=== PATIENT | male | born 1955 | race Caucasian/White ===

== ENCOUNTER 2016-10-12 20:03 | Emergency (ER) | payer MEDICARE ==
[2016-10-12] MEDS ORDERED: Sodium Chloride 0.9% 1000 ML 1,000 ML ONE ×2 (20:18→21:02)
[2016-10-12] MEDS: Sodium Chloride 0.9% 1000 ML 1,000 ML IV SCH ×2 (20:32→21:03)
[2016-10-12 20:33] LABS: Mean Cell Volume 97.5 fl (78-100); Mean Corpuscular Hemoglobin 31.8 pg (26-32); Mean Platelet Volume 10.9 fl (6-9.5); Platelet Count 252 K/mm3 (150-450); Red Blood Count 3.55 M/mm3 (4.1-5.6); Red Cell Distribution Width 15.2 % (11.5-14.0); White Blood Count 9.3 K/mm3 (4.0-10.5)
[2016-10-12 20:37] LABS: VBG BASE EXCESS -0.6 (-2.0-2.0); VBG HCO3- 25.8 meq/L (22-28); VBG HEMOGLOBIN 11.4; VBG O2 SATURATION 35.5 (95-100); VBG POTASSIUM 4.5 (3.5-5.1); VBG pH 7.33 (7.32-7.42)
--- NOTE | 2016-10-12 20:39 | ERPHSYRPT ---
- History of Present Illness Time Seen by Provider: 10/12/16 20:09 Source: patient, family (daughter) Patient Subjective Stated Complaint: Family sts vomiting last week, sts pt has been weak since. Not wanting to eat, drink. Notified family yesterday that he was having weakness and trouble ambulating. Today is worse. Family sts pt has baseline confusion due to brain aneurysm. Also sts several strokes in the past. Family sts increasing confusion today. Triage Nursing Assessment: Pt alert, answers questions appropriately. Oral mucosa dry. Pt able to stand and transfer self from wheelchair to bed. Gait slow, steady. Lung sound dimished all cobb with expriatory wheezes left upper and lower. Cough noted - non-productive. Physician History: CC: weakness hx: 61 y/o patient of Dr Clark. He has hx of COPD. He has some dementia and memory loss since cerebral aneurysm 2 years ago. He has no hx of heart disease. Family dispenses his medications at home but unsure of names. He feels generally weak. No focal weakness. Not sure when it started. No fever or chills. Some diarrhea last week. No V/D currently. States has not urinated since yesterday. No chest pain. Some chronic cough. Most hx from daughter. Pt is poor historian. Severity: severe Allergies/Adverse Reactions: No Known Drug Allergies Allergy (Verified 09/12/15 19:13) Home Medications: Alprazolam [Xanax 0.5 mg] 0.5 mg PO QID 08/02/14 [History] Folic Acid 1 mg PO DAILY 08/02/14 [History] Lisinopril 40 mg PO DAILY 04/15/15 [History] Atorvastatin Calcium [Lipitor] 80 mg PO HS 06/20/15 [History] Carvedilol 3.125 mg [Coreg 3.125 MG] 6.25 mg PO BID 06/20/15 [History] Omeprazole 20 MG [Prilosec 20 mg] 20 mg PO BID 06/20/15 [History] Albuterol 2.5 mg/3 ml Neb [Proventil 2.5 mg/3 ml Neb] 2.5 mg IH Q4HPRN PRN 09/10/15 [History] Hx Tetanus, Diphtheria Vaccination/Date Given: Yes Hx Influenza Vaccination/Date Given: Yes Hx Pneumococcal Vaccination/Date Given: Yes - Review of Systems Constitutional: Fatigue, Malaise, Weakness, No Fever, No Chills Eyes: No Symptoms Ears, Nose, & Throat: No Symptoms Respiratory: Cough, No Dyspnea Cardiac: No Chest Pain, No Syncope Abdominal/Gastrointestinal: No Abdominal Pain, No Nausea, No Vomiting Genitourinary Symptoms: Other (decreased urination), No Dysuria Musculoskeletal: No Back Pain Skin: No Rash Neurological: No Headache All Other Systems: Reviewed and Negative - Past Medical History Pertinent Past Medical History: Yes Neurological History: Stroke, TIA, Other ENT History: Cataracts Cardiac History: High Cholesterol, Hypertension Respiratory History: COPD, Emphysema Endocrine Medical History: No Pertinent History Musculoskeletal History: No Pertinent History GI Medical History: No Pertinent History History: Renal Disease Psycho-Social History: Anxiety, Depression Male Reproductive Disorders: No Pertinent History Other Medical History: BRAIN ANEURYSM. Renal insufficiency - Past Surgical History Past Surgical History: Yes Neuro Surgical History: Neurological Surgery, Other Cardiac: No Pertinent History Respiratory: No Pertinent History Gastrointestinal: No Pertinent History Genitourinary: No Pertinent History Musculoskeletal: No Pertinent History Male Surgical History: No Pertinent History Other Surgical History: Brain aneurism, 2 clips in brain 2006 or 2007, CATARACT SURGERY X 3 - Social History Smoking Status: Current every day smoker How long have you smoked: 30 Exposure to second hand smoke: No Drug Use: none Patient Lives Alone: No (family stays with him at home.) - Nursing Vital Signs Nursing Vital Signs: Initial Vital Signs Temperature 98.6 F Temperature Source Rectal Pulse Rate 72 Respiratory Rate 16 Blood Pressure [Right Arm] 83/52 Pain Intensity 0 - Physical Exam General Appearance: alert Eye Exam: PERRL/EOMI, pale conjunctivae, No scleral icterus Ears, Nose, Throat Exam: normal ENT inspection, moist mucous membranes Neck Exam: normal inspection, non-tender, supple Respiratory Exam: diminished breath sounds Cardiovascular Exam: regular rate/rhythm Gastrointestinal/Abdomen Exam: soft, No tenderness, No distention, No mass, No guarding Male Genitalia Exam: normal genitalia Extremity Exam: normal inspection, normal range of motion Neurologic Exam: alert, cooperative, No motor deficits Skin Exam: warm, dry, No rash SpO2 Interpretation: normal SpO2: 98 Oxygen Delivery: Room Air Comments: 10/12/16 20:37 hypotensive - Course Nursing assessment & vital signs reviewed: Yes EKG Interpreted by Me: RATE (86), Sinus Rhythm, NORMAL AXIS, NORMAL INTERVALS ( QTc 421), Non-specific ST Changes, Other (Poor R wave progression) - Radiology Exams cxr X-ray Interpretation: Reviewed by me (COPD, can not rule out LLL infiltrate) Ordered Tests: Active Orders 24 hr Category Date Time Status Shed Workers Supervisor STAT Care 10/12/16 20:20 Active Clean Catch Urine Specimen STAT Care 10/12/16 20:20 Inactive EKG-ER Only STAT Care 10/12/16 20:23 Active Casper [Catheter-[place] Casper] STAT Care 10/12/16 20:50 Active IV Insertion STAT Care 10/12/16 20:30 Active IV Insertion-2nd Peripheral STAT Care 10/12/16 20:55 Active Pulse Oximetry (ED) STAT Care 10/12/16 20:20 Active Rectal Temperature STAT Care 10/12/16 20:20 Active Saline Lock STAT Care 10/12/16 20:20 Active CHEST 1 VIEW (PORTABLE) Stat Exams 10/12/16 20:21 Taken BLOOD CULTURE Stat Lab 10/12/16 20:47 Received CBC W DIFF Stat Lab 10/12/16 20:27 Completed CMP Stat Lab 10/12/16 20:27 Completed CULTURE,URINE Stat Lab 10/12/16 20:49 Received Glucose,Critical Care Stat Lab 10/12/16 20:20 Completed Lactic Acid Stat Lab 10/12/16 20:28 Results Manual Differential NC Stat Lab 10/12/16 20:27 Completed PROTIME WITH INR Stat Lab 10/12/16 20:27 Completed PTT Stat Lab 10/12/16 20:27 Completed TROPONIN Stat Lab 10/12/16 20:27 Completed UA W/ MICROSCOPIC Stat Lab 10/12/16 20:52 Completed VENOUS BLOOD GAS Stat Lab 10/12/16 20:20 Completed Medication Summary Generic Name Dose Route Start Last Admin Trade Name Freq PRN Reason Stop Dose Admin Sodium Chloride 1,000 mls @ 999 mls/hr 10/12/16 20:30 10/12/16 21:03 Sodium Chloride 0.9% 1000 Ml IV 10/12/16 22:30 999 mls/hr .Q1H1M DONALDO Administration Ceftriaxone Sodium/Dextrose 1 g in 50 mls @ 100 mls/hr 10/12/16 21:09 21:12 Rocephin 1 Gm-D5w 50 Ml Bag IV 10/12/16 21:38 100 mls/hr STAT STA Administration Azithromycin 500 mg in 250 mls @ 250 mls/hr 10/12/16 21:16 10/12/16 21:21 Zithromax 500 Mg/ 250 Ml Nacl Premix IV 10/12/16 22:15 250 mls/hr STAT STA Administration Discontinued Medications Generic Name Dose Route Start Last Admin Trade Name Emanuel PRN Reason Stop Dose Admin Sodium Chloride Confirm 10/12/16 20:18 Sodium Chloride 0.9% 1000 Ml Administered 10/12/16 20:19 Dose 1,000 mls @ ud .ROUTE .STK-MED ONE Ceftriaxone Sodium/Dextrose Confirm 10/12/16 21:11 Rocephin 1 Gm-D5w 50 Ml Bag Administered 10/12/16 21:12 Dose 1 g in 50 mls @ ud IV .STK-MED ONE Azithromycin Confirm 10/12/16 21:19 Zithromax 500 Mg/ 250 Ml Nacl Premix Administered 10/12/16 21:20 Dose 500 mg in 250 mls @ ud IV .STK-MED ONE Lab/Rad Data: Laboratory Result Diagrams 10/12/16 20:27 10/12/16 20:27 Laboratory Results 10/12/16 10/12/16 10/12/16 Range/Units 20:52 20:28 20:27 WBC (4.0-10.5) K/mm3 RBC (4.1-5.6) M/mm3 Hgb (12.5-18.0) gm/dl Hct (42-50) % MCV (78-100) fl MCH (26-32) pg MCHC (32-36) g/dl RDW (11.5-14.0) % Plt Count (150-450) K/mm3 MPV (6-9.5) fl INR (0.8-3.0) APTT (24.1-36.1) SECONDS VBG pH (7.32-7.42) VBG pCO2 at Pat Temp (42-55) mm/Hg VBG pO2 at Pat Temp (25-40) mm/Hg VBG HCO3 (22-28) meq/L VBG O2 Sat ([place]) (95-100) VBG Base Excess (-2.0-2.0) VBG Hemoglobin VBG Carboxyhemoglobin (0.0-6.9) % T HGB POC Potassium (3.5-5.1) Glucose (70-110) Sodium (136-145) mEq/L Potassium (3.5-5.1) mEq/L Chloride (98-107) mEq/L Carbon Dioxide (21-32) mEq/L Anion Gap (5-15) MEQ/L BUN (9-20) mg/dL Creatinine (0.55-1.30) mg/dl Estimated GFR ML/MIN Lactic Acid 2.0 (0.4-2.0) Calcium (8.5-10.1) mg/dL Total Bilirubin (0.2-1.0) mg/dL AST (15-37) U/L ALT (12-78) U/L Alkaline Phosphatase (46-116) U/L Troponin I < 0.017 (0.000-0.056) ng/ml Serum Total Protein (6.4-8.2) gm/dL Albumin (3.4-5.0) g/dL Ur Collection Type CLEAN CATCH Urine Color WES (YELLOW) Urine Appearance CLEAR (CLEAR) Urine pH 5.0 (5-6) Ur Specific [place] >=1.030 (1.005-1.025) Urine Protein TRACE (Negative) Urine Glucose (UA) NEGATIVE (NEGATIVE) mg/dL Urine Ketones NEGATIVE (NEGATIVE) Urine Nitrite NEGATIVE (NEGATIVE) Urine Bilirubin SMALL (NEGATIVE) Urine Urobilinogen 0.2 (0-1) mg/dL Urine WBC (Auto) NEGATIVE (NEGATIVE) Urine RBC (Auto) TRACE-INTACT (0-5) Matthias/ul Urine Microscopic RBC 0-2 (0-2) /HPF Ur Epithelial Cells RARE (FEW) /HPF Urine Bacteria FEW (NEGATIVE) /HPF Specimen Received [id number] 10/12/16 10/12/16 10/12/16 Range/Units 20:27 20:27 20:27 WBC 9.3 (4.0-10.5) K/mm3 RBC 3.55 L (4.1-5.6) M/mm3 Hgb 11.3 L (12.5-18.0) gm/dl Hct 34.6 L (42-50) % MCV 97.5 (78-100) fl MCH 31.8 (26-32) pg MCHC 32.7 (32-36) g/dl RDW 15.2 H (11.5-14.0) % Plt Count 252 (150-450) K/mm3 MPV 10.9 H (6-9.5) fl INR 1.13 (0.8-3.0) APTT 31.8 (24.1-36.1) SECONDS VBG pH (7.32-7.42) VBG pCO2 at Pat Temp (42-55) mm/Hg VBG pO2 at Pat Temp (25-40) mm/Hg VBG HCO3 (22-28) meq/L VBG O2 Sat ([place]liv[place]) (95-100) VBG Base Excess (-2.0-2.0) VBG Hemoglobin VBG Carboxyhemoglobin (0.0-6.9) % T HGB POC Potassium (3.5-5.1) Glucose 102 (70-110) Sodium 139 (136-145) mEq/L Potassium 4.5 (3.5-5.1) mEq/L Chloride 102 (98-107) mEq/L Carbon Dioxide 25.9 (21-32) mEq/L Anion Gap 15.2 H (5-15) MEQ/L BUN 39 H (9-20) mg/dL Creatinine 3.51 H (0.55-1.30) mg/dl Estimated GFR 19 ML/MIN Lactic Acid (0.4-2.0) Calcium 9.5 (8.5-10.1) mg/dL Total Bilirubin 0.40 (0.2-1.0) mg/dL AST 14 L (15-37) U/L ALT 13 (12-78) U/L Alkaline Phosphatase 105 (46-116) U/L Troponin I (0.000-0.056) ng/ml Serum Total Protein 8.3 H (6.4-8.2) gm/dL Albumin 3.1 L (3.4-5.0) g/dL Ur Collection Type Urine Color (YELLOW) Urine Appearance (CLEAR) Urine pH (5-6) Ur Specific [place] (1.005-1.025) Urine Protein (Negative) Urine Glucose (UA) (NEGATIVE) mg/dL Urine Ketones (NEGATIVE) Urine Nitrite (NEGATIVE) Urine Bilirubin (NEGATIVE) Urine Urobilinogen (0-1) mg/dL Urine WBC (Auto) (NEGATIVE) Urine RBC (Auto) (0-5) Matthias/ul Urine Microscopic RBC (0-2) /HPF Ur Epithelial Cells (FEW) /HPF Urine Bacteria (NEGATIVE) /HPF Specimen Received 10/12/16 Range/Units 20:20 WBC (4.0-10.5) K/mm3 RBC (4.1-5.6) M/mm3 Hgb (12.5-18.0) gm/dl Hct (42-50) % MCV (78-100) fl MCH (26-32) pg MCHC (32-36) g/dl RDW (11.5-14.0) % Plt Count (150-450) K/mm3 MPV (6-9.5) fl INR (0.8-3.0) APTT (24.1-36.1) SECONDS VBG pH 7.33 (7.32-7.42) VBG pCO2 at Pat Temp 49 (42-55) mm/Hg VBG pO2 at Pat Temp 21 L (25-40) mm/Hg VBG HCO3 25.8 (22-28) meq/L VBG O2 Sat ([place]liv[place]) 35.5 L (95-100) VBG Base Excess -0.6 (-2.0-2.0) VBG Hemoglobin 11.4 VBG Carboxyhemoglobin 3.0 (0.0-6.9) % T HGB POC Potassium 4.5 (3.5-5.1) Glucose 102 (70-110) Sodium (136-145) mEq/L Potassium (3.5-5.1) mEq/L Chloride (98-107) mEq/L Carbon Dioxide (21-32) mEq/L Anion Gap (5-15) MEQ/L BUN (9-20) mg/dL Creatinine (0.55-1.30) mg/dl Estimated GFR ML/MIN Lactic Acid (0.4-2.0) Calcium (8.5-10.1) mg/dL Total Bilirubin (0.2-1.0) mg/dL AST (15-37) U/L ALT (12-78) U/L Alkaline Phosphatase (46-116) U/L Troponin I (0.000-0.056) ng/ml Serum Total Protein (6.4-8.2) gm/dL Albumin (3.4-5.0) g/dL Ur Collection Type Urine Color (YELLOW) Urine Appearance (CLEAR) Urine pH (5-6) Ur Specific [place] (1.005-1.025) Urine Protein (Negative) Urine Glucose (UA) (NEGATIVE) mg/dL Urine Ketones (NEGATIVE) Urine Nitrite (NEGATIVE) Urine Bilirubin (NEGATIVE) Urine Urobilinogen (0-1) mg/dL Urine WBC (Auto) (NEGATIVE) Urine RBC (Auto) (0-5) Matthias/ul Urine Microscopic RBC (0-2) /HPF Ur Epithelial Cells (FEW) /HPF Urine Bacteria (NEGATIVE) /HPF Specimen Received - Progress Progress Note: 10/12/16 20:38 Pt is hypotensive. Alert and shows no sign of distress. Etiology of hypotension uncertain. Labs ordered. IVF ordered. 10/12/16 21:26 IVF bolus given. BP responding somewhat. He appears dehydrated. Casper placed to monitor urine output. He has dehydration and acute renal failure. Will cover for sepsis. Called Dr Clark who will admit to ICU IP. Discussed with : Eduardo Will see patient in: hospital (full admit) Counseled pt/family regarding: lab results, diagnosis, need for follow-up, rad results - Departure Time of Disposition: 21:27 Departure Disposition: In-patient Admission (ICU) Clinical Impression: COPD (chronic obstructive pulmonary disease), Dehydration, Acute renal failure Condition: Serious Critical Care Time: Yes Critical Care Time(excluding separately billable procedures): 30-74 minutes
[2016-10-12 20:45] LABS: INR 1.13 (0.8-3.0); PROTIME 12.8 SECONDS (8.83-12.87)
[2016-10-12 20:48] LABS: PTT 31.8 SECONDS (24.1-36.1)
[2016-10-12 20:54] LABS: ALBUMIN 3.1 g/dL (3.4-5.0); ANION GAP 15.2 MEQ/L (5-15); BILIRUBIN,TOTAL 0.4 mg/dL (0.2-1.0); Carbon Dioxide 25.9 mEq/L (21-32); Potassium 4.5 mEq/L (3.5-5.1); Total Protein 8.3 gm/dL (6.4-8.2)
[2016-10-12 21:06] LABS: COMPLETE URINE MICROSCOPIC? YES; Collection Type CLEAN CATCH
[2016-10-12 21:07] LABS: Bacteria FEW /HPF (NEGATIVE); Epithelial Cells RARE /HPF (FEW)
[2016-10-12] MEDS ORDERED: ROCEPHIN 1 Gm-D5w 50 ml Bag** 1 G/50 ML IVPB IV STA (21:09)
[2016-10-12] MEDS ORDERED: ROCEPHIN 1 Gm-D5w 50 ml Bag** 1 G/50 ML IVPB IV ONE (21:11)
[2016-10-12] MEDS ORDERED: Zithromax 500 MG/ 250 ML NaCl Premix 500 MG/250 ML IVPB IV STA (21:16)
[2016-10-12] MEDS ORDERED: Zithromax 500 MG/ 250 ML NaCl Premix 500 MG/250 ML IVPB IV ONE (21:19)
[2016-10-12 22:06] LABS: Eosinophil 1 % (0.00-3.0); Platelet Estimate NORMAL (NORMAL); Total Cells Counted 100
[2016-10-12] MEDS ORDERED: DUONEB 0.5-3 MG/3 ml Neb IH ONE ×2 (22:13→22:21)
[2016-10-12 22:29] LABS: VBG BASE EXCESS -6.6 (-2.0-2.0); VBG CARBOXYHEMOGLOBIN 2.2 % T HGB (0.0-6.9); VBG HCO3- 20.6 meq/L (22-28); VBG HEMOGLOBIN 9.5; VBG O2 SATURATION 45.6 (95-100); VBG POTASSIUM 4.5 (3.5-5.1)
[2016-10-12 22:30] LABS: VBG pH 7.24 (7.32-7.42)
[2016-10-12] MEDS ORDERED: Sodium Chloride 0.9% 1000 ML 2,000 ML ONE (22:39)
[2016-10-12] MEDS ORDERED: LEVOPHED 4 MG/4 ML 4,000 MCG in Dextrose 5%/Water IV Soln. 500 ML 500 ML IV PRN (22:48)
[2016-10-12] MEDS ORDERED: Sodium Chloride 0.9% 1000 ML 1,000 ML IV SCH (23:00)
[2016-10-13 00:47] VITALS: BP 98/60; PULSE 75; O2SAT 95
--- NOTE | 2016-10-13 08:41 | XRAY ---
Indication: Cough. Comparison: September 12, 2015. Portable chest again hyperinflated with new small left base infiltrate versus atelectasis. Remaining heart and lungs unremarkable. Bony thorax intact.
== END 2016-10-13 01:00 | disposition short-term general hospital (02) ==
LOC: ED 20:03
DX: N17.9 Acute kidney failure, unspecified (principal); J44.9 Chronic obstructive pulmonary disease, unspecified; I95.89 Other hypotension; E86.0 Dehydration
CPT/HCPCS: 36000; 36415; 51702; 71010; 80053; 81000; 82805; 82947; 83605; 84484; 85025; 85610; 85730; 87040; 87086; 93005; 93041; 94002; 94640; 96360; 96361; 96365; 96366; 96367; 96368; 99291; J0456; J0696; A9270-GY

== ENCOUNTER 2017-07-21 11:24 | Observation (INO) | payer MEDICARE ==
[2017-07-21] MEDS ORDERED: Zofran 4 MG/2 ML VIAL IV ONE (11:46)
[2017-07-21] MEDS ORDERED: Sodium Chloride 0.9% 1000 ML 1,000 ML IV STA (11:46)
--- NOTE | 2017-07-21 11:52 | ERPHSYRPT ---
- History of Present Illness Time Seen by Provider: 07/21/17 11:46 Historian: patient, family Exam Limitations: clinical condition Patient Subjective Stated Complaint: pt arrived per wc with daughter, pt incont of urine,cleaned up and undressed. pt states he does not know why he is here. not eating well, had bm yesterday, but daughter states she thinks he constipated.has cough, unable to swallow pills well Triage Nursing Assessment: pt alert, resp easy,skin w/d/p,pt has tremors, has congested sounding cough, Physician History: mild to mod NV off and on for days, difficulty swallowing, losing weight, no injury, no fever, no pain, hx copd Allergies/Adverse Reactions: No Known Drug Allergies Allergy (Verified 07/21/17 11:40) Home Medications: Alprazolam [Xanax 0.5 mg] 0.5 mg PO QID 08/02/14 [History] Atorvastatin Calcium [Lipitor] 80 mg PO HS 06/20/15 [History] Carvedilol 3.125 mg [Coreg 3.125 MG] 6.25 mg PO BID 06/20/15 [History] Albuterol 2.5 mg/3 ml Neb [Proventil 2.5 mg/3 ml Neb] 2.5 mg IH Q4HPRN PRN 09/10/15 [History] Amlodipine Besylate [Norvasc] 5 mg DAILY 07/21/17 [History] Hx Tetanus, Diphtheria Vaccination/Date Given: Yes Hx Influenza Vaccination/Date Given: Yes Hx Pneumococcal Vaccination/Date Given: Yes Immunizations Up to Date: Yes - Review of Systems Constitutional: Fatigue, No Fever Eyes: No Eye Redness Ears, Nose, & Throat: No Epistaxis Respiratory: Cough, No Cyanosis Cardiac: No Chest Pain Abdominal/Gastrointestinal: Nausea, Vomiting, No Abdominal Pain Skin: No Rash Neurological: No Focal Weakness - Past Medical History Pertinent Past Medical History: Yes Neurological History: Stroke, TIA, Other ENT History: Cataracts Cardiac History: High Cholesterol, Hypertension Respiratory History: COPD, Emphysema Endocrine Medical History: No Pertinent History Musculoskeletal History: No Pertinent History GI Medical History: No Pertinent History History: Renal Disease Psycho-Social History: Anxiety, Depression Male Reproductive Disorders: No Pertinent History Other Medical History: BRAIN ANEURYSM. Renal insufficiency - Past Surgical History Past Surgical History: Yes Neuro Surgical History: Neurological Surgery, Other Cardiac: No Pertinent History Respiratory: No Pertinent History Gastrointestinal: No Pertinent History Genitourinary: No Pertinent History Musculoskeletal: No Pertinent History Male Surgical History: No Pertinent History Other Surgical History: Brain aneurism, 2 clips in brain 2006 or 2007, CATARACT SURGERY X 3 - Social History Smoking Status: Current every day smoker How long have you smoked: 30 Exposure to second hand smoke: Yes Drug Use: none Patient Lives Alone: No - Nursing Vital Signs Nursing Vital Signs: Initial Vital Signs Pulse Rate 76 07/21/17 12:47 Respiratory Rate 16 07/21/17 12:47 Blood Pressure 139/98 07/21/17 12:47 O2 Sat by Pulse Oximetry 98 07/21/17 12:47 Pain Scale Pain Intensity 0 - Physical Exam General Appearance: no apparent distress Eye Exam: No scleral icterus Ears, Nose, Throat Exam: other (buccal dry) Neck Exam: normal inspection Respiratory Exam: normal breath sounds Cardiovascular Exam: regular rate/rhythm Gastrointestinal/Abdomen Exam: soft, No distention, No rebound Extremity Exam: pelvis stable, No pedal edema Neurologic Exam: alert, cooperative Skin Exam: warm, dry Oxygen Delivery: Room Air - Course Nursing assessment & vital signs reviewed: Yes EKG Interpreted by Me: Other (nsr 87 no stemi) - CT Exams Abdomen/Pelvis CT Interpretation: Discussed w/radiologist, Other (constipation) Ordered Tests: Active Orders 24 hr Category Date Time Status EKG-ER Only STAT Care 07/21/17 11:46 Active IV Insertion STAT Care 07/21/17 11:46 Active ABDOMEN AND PELVIS W/0 CONTRAS [CT] Stat Exams 07/21/17 11:47 Completed CHEST 1 VIEW (PORTABLE) Stat Exams 07/21/17 11:47 Completed CBC W DIFF Stat Lab 07/21/17 12:25 Completed CMP Stat Lab 07/21/17 12:25 Completed LIPASE Stat Lab 07/21/17 12:25 Completed Lactic Acid Stat Lab 07/21/17 12:30 Completed TROPONIN Q3H Lab 07/21/17 12:25 Completed TROPONIN Q3H Lab 07/21/17 15:00 Ordered TROPONIN Q3H Lab 07/21/17 18:00 Ordered TROPONIN Q3H Lab 07/21/17 21:00 Ordered TROPONIN Q3H Lab 07/22/17 00:00 Ordered UA W/RFX UR CULTURE Stat Lab 07/21/17 13:45 Completed Transfer Order Routine Transfer 07/21/17 Ordered Medication Summary Discontinued Medications Generic Name Dose Route Start Last Admin Trade Name Emanuel PRN Reason Stop Dose Admin Sodium Chloride 1,000 mls @ 999 mls/hr 07/21/17 11:46 07/21/17 12:15 Sodium Chloride 0.9% 1000 Ml IV 07/21/17 12:46 999 mls/hr .Q1H1M STA Administration Sodium Chloride Confirm 07/21/17 12:10 Sodium Chloride 0.9% 1000 Ml Administered 07/21/17 12:11 Dose 1,000 mls @ ud .ROUTE .STK-MED ONE Ondansetron HCl 4 mg 07/21/17 11:46 07/21/17 12:15 Zofran 4 Mg/2 Ml Vial IV 07/21/17 11:47 4 mg STAT ONE Administration Ondansetron HCl Confirm 07/21/17 12:10 Zofran 4 Mg/2 Ml Vial Administered 07/21/17 12:11 Dose 4 mg .ROUTE .STK-MED ONE Lab/Rad Data: Laboratory Result Diagrams 07/21/17 12:25 07/21/17 12:25 Laboratory Results 07/21/17 07/21/17 07/21/17 Range/Units 13:45 12:30 12:25 WBC (4.0-10.5) K/mm3 RBC (4.1-5.6) M/mm3 Hgb (12.5-18.0) gm/dl Hct (42-50) % MCV (78-100) fl MCH (26-32) pg MCHC (32-36) g/dl RDW (11.5-14.0) % Plt Count (150-450) K/mm3 MPV (6-9.5) fl Gran % (36.0-66.0) % Lymphocytes % (24.0-44.0) % Monocytes % (0.0-12.0) % Eosinophils % (0.00-5.0) % Basophils % (0.0-0.4) % Basophils # (0-0.4) Sodium (137-145) mmol/L Potassium (3.5-5.1) mmol/L Chloride (98-107) mmol/L Carbon Dioxide (22-30) mmol/L Anion Gap (5-15) MEQ/L BUN (9-20) mg/dL Creatinine (0.66-1.25) mg/dL Estimated GFR ML/MIN Glucose (74-106) mg/dL Lactic Acid 1.4 (0.4-2.0) Calcium (8.4-10.2) mg/dL Total Bilirubin (0.2-1.3) mg/dL AST (17-59) U/L ALT (0-50) U/L Alkaline Phosphatase (38-126) U/L Troponin I < 0.012 (0.000-0.034) ng/mL Serum Total Protein (6.3-8.2) g/dL Albumin (3.5-5.0) g/dL Lipase (23-300) U/L Ur Collection Type VOID Urine Color YELLOW (YELLOW) Urine Appearance CLEAR (CLEAR) Urine pH 8.0 (5-6) Ur Specific [place] 1.010 (1.005-1.025) Urine Protein NEGATIVE (Negative) Urine Ketones NEGATIVE (NEGATIVE) Urine Blood NEGATIVE (0-5) Matthias/ul Urine Nitrite NEGATIVE (NEGATIVE) Urine Bilirubin NEGATIVE (NEGATIVE) Urine Urobilinogen NORMAL (0-1) mg/dL Ur Leukocyte Esterase NEGATIVE (NEGATIVE) Urine Culture Reflexed NO (NO) Urine Glucose NEGATIVE (NEGATIVE) mg/dL Specimen Received 07/21/17 1330 07/21/17 07/21/17 Range/Units 12:25 12:25 WBC 7.7 (4.0-10.5) K/mm3 RBC 3.64 L (4.1-5.6) M/mm3 Hgb 11.6 L (12.5-18.0) gm/dl Hct 35.3 L (42-50) % MCV 97.0 (78-100) fl MCH 31.8 (26-32) pg MCHC 32.9 (32-36) g/dl RDW 15.9 H (11.5-14.0) % Plt Count 234 (150-450) K/mm3 MPV 10.5 H (6-9.5) fl Gran % 76.4 H (36.0-66.0) % Lymphocytes % 18.2 L (24.0-44.0) % Monocytes % 5.0 (0.0-12.0) % Eosinophils % 0.1 (0.00-5.0) % Basophils % 0.3 (0.0-0.4) % Basophils # 0.02 (0-0.4) Sodium 144 (137-145) mmol/L Potassium 3.5 (3.5-5.1) mmol/L Chloride 102 (98-107) mmol/L Carbon Dioxide 31 H (22-30) mmol/L Anion Gap 13.7 (5-15) MEQ/L BUN 15 (9-20) mg/dL Creatinine 0.81 (0.66-1.25) mg/dL Estimated GFR > 60 ML/MIN Glucose 99 (74-106) mg/dL Lactic Acid (0.4-2.0) Calcium 9.4 (8.4-10.2) mg/dL Total Bilirubin 0.70 (0.2-1.3) mg/dL AST 22 (17-59) U/L ALT 16 (0-50) U/L Alkaline Phosphatase 147 H (38-126) U/L Troponin I (0.000-0.034) ng/mL Serum Total Protein 7.5 (6.3-8.2) g/dL Albumin 4.0 (3.5-5.0) g/dL Lipase 119 (23-300) U/L Ur Collection Type Urine Color (YELLOW) Urine Appearance (CLEAR) Urine pH (5-6) Ur Specific [place] (1.005-1.025) Urine Protein (Negative) Urine Ketones (NEGATIVE) Urine Blood (0-5) Matthias/ul Urine Nitrite (NEGATIVE) Urine Bilirubin (NEGATIVE) Urine Urobilinogen (0-1) mg/dL Ur Leukocyte Esterase (NEGATIVE) Urine Culture Reflexed (NO) Urine Glucose (NEGATIVE) mg/dL Specimen Received - Progress Progress: unchanged Progress Note: 07/21/17 14:45 admit d/w Dr Clark consult d/w Dr Alvarez Discussed with : Eduardo Will see patient in: hospital (observation) Counseled pt/family regarding: lab results, diagnosis, rad results - Departure Time of Disposition: 14:45 Departure Disposition: Observation Clinical Impression: Dysphagia Qualifiers: Dysphagia type: unspecified Qualified Code(s): R13.10 - Dysphagia, unspecified Condition: Stable Critical Care Time: No Referrals: KEVIN CLARK [Primary Care Provider] -
[2017-07-21] MEDS ORDERED: Sodium Chloride 0.9% 1000 ML 1,000 ML ONE (12:10)
[2017-07-21] MEDS ORDERED: Zofran 4 MG/2 ML VIAL ONE (12:10)
--- NOTE | 2017-07-21 12:22 | XRAY ---
Indication: Abdominal pain, nausea, vomiting, and loss of appetite. Multiple contiguous axial images obtained through the abdomen and pelvis without contrast as ordered. Comparison: October 07, 2014. Study again degraded by respiration artifact. Lung bases essentially clear. Heart is not enlarged. There is now small hiatal hernia. Noncontrasted stomach and bowels appear nonobstructed. There is now marked diffuse scattered colonic fecal debris greatest in the rectum. Again scattered colonic diverticulosis without diverticulitis. Normal appendix. No free fluid/air. Right posterior urinary bladder now demonstrates faint curvilinear calcifications either bladder calculi versus calcified bladder wall mass. There remains hepatic/splenic calcified granulomas and atrophic left kidney with nonobstructing micro-calculus. Remaining liver, gallbladder, pancreas, spleen, adrenal glands, right kidney, and right ureter unremarkable for noncontrast exam. There remains heavy aortoiliac calcifications without AAA. Osseous structures intact. Impression: 1. Again respiration artifact. 2. New posterior urinary bladder calculi versus calcified wall mass. Direct cystoscopy may yield further information. 3. New marked fecal stasis with rectal impaction. 4. New small hiatal hernia. 5. Stable colonic diverticulosis and atrophic left kidney with nonobstructing micro-calculus. CT DI 9.98
--- NOTE | 2017-07-21 12:24 | XRAY ---
Indication: Nausea, vomiting, and difficulty swallowing. Comparison: October 12, 2016. Portable chest hyperinflated and clear. Heart and mediastinal structures within normal limits. Bony thorax intact. Impression: Nonacute hyperinflated chest.
[2017-07-21 12:34] LABS: BASOPHIL % 0.3 % (0.0-0.4); Basophil (Absolute #) 0.02 (0-0.4); Eosinophil % 0.1 % (0.00-5.0); Eosinophil (Absolute #) 0.01 (0-0.5); Granulocytes % 76.4 % (36.0-66.0); Hematocrit 35.3 % (42-50); Hemoglobin 11.6 gm/dl (12.5-18.0); Lymphocyte (Absolute #) 1.41 (1.0-4.6); Lymphocytes % 18.2 % (24.0-44.0); Mean Corpuscular Hgb Concent. 32.9 g/dl (32-36); Mean Platelet Volume 10.5 fl (6-9.5); Monocyte (Absolute #) 0.39 (0.0-1.3); Platelet Count 234 K/mm3 (150-450); Red Blood Count 3.64 M/mm3 (4.1-5.6); Red Cell Distribution Width 15.9 % (11.5-14.0); White Blood Count 7.7 K/mm3 (4.0-10.5)
[2017-07-21 12:37] LABS: Mean Corpuscular Hemoglobin 31.8 pg (26-32)
[2017-07-21 12:47] LABS: ALKALINE PHOSPHATASE 147 U/L (38-126); ANION GAP 13.7 MEQ/L (5-15); BLOOD UREA NITROGEN 15 mg/dL (9-20); CHLORIDE 102 mmol/L (98-107); Calcium 9.4 mg/dL (8.4-10.2); Carbon Dioxide 31 mmol/L (22-30); Creatinine 1 0.81 mg/dL (0.66-1.25); Glucose 99 mg/dL (74-106); LIPASE 119 U/L (23-300); Potassium 3.5 mmol/L (3.5-5.1); SGOT/AST 22 U/L (17-59); SGPT/ALT 16 U/L (0-50); SODIUM 144 mmol/L (137-145); Total Protein 7.5 g/dL (6.3-8.2)
[2017-07-21 13:58] LABS: Appearance CLEAR (CLEAR); Bilirubin NEGATIVE (NEGATIVE); Blood NEGATIVE Ery/ul (0-5); Glucose NEGATIVE (NEGATIVE); Ketones NEGATIVE (NEGATIVE); Leukocyte Esterase NEGATIVE (NEGATIVE); Nitrite NEGATIVE (NEGATIVE); Protein,Urine Dip NEGATIVE (Negative); Urobilinogen NORMAL mg/dL (0-1)
[2017-07-21] MEDS ORDERED: Zofran 4 MG/2 ML VIAL IV PRN (15:55)
[2017-07-21] MEDS ORDERED: Sodium Chloride 0.9% 1000 ML 1,000 ML IV SCH (15:55)
[2017-07-21] MEDS ORDERED: Wellbutrin SR 150 MG PO SCH (22:00)
[2017-07-21] MEDS ORDERED: xanAX 0.5 MG PO SCH (22:00)
[2017-07-21] MEDS ORDERED: Coreg 6.25 MG PO SCH (22:00)
[2017-07-21] MEDS ORDERED: ZOCOR 20MG PO SCH (22:00)
[2017-07-22] MEDS ORDERED: xanAX 0.5 MG PO PRN (06:29)
[2017-07-22 07:06] VITALS: BP 130/81; PULSE 80; O2SAT 95
--- NOTE | 2017-07-22 07:43 | CONS ---
CONSULT DATE: 07/21/2017 Dr. Frost is refrigeration operator for our group and he asked that I come down and see the patient. HISTORY: The patient is a 62 year-old gentleman who had cerebral aneurysm clipped in the past. He had some mini-strokes. He has chronic history of dysphagia. He has had dilatation in the past. He has had a couple weeks problem gagging on his pills. He said he is tolerating solid food and keeping liquids down. The family reported according to the nurse that he lost 20 pounds since last December. PAST MEDICAL HISTORY: Hypertension. He has history of cerebral aneurysm in the past and chronic obstructive pulmonary disease. PAST SURGICAL HISTORY: He had brain surgery aneurysm clipped back in 2007. He had cataract surgery in the past. He had endoscopy in the past. MEDICATIONS: Xanax, Lipitor, Coreg, Proventil, Norvasc. ALLERGIES: NKDA. FAMILY HISTORY: The patient is unclear on his family history. No reported history of esophageal cancer. SOCIAL HISTORY: One pack per day smoker. No alcohol abuse. REVIEW OF SYSTEMS: Twelve systems reviewed per admission assessment. No chest pain or palpitations other systems negative or noncontributory as above and per preadmission questionnaire. He does have some essential tremors. He has had some hypertension, hypercholesterolemia. He had some anxiety in the past. PHYSICAL EXAMINATION: GENERAL: A chronically ill gentleman. HEENT: Sclera nonicteric. NECK: No JVD. CHEST: Equal excursion, nonlabored breathing. CVS: Regular rhythm and pulse. ABDOMEN: Soft, nontender. No peritoneal signs. EXTREMITIES: No significant edema. NEURO: Alert. He does have some resting tremors. He has had history of cerebral aneurysm in the past. Currently he is moving his extremities. LAB DATA AND TESTS: CT scan abdomen and pelvis small hiatal hernia, question of bladder calculus versus calcified wall mass and stool in his rectum, nonobstructing microcalculus, atrophic left kidney, diverticulosis otherwise no acute abdominal findings. IMPRESSION: Chronic dysphagia, chronic weight loss. No need for emergent surgery. He said he is tolerating liquids and solids. He does have a problem with choking on pills. At some point he would benefit from upper endoscopy possible biopsy, possible dilatation. Will have to see when OR time is available but again not emergent as this is a chronic problem. General risk of bleeding, infection, risk of bowel injury or perforation possibly requiring open procedure, risk of ongoing morbidity/mortality but not limited to. Consent obtained.
--- NOTE | 2017-07-22 08:37 | PCM.SSS ---
History of Present Illness - Chief Complaint Chief Complaint: dysphagia History of Present Illness: is a 62 year old male pt of mine from [facility] with dementia who saw Mike Dash yesterday in office. He was found to be dehydrated with abdominal pain and vomiting. In ER he was given IV fluids. Labs were non acute but he had a complaint of not swallowing pills well for the past 3 wks or so (per pt). He was admitted and surgery consulted for possible EGD this morning. I spoke wiht the patient this morning; he is feeling muchbetter, abd pain is gone, so will set up for EGD outpatient. He has had his esophagus stretched before. His breathing is fine this morning. He does think it is Dec 2010. He knows he is in [facility]. - Review of Systems All Other Systems: Unable due to dementia Medications & Allergies Home Medications: Home Medication List Alprazolam [Xanax 0.5 mg] 0.5 mg PO BID 08/02/14 [History Confirmed 07/21/17] Bupropion HCl 150 mg Sr [Wellbutrin SR 150 MG] 150 mg PO BID #60 tablet.sa 05/29/15 [Rx Confirmed 07/21/17] Atorvastatin Calcium [Lipitor] 80 mg PO HS 06/20/15 [History Confirmed 07/21/17] Carvedilol 3.125 mg [Coreg 3.125 MG] 6.25 mg PO BID 06/20/15 [History Confirmed 07/21/17] Albuterol 2.5 mg/3 ml Neb [Proventil 2.5 mg/3 ml Neb] 2.5 mg IH Q4HPRN PRN 09/10/15 [History Confirmed 07/21/17] Amlodipine Besylate [Norvasc] 10 mg DAILY 07/21/17 [History Confirmed 07/21/17] Allergies/Adverse Reactions: Allergies Allergy/AdvReac Type Severity Reaction Status Date / Time No Known Drug Allergies Allergy Verified 07/21/17 11:40 - Past Medical History Past Medical History: Yes Neurological History: Stroke, TIA, Other ENT History: Cataracts Cardiac History: High Cholesterol, Hypertension Respiratory History: COPD, Emphysema Endocrine Medical History: No Pertinent History Musculoskelatal History: No Pertinent History GI Medical History: No Pertinent History History: Renal Disease Pyscho-Social History: Anxiety, Depression Male Reproductive Disorders: No Pertinent History Comment: BRAIN ANEURYSM. Renal insufficiency - Past Surgical History Past Surgical History: Yes Neuro Surgical History: Neurological Surgery, Other Cardiac History: No Pertinent History Respiratory Surgery: No Pertinent History GI Surgical History: No Pertinent History Genitourinary Surgical Hx: No Pertinent History Musculskeletal Surgical Hx: No Pertinent History Male Surgical History: No Pertinent History Other Surgical History: Brain aneurism, 2 clips in brain 2006 or 2007, CATARACT SURGERY X 3 - Social History Smoking Status: Current every day smoker How long have you smoked: 30 Exposure to second hand smoke: Yes Alcohol: None Drug Use: none - Physical Exam Vital Signs: Vital Signs - 24 hr Temp Pulse Resp BP Pulse Ox 07/22/17 07:00 97.9 F 80 18 130/81 95 07/22/17 03:00 98.1 F 77 16 148/91 93 L 07/22/17 00:00 98.3 F 77 18 133/83 96 07/21/17 23:00 98.3 F 77 18 133/83 96 07/21/17 20:00 98.5 F 87 16 119/93 96 07/21/17 19:55 98.5 F 87 16 176/104 96 07/21/17 15:55 97.8 F 76 18 139/98 96 07/21/17 12:47 76 16 139/98 98 General Appearance: no apparent distress, alert Neurologic Exam: cooperative, disoriented Eye Exam: eyes nml inspection Respiratory Exam: lungs clear, diminished breath sounds, prolonged expirations, No crackles/rales, No rhonchi, No wheezing Cardiovascular Exam: regular rate/rhythm, normal heart sounds, No murmur Gastrointestinal/Abdomen Exam: soft, normal bowel sounds, No tenderness, No distention, No mass, No guarding, No rebound Extremity Exam: No pedal edema, No swelling Skin Exam: normal color, warm, dry, No rash Results - Labs Lab/Micro Results: Lab Results-Last 24 Hours 07/21/17 07/21/17 07/22/17 Range/Units 18:25 21:41 00:15 Troponin I < 0.012 < 0.012 < 0.012 (0.000-0.034) ng/mL - Other Procedures and Tests Respiratory Therapy 07/21/17 17:02 Smoking Cessation Education ONCE Assessment/Plan (1) Abdominal pain Current Visit: Yes Status: Acute Qualifiers: Abdominal location: periumbilical Qualified Code(s): R10.33 - Periumbilical pain Assessment & Plan: resolved Code(s): R10.9 - UNSPECIFIED ABDOMINAL PAIN (2) Dehydration Current Visit: No Status: Acute Assessment & Plan: Resolved Code(s): E86.0 - DEHYDRATION (3) Dysphagia Current Visit: Yes Status: Acute Qualifiers: Dysphagia type: unspecified Qualified Code(s): R13.10 - Dysphagia, unspecified Assessment & Plan: will set up outpatient for EGD. Code(s): R13.10 - DYSPHAGIA, UNSPECIFIED Hospital Summary - Hospital Course Hospital Course: Pt admitted with abd pain and dehydration, given IVF in the ER and was doing better. Labs non acute. He was admitted d/t recent history of dysphagia and hx esophageal dilatation. This morning his abd pain is resolved; will go home after eating and get EGD outpatient. - Vitals & Intake/Output Vital Signs: Vital Signs Temperature 97.9 F 07/22/17 07:00 Pulse Rate 80 07/22/17 07:00 Respiratory Rate 18 07/22/17 07:00 Blood Pressure 130/81 07/22/17 07:00 O2 Sat by Pulse Oximetry 95 07/22/17 07:00 Intake & Output: Intake & Output 07/19/17 07/20/17 07/21/17 07/22/17 11:59 11:59 11:59 11:59 Intake Total 0 Balance 0 Weight 53.6 kg - Lab Result Diagrams: 07/21/17 12:25 07/21/17 12:25 Lab Results-Last 24 Hrs: Lab Results-Last 24 Hours 07/21/17 07/21/17 07/22/17 Range/Units 18:25 21:41 00:15 Troponin I < 0.012 < 0.012 < 0.012 (0.000-0.034) ng/mL - Procedures and Test Procedures and Tests throughout Hospitalization: Therapy Orders & Screens 07/21/17 17:02 Smoking Cessation Education ONCE Comment: Diagnosis: dysphagia Smoking Status: Current every day smoker How long have you smoked: 30 Have you smoked in the past 12 months: Yes Approximately how many cigarettes per day: over a pack Do you dip or chew tobacco: No If,Former Smoker,when did you quit: 2016 ST Screen per Nursing Assess once Comment: Protocol Order Physician Instructions: Greater than [address] Admission Screening Reason For Exam: Triggered on Admission Diagnosis: dysphagia CVA/Dyshpagia/Aphasia: Yes Cognitive Deficits: No Dehydration/Nutrition Deficit: Yes Reflux: Yes Oral-Motor Difficulties: No Pneumonia: No Jail Resident: No Total Points: 13 - Discharge Disposition: Home, Self-Care Condition: Good Prescriptions: No Action Alprazolam [Xanax 0.5 mg] 0.5 mg PO BID Bupropion HCl 150 mg Sr [Wellbutrin SR 150 MG] 150 mg PO BID #60 tablet.sa Atorvastatin Calcium [Lipitor] 80 mg PO HS Carvedilol 3.125 mg [Coreg 3.125 MG] 6.25 mg PO BID Albuterol 2.5 mg/3 ml Neb [Proventil 2.5 mg/3 ml Neb] 2.5 mg IH Q4HPRN PRN PRN Reason: resp Amlodipine Besylate [Norvasc] 10 mg DAILY Follow up with: KEVIN RESTREPO [Primary Care Provider] - 1 Week
[2017-07-22] MEDS ORDERED: PROVENTIL 2.5 MG/3 ML NEB IH PRN (09:22)
[2017-07-22] MEDS ORDERED: xanAX 0.5 MG PO SCH (10:00)
[2017-07-22] MEDS ORDERED: NORVASC 5 MG PO SCH (10:00)
== END 2017-07-22 10:00 | disposition home or self-care (01) ==
LOC: ED 11:24 → MED SURG 15:50
PROVIDERS: ADMIT Family Medicine; ATTEND Family Medicine
DX: R10.33 Periumbilical pain (principal); E86.0 Dehydration; R13.10 Dysphagia, unspecified; R63.4 Abnormal weight loss; F03.90 Unspecified dementia, unspecified severity, without behavioral disturbance, psychotic disturbance, mood disturbance, and anxiety; F41.8 Other specified anxiety disorders; J44.9 Chronic obstructive pulmonary disease, unspecified; K21.9 Gastro-esophageal reflux disease without esophagitis; I12.9 Hypertensive chronic kidney disease with stage 1 through stage 4 chronic kidney disease, or unspecified chronic kidney disease; N18.3 Chronic kidney disease, stage 3 (moderate); Z79.899 Other long term (current) drug therapy; Z86.73 Personal history of transient ischemic attack (TIA), and cerebral infarction without residual deficits; Z72.0 Tobacco use
CPT/HCPCS: 36000; 36415; 71045; 74176; 80053; 81002; 83605; 83690; 84484; 85025; 93005; 96360; 96374; 99285; G0378; J2405; A9270-GY

== ENCOUNTER 2017-08-30 08:42 | Day surgery (SDC) | payer MEDICARE ==
--- NOTE | 2017-08-30 08:26 | HP ---
DATE OF SURGERY: 08/30/2017 HISTORY OF PRESENT ILLNESS: The patient is a 62 year-old with problems with upper esophagus, dysphagia pills and thin liquids not as bad with pudding according to the patient. History of prior upper endoscopy and dilatation in the past a year or so ago he said. PAST MEDICAL HISTORY: Stroke, chronic obstructive pulmonary disease. He had a brain aneurysm in the past. PAST SURGICAL HISTORY: Cataract surgery, two clips in his head for brain aneurysm in the past. Upper endoscopy with dilatation in the past elsewhere. MEDICATIONS: Xanax, Lipitor, Coreg, Proventil, Norvasc. ALLERGIES: NKDA. FAMILY HISTORY: Negative in regards to this problem. SOCIAL HISTORY: One pack per day smoker, denies alcohol abuse. REVIEW OF SYSTEMS: Twelve systems reviewed per admission assessment. No chest pain or palpitations other systems negative or noncontributory as above and per preadmission questionnaire. PHYSICAL EXAMINATION: GENERAL: No acute distress. HEENT: Sclerae nonicteric. NECK: No JVD. CHEST: Equal excursion, nonlabored breathing. CVS: Regular rate and rhythm. ABDOMEN: Soft. No peritoneal signs. EXTREMITIES: No significant edema. NEURO: Alert, oriented, answering questions appropriately. He has prior history of mini-strokes in the past and cerebral aneurysm clipped. IMPRESSION: Dysphagia upper esophagus. I feel the patient would benefit from upper endoscopy possible dilatation, possible biopsy. Risks and benefits explained in detail including but not limited to bleeding or infection, small risk of bowel injury or perforation possibly requiring open procedure, risk of missed or nondiagnosis or incomplete exam possibly requiring barium swallow, other studies or procedures, general risk of anesthesia or sedation. He also understands possibility if dilatation performed and improves that he may need it repeated again in the future. He also understands possibility if this is more of a neurologic problem that dilatation may not help as much. He may need continued medical management if it is more of a neurologic issue rather than a narrowing or mechanical narrowing issue. He understands all of the above but not limited to, will proceed with EGD possible biopsy, possible dilatation as an outpatient.
[~2017-08-30 08:42] MED LIST: Lactated Ringers 1,000 ML IV SCH
[2017-08-30] MEDS ORDERED: Ketamine HCl 50 MG/ML IV ONE (08:43)
[2017-08-30] MEDS ORDERED: DIPRIVAN 200 MG/20 ML IV ONE (08:43)
[2017-08-30] MEDS ORDERED: Lactated Ringers 1,000 ML IV ONE ×2 (09:00→13:26)
[2017-08-30 12:47] VITALS: BP 146/88; PULSE 73; O2SAT 99
--- NOTE | 2017-08-31 08:03 | OP ---
SURGERY DATE/TIME: 08/30/2017 1108 PREOPERATIVE DIAGNOSIS: Dysphagia. POSTOPERATIVE DIAGNOSES: 1) Symptomatic proximal esophageal narrowing and spasm. 2) Slight hiatal hernia. 3) Mild gastritis. 4) Short segment distal gastroesophagitis. PROCEDURES: 1) EGD with cold biopsy of the antrum to evaluate for Helicobacter pylori. 2) Cold biopsy distal esophagus to evaluate for esophagitis. 3) Esophageal balloon dilatation proximal esophagus (size 20 balloon dilator). SURGEON: Dr. Reynold Alvarez. ENTERTAINMENT MANAGER: Tal Choi, Medical Student III. ANESTHESIA: MAC. ESTIMATED BLOOD LOSS: Minimal. INDICATIONS: As noted above. Risks and benefits explained in detail and not limited to and consent obtained. DESCRIPTION OF PROCEDURE AND FINDINGS: The patient is taken to the operating room. MAC anesthesia was introduced. After official time out and no disagreement with planned procedure, a bite block positioned. Video gastroscope passed into the oropharynx. There was a tight area in the very proximal esophagus with spasm this is where he is having his symptoms. It was felt he would benefit from dilation. There was no evidence of any mass to biopsy. The scope was able to be just passed through this area through the distal esophagus through the patent pylorus to the junction of the second and third portion of the duodenum. Duodenum and duodenal bulb were grossly unremarkable. Back in the stomach some gastritis was noted, mild gastritis. A cold biopsy taken to evaluate for Helicobacter pylori for REJI-test. Good hemostasis noted. On retroflex there was a very small slight hiatal hernia. No evidence of any large defect. There were no signs of any ulcers, masses or other mucosal lesions. The scope pulled back up the gastroesophageal junction noted to be about 40 cm. A very short segment of 0.5 cm or so of a little fingerlet of distal gastroesophagitis versus early Chapin's. Cold biopsy taken. Good hemostasis noted. Otherwise the remainder of the esophagus grossly unremarkable up to the proximal narrowed area. It was felt this needed dilated. The scope passed back down in the stomach. The balloon dilator size 20 was carefully inserted, pulled back up to the narrowed area proximal esophagus and gradually inflated to first stage for 40 to 45 seconds, second stage 40 to 45 seconds, final stage size 20 balloon dilator for 2 minutes. The balloon was then decompressed and removed. Careful inspection. The scope was passed back down into the stomach and gradually withdrawn. The distal esophageal biopsy site and stomach biopsy sites had good hemostasis. The scope was pulled back to the dilated area. Again this was much more widely patent. There were superficial abrasion of the mucosa but no evidence of any full thickness issues or injury. The scope is withdrawn. The patient tolerated the procedure well. There were no immediate complications. Findings discussed with the family out in the waiting area.
== END 2017-08-30 13:00 | disposition home or self-care (01) ==
LOC: SDC 08:42
PROVIDERS: ATTEND Surgery
PROC: 0DB38ZX Excision of Lower Esophagus, Via Natural or Artificial Opening Endoscopic, Diagnostic (ICD-10-PCS; principal; 2017-08-30)
PROC: 0DB78ZX Excision of Stomach, Pylorus, Via Natural or Artificial Opening Endoscopic, Diagnostic (ICD-10-PCS; 2017-08-30)
PROC: 0D718ZZ Dilation of Upper Esophagus, Via Natural or Artificial Opening Endoscopic (ICD-10-PCS; 2017-08-30)
DX: K22.2 Esophageal obstruction (principal); K22.4 Dyskinesia of esophagus; K44.9 Diaphragmatic hernia without obstruction or gangrene; K29.70 Gastritis, unspecified, without bleeding; K20.9 Esophagitis, unspecified; Z86.73 Personal history of transient ischemic attack (TIA), and cerebral infarction without residual deficits; J44.9 Chronic obstructive pulmonary disease, unspecified; Z79.899 Other long term (current) drug therapy; Z72.0 Tobacco use
CPT/HCPCS: 87081; 88305; C1726; J2704

== ENCOUNTER 2017-10-18 14:03 | Inpatient (IN) | payer MEDICARE ==
[2017-10-18] MEDS ORDERED: APRESOLINE 20 MG/ML INJ IV ONE (14:53)
[2017-10-18] MEDS: Dextrose 5% -0.45 NaCl 1000 ML 1,000 ML IV SCH (15:18)
[2017-10-18] MEDS ORDERED: Ativan 2 MG/1 ML VIAL IV PRN (15:30)
[2017-10-18 15:47] LABS: ALBUMIN 4.1 g/dL (3.5-5.0); ALKALINE PHOSPHATASE 107 U/L (38-126); AMYLASE 67 U/L (30-110); ANION GAP 13.1 MEQ/L (5-15); BLOOD UREA NITROGEN 20 mg/dL (9-20); CHLORIDE 104 mmol/L (98-107); Calcium 9.5 mg/dL (8.4-10.2); Carbon Dioxide 27 mmol/L (22-30); Glucose 98 mg/dL (74-106); LIPASE 94 U/L (23-300); Potassium 3.8 mmol/L (3.5-5.1); SGOT/AST 15 U/L (17-59); SGPT/ALT 14 U/L (0-50); SODIUM 140 mmol/L (137-145); Total Protein 7.5 g/dL (6.3-8.2)
[2017-10-18 15:55] LABS: BASOPHIL % 0.4 % (0.0-0.4); Basophil (Absolute #) 0.02 (0-0.4); Eosinophil % 0.4 % (0.00-5.0); Eosinophil (Absolute #) 0.02 (0-0.5); Granulocytes % 66.5 % (36.0-66.0); Hematocrit 35.9 % (42-50); Hemoglobin 11.9 gm/dl (12.5-18.0); Lymphocyte (Absolute #) 1.52 (1.0-4.6); Lymphocytes % 27.3 % (24.0-44.0); Mean Cell Volume 97.6 fl (78-100); Mean Corpuscular Hemoglobin 32.3 pg (26-32); Mean Corpuscular Hgb Concent. 33.1 g/dl (32-36); Mean Platelet Volume 10.4 fl (6-9.5); Monocytes % 5.4 % (0.0-12.0); Platelet Count 244 K/mm3 (150-450); Red Blood Count 3.68 M/mm3 (4.1-5.6); Red Cell Distribution Width 16.4 % (11.5-14.0); White Blood Count 5.6 K/mm3 (4.0-10.5)
--- NOTE | 2017-10-18 16:12 | XRAY ---
Indication: Possible obstruction. Comparison: CT abdomen July 21, 2017. 2 views of the abdomen again demonstrates mild diffuse scattered colonic fecal debris throughout, less than before. No focal bowel dilatation or obstruction. Stable calcified splenic granulomas, left renal micro-calculus, and aortoiliac calcifications. Remaining solid organs unremarkable. Osseous structures intact with mild osteopenia and degenerative changes. Chest reported separately. Impression: Fecal stasis without obstruction. Stable calcified splenic granulomas and left renal micro-calculus.
[2017-10-18 16:44] LABS: Appearance CLEAR (CLEAR); Bilirubin NEGATIVE (NEGATIVE); Blood NEGATIVE Ery/ul (0-5); Glucose NEGATIVE (NEGATIVE); Ketones NEGATIVE (NEGATIVE); Leukocyte Esterase NEGATIVE (NEGATIVE); Nitrite NEGATIVE (NEGATIVE); Ph 6.5 (5-6); Protein,Urine Dip NEGATIVE (Negative); Urobilinogen NORMAL mg/dL (0-1)
--- NOTE | 2017-10-18 20:53 | PCM.HP ---
History of Present Illness - Chief Complaint Chief Complaint: dysphagia History of Present Illness: is a 62 year old male pt of mine from [facility] with dementia who was admitted directly from today. His daughter called saying his BP had been up in the 180s and she was having a hard time caring for him from home. In they complained that he had difficulty swallowing pills and foods. He did have an esophageal dilatation sometime in the past but it didn't seem to improve things for long. Consequently he has not been taking his home meds as prescribed. This evening he is disoriented to the time (doesn't know month, guesses year is "two thousand..."). - Review of Systems All Other Systems: Unable due to dementia Medications & Allergies Home Medications: Home Medication List ALPRAZolam [Xanax 0.5 mg] 0.5 mg PO BID 08/02/14 [History Confirmed 10/18/17] Bupropion HCl 150 mg Sr [Wellbutrin SR 150 MG] 150 mg PO BID #60 tablet.sa 05/29/15 [Rx Confirmed 10/18/17] Atorvastatin Calcium [Lipitor] 80 mg PO HS 06/20/15 [History Confirmed 10/18/17] Carvedilol 3.125 mg [Coreg 3.125 MG] 6.25 mg PO BID 06/20/15 [History Confirmed 10/18/17] Albuterol 2.5 mg/3 ml Neb [Proventil 2.5 mg/3 ml Neb] 2.5 mg IH Q4HPRN PRN 09/10/15 [History Confirmed 10/18/17] Amlodipine Besylate [Norvasc] 10 mg PO DAILY 07/21/17 [History Confirmed ] Allergies/Adverse Reactions: Allergies Allergy/AdvReac Type Severity Reaction Status Date / Time No Known Drug Allergies Allergy Verified 10/18/17 14:35 - Past Medical History Past Medical History: Yes Neurological History: Dementia, Stroke, TIA, Other ENT History: Cataracts Cardiac History: High Cholesterol, Hypertension Respiratory History: COPD, Emphysema Endocrine Medical History: No Pertinent History Musculoskelatal History: No Pertinent History GI Medical History: No Pertinent History History: Renal Disease Pyscho-Social History: Anxiety, Depression Male Reproductive Disorders: No Pertinent History Comment: BRAIN ANEURYSM 2007, "several strokes" per sisters. Renal insufficiency - Past Surgical History Past Surgical History: Yes Neuro Surgical History: Neurological Surgery, Other Cardiac History: No Pertinent History Respiratory Surgery: No Pertinent History GI Surgical History: No Pertinent History Genitourinary Surgical Hx: No Pertinent History Musculskeletal Surgical Hx: No Pertinent History Male Surgical History: No Pertinent History Other Surgical History: Brain aneurism, 2 clips in brain 2006 or 2007, CATARACT SURGERY X 3 - Social History Smoking Status: Current every day smoker How long have you smoked: 20 YEARS Exposure to second hand smoke: No Alcohol: None Drug Use: none - Physical Exam Vital Signs: Vital Signs - 24 hr Temp Pulse Resp BP Pulse Ox 10/18/17 16:30 170/100 10/18/17 16:00 97.6 F 84 18 189/103 96 10/18/17 14:24 97.6 F 86 184/101 10/18/17 14:22 97.6 F 86 20 184/101 98 10/18/17 14:17 97.6 F 86 20 184/101 98 General Appearance: no apparent distress, alert, anxiety, other (some tremor wiht movement) Neurologic Exam: cooperative, disoriented Eye Exam: eyes nml inspection Ears, Nose, Throat Exam: moist mucous membranes Neck Exam: normal inspection, non-tender, No lymphadenopathy Respiratory Exam: lungs clear, diminished breath sounds, No crackles/rales, No rhonchi, No wheezing Cardiovascular Exam: regular rate/rhythm, normal heart sounds, No murmur Gastrointestinal/Abdomen Exam: soft, normal bowel sounds, No tenderness, No distention, No mass, No guarding, No rebound Back Exam: normal inspection, No CVA tenderness, No rash Extremity Exam: No pedal edema, No swelling Skin Exam: normal color, warm, dry, No rash Results - Labs Lab/Micro Results: Lab Results-Last 24 Hours 10/18/17 10/18/17 10/18/17 Range/Units 15:28 15:28 15:28 WBC 5.6 (4.0-10.5) K/mm3 RBC 3.68 L (4.1-5.6) M/mm3 Hgb 11.9 L (12.5-18.0) gm/dl Hct 35.9 L (42-50) % MCV 97.6 (78-100) fl MCH 32.3 H (26-32) pg MCHC 33.1 (32-36) g/dl RDW 16.4 H (11.5-14.0) % Plt Count 244 (150-450) K/mm3 MPV 10.4 H (6-9.5) fl Gran % 66.5 H (36.0-66.0) % Eos # (Auto) 0.02 (0-0.5) Absolute Lymphs (auto) 1.52 (1.0-4.6) Absolute Monos (auto) 0.30 (0.0-1.3) Lymphocytes % 27.3 (24.0-44.0) % Monocytes % 5.4 (0.0-12.0) % Eosinophils % 0.4 (0.00-5.0) % Basophils % 0.4 (0.0-0.4) % Absolute Granulocytes 3.70 (1.4-6.9) Basophils # 0.02 (0-0.4) Sodium 140 (137-145) mmol/L Potassium 3.8 (3.5-5.1) mmol/L Chloride 104 (98-107) mmol/L Carbon Dioxide 27 (22-30) mmol/L Anion Gap 13.1 (5-15) MEQ/L BUN 20 (9-20) mg/dL Creatinine 0.90 (0.66-1.25) mg/dL Estimated GFR > 60.0 ML/MIN Glucose 98 (74-106) mg/dL Calcium 9.5 (8.4-10.2) mg/dL Total Bilirubin 0.40 (0.2-1.3) mg/dL AST 15 L (17-59) U/L ALT 14 (0-50) U/L Alkaline Phosphatase 107 (38-126) U/L Serum Total Protein 7.5 (6.3-8.2) g/dL Albumin 4.1 (3.5-5.0) g/dL Amylase 67 (30-110) U/L Lipase 94 (23-300) U/L Ur Collection Type Urine Color (YELLOW) Urine Appearance (CLEAR) Urine pH (5-6) Ur Specific Stacy (1.005-1.025) Urine Protein (Negative) Urine Ketones (NEGATIVE) Urine Blood (0-5) Matthias/ul Urine Nitrite (NEGATIVE) Urine Bilirubin (NEGATIVE) Urine Urobilinogen (0-1) mg/dL Ur Leukocyte Esterase (NEGATIVE) Urine Culture Reflexed (NO) Urine Glucose (NEGATIVE) mg/dL Specimen Received 10/18/17 Range/Units 16:02 WBC (4.0-10.5) K/mm3 RBC (4.1-5.6) M/mm3 Hgb (12.5-18.0) gm/dl Hct (42-50) % MCV (78-100) fl MCH (26-32) pg MCHC (32-36) g/dl RDW (11.5-14.0) % Plt Count (150-450) K/mm3 MPV (6-9.5) fl Gran % (36.0-66.0) % Eos # (Auto) (0-0.5) Absolute Lymphs (auto) (1.0-4.6) Absolute Monos (auto) (0.0-1.3) Lymphocytes % (24.0-44.0) % Monocytes % (0.0-12.0) % Eosinophils % (0.00-5.0) % Basophils % (0.0-0.4) % Absolute Granulocytes (1.4-6.9) Basophils # (0-0.4) Sodium (137-145) mmol/L Potassium (3.5-5.1) mmol/L Chloride (98-107) mmol/L Carbon Dioxide (22-30) mmol/L Anion Gap (5-15) MEQ/L BUN (9-20) mg/dL Creatinine (0.66-1.25) mg/dL Estimated GFR ML/MIN Glucose (74-106) mg/dL Calcium (8.4-10.2) mg/dL Total Bilirubin (0.2-1.3) mg/dL AST (17-59) U/L ALT (0-50) U/L Alkaline Phosphatase (38-126) U/L Serum Total Protein (6.3-8.2) g/dL Albumin (3.5-5.0) g/dL Amylase (30-110) U/L Lipase (23-300) U/L Ur Collection Type VOID Urine Color YELLOW (YELLOW) Urine Appearance CLEAR (CLEAR) Urine pH 6.5 (5-6) Ur Specific Stacy 1.020 (1.005-1.025) Urine Protein NEGATIVE (Negative) Urine Ketones NEGATIVE (NEGATIVE) Urine Blood NEGATIVE (0-5) Matthias/ul Urine Nitrite NEGATIVE (NEGATIVE) Urine Bilirubin NEGATIVE (NEGATIVE) Urine Urobilinogen NORMAL (0-1) mg/dL Ur Leukocyte Esterase NEGATIVE (NEGATIVE) Urine Culture Reflexed NO (NO) Urine Glucose NEGATIVE (NEGATIVE) mg/dL Specimen Received 10/18 1630 - Radiology Impressions Radiology Exams & Impressions: Radiology Procedures Category Date Time Status ABDOMEN 2 VIEW Urgent Exams 10/18/17 16:11 Completed CHEST 2 VIEWS (PA AND LAT) Urgent Exams 10/18/17 16:12 Taken MODIFIED BARIUM SWALLOW (RAD) [MODIFIED BARIUM SWALLOW Exams 10/19/17 11:00 Ordered EXAM] Urgent Assessment/Plan (1) Dysphagia Current Visit: Yes Status: Acute Onset Date: ~10/18/17 Assessment & Plan: He is to have a swallow study tomorrow and is NPO until then. Code(s): R13.10 - DYSPHAGIA, UNSPECIFIED (2) Malnutrition Current Visit: Yes Status: Acute Onset Date: ~10/18/17 Qualifiers: Malnutrition type: protein-calorie malnutrition Protein-calorie malnutrition severity: moderate Qualified Code(s): E44.0 - Moderate protein- calorie malnutrition Assessment & Plan: On D5 05/04 NS - will start diet after cleared by ST. Code(s): E46 - UNSPECIFIED PROTEIN-CALORIE MALNUTRITION (3) HTN (hypertension) Current Visit: No Status: Acute Qualifiers: Hypertension type: essential hypertension Qualified Code(s): I10 - Essential (primary) hypertension Assessment & Plan: Will restart his beta shakir IV for now Code(s): I10 - ESSENTIAL (PRIMARY) HYPERTENSION (4) Physical deconditioning Current Visit: No Status: Acute Code(s): R53.81 - OTHER MALAISE (5) COPD (chronic obstructive pulmonary disease) Current Visit: No Status: Chronic Qualifiers: COPD type: emphysema Emphysema type: unspecified Qualified Code(s): J43.9 - Emphysema, unspecified (6) Dementia Current Visit: No Status: Chronic Code(s): F03.90 - UNSPECIFIED DEMENTIA WITHOUT BEHAVIORAL DISTURBANCE
[2017-10-18] MEDS: TRANDATE 20 MG/5 ML SYRINGE IV PRN (22:39)
[2017-10-19] MEDS ORDERED: PROVENTIL 2.5 MG/3 ML NEB IH PRN (01:04)
[2017-10-19] MEDS: Dextrose 5% -0.45 NaCl 1000 ML 1,000 ML IV SCH ×3 (03:58→23:08)
[2017-10-19] MEDS: TRANDATE 20 MG/5 ML SYRINGE IV PRN (04:58)
[2017-10-19 05:37] LABS: Hematocrit 33.7 % (42-50); Hemoglobin 11.5 gm/dl (12.5-18.0); Mean Cell Volume 97.1 fl (78-100); Mean Corpuscular Hemoglobin 33.1 pg (26-32); Mean Corpuscular Hgb Concent. 34.1 g/dl (32-36); Mean Platelet Volume 8.9 fl (6-9.5); Platelet Count 204 K/mm3 (150-450); Red Blood Count 3.47 M/mm3 (4.1-5.6); Red Cell Distribution Width 15.8 % (11.5-14.0); White Blood Count 4.5 K/mm3 (4.0-10.5)
[2017-10-19 05:54] LABS: ANION GAP 10.3 MEQ/L (5-15); BLOOD UREA NITROGEN 12 mg/dL (9-20); CHLORIDE 103 mmol/L (98-107); Calcium 9.3 mg/dL (8.4-10.2); Carbon Dioxide 27 mmol/L (22-30); Creatinine 1 0.81 mg/dL (0.66-1.25); Glucose 119 mg/dL (74-106); SODIUM 137 mmol/L (137-145)
[2017-10-19 06:01] LABS: Potassium 2.9 mmol/L (3.5-5.1)
[2017-10-19] MEDS ORDERED: Sodium Chloride 0.9% 500 ML 500 ML IV SCH (06:15)
[2017-10-19] MEDS: POTASSIUM CHLORIDE 20 mEq IN WATER 100ML 20 MEQ/100 ML BAG IV SCH ×2 (06:18→08:20)
[2017-10-19] MEDS ORDERED: TRANDATE 20 MG/5 ML SYRINGE IV PRN (06:38)
--- NOTE | 2017-10-19 08:20 | PCM.NOTE ---
Date and Time: 10/19/17815 Subjective Assessment: Hi BP remain elevated, 150-185/87-105. He has no complaints, states he feels "better." - Review of Systems Constitutional: Weakness, No Fever Objective Exam General Appearance: no apparent distress, thin Neurologic Exam: alert, cooperative Skin Exam: normal color, warm, dry, No rash Respiratory Exam: normal breath sounds, lungs clear, No crackles/rales, No rhonchi, No wheezing Cardiovascular Exam: regular rate/rhythm, normal heart sounds, No murmur Gastrointestinal/Abdomen Exam: soft, normal bowel sounds, No tenderness Extremity Exam: No pedal edema, No swelling OBJECTIVE DATA Vital Signs: Vital Signs - 24 hr Temp Pulse Resp BP Pulse Ox 10/19/17 07:23 96 10/19/17 07:20 97.7 F 90 18 170/99 95 10/19/17 04:00 98.0 F 75 18 171/105 97 10/19/17 01:31 88 18 95 10/19/17 00:00 97.7 F 88 16 150/87 95 10/18/17 20:00 98 F 83 20 185/94 96 10/18/17 16:30 170/100 10/18/17 16:00 97.6 F 84 18 189/103 96 10/18/17 14:24 97.6 F 86 184/101 10/18/17 14:22 97.6 F 86 20 184/101 98 10/18/17 14:17 97.6 F 86 20 184/101 98 Pain Assessment - Last Documented Pain Intensity 0 Pain Scale Used 0-10 Pain Scale Intake and Output: Intake & Output 10/16/17 10/17/17 10/18/17 10/19/17 11:59 11:59 11:59 11:59 Intake Total 1185 Output Total 1350 Balance -165 Weight 54.5 kg Lab Results: Lab Results-Last 24 Hours 10/18/17 10/18/17 10/18/17 Range/Units 15:28 15:28 15:28 WBC 5.6 (4.0-10.5) K/mm3 RBC 3.68 L (4.1-5.6) M/mm3 Hgb 11.9 L (12.5-18.0) gm/dl Hct 35.9 L (42-50) % MCV 97.6 (78-100) fl MCH 32.3 H (26-32) pg MCHC 33.1 (32-36) g/dl RDW 16.4 H (11.5-14.0) % Plt Count 244 (150-450) K/mm3 MPV 10.4 H (6-9.5) fl Gran % 66.5 H (36.0-66.0) % Eos # (Auto) 0.02 (0-0.5) Absolute Lymphs (auto) 1.52 (1.0-4.6) Absolute Monos (auto) 0.30 (0.0-1.3) Lymphocytes % 27.3 (24.0-44.0) % Monocytes % 5.4 (0.0-12.0) % Eosinophils % 0.4 (0.00-5.0) % Basophils % 0.4 (0.0-0.4) % Absolute Granulocytes 3.70 (1.4-6.9) Basophils # 0.02 (0-0.4) Sodium 140 (137-145) mmol/L Potassium 3.8 (3.5-5.1) mmol/L Chloride 104 (98-107) mmol/L Carbon Dioxide 27 (22-30) mmol/L Anion Gap 13.1 (5-15) MEQ/L BUN 20 (9-20) mg/dL Creatinine 0.90 (0.66-1.25) mg/dL Estimated GFR > 60.0 ML/MIN Glucose 98 (74-106) mg/dL Calcium 9.5 (8.4-10.2) mg/dL Total Bilirubin 0.40 (0.2-1.3) mg/dL AST 15 L (17-59) U/L ALT 14 (0-50) U/L Alkaline Phosphatase 107 (38-126) U/L Serum Total Protein 7.5 (6.3-8.2) g/dL Albumin 4.1 (3.5-5.0) g/dL Amylase 67 (30-110) U/L Lipase 94 (23-300) U/L Ur Collection Type Urine Color (YELLOW) Urine Appearance (CLEAR) Urine pH (5-6) Ur Specific [place] (1.005-1.025) Urine Protein (Negative) Urine Ketones (NEGATIVE) Urine Blood (0-5) Matthias/ul Urine Nitrite (NEGATIVE) Urine Bilirubin (NEGATIVE) Urine Urobilinogen (0-1) mg/dL Ur Leukocyte Esterase (NEGATIVE) Urine Culture Reflexed (NO) Urine Glucose (NEGATIVE) mg/dL Specimen Received 10/18/17 10/19/17 10/19/17 Range/Units 16:02 05:23 05:23 WBC 4.5 (4.0-10.5) K/mm3 RBC 3.47 L (4.1-5.6) M/mm3 Hgb 11.5 L (12.5-18.0) gm/dl Hct 33.7 L (42-50) % MCV 97.1 (78-100) fl MCH 33.1 H (26-32) pg MCHC 34.1 (32-36) g/dl RDW 15.8 H (11.5-14.0) % Plt Count 204 (150-450) K/mm3 MPV 8.9 (6-9.5) fl Gran % (36.0-66.0) % Eos # (Auto) (0-0.5) Absolute Lymphs (auto) (1.0-4.6) Absolute Monos (auto) (0.0-1.3) Lymphocytes % (24.0-44.0) % Monocytes % (0.0-12.0) % Eosinophils % (0.00-5.0) % Basophils % (0.0-0.4) % Absolute Granulocytes (1.4-6.9) Basophils # (0-0.4) Sodium 137 (137-145) mmol/L Potassium 2.9 L* (3.5-5.1) mmol/L Chloride 103 (98-107) mmol/L Carbon Dioxide 27 (22-30) mmol/L Anion Gap 10.3 (5-15) MEQ/L BUN 12 (9-20) mg/dL Creatinine 0.81 (0.66-1.25) mg/dL Estimated GFR > 60.0 ML/MIN Glucose 119 H (74-106) mg/dL Calcium 9.3 (8.4-10.2) mg/dL Total Bilirubin (0.2-1.3) mg/dL AST (17-59) U/L ALT (0-50) U/L Alkaline Phosphatase (38-126) U/L Serum Total Protein (6.3-8.2) g/dL Albumin (3.5-5.0) g/dL Amylase (30-110) U/L Lipase (23-300) U/L Ur Collection Type VOID Urine Color YELLOW (YELLOW) Urine Appearance CLEAR (CLEAR) Urine pH 6.5 (5-6) Ur Specific [place] 1.020 (1.005-1.025) Urine Protein NEGATIVE (Negative) Urine Ketones NEGATIVE (NEGATIVE) Urine Blood NEGATIVE (0-5) Matthias/ul Urine Nitrite NEGATIVE (NEGATIVE) Urine Bilirubin NEGATIVE (NEGATIVE) Urine Urobilinogen NORMAL (0-1) mg/dL Ur Leukocyte Esterase NEGATIVE (NEGATIVE) Urine Culture Reflexed NO (NO) Urine Glucose NEGATIVE (NEGATIVE) mg/dL Specimen Received 10/18 1630 Radiology Exams: Radiology Procedures Category Date Time Status ABDOMEN 2 VIEW Urgent Exams 10/18/17 16:11 Completed CHEST 2 VIEWS (PA AND LAT) Urgent Exams 10/18/17 16:12 Taken MODIFIED BARIUM SWALLOW (RAD) [MODIFIED BARIUM SWALLOW Exams 10/19/17 11:00 Ordered EXAM] Urgent Assessment/Plan (1) Dysphagia Current Visit: Yes Status: Acute Onset Date: ~10/18/17 Assessment & Plan: Having swallow study today. NPO until then. Code(s): R13.10 - DYSPHAGIA, UNSPECIFIED (2) Malnutrition Current Visit: Yes Status: Acute Onset Date: ~10/18/17 Qualifiers: Malnutrition type: protein-calorie malnutrition Protein-calorie malnutrition severity: moderate Qualified Code(s): E44.0 - Moderate protein- calorie malnutrition Code(s): E46 - UNSPECIFIED PROTEIN-CALORIE MALNUTRITION (3) HTN (hypertension) Current Visit: No Status: Acute Qualifiers: Hypertension type: essential hypertension Qualified Code(s): I10 - Essential (primary) hypertension Assessment & Plan: will resume home meds when he starts taking po. Code(s): I10 - ESSENTIAL (PRIMARY) HYPERTENSION (4) Physical deconditioning Current Visit: No Status: Acute Code(s): R53.81 - OTHER MALAISE (5) COPD (chronic obstructive pulmonary disease) Current Visit: No Status: Chronic Qualifiers: COPD type: emphysema Emphysema type: unspecified Qualified Code(s): J43.9 - Emphysema, unspecified (6) Dementia Current Visit: No Status: Chronic Qualifiers: Dementia type: unspecified type Dementia behavioral disturbance: without behavioral disturbance Qualified Code(s): F03.90 - Unspecified dementia without behavioral disturbance Code(s): F03.90 - UNSPECIFIED DEMENTIA WITHOUT BEHAVIORAL DISTURBANCE
[2017-10-19] MEDS ORDERED: TRANDATE 100 MG/20 ML MDV FOR DRIP IV PRN (10:17)
[2017-10-19] MEDS: ENOXAPARIN SODIUM SQ SCH (10:19)
--- NOTE | 2017-10-19 11:58 | XRAY ---
Indication: Dysphagia. Modified barium swallow study was performed by the department of speech therapy with fluoroscopic assistance provided. Patient ingested multiple consistencies of liquids and solids. Full report and recommendations will be reported separately. Approximately 1 minute 3 seconds fluoroscopy used.
[2017-10-19] MEDS: NORVASC 5 MG PO SCH (13:14)
[2017-10-19 13:18] LABS: Potassium 3.3 mmol/L (3.5-5.1)
[2017-10-19] MEDS: Klor Con 10 MEQ PO SCH (15:39)
[2017-10-19] MEDS: xanAX 0.5 MG PO SCH (21:59)
[2017-10-19] MEDS: Wellbutrin SR 150 MG PO SCH (21:59)
[2017-10-19] MEDS: ZOCOR 20MG PO SCH (21:59)
[2017-10-19] MEDS: Coreg 6.25 MG PO SCH (22:00)
[2017-10-19] MEDS ORDERED: Coreg 3.125 MG PO SCH (22:00)
[2017-10-19] MEDS ORDERED: NON-FORMULARY ITEM (Atorvastatin Calcium [Lipitor] 80 MG) PO SCH (22:00)
[2017-10-20 05:40] LABS: BASOPHIL % 0.5 % (0.0-0.4); Basophil (Absolute #) 0.02 (0-0.4); Eosinophil % 0.2 % (0.00-5.0); Eosinophil (Absolute #) 0.01 (0-0.5); Granulocyte Absolute (ANC) 1.99 (1.4-6.9); Granulocytes % 47.3 % (36.0-66.0); Hematocrit 33.3 % (42-50); Hemoglobin 11.1 gm/dl (12.5-18.0); Lymphocyte (Absolute #) 1.87 (1.0-4.6); Lymphocytes % 44.4 % (24.0-44.0); Mean Cell Volume 97.4 fl (78-100); Mean Corpuscular Hgb Concent. 33.3 g/dl (32-36); Mean Platelet Volume 10.4 fl (6-9.5); Monocyte (Absolute #) 0.32 (0.0-1.3); Monocytes % 7.6 % (0.0-12.0); Platelet Count 231 K/mm3 (150-450); Red Blood Count 3.42 M/mm3 (4.1-5.6); Red Cell Distribution Width 15.9 % (11.5-14.0); White Blood Count 4.2 K/mm3 (4.0-10.5)
[2017-10-20 05:44] LABS: Mean Corpuscular Hemoglobin 32.4 pg (26-32)
[2017-10-20 06:04] LABS: BLOOD UREA NITROGEN 10 mg/dL (9-20); CHLORIDE 104 mmol/L (98-107); Carbon Dioxide 28 mmol/L (22-30); Creatinine 1 0.82 mg/dL (0.66-1.25); Glucose 103 mg/dL (74-106); Potassium 3.5 mmol/L (3.5-5.1); SODIUM 141 mmol/L (137-145)
--- NOTE | 2017-10-20 08:22 | XRAY ---
Indication: Malnutrition. Comparison: July 21, 2017. PA/lateral chest again hyperinflated with new subtle left base infiltrate versus atelectasis. Remaining heart and lungs unremarkable. Bony thorax intact again with minimal degenerative changes.
[2017-10-20] MEDS: NORVASC 5 MG PO SCH (09:14)
[2017-10-20] MEDS: Wellbutrin SR 150 MG PO SCH ×2 (09:14→21:06)
[2017-10-20] MEDS: xanAX 0.5 MG PO SCH ×2 (09:14→21:06)
[2017-10-20] MEDS: Klor Con 10 MEQ PO SCH (09:14)
[2017-10-20] MEDS: ENOXAPARIN SODIUM SQ SCH (09:15)
[2017-10-20] MEDS: Coreg 6.25 MG PO SCH ×2 (09:15→21:06)
--- NOTE | 2017-10-20 09:17 | PCM.NOTE ---
Date and Time: 10/20/17914 Subjective Assessment: He has no complaints. - Review of Systems Constitutional: Weakness, No Fever Objective Exam General Appearance: no apparent distress, thin Neurologic Exam: alert, cooperative Skin Exam: normal color, warm, dry, No rash Neck Exam: normal inspection Respiratory Exam: normal breath sounds, lungs clear, No crackles/rales, No rhonchi, No wheezing Cardiovascular Exam: regular rate/rhythm, normal heart sounds, No murmur Extremity Exam: No pedal edema, No swelling OBJECTIVE DATA Vital Signs: Vital Signs - 24 hr Temp Pulse Resp BP Pulse Ox 10/20/17 07:29 98.3 F 88 18 161/97 92 L 10/20/17 07:24 96 10/20/17 04:00 97.4 F 75 18 171/96 98 10/20/17 00:00 98.0 F 70 20 148/91 98 10/19/17 19:55 97.6 F 87 16 127/73 97 10/19/17 15:29 97.8 F 74 20 162/80 98 10/19/17 11:18 97.8 F 80 20 160/82 96 Pain Assessment - Last Documented Pain Intensity 0 Pain Scale Used 0-10 Pain Scale Intake and Output: Intake & Output 10/17/17 10/18/17 10/19/17 10/20/17 11:59 11:59 11:59 11:59 Intake Total 1185 1380 Output Total 1550 2500 Balance -365 -1120 Weight 54.5 kg 54.3 kg Lab Results: Lab Results-Last 24 Hours 10/19/17 10/20/17 10/20/17 Range/Units 12:58 04:59 04:59 WBC 4.2 (4.0-10.5) K/mm3 RBC 3.42 L (4.1-5.6) M/mm3 Hgb 11.1 L (12.5-18.0) gm/dl Hct 33.3 L (42-50) % MCV 97.4 (78-100) fl MCH 32.4 H (26-32) pg MCHC 33.3 (32-36) g/dl RDW 15.9 H (11.5-14.0) % Plt Count 231 (150-450) K/mm3 MPV 10.4 H (6-9.5) fl Gran % 47.3 (36.0-66.0) % Eos # (Auto) 0.01 (0-0.5) Absolute Lymphs (auto) 1.87 (1.0-4.6) Absolute Monos (auto) 0.32 (0.0-1.3) Lymphocytes % 44.4 H (24.0-44.0) % Monocytes % 7.6 (0.0-12.0) % Eosinophils % 0.2 (0.00-5.0) % Basophils % 0.5 (0.0-0.4) % Absolute Granulocytes 1.99 (1.4-6.9) Basophils # 0.02 (0-0.4) Sodium 141 (137-145) mmol/L Potassium 3.3 L 3.5 (3.5-5.1) mmol/L Chloride 104 (98-107) mmol/L Carbon Dioxide 28 (22-30) mmol/L Anion Gap 13.0 (5-15) MEQ/L BUN 10 (9-20) mg/dL Creatinine 0.82 (0.66-1.25) mg/dL Estimated GFR > 60.0 ML/MIN Glucose 103 (74-106) mg/dL Calcium 9.0 (8.4-10.2) mg/dL Magnesium 1.9 (1.6-2.3) mg/dL Radiology Exams: Radiology Procedures Category Date Time Status ABDOMEN 2 VIEW Urgent Exams 10/18/17 16:11 Completed CHEST 2 VIEWS (PA AND LAT) Urgent Exams 10/18/17 16:12 Completed MODIFIED BARIUM SWALLOW (RAD) [MODIFIED BARIUM SWALLOW Exams 10/19/17 11:00 Completed EXAM] Urgent Assessment/Plan (1) Dysphagia Current Visit: Yes Status: Acute Onset Date: ~10/18/17 Assessment & Plan: His swallow study was fine except for small objects (pills) - so has started getting his pills in apple sauce. Code(s): R13.10 - DYSPHAGIA, UNSPECIFIED (2) Malnutrition Current Visit: Yes Status: Chronic Onset Date: ~10/18/17 Qualifiers: Malnutrition type: protein-calorie malnutrition Protein-calorie malnutrition severity: moderate Qualified Code(s): E44.0 - Moderate protein- calorie malnutrition Code(s): E46 - UNSPECIFIED PROTEIN-CALORIE MALNUTRITION (3) HTN (hypertension) Current Visit: No Status: Acute Qualifiers: Hypertension type: essential hypertension Qualified Code(s): I10 - Essential (primary) hypertension Code(s): I10 - ESSENTIAL (PRIMARY) HYPERTENSION (4) Physical deconditioning Current Visit: No Status: Acute Assessment & Plan: Plan is to send pt to rehab tomorrow. Code(s): R53.81 - OTHER MALAISE (5) COPD (chronic obstructive pulmonary disease) Current Visit: No Status: Chronic Qualifiers: COPD type: emphysema Emphysema type: unspecified Qualified Code(s): J43.9 - Emphysema, unspecified (6) Dementia Current Visit: No Status: Chronic Qualifiers: Dementia type: unspecified type Dementia behavioral disturbance: without behavioral disturbance Qualified Code(s): F03.90 - Unspecified dementia without behavioral disturbance Code(s): F03.90 - UNSPECIFIED DEMENTIA WITHOUT BEHAVIORAL DISTURBANCE
[2017-10-20] MEDS: Dextrose 5% -0.45 NaCl 1000 ML 1,000 ML IV SCH (13:45)
[2017-10-20] MEDS: ZOCOR 20MG PO SCH (21:05)
[2017-10-21] MEDS: Dextrose 5% -0.45 NaCl 1000 ML 1,000 ML IV SCH (02:30)
[2017-10-21 08:05] VITALS: PULSE 78
[2017-10-21] MEDS: Klor Con 10 MEQ PO SCH (09:39)
[2017-10-21] MEDS: xanAX 0.5 MG PO SCH (09:39)
[2017-10-21] MEDS: Wellbutrin SR 150 MG PO SCH (09:39)
[2017-10-21] MEDS: NORVASC 5 MG PO SCH (09:39)
[2017-10-21] MEDS: ENOXAPARIN SODIUM SQ SCH (09:39)
[2017-10-21] MEDS: Coreg 6.25 MG PO SCH (09:40)
[2017-10-21 11:39] VITALS: O2SAT 97
--- NOTE | 2017-10-21 13:53 | PCM.DS ---
Discharge Summary Date of Admission: 10/18/17 14:03 Admitting Physician: KEVIN RESTREPO Consults: Consults on Case 10/20/17 09:36 Nutritional Consult ROUTINE Primary Care Provider: KEVIN RESTREPO Allergies Allergies No Known Drug Allergies Allergy (Verified 10/18/17 14:35) Hospital Summary - Hospital Course Hospital Course: Pt was admitted from home with inability to swallow well, particularly his pills , with weight loss and general decline. His swallow study showed difficulty swallowing the pills and advised taking them in applesauce/pudding. He did have some elevated BP while here. - Vitals & Intake/Output Vital Signs: Vital Signs Temperature 98.4 F 10/21/17 11:38 Pulse Rate 78 10/21/17 11:38 Respiratory Rate 18 10/21/17 11:38 Blood Pressure 131/74 10/21/17 11:38 O2 Sat by Pulse Oximetry 97 10/21/17 11:38 Intake & Output: Intake & Output 10/19/17 10/20/17 10/21/17 10/22/17 11:59 11:59 11:59 11:59 Intake Total 1185 1380 3297 240 Output Total 1550 2500 1700 Balance -365 -1120 1597 240 Weight 54.5 kg 54.3 kg 56.8 kg - Lab Result Diagrams: 10/20/17 04:59 10/20/17 04:59 - Procedures and Test Procedures and Tests throughout Hospitalization: Therapy Orders & Screens 10/18/17 14:21 ST Eval & Treat (MD Order) .as ordered Comment: Physician Instructions: Reason For Exam: malnutrition Evaluate: Yes Treat: Yes Reason for Eval: malnutrition Diagnosis: dysphagia 10/18/17 14:49 OT Screen per Nursing Assess Comment: Protocol Order Physician Instructions: Greater than 3 points order OT Admission Screening Reason For Exam: Triggered on Admission Diagnosis: dysphagia Open Wound/Cellutlitis/Pressure Ulcers: No Acute Fx/ORIF/Change in wt bearing status: Yes Severe MUSCULOSKELETAL pain: No ADL Dysfunction: No Acute CVA w/Hemiparesis/Hemiplegia: No Decreased Functional Mobility/Strength: Yes Sprain/Strain: No Acute Post-op Mobility Dysfunction: No Total Points: 6 PT Screen per Nursing Assess Comment: Protocol Order Physician Instructions: Greater than 3 points order PT Admission Screenin Reason For Exam: Triggered on Admission Diagnosis: dysphagia Open Wound/Cellutlitis/Pressure Ulcers: No Acute Fx/ORIF/Change in wt bearing status: Yes Severe MUSCULOSKELETAL pain: No ADL Dysfunction: No Acute CVA w/Hemiparesis/Hemiplegia: No Decreased Functional Mobility/Strength: Yes Sprain/Strain: No Acute Post-op Mobility Dysfunction: No Total Points: 6 Smoking Cessation Education Comment: Diagnosis: dysphagia Smoking Status: Current every day smoker How long have you smoked: 20 YEARS Have you smoked in the past 12 months: Yes Approximately how many cigarettes per day: 1 PACK Do you dip or chew tobacco: No If,Former Smoker,when did you quit: 201510/18/17 20:54 PT Eval & Treat (MD Order) ROUTINE Reason for Eval:: deconditioning; possible placement Diagnosis: dysphagia 10/19/17 01:30 neb [Respiratory Nebulizer] UD Comment: Diagnosis: dysphagia Discharge Exam General Appearance: no apparent distress, thin Neurologic Exam: alert, cooperative Skin Exam: normal color, warm, dry, No rash Respiratory Exam: normal breath sounds, lungs clear, No crackles/rales, No rhonchi, No wheezing Cardiovascular Exam: regular rate/rhythm, normal heart sounds, No murmur Gastrointestinal/Abdomen Exam: soft, normal bowel sounds, No tenderness Extremity Exam: No pedal edema, No swelling Back Exam: normal inspection, No rash Final Diagnosis/Problem List - Final Discharge Diagnosis/Problem (1) Dysphagia Current Visit: Yes Status: Acute Onset Date: ~10/18/17 Assessment & Plan: Taking pills with applesauce/pudding. If worsens may need repeat EGD. (2) Malnutrition Current Visit: Yes Status: Chronic Onset Date: ~10/18/17 Assessment & Plan: Seems to be eating better now. I think with constant supervision (at [facility]) will gain weight. Pt to be discharged to [facility] today. (3) HTN (hypertension) Current Visit: No Status: Chronic (4) Physical deconditioning Current Visit: No Status: Chronic Assessment & Plan: PT at [facility] (5) COPD (chronic obstructive pulmonary disease) Current Visit: No Status: Chronic (6) Dementia Current Visit: No Status: Chronic - Discharge Disposition: DC TO ANY "OTHER" [facility] Condition: Stable Prescriptions: New Potassium Chloride 10 Meq Tab* [Klor Con 10 MEQ] 20 meq PO DAILY #30 tab Continue ALPRAZolam [Xanax 0.5 mg] 0.5 mg PO BID Bupropion HCl 150 mg Sr [Wellbutrin SR 150 MG] 150 mg PO BID #60 tablet.sa Atorvastatin Calcium [Lipitor] 80 mg PO HS Carvedilol 3.125 mg [Coreg 3.125 MG] 6.25 mg PO BID Albuterol 2.5 mg/3 ml Neb [Proventil 2.5 mg/3 ml Neb] 2.5 mg IH Q4HPRN PRN PRN Reason: resp Amlodipine Besylate [Norvasc] 10 mg PO DAILY Additional Instructions: [facility] ORDERS: PT/OT/ST EVAL AND TREAT TAKE ALL MEDS WITH PUDDING OR APPLESAUCE ACTIVITY TOLERATED REGULAR DIET 1600 CALORIE COUNT DAILY WITH 55GM PROTEIN SEE ATTACHED FOR CURRENT MEDICATION ORDERS Follow up with: KEVIN RESTREPO [Primary Care Provider] - 1 Week (DR. RENO WILL FOLLOW AT [facility])
[2017-10-21 16:37] VITALS: BP 184/101
== END 2017-10-21 15:55 | DRG 392 ==
LOC: MED SURG 14:03
PROVIDERS: ADMIT Family Medicine; ATTEND Family Medicine
DX: R13.10 Dysphagia, unspecified (principal); E46 Unspecified protein-calorie malnutrition; I10 Essential (primary) hypertension; R53.81 Other malaise; J44.9 Chronic obstructive pulmonary disease, unspecified; F03.90 Unspecified dementia, unspecified severity, without behavioral disturbance, psychotic disturbance, mood disturbance, and anxiety
CPT/HCPCS: 36415; 71046; 74021; 74230; 80048; 80053; 81002; 82150; 83690; 83735; 84132; 85025; 85027; 94760; J0360; J1650; J2060; J3480; 97110-GP; A9270-GY

== ENCOUNTER 2018-04-16 20:25 | Emergency (ER) | payer MEDICARE ==
[2018-04-16] MEDS ORDERED: DUONEB 0.5-3 MG/3 ml Neb IH ONE ×2 (20:53→20:59)
[2018-04-16] MEDS ORDERED: solu-MEDROL 125 MG IV ONE (20:54)
[2018-04-16] MEDS ORDERED: Sodium Chloride 0.9% 1000 ML 1,000 ML IV SCH (21:00)
--- NOTE | 2018-04-16 21:07 | ERPHSYRPT ---
- History of Present Illness Time Seen by Provider: 04/16/18 20:45 Source: patient Exam Limitations: clinical condition Patient Subjective Stated Complaint: per ems, pt fell at home today and yesterday. pt denies weakness. denies pain. Triage Nursing Assessment: pt awake and alert. answers questions approp. pt arrive per ambulance. transfer with assit of 3. respirations nonlabored. exp wheezing noted. pt with rtremor noted- states is his normal. Physician History: PATIENT WITH A HISTORY OF RENAL INSUFFICIENCY, DEMENTIA, PREVIOUS CVA AND TIA COMPLAINTS OF FREQUENT FALLS X 2 SINCE YESTERDAY. DENIES HEAD INJURY, NECK PAIN , BUT COMPLAINS OF PAIN OVER A RIGHT UPPER BACK CYST. Occurred: just prior to arrival Reason for Fall: unknown (HAS NOT BEEN USING HIS WALDER FOR AMBULATION) Injuries/Pain Location: back Loss of Consciousness: no loss of consciousness Quality: sharpness (OVER UPPER BACK CYST) Severity of Pain-Max: mild Severity of Pain-Current: mild Modifying Factors: Improves With: other (PALPATION OF CYST) Associated Symptoms (Fall): denies symptoms Allergies/Adverse Reactions: No Known Drug Allergies Allergy (Verified 04/16/18 20:41) Home Medications: ALPRAZolam [Xanax 0.5 mg] 0.5 mg PO BID 08/02/14 [History] Atorvastatin Calcium [Lipitor] 80 mg PO HS 06/20/15 [History] Carvedilol 3.125 mg [Coreg 3.125 MG] 6.25 mg PO BID 06/20/15 [History] Albuterol 2.5 mg/3 ml Neb [Proventil 2.5 mg/3 ml Neb] 2.5 mg IH Q4HPRN PRN 09/10/15 [History] Amlodipine Besylate [Norvasc] 10 mg PO DAILY 07/21/17 [History] Hx Tetanus, Diphtheria Vaccination/Date Given: Yes Hx Influenza Vaccination/Date Given: Yes (2017) Hx Pneumococcal Vaccination/Date Given: Yes Immunizations Up to Date: Yes - Review of Systems Constitutional: No Fever, No Chills Eyes: No Symptoms Ears, Nose, & Throat: No Symptoms Respiratory: No Cough, No Dyspnea Cardiac: No Symptoms, No Chest Pain, No Edema, No Syncope Abdominal/Gastrointestinal: No Symptoms, No Abdominal Pain, No Nausea, No Vomiting, No Diarrhea Genitourinary Symptoms: No Symptoms, No Dysuria Musculoskeletal: No Symptoms, No Back Pain, No Neck Pain Skin: Skin Lesions (PAINFUL SWELLING OVER UPPER BACK), No Rash Neurological: No Dizziness, No Focal Weakness, No Sensory Changes Psychological: No Symptoms Endocrine: No Symptoms Hematologic/Lymphatic: No Symptoms All Other Systems: Reviewed and Negative - Past Medical History Pertinent Past Medical History: Yes Neurological History: Dementia, Stroke, TIA, Other ENT History: Cataracts Cardiac History: High Cholesterol, Hypertension Respiratory History: COPD, Emphysema Endocrine Medical History: No Pertinent History Musculoskeletal History: No Pertinent History GI Medical History: No Pertinent History History: Renal Disease Psycho-Social History: Anxiety, Depression Male Reproductive Disorders: No Pertinent History Other Medical History: BRAIN ANEURYSM 2007, "several strokes" per sisters. Renal insufficiency - Past Surgical History Past Surgical History: Yes Neuro Surgical History: Neurological Surgery, Other Cardiac: No Pertinent History Respiratory: No Pertinent History Gastrointestinal: No Pertinent History Genitourinary: No Pertinent History Musculoskeletal: No Pertinent History Male Surgical History: No Pertinent History Other Surgical History: Brain aneurism, 2 clips in brain 2006 or 2007, CATARACT SURGERY X 3 - Social History Smoking Status: Current every day smoker How long have you smoked: YEARS Exposure to second hand smoke: No Drug Use: none Patient Lives Alone: No (son lives with) - Nursing Vital Signs Nursing Vital Signs: Initial Vital Signs Temperature 97.4 F 04/16/18 20:27 Pulse Rate 74 04/16/18 20:27 Respiratory Rate 16 04/16/18 20:27 Blood Pressure 154/93 04/16/18 20:27 O2 Sat by Pulse Oximetry 98 04/16/18 20:27 Pain Scale Pain Intensity 0 - Brandon Coma Score Best Eye Response (Brandon): (4) open spontaneously Best Verbal Response ([place]): (5) oriented Best Motor Response ([place]): (6) obeys commands Brandon Total: 15 - Physical Exam General Appearance: no apparent distress, alert Head Injury: tenderness (THERE IS A 5MM X 5MM FOREHEAD ABRASION, NO SWELLING ECCHYMOSIS OR CREPITUS) Eye Exam: PERRL/EOMI ENT Exam: airway nml Neck Exam: full range of motion, normal inspection, other (THERE IS NO POST CERVICAL SPINAL TENDERNESS), No tenderness Respiratory/Chest Exam: decreased breath sounds, other (THERE IS FAINT TERMINAL EXPIRATORY WHEEZES, NO RHONCHI), No chest tenderness, No respiratory distress Cardiovascular Exam: normal heart sounds, regular rate/rhythm Gastrointestinal Exam: soft, normal bowel sounds (NONTENDER), No tenderness, No distention, No guarding, No ecchymosis Back Exam: normal inspection, No vertebral tenderness Extremity Exam: normal inspection, normal range of motion, pelvis stable, No deformities Peripheral Pulses: carotid (R): 2+, carotid (L): 2+, femoral (R): 2+, femoral (L ): 2+, dorsalis-pedis (R): 2+, dorsalis-pedis (L): 2+ Neurologic Exam: alert, oriented x 3, cooperative, sensation nml, No motor deficits Skin Exam: normal color, warm, dry SpO2 Interpretation: normal SpO2: 98 Oxygen Delivery: Room Air - Course EKG Interpreted by Me: RATE, Sinus Rhythm, NORMAL AXIS, Non-specific ST Changes - Radiology Exams Chest X-ray Interpretation: Interpreted by me, Negative, No Infiltrates (INFLATED AIRWAYS, COPD) - CT Exams Head CT Interpretation: Tele-radiologist Report, No/Intracranial Hemorrhag Cervical Spine CT Interpretation: No Fracture, No Subluxation Ordered Tests: Active Orders 24 hr Category Date Time Status Clean Catch Urine Specimen STAT Care 04/16/18 20:51 Active EKG-ER Only STAT Care 04/16/18 20:53 Active IV Insertion STAT Care 04/16/18 20:51 Active CERVICAL SPINE WO CONTRAST [CT] Stat Exams 04/16/18 20:51 Taken CHEST 1 VIEW (PORTABLE) Stat Exams 04/16/18 20:51 Taken HEAD WITHOUT CONTRAST [CT] Stat Exams 04/16/18 20:51 Taken BMP Stat Lab 04/16/18 21:18 Completed CBC W DIFF Stat Lab 04/16/18 21:18 Completed MAGNESIUM Stat Lab 04/16/18 21:18 Completed TROPONIN Q3H Lab 04/16/18 21:18 Completed TROPONIN Q3H Lab 04/17/18 00:00 Ordered TROPONIN Q3H Lab 04/17/18 03:00 Ordered TROPONIN Q3H Lab 04/17/18 06:00 Ordered TROPONIN Q3H Lab 04/17/18 09:00 Ordered UA W/RFX UR CULTURE Stat Lab 04/16/18 22:30 Completed Peak Expiratory Flow Rate ONCE RT 04/16/18 21:05 Active Respiratory Therapy Assessment DAILY RT 04/16/18 21:05 Active Medication Summary Generic Name Dose Route Start Last Admin Trade Name Emanuel PRN Reason Stop Dose Admin Sodium Chloride 1,000 mls @ 100 mls/hr 04/16/18 21:00 04/16/18 21:14 Sodium Chloride 0.9% 1000 Ml IV 05/16/18 20:59 100 mls/hr .Q10H DONALDO Administration Discontinued Medications Generic Name Dose Route Start Last Admin Trade Name Emanuel PRN Reason Stop Dose Admin Albuterol/Ipratropium 3 ml 04/16/18 20:53 04/16/18 21:01 Duoneb 0.5-3 Mg/3 Ml Neb IH 04/16/18 20:54 3 ml STAT ONE Administration Albuterol/Ipratropium Confirm 04/16/18 20:59 Duoneb 0.5-3 Mg/3 Ml Neb Administered 04/16/18 21:00 Dose 3 ml IH .STK-MED ONE Methylprednisolone Sodium Succinate 125 mg 04/16/18 20:54 04/16/18 21:14 Solu-Medrol 125 Mg IV 04/16/18 20:55 125 mg STAT ONE Administration Methylprednisolone Sodium Succinate Confirm 04/16/18 21:10 Solu-Medrol 125 Mg Administered 04/16/18 21:11 Dose 125 mg .ROUTE .STK-MED ONE Lab/Rad Data: Laboratory Result Diagrams 04/16/18 21:18 04/16/18 21:18 Laboratory Results 04/16/18 04/16/18 04/16/18 Range/Units 22:30 21:18 21:18 WBC (4.0-10.5) K/mm3 RBC (4.1-5.6) M/mm3 Hgb (12.5-18.0) gm/dl Hct (42-50) % MCV (78-100) fl MCH (26-32) pg MCHC (32-36) g/dl RDW (11.5-14.0) % Plt Count (150-450) K/mm3 MPV (6-9.5) fl Gran % (36.0-66.0) % Eos # (Auto) (0-0.5) Absolute Lymphs (auto) (1.0-4.6) Absolute Monos (auto) (0.0-1.3) Lymphocytes % (24.0-44.0) % Monocytes % (0.0-12.0) % Eosinophils % (0.00-5.0) % Basophils % (0.0-0.4) % Absolute Granulocytes (1.4-6.9) Basophils # (0-0.4) Sodium 139 (137-145) mmol/L Potassium 4.2 (3.5-5.1) mmol/L Chloride 104 (98-107) mmol/L Carbon Dioxide 30 (22-30) mmol/L Anion Gap 10.0 (5-15) MEQ/L BUN 25 H (9-20) mg/dL Creatinine 1.05 (0.66-1.25) mg/dL Estimated GFR > 60.0 ML/MIN Glucose 84 (74-106) mg/dL Calcium 9.1 (8.4-10.2) mg/dL Magnesium 2.1 (1.6-2.3) mg/dL Troponin I < 0.012 (0.000-0.034) ng/mL Urine Color YELLOW (YELLOW) Urine Appearance SLIGHTLY CLOUDY (CLEAR) Urine pH 7.0 (5-6) Ur Specific [place] 1.012 (1.005-1.025) Urine Protein NEGATIVE (Negative) Urine Ketones NEGATIVE (NEGATIVE) Urine Blood NEGATIVE (0-5) Matthias/ul Urine Nitrite NEGATIVE (NEGATIVE) Urine Bilirubin NEGATIVE (NEGATIVE) Urine Urobilinogen NEGATIVE (0-1) mg/dL Ur Leukocyte Esterase NEGATIVE (NEGATIVE) Urine WBC (Auto) NONE SEEN (0-5) /HPF Urine RBC (Auto) NONE (0-2) /HPF U Epithel Cells (Auto) NONE (FEW) /HPF Urine Bacteria (Auto) NONE (NEGATIVE) /HPF Unidentified Crystals 2-5 (NEGATIVE) /HPF Amorphous Crystals MODERATE (NEGATIVE) /HPF Other Casts (Auto) NEGATIVE (NEGATIVE) /LPF Urine Culture Reflexed NO (NO) Urine Glucose NEGATIVE (NEGATIVE) mg/dL 15/18 Range/Units 21:18 WBC 4.0 (4.0-10.5) K/mm3 RBC 3.36 L (4.1-5.6) M/mm3 Hgb 11.1 L (12.5-18.0) gm/dl Hct 34.3 L (42-50) % MCV 102.1 H (78-100) fl MCH 33.0 H (26-32) pg MCHC 32.4 (32-36) g/dl RDW 16.2 H (11.5-14.0) % Plt Count 219 (150-450) K/mm3 MPV 9.5 (6-9.5) fl Gran % 45.9 (36.0-66.0) % Eos # (Auto) 0.02 (0-0.5) Absolute Lymphs (auto) 1.78 (1.0-4.6) Absolute Monos (auto) 0.33 (0.0-1.3) Lymphocytes % 44.8 H (24.0-44.0) % Monocytes % 8.3 (0.0-12.0) % Eosinophils % 0.5 (0.00-5.0) % Basophils % 0.5 (0.0-0.4) % Absolute Granulocytes 1.82 (1.4-6.9) Basophils # 0.02 (0-0.4) Sodium (137-145) mmol/L Potassium (3.5-5.1) mmol/L Chloride (98-107) mmol/L Carbon Dioxide (22-30) mmol/L Anion Gap (5-15) MEQ/L BUN (9-20) mg/dL Creatinine (0.66-1.25) mg/dL Estimated GFR ML/MIN Glucose (74-106) mg/dL Calcium (8.4-10.2) mg/dL Magnesium (1.6-2.3) mg/dL Troponin I (0.000-0.034) ng/mL Urine Color (YELLOW) Urine Appearance (CLEAR) Urine pH (5-6) Ur Specific [place] (1.005-1.025) Urine Protein (Negative) Urine Ketones (NEGATIVE) Urine Blood (0-5) [place]/ul Urine Nitrite (NEGATIVE) Urine Bilirubin (NEGATIVE) Urine Urobilinogen (0-1) mg/dL Ur Leukocyte Esterase (NEGATIVE) Urine WBC (Auto) (0-5) /HPF Urine RBC (Auto) (0-2) /HPF U Epithel Cells (Auto) (FEW) /HPF Urine Bacteria (Auto) (NEGATIVE) /HPF Unidentified Crystals (NEGATIVE) /HPF Amorphous Crystals (NEGATIVE) /HPF Other Casts (Auto) (NEGATIVE) /LPF Urine Culture Reflexed (NO) Urine Glucose (NEGATIVE) mg/dL - Progress Progress Note: 04/16/18 21:09 IV NORMAL SALINE 100ML/HR, SOLUMEDROL 125MG IV, DUONEB AEROSOL TX - Departure Time of Disposition: 23:45 Departure Disposition: Home Clinical Impression: FOREHEAD CONTUSION, UPPER BACK SEBACEOUS CYST, EXACERBATION COPD Condition: Stable Critical Care Time: No Referrals: KEVIN RESTREPO [Primary Care Provider] - Additional Instructions: CONTINUE ALBUTEROL AEROSOL TREATMENTS EVERY 4 HOURS FOR DIFFICULTY BREATHING. ANTIBIOTIC AUGMENTIN 875MG TWICE DAILY FOR 10 DAYS FOR TREATED OF INFECTED SUBACEOUS CYST. CONSULT YOUR PRIMARY CARE PROVIDER FOR FOLLOWUP IN 1 WEEK. AMBULATE WITH WALKER ASSISTANCE. Prescriptions: Albuterol 2.5 mg/3 ml Neb [Proventil 2.5 mg/3 ml Neb] 2.5 mg IH Q4HPRN PRN #30 neb PRN Reason: DIFFICULTY BREATHING Amox Tr/Potass Clav. 875 mg [Augmentin 875-125 Tablet] 875 mg PO BID #20 tablet
[2018-04-16] MEDS ORDERED: solu-MEDROL 125 MG ONE (21:10)
[2018-04-16] MEDS ORDERED: Sodium Chloride 0.9% 1000 ML 1,000 ML ONE (21:10)
[2018-04-16 21:23] LABS: BASOPHIL % 0.5 % (0.0-0.4); Basophil (Absolute #) 0.02 (0-0.4); Eosinophil % 0.5 % (0.00-5.0); Eosinophil (Absolute #) 0.02 (0-0.5); Granulocyte Absolute (ANC) 1.82 (1.4-6.9); Granulocytes % 45.9 % (36.0-66.0); Hematocrit 34.3 % (42-50); Hemoglobin 11.1 gm/dl (12.5-18.0); Lymphocyte (Absolute #) 1.78 (1.0-4.6); Lymphocytes % 44.8 % (24.0-44.0); Mean Cell Volume 102.1 fl (78-100); Mean Corpuscular Hgb Concent. 32.4 g/dl (32-36); Mean Platelet Volume 9.5 fl (6-9.5); Monocyte (Absolute #) 0.33 (0.0-1.3); Monocytes % 8.3 % (0.0-12.0); Platelet Count 219 K/mm3 (150-450); Red Blood Count 3.36 M/mm3 (4.1-5.6); Red Cell Distribution Width 16.2 % (11.5-14.0)
[2018-04-16 21:31] LABS: BLOOD UREA NITROGEN 25 mg/dL (9-20); CHLORIDE 104 mmol/L (98-107); Calcium 9.1 mg/dL (8.4-10.2); Carbon Dioxide 30 mmol/L (22-30); Creatinine 1 1.05 mg/dL (0.66-1.25); Glucose 84 mg/dL (74-106); Potassium 4.2 mmol/L (3.5-5.1); SODIUM 139 mmol/L (137-145)
[2018-04-16 23:06] LABS: Appearance SLIGHTLY CLOUDY (CLEAR); Bilirubin NEGATIVE (NEGATIVE); Blood NEGATIVE Ery/ul (0-5); Glucose NEGATIVE (NEGATIVE); Ketones NEGATIVE (NEGATIVE); Leukocyte Esterase NEGATIVE (NEGATIVE); Nitrite NEGATIVE (NEGATIVE); Protein,Urine Dip NEGATIVE (Negative); Specific Gravity 1.012 (1.005-1.025); Urobilinogen NEGATIVE mg/dL (0-1)
[2018-04-17 00:31] VITALS: BP 168/109; PULSE 79; O2SAT 96
--- NOTE | 2018-04-17 09:23 | XRAY ---
Indication: Cough and weakness. Comparison: October 18, 2017. Potable chest again hyperinflated. No focal infiltrate, consolidation, or large effusion. Heart is not enlarged. Bony thorax intact again with mild degenerative changes. Impression: Nonacute hyperinflated chest.
--- NOTE | 2018-04-17 09:26 | XRAY ---
Indication: Head injury following fall. History brain aneurysm. Multiple contiguous axial images obtained through the head without contrast. Comparison: January 08, 2015. Stable global atrophy, moderate periventricular degenerative microvascular ischemia bilaterally, remote left posterior parietal infarct, remote bilateral basal ganglia lacunar infarcts, sellar aneurysm clips, and left craniotomy. No acute intracranial hemorrhage, abnormal extra-axial fluid collection, or mass effect. Fourth ventricle is midline without hydrocephalus. Remaining bony calvarium intact. Visualized paranasal sinuses and mastoid air cells are clear. Impression: Stable nonacute senile brain again with chronic features as detailed. Comment: Preliminary interpretation was made by [facility]. No discrepancy. CTDI 59.95
--- NOTE | 2018-04-17 09:28 | XRAY ---
Indication: Head injury following fall. History brain aneurysm. Multiple contiguous axial images obtained through the cervical spine. Sagittal and coronal reformatted images obtained. Comparison: October 07, 2014. Axial images again negative for acute fracture, suspicious bony lesions, or spinal canal stenosis. Stable atlantoaxial degenerative changes and mild multilevel bilateral degenerative facet hypertrophy. Sagittal and coronal reformatted images demonstrates normal alignment with minimal C3-C4 disc space narrowing. No acute compression fracture, subluxation, or jumped facet. Normal-appearing craniocervical junction. Visualized noncontrasted soft tissues again demonstrates minimal scattered carotid calcifications bilaterally and biapical bullous emphysema. CT head reported separately. Impression: 1. Again negative acute fracture/subluxation. 2. Again incidental multilevel degenerative changes and pulmonary emphysema. Comment: Preliminary interpretation was made by [facility]. No discrepancy. CTDI 19.54
== END 2018-04-17 00:20 | disposition home or self-care (01) ==
LOC: ED 20:25
DX: S00.83XA Contusion of other part of head, initial encounter (principal); J44.1 Chronic obstructive pulmonary disease with (acute) exacerbation; L72.3 Sebaceous cyst; I10 Essential (primary) hypertension; Z79.899 Other long term (current) drug therapy; Z86.73 Personal history of transient ischemic attack (TIA), and cerebral infarction without residual deficits; W01.0XXA Fall on same level from slipping, tripping and stumbling without subsequent striking against object, initial encounter; Y92.009 Unspecified place in unspecified non-institutional (private) residence as the place of occurrence of the external cause
CPT/HCPCS: 36000; 36415; 70450; 71045; 72125; 80048; 81001; 83735; 84484; 85025; 93005; 94150; 94640; 96360; 96361; 96374; 99284; J2930; A9270-GY

== ENCOUNTER 2018-08-23 18:46 | Inpatient (IN) | payer MEDICARE ==
[2018-08-23] MEDS ORDERED: Sodium Chloride 0.9% 1000 ML 1,000 ML IV STA (19:25)
[2018-08-23] MEDS ORDERED: Zofran 4 MG/2 ML VIAL IV ONE (19:25)
[2018-08-23] MEDS ORDERED: Sodium Chloride 0.9% 1000 ML 1,000 ML ONE (19:44)
[2018-08-23] MEDS ORDERED: Zofran 4 MG/2 ML VIAL ONE (19:44)
[2018-08-23 19:56] LABS: BASOPHIL % 0.2 % (0.0-0.4); Basophil (Absolute #) 0.02 (0-0.4); Eosinophil % 0.1 % (0.00-5.0); Eosinophil (Absolute #) 0.01 (0-0.5); Granulocyte Absolute (ANC) 7.57 (1.4-6.9); Granulocytes % 76.8 % (36.0-66.0); Hematocrit 44.2 % (42-50); Hemoglobin 14.1 gm/dl (12.5-18.0); Lymphocyte (Absolute #) 1.88 (1.0-4.6); Lymphocytes % 19.1 % (24.0-44.0); Mean Cell Volume 99.3 fl (78-100); Mean Corpuscular Hemoglobin 31.7 pg (26-32); Mean Corpuscular Hgb Concent. 31.9 g/dl (32-36); Mean Platelet Volume 11.4 fl (6-9.5); Monocyte (Absolute #) 0.37 (0.0-1.3); Monocytes % 3.8 % (0.0-12.0); Platelet Count 273 K/mm3 (150-450); Red Blood Count 4.45 M/mm3 (4.1-5.6); Red Cell Distribution Width 16.2 % (11.5-14.0); White Blood Count 9.9 K/mm3 (4.0-10.5)
[2018-08-23 19:59] LABS: ALBUMIN 4.4 g/dL (3.5-5.0); ANION GAP 19.4 MEQ/L (5-15); BILIRUBIN,TOTAL 0.9 mg/dL (0.2-1.3); Calcium 10.5 mg/dL (8.4-10.2); Creatinine 1 1.37 mg/dL (0.66-1.25); Potassium 4.1 mmol/L (3.5-5.1); Total Protein 8.5 g/dL (6.3-8.2)
--- NOTE | 2018-08-23 20:14 | ERPHSYRPT ---
- History of Present Illness Time Seen by Provider: 08/23/18 19:15 Source: patient, family Patient Subjective Stated Complaint: increasing sob for three days Triage Nursing Assessment: to room per w/c. skin w/d, color pale. resp labored at 34 at rest. patient very thin/pale. hoarse voice noted. weak. Physician History: 63 y/o white male with failure to thrive, h/o esophageal stricture, copd and poor po intake over last several day. pt also has chronic renal insufficiency. pt denies abd pain, n/v/d. pts primary complaint is soa for 3 days. Timing/Duration: day(s) (3) Severity: moderate Associated Symptoms: shortness of breath, weakness, No nausea, No vomiting, No abdominal pain Allergies/Adverse Reactions: No Known Drug Allergies Allergy (Verified 08/23/18 19:01) Home Medications: ALPRAZolam [Xanax 0.5 mg] 0.5 mg PO BID 08/02/14 [History] Atorvastatin Calcium [Lipitor] 80 mg PO HS 06/20/15 [History] Carvedilol 3.125 mg [Coreg 3.125 MG] 6.25 mg PO BID 06/20/15 [History] Amlodipine Besylate [Norvasc] 10 mg PO DAILY 07/21/17 [History] Folic Acid 1 mg [Folate 1 mg] 1 mg PO DAILY 08/23/18 [History] Omeprazole 40 mg PO DAILY 08/23/18 [History] Trazodone HCl 50 mg [Desyrel 50 mg] 50 mg PO HS 08/23/18 [History] Hx Tetanus, Diphtheria Vaccination/Date Given: No Hx Influenza Vaccination/Date Given: Yes (2017) Hx Pneumococcal Vaccination/Date Given: Yes - Review of Systems Constitutional: Weakness Eyes: No Symptoms Ears, Nose, & Throat: No Symptoms Respiratory: Dyspnea Cardiac: No Symptoms Abdominal/Gastrointestinal: Appetite Changes, No Abdominal Pain, No Nausea, No Vomiting, No Diarrhea Genitourinary Symptoms: No Symptoms Musculoskeletal: No Symptoms Skin: No Symptoms Neurological: No Symptoms Psychological: No Symptoms Endocrine: No Symptoms Hematologic/Lymphatic: No Symptoms Immunological/Allergic: No Symptoms All Other Systems: Reviewed and Negative - Past Medical History Pertinent Past Medical History: Yes Neurological History: Dementia, Stroke, TIA, Other ENT History: Cataracts Cardiac History: High Cholesterol, Hypertension Respiratory History: COPD, Emphysema Endocrine Medical History: No Pertinent History Musculoskeletal History: No Pertinent History GI Medical History: No Pertinent History History: Renal Disease Psycho-Social History: Anxiety, Depression Male Reproductive Disorders: No Pertinent History Other Medical History: BRAIN ANEURYSM 2007, "several strokes" per sisters. Renal insufficiency, esophageal stricture - Past Surgical History Past Surgical History: Yes Neuro Surgical History: Neurological Surgery, Other Cardiac: No Pertinent History Respiratory: No Pertinent History Gastrointestinal: No Pertinent History Genitourinary: No Pertinent History Musculoskeletal: No Pertinent History Male Surgical History: No Pertinent History Other Surgical History: Brain aneurism, 2 clips in brain 2006 or 2007, CATARACT SURGERY X 3, esophagus stretched - Social History Smoking Status: Current every day smoker How long have you smoked: YEARS Exposure to second hand smoke: No Drug Use: none Patient Lives Alone: No (son lives with) - Nursing Vital Signs Nursing Vital Signs: Initial Vital Signs Temperature 96.9 F 08/23/18 18:54 Pulse Rate 128 H 08/23/18 18:54 Respiratory Rate 34 H 08/23/18 18:54 Blood Pressure 170/124 08/23/18 18:54 O2 Sat by Pulse Oximetry 97 08/23/18 18:54 Pain Scale Pain Intensity 0 - Physical Exam General Appearance: mild distress, alert, anxiety, cachetic Eye Exam: PERRL/EOMI Ears, Nose, Throat Exam: dry mucous membranes Neck Exam: normal inspection, non-tender, supple, full range of motion, No thyromegaly Respiratory Exam: normal breath sounds, lungs clear, airway intact, No respiratory distress, No accessory muscle use, No rhonchi, No wheezing, No stridor Cardiovascular Exam: tachycardia Gastrointestinal/Abdomen Exam: soft, normal bowel sounds, No tenderness, No guarding Rectal Exam: not done Back Exam: normal inspection, normal range of motion, No CVA tenderness, No vertebral tenderness Extremity Exam: normal inspection, normal range of motion, pelvis stable Neurologic Exam: alert, oriented x 3, cooperative, supply chain specialist II-XII nml as tested Skin Exam: normal color, warm, dry Lymphatic Exam: No adenopathy SpO2 Interpretation: normal SpO2: 97 O2 Delivery: Room Air - Course Nursing assessment & vital signs reviewed: Yes EKG Interpreted by Me: RATE (117), Sinus Rhythm, Other (comparison ekg . new tachycardia and new s1/q111 pattern otherwise no change) Ordered Tests: Active Orders 24 hr Category Date Time Status Clean Catch Urine Specimen STAT Care 08/23/18 19:25 Active EKG-ER Only STAT Care 08/23/18 19:25 Active IV Insertion STAT Care 08/23/18 19:25 Active CHEST WITHOUT CONTRAST [CT] Stat Exams 08/23/18 19:26 Taken CBC W DIFF Stat Lab 08/23/18 19:40 Completed CMP Stat Lab 08/23/18 19:40 Completed Lactic Acid Stat Lab 08/23/18 19:40 Completed Lactic Acid Stat Lab 08/23/18 21:49 Ordered TROPONIN Q3H Lab 08/23/18 19:40 Completed TROPONIN Q3H Lab 08/23/18 22:30 Ordered TROPONIN Q3H Lab 08/24/18 01:30 Ordered TROPONIN Q3H Lab 08/24/18 04:30 Ordered TROPONIN Q3H Lab 08/24/18 07:30 Ordered UA W/RFX UR CULTURE Stat Lab 08/23/18 20:50 Completed Transfer Order Routine Transfer 08/23/18 Ordered Medication Summary Discontinued Medications Generic Name Dose Route Start Last Admin Trade Name Freq PRN Reason Stop Dose Admin Sodium Chloride 1,000 mls @ 999 mls/hr 08/23/18 19:25 08/23/18 21:20 Sodium Chloride 0.9% 1000 Ml IV 08/23/18 20:25 Infused .Q1H1M STA Infusion Sodium Chloride Confirm 08/23/18 19:44 Sodium Chloride 0.9% 1000 Ml Administered 08/23/18 19:45 Dose 1,000 mls @ ud .ROUTE .STK-MED ONE Metoprolol Tartrate 5 mg 08/23/18 20:51 08/23/18 21:08 Lopressor 5 Mg/5 Ml Injection IV 08/23/18 20:52 5 mg STAT ONE Administration Metoprolol Tartrate Confirm 08/23/18 21:06 Lopressor 5 Mg/5 Ml Injection Administered 08/23/18 21:07 Dose 5 mg IV .STK-MED ONE Ondansetron HCl 4 mg 08/23/18 19:25 08/23/18 19:49 Zofran 4 Mg/2 Ml Vial IV 08/23/18 19:26 4 mg STAT ONE Administration Ondansetron HCl Confirm 08/23/18 19:44 Zofran 4 Mg/2 Ml Vial Administered 08/23/18 19:45 Dose 4 mg .ROUTE .STK-MED ONE Lab/Rad Data: Laboratory Result Diagrams 08/23/18 19:40 08/23/18 19:40 Laboratory Results 08/23/18 08/23/18 08/23/18 Range/Units 20:50 19:40 19:40 WBC (4.0-10.5) K/mm3 RBC (4.1-5.6) M/mm3 Hgb (12.5-18.0) gm/dl Hct (42-50) % MCV (78-100) fl MCH (26-32) pg MCHC (32-36) g/dl RDW (11.5-14.0) % Plt Count (150-450) K/mm3 MPV (6-9.5) fl Gran % (36.0-66.0) % Eos # (Auto) (0-0.5) Absolute Lymphs (auto) (1.0-4.6) Absolute Monos (auto) (0.0-1.3) Lymphocytes % (24.0-44.0) % Monocytes % (0.0-12.0) % Eosinophils % (0.00-5.0) % Basophils % (0.0-0.4) % Absolute Granulocytes (1.4-6.9) Basophils # (0-0.4) Sodium 153 H* (137-145) mmol/L Potassium 4.1 (3.5-5.1) mmol/L Chloride 109 H (98-107) mmol/L Carbon Dioxide 29 (22-30) mmol/L Anion Gap 19.4 H (5-15) MEQ/L BUN 50 H (9-20) mg/dL Creatinine 1.37 H (0.66-1.25) mg/dL Estimated GFR 56.0 ML/MIN Glucose 165 H (74-106) mg/dL Lactic Acid (0.4-2.0) Calcium 10.5 H (8.4-10.2) mg/dL Total Bilirubin 0.90 (0.2-1.3) mg/dL AST 23 (17-59) U/L ALT 18 (0-50) U/L Alkaline Phosphatase 123 (38-126) U/L Troponin I 0.033 (0.000-0.034) ng/mL Serum Total Protein 8.5 H (6.3-8.2) g/dL Albumin 4.4 (3.5-5.0) g/dL Urine Color YELLOW (YELLOW) Urine Appearance CLEAR (CLEAR) Urine pH 6.0 (5-6) Ur Specific [place] 1.016 (1.005-1.025) Urine Protein 100 (Negative) Urine Ketones NEGATIVE (NEGATIVE) Urine Blood NEGATIVE (0-5) Matthias/ul Urine Nitrite NEGATIVE (NEGATIVE) Urine Bilirubin NEGATIVE (NEGATIVE) Urine Urobilinogen NEGATIVE (0-1) mg/dL Ur Leukocyte Esterase NEGATIVE (NEGATIVE) Urine WBC (Auto) 0-2 (0-5) /HPF Urine RBC (Auto) 0-2 (0-2) /HPF U Epithel Cells (Auto) NONE (FEW) /HPF Urine Bacteria (Auto) NONE SEEN (NEGATIVE) /HPF Other Casts (Auto) NEGATIVE (NEGATIVE) /LPF Urine Mucus (Auto) SLIGHT (NEGATIVE) /HPF Urine Culture Reflexed NO (NO) Urine Glucose NEGATIVE (NEGATIVE) mg/dL 08/23/18 08/23/18 Range/Units 19:40 19:40 WBC 9.9 (4.0-10.5) K/mm3 RBC 4.45 (4.1-5.6) M/mm3 Hgb 14.1 (12.5-18.0) gm/dl Hct 44.2 (42-50) % MCV 99.3 (78-100) fl MCH 31.7 (26-32) pg MCHC 31.9 L (32-36) g/dl RDW 16.2 H (11.5-14.0) % Plt Count 273 (150-450) K/mm3 MPV 11.4 H (6-9.5) fl Gran % 76.8 H (36.0-66.0) % Eos # (Auto) 0.01 (0-0.5) Absolute Lymphs (auto) 1.88 (1.0-4.6) Absolute Monos (auto) 0.37 (0.0-1.3) Lymphocytes % 19.1 L (24.0-44.0) % Monocytes % 3.8 (0.0-12.0) % Eosinophils % 0.1 (0.00-5.0) % Basophils % 0.2 (0.0-0.4) % Absolute Granulocytes 7.57 H (1.4-6.9) Basophils # 0.02 (0-0.4) Sodium (137-145) mmol/L Potassium (3.5-5.1) mmol/L Chloride (98-107) mmol/L Carbon Dioxide (22-30) mmol/L Anion Gap (5-15) MEQ/L BUN (9-20) mg/dL Creatinine (0.66-1.25) mg/dL Estimated GFR ML/MIN Glucose (74-106) mg/dL Lactic Acid 3.0 H (0.4-2.0) Calcium (8.4-10.2) mg/dL Total Bilirubin (0.2-1.3) mg/dL AST (17-59) U/L ALT (0-50) U/L Alkaline Phosphatase (38-126) U/L Troponin I (0.000-0.034) ng/mL Serum Total Protein (6.3-8.2) g/dL Albumin (3.5-5.0) g/dL Urine Color (YELLOW) Urine Appearance (CLEAR) Urine pH (5-6) Ur Specific [place] (1.005-1.025) Urine Protein (Negative) Urine Ketones (NEGATIVE) Urine Blood (0-5) Matthias/ul Urine Nitrite (NEGATIVE) Urine Bilirubin (NEGATIVE) Urine Urobilinogen (0-1) mg/dL Ur Leukocyte Esterase (NEGATIVE) Urine WBC (Auto) (0-5) /HPF Urine RBC (Auto) (0-2) /HPF U Epithel Cells (Auto) (FEW) /HPF Urine Bacteria (Auto) (NEGATIVE) /HPF Other Casts (Auto) (NEGATIVE) /LPF Urine Mucus (Auto) (NEGATIVE) /HPF Urine Culture Reflexed (NO) Urine Glucose (NEGATIVE) mg/dL - Progress Progress: improved, re-examined Progress Note: 08/23/18 22:34 ct chest-diffuse emphysema. small hiatal hernia. no acute cardiopulmonary findings. 08/23/18 22:[address] mendez. i reviewed pt hx, condtion, lab, ekg and ct chest results. she accepts pt for admission. will obtain surgical c/s for upper endoscopy Discussed with : Eduardo Counseled pt/family regarding: lab results, diagnosis, rad results - Departure Departure Disposition: In-patient Admission Clinical Impression: Hypernatremia, COPD exacerbation, Dysphagia, Dehydration, Failure to thrive Condition: Stable Critical Care Time: No Referrals: KEVIN MENDEZ [Primary Care Provider] - Instructions: Chronic Obstructive Pulmonary Disease
[2018-08-23] MEDS ORDERED: LOPRESSOR 5 MG/5 ML INJECTION IV ONE ×2 (20:51→21:06)
[2018-08-23 22:04] LABS: Appearance CLEAR (CLEAR); Bilirubin NEGATIVE (NEGATIVE); Blood NEGATIVE Ery/ul (0-5); Glucose NEGATIVE (NEGATIVE); Ketones NEGATIVE (NEGATIVE); Leukocyte Esterase NEGATIVE (NEGATIVE); Mucus SLIGHT /HPF (NEGATIVE); Nitrite NEGATIVE (NEGATIVE); Protein,Urine Dip 100 (Negative); RBC 0-2 /HPF (0-2); Specific Gravity 1.016 (1.005-1.025); Urobilinogen NEGATIVE mg/dL (0-1); WBC 0-2 /HPF (0-5)
[2018-08-23 22:05] LABS: Bacteria NONE SEEN /HPF (NEGATIVE)
[2018-08-24] MEDS ORDERED: TYLENOL 325 MG PO PRN (00:24)
[2018-08-24] MEDS ORDERED: Zofran 4 MG/2 ML VIAL IV PRN (00:24)
[2018-08-24] MEDS ORDERED: PROVENTIL 2.5 MG/3 ML NEB IH PRN (00:45)
[2018-08-24] MEDS: Sodium Chloride 0.9% 1000 ML 1,000 ML IV SCH ×3 (00:45→22:05)
[2018-08-24] MEDS ORDERED: APRESOLINE 20 MG/ML INJ IV ONE (03:50)
[2018-08-24 05:58] LABS: BASOPHIL % 0.2 % (0.0-0.4); Basophil (Absolute #) 0.02 (0-0.4); Eosinophil % 0.1 % (0.00-5.0); Eosinophil (Absolute #) 0.01 (0-0.5); Granulocyte Absolute (ANC) 6.96 (1.4-6.9); Granulocytes % 69.1 % (36.0-66.0); Hematocrit 38.7 % (42-50); Hemoglobin 12.1 gm/dl (12.5-18.0); Lymphocyte (Absolute #) 2.65 (1.0-4.6); Lymphocytes % 26.3 % (24.0-44.0); Mean Cell Volume 100.3 fl (78-100); Mean Corpuscular Hemoglobin 31.3 pg (26-32); Mean Corpuscular Hgb Concent. 31.3 g/dl (32-36); Monocyte (Absolute #) 0.43 (0.0-1.3); Monocytes % 4.3 % (0.0-12.0); Platelet Count 214 K/mm3 (150-450); Red Blood Count 3.86 M/mm3 (4.1-5.6); Red Cell Distribution Width 15.9 % (11.5-14.0); White Blood Count 10.1 K/mm3 (4.0-10.5)
[2018-08-24 06:13] LABS: ALBUMIN 3.6 g/dL (3.5-5.0); ANION GAP 13.4 MEQ/L (5-15); BILIRUBIN,TOTAL 0.7 mg/dL (0.2-1.3); Calcium 9.3 mg/dL (8.4-10.2); Creatinine 1 1.34 mg/dL (0.66-1.25); Potassium 3.1 mmol/L (3.5-5.1); Total Protein 7.1 g/dL (6.3-8.2)
--- NOTE | 2018-08-24 08:36 | PCM.HP ---
History of Present Illness - Chief Complaint Chief Complaint: hypernatremia, COPD exacerbation, dysphagia, dehydration, failure to thrive History of Present Illness: is a 63 year old male pt of mine from [facility] with dementia, COPD, and HTN with hx esophageal stricture who came to ER c/o 3d of increased SOB and trouble swallowing his food recently. He states the food hurts when it goes down his throat, some things get stuck (including pills). Has not taken his pills for some time. He states he lives with his son. He has lost 17lb since he was last in our office in Apr 2018. Pt has a history of noncompliance. Pt had an EGD with Dr. Vázquez on 09/21/17 with esophageal dilatation; it showed esophagitis and intestinal metaplasia on biopsy. Today he knows where he is ("[facility]") but not the date ( disoriented to month and year but knows we just had [facility]). He is trying to eat biscuits and gravy this morning. - Review of Systems All Other Systems: Unable due to dementia Medications & Allergies Home Medications: Home Medication List ALPRAZolam [Xanax 0.5 mg] 0.5 mg PO BID 08/02/14 [History Confirmed 08/23/18] Bupropion HCl 150 mg Sr [Wellbutrin SR 150 MG] 150 mg PO BID #60 tablet.sa 05/29/15 [Rx Confirmed 08/23/18] Atorvastatin Calcium [Lipitor] 80 mg PO HS 06/20/15 [History Confirmed 08/23/18] Carvedilol 3.125 mg [Coreg 3.125 MG] 6.25 mg PO BID 06/20/15 [History Confirmed 08/23/18] Amlodipine Besylate [Norvasc] 10 mg PO DAILY 07/21/17 [History Confirmed ] Potassium Chloride 10 Meq Tab* [Klor Con 10 MEQ] 20 meq PO DAILY #30 tab [Rx Confirmed 08/23/18] Albuterol 2.5 mg/3 ml Neb [Proventil 2.5 mg/3 ml Neb] 2.5 mg IH Q4HPRN PRN #30 neb 04/16/18 [Rx Confirmed 08/23/18] Folic Acid 1 mg [Folate 1 mg] 1 mg PO DAILY 08/23/18 [History Confirmed ] Omeprazole 40 mg PO DAILY 08/23/18 [History Confirmed 08/23/18] Trazodone HCl 50 mg [Desyrel 50 mg] 50 mg PO HS 08/23/18 [History Confirmed 08/23/18] Allergies/Adverse Reactions: Allergies Allergy/AdvReac Type Severity Reaction Status Date / Time No Known Drug Allergies Allergy Verified 08/23/18 19:01 - Past Medical History Past Medical History: Yes Neurological History: Dementia, Stroke, TIA, Other ENT History: Cataracts Cardiac History: High Cholesterol, Hypertension Respiratory History: COPD, Emphysema Endocrine Medical History: No Pertinent History Musculoskelatal History: No Pertinent History GI Medical History: GERD History: Renal Disease Pyscho-Social History: Anxiety, Depression Male Reproductive Disorders: No Pertinent History Comment: BRAIN ANEURYSM 2007, "several strokes" per sisters. Renal insufficiency, esophageal stricture - Past Surgical History Past Surgical History: Yes Neuro Surgical History: Neurological Surgery, Other Cardiac History: No Pertinent History Respiratory Surgery: No Pertinent History GI Surgical History: No Pertinent History Genitourinary Surgical Hx: No Pertinent History Musculskeletal Surgical Hx: No Pertinent History Male Surgical History: No Pertinent History Other Surgical History: Brain aneurism, 2 clips in brain 2006 or 2007, CATARACT SURGERY X 3, esophagus stretched - Social History Smoking Status: Current every day smoker How long have you smoked: YEARS Exposure to second hand smoke: No Alcohol: None Drug Use: none - Physical Exam Vital Signs: Vital Signs - 24 hr Temp Pulse Resp BP Pulse Ox 08/24/18 07:59 97.8 F 105 H 16 164/95 97 08/24/18 07:28 95 08/24/18 04:25 140/100 08/24/18 03:57 97.5 F 89 17 210/106 96 08/24/18 01:13 97.6 F 86 20 186/92 97 08/24/18 00:40 90 20 95 08/23/18 23:16 96.9 F 102 H 18 206/95 97 08/23/18 22:48 97 08/23/18 22:38 102 H 18 206/95 96 08/23/18 21:18 88 16 209/109 94 L 08/23/18 21:11 95 H 22 200/129 95 08/23/18 20:00 108 H 18 181/137 97 08/23/18 18:54 96.9 F 128 H 34 H 170/124 97 Oxygen-Last 24 hours O2 Percentage 3 Liters = 32% O2 Percentage 3 Liters = 32% General Appearance: no apparent distress, alert, thin Neurologic Exam: cooperative, normal mood/affect, disoriented Eye Exam: eyes nml inspection Ears, Nose, Throat Exam: moist mucous membranes Neck Exam: normal inspection, non-tender, No mass Respiratory Exam: diminished breath sounds (poor air exchange), No crackles/ rales, No rhonchi, No wheezing Cardiovascular Exam: regular rate/rhythm, normal heart sounds, No murmur Gastrointestinal/Abdomen Exam: soft, normal bowel sounds, No tenderness, No distention, No mass, No guarding, No rebound Extremity Exam: normal inspection, No pedal edema, No swelling Skin Exam: normal color, warm, dry, No rash Results - Labs Lab/Micro Results: Lab Results-Last 24 Hours 08/23/18 08/23/18 08/23/18 Range/Units 19:40 19:40 19:40 WBC 9.9 (4.0-10.5) K/mm3 RBC 4.45 (4.1-5.6) M/mm3 Hgb 14.1 (12.5-18.0) gm/dl Hct 44.2 (42-50) % MCV 99.3 (78-100) fl MCH 31.7 (26-32) pg MCHC 31.9 L (32-36) g/dl RDW 16.2 H (11.5-14.0) % Plt Count 273 (150-450) K/mm3 MPV 11.4 H (6-9.5) fl Gran % 76.8 H (36.0-66.0) % Eos # (Auto) 0.01 (0-0.5) Absolute Lymphs (auto) 1.88 (1.0-4.6) Absolute Monos (auto) 0.37 (0.0-1.3) Lymphocytes % 19.1 L (24.0-44.0) % Monocytes % 3.8 (0.0-12.0) % Eosinophils % 0.1 (0.00-5.0) % Basophils % 0.2 (0.0-0.4) % Absolute Granulocytes 7.57 H (1.4-6.9) Basophils # 0.02 (0-0.4) Sodium 153 H* (137-145) mmol/L Potassium 4.1 (3.5-5.1) mmol/L Chloride 109 H (98-107) mmol/L Carbon Dioxide 29 (22-30) mmol/L Anion Gap 19.4 H (5-15) MEQ/L BUN 50 H (9-20) mg/dL Creatinine 1.37 H (0.66-1.25) mg/dL Estimated GFR 56.0 ML/MIN Glucose 165 H (74-106) mg/dL Lactic Acid 3.0 H (0.4-2.0) Calcium 10.5 H (8.4-10.2) mg/dL Total Bilirubin 0.90 (0.2-1.3) mg/dL AST 23 (17-59) U/L ALT 18 (0-50) U/L Alkaline Phosphatase 123 (38-126) U/L Troponin I (0.000-0.034) ng/mL Serum Total Protein 8.5 H (6.3-8.2) g/dL Albumin 4.4 (3.5-5.0) g/dL Urine Color (YELLOW) Urine Appearance (CLEAR) Urine pH (5-6) Ur Specific [place] (1.005-1.025) Urine Protein (Negative) Urine Ketones (NEGATIVE) Urine Blood (0-5) Matthias/ul Urine Nitrite (NEGATIVE) Urine Bilirubin (NEGATIVE) Urine Urobilinogen (0-1) mg/dL Ur Leukocyte Esterase (NEGATIVE) Urine WBC (Auto) (0-5) /HPF Urine RBC (Auto) (0-2) /HPF U Epithel Cells (Auto) (FEW) /HPF Urine Bacteria (Auto) (NEGATIVE) /HPF Other Casts (Auto) (NEGATIVE) /LPF Urine Mucus (Auto) (NEGATIVE) /HPF Urine Culture Reflexed (NO) Urine Glucose (NEGATIVE) mg/dL 08/23/18 08/23/18 08/23/18 Range/Units 19:40 20:50 22:45 WBC (4.0-10.5) K/mm3 RBC (4.1-5.6) M/mm3 Hgb (12.5-18.0) gm/dl Hct (42-50) % MCV (78-100) fl MCH (26-32) pg MCHC (32-36) g/dl RDW (11.5-14.0) % Plt Count (150-450) K/mm3 MPV (6-9.5) fl Gran % (36.0-66.0) % Eos # (Auto) (0-0.5) Absolute Lymphs (auto) (1.0-4.6) Absolute Monos (auto) (0.0-1.3) Lymphocytes % (24.0-44.0) % Monocytes % (0.0-12.0) % Eosinophils % (0.00-5.0) % Basophils % (0.0-0.4) % Absolute Granulocytes (1.4-6.9) Basophils # (0-0.4) Sodium (137-145) mmol/L Potassium (3.5-5.1) mmol/L Chloride (98-107) mmol/L Carbon Dioxide (22-30) mmol/L Anion Gap (5-15) MEQ/L BUN (9-20) mg/dL Creatinine (0.66-1.25) mg/dL Estimated GFR ML/MIN Glucose (74-106) mg/dL Lactic Acid (0.4-2.0) Calcium (8.4-10.2) mg/dL Total Bilirubin (0.2-1.3) mg/dL AST (17-59) U/L ALT (0-50) U/L Alkaline Phosphatase (38-126) U/L Troponin I 0.033 0.030 (0.000-0.034) ng/mL Serum Total Protein (6.3-8.2) g/dL Albumin (3.5-5.0) g/dL Urine Color YELLOW (YELLOW) Urine Appearance CLEAR (CLEAR) Urine pH 6.0 (5-6) Ur Specific [place] 1.016 (1.005-1.025) Urine Protein 100 (Negative) Urine Ketones NEGATIVE (NEGATIVE) Urine Blood NEGATIVE (0-5) Matthias/ul Urine Nitrite NEGATIVE (NEGATIVE) Urine Bilirubin NEGATIVE (NEGATIVE) Urine Urobilinogen NEGATIVE (0-1) mg/dL Ur Leukocyte Esterase NEGATIVE (NEGATIVE) Urine WBC (Auto) 0-2 (0-5) /HPF Urine RBC (Auto) 0-2 (0-2) /HPF U Epithel Cells (Auto) NONE (FEW) /HPF Urine Bacteria (Auto) NONE SEEN (NEGATIVE) /HPF Other Casts (Auto) NEGATIVE (NEGATIVE) /LPF Urine Mucus (Auto) SLIGHT (NEGATIVE) /HPF Urine Culture Reflexed NO (NO) Urine Glucose NEGATIVE (NEGATIVE) mg/dL 08/23/18 08/24/18 08/24/18 Range/Units 22:52 05:38 05:38 WBC 10.1 (4.0-10.5) K/mm3 RBC 3.86 L (4.1-5.6) M/mm3 Hgb 12.1 L (12.5-18.0) gm/dl Hct 38.7 L (42-50) % MCV 100.3 H (78-100) fl MCH 31.3 (26-32) pg MCHC 31.3 L (32-36) g/dl RDW 15.9 H (11.5-14.0) % Plt Count 214 (150-450) K/mm3 MPV 10.0 H (6-9.5) fl Gran % 69.1 H (36.0-66.0) % Eos # (Auto) 0.01 (0-0.5) Absolute Lymphs (auto) 2.65 (1.0-4.6) Absolute Monos (auto) 0.43 (0.0-1.3) Lymphocytes % 26.3 (24.0-44.0) % Monocytes % 4.3 (0.0-12.0) % Eosinophils % 0.1 (0.00-5.0) % Basophils % 0.2 (0.0-0.4) % Absolute Granulocytes 6.96 H (1.4-6.9) Basophils # 0.02 (0-0.4) Sodium 149 H (137-145) mmol/L Potassium 3.1 L D (3.5-5.1) mmol/L Chloride 111 H (98-107) mmol/L Carbon Dioxide 28 (22-30) mmol/L Anion Gap 13.4 (5-15) MEQ/L BUN 42 H (9-20) mg/dL Creatinine 1.34 H (0.66-1.25) mg/dL Estimated GFR 57.4 ML/MIN Glucose 138 H (74-106) mg/dL Lactic Acid 3.0 H (0.4-2.0) Calcium 9.3 (8.4-10.2) mg/dL Total Bilirubin 0.70 (0.2-1.3) mg/dL AST 17 (17-59) U/L ALT 17 (0-50) U/L Alkaline Phosphatase 93 (38-126) U/L Troponin I (0.000-0.034) ng/mL Serum Total Protein 7.1 (6.3-8.2) g/dL Albumin 3.6 (3.5-5.0) g/dL Urine Color (YELLOW) Urine Appearance (CLEAR) Urine pH (5-6) Ur Specific [place] (1.005-1.025) Urine Protein (Negative) Urine Ketones (NEGATIVE) Urine Blood (0-5) Matthias/ul Urine Nitrite (NEGATIVE) Urine Bilirubin (NEGATIVE) Urine Urobilinogen (0-1) mg/dL Ur Leukocyte Esterase (NEGATIVE) Urine WBC (Auto) (0-5) /HPF Urine RBC (Auto) (0-2) /HPF U Epithel Cells (Auto) (FEW) /HPF Urine Bacteria (Auto) (NEGATIVE) /HPF Other Casts (Auto) (NEGATIVE) /LPF Urine Mucus (Auto) (NEGATIVE) /HPF Urine Culture Reflexed (NO) Urine Glucose (NEGATIVE) mg/dL - Radiology Impressions Radiology Exams & Impressions: Radiology Procedures Category Date Time Status CHEST WITHOUT CONTRAST [CT] Stat Exams 08/23/18 19:26 Taken - Other Procedures and Tests Respiratory Therapy 08/24/18 00:45 Oxygen Nasal Cannula 3 lpm Peak Expiratory Flow Rate DAILY Respiratory Therapy Assessment DAILY Assessment/Plan (1) Dehydration Current Visit: Yes Status: Acute Assessment & Plan: Improved since admission and IVF Code(s): E86.0 - DEHYDRATION (2) COPD exacerbation Current Visit: Yes Status: Acute Assessment & Plan: He actually is doing much better with respect to vitals since admission, just on breathing treatments. His air exchange is poor but there is no wheezing or distress. Will hold off on antibiotic therapy; if he clinically indicates treatment (increased cough/sputum) will start rocephin and zithromax. Code(s): J44.1 - CHRONIC OBSTRUCTIVE PULMONARY DISEASE W (ACUTE) EXACERBATION (3) HTN (hypertension) Current Visit: No Status: Chronic Qualifiers: Hypertension type: essential hypertension Qualified Code(s): I10 - Essential (primary) hypertension Assessment & Plan: Will restart amlodipine at 5mg/d and coreg at 3.125mg BID as I'm unsure how long he's been off his meds. Code(s): I10 - ESSENTIAL (PRIMARY) HYPERTENSION (4) Dysphagia Current Visit: Yes Status: Acute Onset Date: ~10/18/17 Qualifiers: Dysphagia type: unspecified Qualified Code(s): R13.10 - Dysphagia, unspecified Assessment & Plan: with hx esophageal stricture. I have consulted surgery for possible EGD tomorrow. Will have BP pills crushed in the meantime. Code(s): R13.10 - DYSPHAGIA, UNSPECIFIED (5) Failure to thrive Current Visit: Yes Status: Chronic Qualifiers: Failure to thrive age range: in adult Qualified Code(s): R62.7 - Adult failure to thrive Code(s): CCQ5234 - (6) Hypernatremia Current Visit: Yes Status: Acute Assessment & Plan: much better with IV fluids. Code(s): E87.0 - HYPEROSMOLALITY AND HYPERNATREMIA (7) Physical deconditioning Current Visit: No Status: Chronic Assessment & Plan: consult PT Code(s): R53.81 - OTHER MALAISE (8) Hypokalemia Current Visit: Yes Status: Acute Assessment & Plan: mild; will recheck in a.m. Replete via IV if necessary due to concern over esophageal stricture. Code(s): E87.6 - HYPOKALEMIA (9) Chronic renal disease Current Visit: No Status: Acute Qualifiers: Chronic kidney disease stage: stage 2 (mild) Qualified Code(s): N18.2 - Chronic kidney disease, stage 2 (mild) Assessment & Plan: improved on fluids Code(s): N18.9 - CHRONIC KIDNEY DISEASE, UNSPECIFIED (10) Dementia Current Visit: No Status: Chronic Qualifiers: Dementia type: unspecified type Dementia behavioral disturbance: without behavioral disturbance Qualified Code(s): F03.90 - Unspecified dementia without behavioral disturbance Code(s): F03.90 - UNSPECIFIED DEMENTIA WITHOUT BEHAVIORAL DISTURBANCE
--- NOTE | 2018-08-24 09:08 | XRAY ---
Indication: Choking. Short of breath. Esophageal stricture. Multiple contiguous axial images obtained through the chest without contrast as ordered. Comparison: May 26, 2007. Again diffuse pulmonary emphysema with scattered fibrosis/scarring. Minimal left upper and left lower lobe peripheral [id number] opacities, possible pneumonitis. No suspicious pulmonary mass, infiltrate, or effusion. Heart is not enlarged. Aorta mildly atherosclerotic without aneurysmal dilatation. Stable tiny mediastinal and right hilar calcified nodes. No pathologic mediastinal lymphadenopathy. Stable small hiatal hernia. Bony thorax again demonstrate mild degenerative changes throughout the spine. New remote-appearing T6/T10 compression deformities with approximately 25% height loss. Limited upper abdomen demonstrates new left renal atrophy and calcified splenic granulomas. Impression: 1. Minimal left upper and left lower lobe [id number]-like opacities, possible pneumonitis. 2. Stable diffuse pulmonary edema with scattered fibrosis/scarring, small hiatal hernia, and evidence for old granulomatous disease. 3. New finding remote-appearing T6/T10 compression deformities and left renal atrophy. CT DI 9.38
[2018-08-24] MEDS: Pepcid 20 MG VIAL IV SCH (09:48)
[2018-08-24] MEDS: Coreg 3.125 MG PO SCH ×2 (09:49→22:39)
[2018-08-24] MEDS: ENOXAPARIN SODIUM SQ SCH (09:49)
[2018-08-24] MEDS ORDERED: NORVASC 5 MG PO SCH (10:00)
[2018-08-25] MEDS ORDERED: Lactated Ringers 1,000 ML IV SCH (08:00)
--- NOTE | 2018-08-25 08:57 | PCM.NOTE ---
Date and Time: 08/25/18 0853 Subjective Assessment: Pt denies any trouble breathing. Knows he is having an EGD this morning; states , "it was supposed to be 9:00 but now it's after 9" but the time was 8:15 a.m. Endorses only eating a small amount of food yesterday. - Review of Systems Constitutional: No Fever Abdominal/Gastrointestinal: Dysphagia Objective Exam General Appearance: no apparent distress, cachetic Neurologic Exam: alert, cooperative Skin Exam: normal color, warm, dry, No rash Respiratory Exam: lungs clear, diminished breath sounds, prolonged expirations, No crackles/rales, No rhonchi, No wheezing Cardiovascular Exam: regular rate/rhythm, normal heart sounds, No murmur Gastrointestinal/Abdomen Exam: soft, normal bowel sounds, No tenderness, No distention, No mass, No guarding, No rebound Extremity Exam: normal inspection, No pedal edema, No swelling OBJECTIVE DATA Vital Signs: Vital Signs - 24 hr Temp Pulse Resp BP Pulse Ox 08/25/18 07:29 97.8 F 82 20 168/90 97 08/25/18 07:19 170/97 95 08/25/18 07:00 95 08/25/18 04:00 98.0 F 79 18 170/97 95 08/25/18 00:00 97.8 F 94 H 18 167/97 95 08/24/18 20:00 98.0 F 97 H 20 167/94 94 L 08/24/18 19:36 92 H 18 95 08/24/18 16:00 98 F 100 H 18 140/102 96 08/24/18 12:00 98 F 100 H 18 140/102 96 Oxygen-Last 24 hours O2 Percentage 3 Liters = 32% Pain Assessment - Last Documented Pain Intensity 0 Pain Scale Used 0-10 Pain Scale Intake and Output: Intake & Output 08/22/18 08/23/18 08/24/18 08/25/18 11:59 11:59 11:59 11:59 Intake Total 600 2609 Balance 600 2609 Weight 49.2 kg 49.8 kg Radiology Exams: Radiology Procedures Category Date Time Status CHEST WITHOUT CONTRAST [CT] Stat Exams 08/23/18 19:26 Completed Assessment/Plan (1) Dehydration Current Visit: Yes Status: Resolved Code(s): E86.0 - DEHYDRATION (2) COPD exacerbation Current Visit: Yes Status: Suspected Assessment & Plan: again, no increased c/o cough or SOB so nebulizer tx only for now. Code(s): J44.1 - CHRONIC OBSTRUCTIVE PULMONARY DISEASE W (ACUTE) EXACERBATION (3) HTN (hypertension) Current Visit: No Status: Chronic Qualifiers: Hypertension type: essential hypertension Qualified Code(s): I10 - Essential (primary) hypertension Assessment & Plan: Better with resuming norvasc and carvedilol at reduced doses. Will increase carvedilol this weekend to home dose. Will increase norvasc today to home dose (10mg/d). Code(s): I10 - ESSENTIAL (PRIMARY) HYPERTENSION (4) Dysphagia Current Visit: Yes Status: Acute Onset Date: ~10/18/17 Qualifiers: Dysphagia type: unspecified Qualified Code(s): R13.10 - Dysphagia, unspecified Assessment & Plan: having EGD today per general surgery, thank you. Code(s): R13.10 - DYSPHAGIA, UNSPECIFIED (5) Failure to thrive Current Visit: Yes Status: Chronic Qualifiers: Failure to thrive age range: in adult Qualified Code(s): R62.7 - Adult failure to thrive Code(s): [id number] - (6) Hypernatremia Current Visit: Yes Status: Acute Code(s): E87.0 - HYPEROSMOLALITY AND HYPERNATREMIA (7) Physical deconditioning Current Visit: No Status: Chronic Code(s): R53.81 - OTHER MALAISE (8) Hypokalemia Current Visit: Yes Status: Acute Assessment & Plan: recheck this morning. Code(s): E87.6 - HYPOKALEMIA (9) Chronic renal disease Current Visit: No Status: Acute Qualifiers: Chronic kidney disease stage: stage 2 (mild) Qualified Code(s): N18.2 - Chronic kidney disease, stage 2 (mild) Code(s): N18.9 - CHRONIC KIDNEY DISEASE, UNSPECIFIED (10) Dementia Current Visit: No Status: Chronic Qualifiers: Dementia type: unspecified type Dementia behavioral disturbance: without behavioral disturbance Qualified Code(s): F03.90 - Unspecified dementia without behavioral disturbance Code(s): F03.90 - UNSPECIFIED DEMENTIA WITHOUT BEHAVIORAL DISTURBANCE
[2018-08-25 08:59] LABS: BASOPHIL % 0.1 % (0.0-0.4); Basophil (Absolute #) 0.01 (0-0.4); Eosinophil % 0.3 % (0.00-5.0); Eosinophil (Absolute #) 0.02 (0-0.5); Granulocyte Absolute (ANC) 4.83 (1.4-6.9); Granulocytes % 62.4 % (36.0-66.0); Hematocrit 33.8 % (42-50); Lymphocyte (Absolute #) 2.37 (1.0-4.6); Lymphocytes % 30.6 % (24.0-44.0); Mean Cell Volume 99.1 fl (78-100); Mean Corpuscular Hgb Concent. 32.5 g/dl (32-36); Mean Platelet Volume 10.7 fl (6-9.5); Monocyte (Absolute #) 0.51 (0.0-1.3); Monocytes % 6.6 % (0.0-12.0); Platelet Count 210 K/mm3 (150-450); Red Blood Count 3.41 M/mm3 (4.1-5.6); Red Cell Distribution Width 15.6 % (11.5-14.0); White Blood Count 7.7 K/mm3 (4.0-10.5)
[2018-08-25 09:29] LABS: Mean Corpuscular Hemoglobin 32.2 pg (26-32)
[2018-08-25] MEDS: Sodium Chloride 0.9% 1000 ML 1,000 ML IV SCH ×3 (09:40→19:59)
[2018-08-25 09:52] LABS: BLOOD UREA NITROGEN 19 mg/dL (9-20); CHLORIDE 105 mmol/L (98-107); Calcium 9.1 mg/dL (8.4-10.2); Carbon Dioxide 28 mmol/L (22-30); Creatinine 1 1.17 mg/dL (0.66-1.25); Glucose 108 mg/dL (74-106); SODIUM 143 mmol/L (137-145)
[2018-08-25] MEDS: POTASSIUM CHLORIDE 20 mEq IN WATER 100ML 20 MEQ/100 ML BAG IV SCH ×4 (11:38→22:56)
[2018-08-25] MEDS: Pepcid 20 MG VIAL IV SCH (11:40)
[2018-08-25] MEDS: Coreg 3.125 MG PO SCH ×2 (11:41→23:00)
[2018-08-25] MEDS: NORVASC 5 MG PO SCH (11:41)
[2018-08-25] MEDS: ENOXAPARIN SODIUM SQ SCH (11:42)
[2018-08-25] MEDS ORDERED: DIPRIVAN 200 MG/20 ML IV ONE (12:50)
[2018-08-25] MEDS ORDERED: Ketamine HCl 50 MG/ML IV ONE (12:50)
--- NOTE | 2018-08-25 13:07 | CONS ---
CONSULT DATE: 08/24/2018 HISTORY: The patient is seen and examined at the bedside. The patient is having difficulty swallowing, has spittoon at the bedside. He has had this done before. Procedure was re-discussed including EGD with dilatation either balloon or Porter. He wishes to proceed. He will be scheduled for dilatation on 08/25/2018.
--- NOTE | 2018-08-25 13:19 | OP ---
SURGERY DATE/TIME: 08/25/2018 0944 PREOPERATIVE DIAGNOSIS: Dysphagia possible stricture. POSTOPERATIVE DIAGNOSES: 1) Esophageal stricture size 40. 2) A 2 inch hiatal hernia. 3) Mild duodenitis. PROCEDURES: 1) EGD. 2) Esophageal dilatation with size 48, 52 and 54 Porter. SURGEON: James Kelly M.D. DIESEL TRACTOR OPERATOR: Loyd Ocampo, Second Year Resident. ANESTHESIA: MAC. COMPLICATIONS: None. CONDITION: Stable. INDICATION: A patient requiring evaluation. DESCRIPTION OF PROCEDURE: Taken to endoscopy. MAC sedation provided. Scope introduced. There is a stricture size 40 two inches above the diaphragm. There is a 2 inch hiatal hernia. Fundus, body and antrum otherwise normal. Pylorus satisfactory. Duodenal bulb mild duodenitis. Second portion normal. Scope withdrawn. 2 inch hiatal hernia. Scope withdrawn. Dilators, three Porter's 48, 52 and 54, were sequentially placed. We had a size 54 aperture with no resistance. The scope is reintroduced. There was no suggestion of any trauma. Patient tolerated the procedure satisfactorily and was advanced to the recovery room.
[2018-08-25] MEDS ORDERED: MAG-OX 400 ONE (20:35)
[2018-08-25] MEDS: MAG-OX 400 PO SCH (20:50)
[2018-08-26 04:32] LABS: ANION GAP 10.9 MEQ/L (5-15); BLOOD UREA NITROGEN 13 mg/dL (9-20); CHLORIDE 108 mmol/L (98-107); Calcium 8.4 mg/dL (8.4-10.2); Carbon Dioxide 25 mmol/L (22-30); Creatinine 1 0.96 mg/dL (0.66-1.25); Glucose 127 mg/dL (74-106); MAGNESIUM 1.7 mg/dL (1.6-2.3); Potassium 3.1 mmol/L (3.5-5.1); SODIUM 140 mmol/L (137-145)
[2018-08-26] MEDS: Sodium Chloride 0.9% 1000 ML 1,000 ML IV SCH (06:00)
[2018-08-26 07:22] VITALS: O2SAT 94
[2018-08-26 07:52] VITALS: PULSE 92
[2018-08-26] MEDS: ENOXAPARIN SODIUM SQ SCH (09:38)
[2018-08-26] MEDS: Coreg 3.125 MG PO SCH (09:38)
[2018-08-26] MEDS: NORVASC 5 MG PO SCH (09:38)
[2018-08-26] MEDS: MAG-OX 400 PO SCH (09:38)
[2018-08-26] MEDS: Pepcid 20 MG VIAL IV SCH (09:51)
[2018-08-26] MEDS ORDERED: Klor Con 10 MEQ PO SCH (10:00)
[2018-08-26] MEDS ORDERED: Protonix 40MG Tablet PO SCH (10:30)
[2018-08-26] MEDS ORDERED: FOLATE 1 MG PO SCH (10:30)
[2018-08-26] MEDS ORDERED: Wellbutrin SR 150 MG PO SCH (10:30)
[2018-08-26] MEDS ORDERED: Coreg 6.25 MG PO SCH ×2 (10:30→22:00)
[2018-08-26] MEDS ORDERED: Coreg 3.125 MG PO ONE (10:50)
[2018-08-26 11:35] VITALS: BP 185/98
--- NOTE | 2018-08-26 15:29 | PCM.DS ---
Discharge Summary Date of Admission: 08/24/18 00:22 Admitting Physician: KEVIN RESTREPO Consults: Consults on Case 08/24/18 00:24 Consult Surgery ONCE Primary Care Provider: KEVIN RESTREPO Allergies Allergies No Known Drug Allergies Allergy (Verified 08/23/18 19:01) Hospital Summary - Hospital Course Hospital Course: Pt is a 63 yo male pt of mine from [facility] with dementia, COPD, and HTN who was admitted through ER with dehydration and hypernatremia, with dysphagia. Pt was unable to tolerate liquids at times per family, and had not been taking his home meds. He had a hx of esophageal stricture; last dilatation by Dr. Vázquez several years ago. Dr. Kelly did an EGD yesterday and presumably dilated the esophagus; his report is pending. Since then pt is eating well and taking his pills po. His BP was elevated > 200 systolic on admission; we have restarted his 10mg amlodipine and 6.25 mg po BID carvedilol. Potassium was low the past 2 days (around 3.0) - will restart his home 20mEq daily and have him get a bMP early next week (I spoke to his son about this). On admission there was a question of COPD exacerbation, but he was completely asx during his stay - I warned his son to watch for increased cough. - Vitals & Intake/Output Vital Signs: Vital Signs Temperature 97.1 F 08/26/18 11:34 Pulse Rate 92 H 08/26/18 11:34 Respiratory Rate 18 08/26/18 11:34 Blood Pressure 185/98 08/26/18 11:34 O2 Sat by Pulse Oximetry 94 L 08/26/18 11:34 Oxygen-Last Documented O2 Percentage 3 Liters = 32% Intake & Output: Intake & Output 08/24/18 08/25/18 08/26/18 08/27/18 11:59 11:59 11:59 11:59 Intake Total 600 2609 4261 120 Output Total 250 Balance 600 2609 4011 120 Weight 49.2 kg 49.8 kg 49.2 kg - Lab Result Diagrams: 08/25/18 08:42 08/26/18 04:00 Lab Results-Last 24 Hrs: Lab Results-Last 24 Hours 08/24/18 08/25/18 08/25/18 Range/Units 00:00 18:15 19:09 Sodium (137-145) mmol/L Potassium 2.9 L* 3.1 L (3.5-5.1) mmol/L Chloride (98-107) mmol/L Carbon Dioxide (22-30) mmol/L Anion Gap (5-15) MEQ/L BUN (9-20) mg/dL Creatinine (0.66-1.25) mg/dL Estimated GFR ML/MIN Glucose (74-106) mg/dL Calcium (8.4-10.2) mg/dL Magnesium (1.6-2.3) mg/dL Urine Osmolality 627 mOsm/kg 08/25/18 08/26/18 Range/Units 19:15 04:00 Sodium 140 (137-145) mmol/L Potassium 3.1 L (3.5-5.1) mmol/L Chloride 108 H (98-107) mmol/L Carbon Dioxide 25 (22-30) mmol/L Anion Gap 10.9 (5-15) MEQ/L BUN 13 (9-20) mg/dL Creatinine 0.96 (0.66-1.25) mg/dL Estimated GFR > 60.0 ML/MIN Glucose 127 H (74-106) mg/dL Calcium 8.4 (8.4-10.2) mg/dL Magnesium 1.7 1.7 (1.6-2.3) mg/dL Urine Osmolality mOsm/kg - Procedures and Test Procedures and Tests throughout Hospitalization: Therapy Orders & Screens 08/24/18 00:24 EKG REPEAT IN AM Comment: 08/24/18 00:45 Oxygen Nasal Cannula 3 lpm Comment: AT NIGHT PER HOME USE Diagnosis: hypernatremia Peak Expiratory Flow Rate DAILY Comment: Reason For Exam: Diagnosis: hypernatremia Respiratory Therapy Assessment DAILY Comment: Diagnosis: hypernatremia 08/24/18 09:16 PT Eval & Treat (MD Order) ROUTINE Reason for Eval:: weakness Diagnosis: hypernatremia, COPD exacerbation, dysphagia, dehydration, failure to thrive Discharge Exam General Appearance: no apparent distress, cachetic Neurologic Exam: alert (eating breakfast), cooperative Skin Exam: normal color, warm, dry, No rash Respiratory Exam: lungs clear, diminished breath sounds (good air exchange), No crackles/rales, No rhonchi, No wheezing Cardiovascular Exam: regular rate/rhythm, normal heart sounds, No murmur Gastrointestinal/Abdomen Exam: soft, No tenderness, No distention, No mass, No guarding, No rebound Extremity Exam: normal inspection, No pedal edema, No swelling Back Exam: normal inspection, No rash Final Diagnosis/Problem List - Final Discharge Diagnosis/Problem (1) Dehydration Current Visit: Yes Status: Resolved Code(s): E86.0 - DEHYDRATION (2) HTN (hypertension) Current Visit: No Status: Chronic Assessment & Plan: Better - home medicines up to home dosage today. recheck in office in 1 week. Code(s): I10 - ESSENTIAL (PRIMARY) HYPERTENSION (3) Dysphagia Current Visit: Yes Status: Acute Onset Date: ~10/18/17 Assessment & Plan: Doing great s/p dilatation. Code(s): R13.10 - DYSPHAGIA, UNSPECIFIED (4) Failure to thrive Current Visit: Yes Status: Chronic Assessment & Plan: Spoke with son, pt has been eating great since the procedure yesterday, I think he will re-gain weight now. Code(s): QPS1851 - (5) Hypernatremia Current Visit: Yes Status: Resolved Code(s): E87.0 - HYPEROSMOLALITY AND HYPERNATREMIA (6) Physical deconditioning Current Visit: No Status: Chronic Code(s): R53.81 - OTHER MALAISE (7) Hypokalemia Current Visit: Yes Status: Acute Assessment & Plan: restart home potassium. With the improved diet I think this will normalize. Recheck outpatient Wednesday or Wednesday. Code(s): E87.6 - HYPOKALEMIA (8) Chronic renal disease Current Visit: No Status: Chronic Code(s): N18.9 - CHRONIC KIDNEY DISEASE, UNSPECIFIED (9) Dementia Current Visit: No Status: Chronic Code(s): F03.90 - UNSPECIFIED DEMENTIA WITHOUT BEHAVIORAL DISTURBANCE - Discharge Disposition: Home, Self-Care Condition: Stable Prescriptions: New Potassium Chloride 10 Meq Tab* [Klor Con 10 MEQ] 10 meq PO BID #60 tab Carvedilol 6.25 mg [Coreg 6.25 MG] 6.25 mg PO BID #60 tablet Continue ALPRAZolam [Xanax 0.5 mg] 0.5 mg PO BID Bupropion HCl 150 mg Sr [Wellbutrin SR 150 MG] 150 mg PO BID #60 tablet.sa Atorvastatin Calcium [Lipitor] 80 mg PO HS Carvedilol 3.125 mg [Coreg 3.125 MG] 6.25 mg PO BID Amlodipine Besylate [Norvasc] 10 mg PO DAILY Albuterol 2.5 mg/3 ml Neb [Proventil 2.5 mg/3 ml Neb] 2.5 mg IH Q4HPRN PRN #30 neb PRN Reason: DIFFICULTY BREATHING Omeprazole 40 mg PO DAILY Folic Acid 1 mg [Folate 1 mg] 1 mg PO DAILY Trazodone HCl 50 mg [Desyrel 50 mg] 50 mg PO HS Discontinued Potassium Chloride 10 Meq Tab* [Klor Con 10 MEQ] 20 meq PO DAILY #30 tab Instructions: Esophageal Dilation Additional Instructions: PLEASE COME TO [facility] ON TUESDAY 08/29 FOR LABWORK. Follow up with: MYLA KELLY [ACTIVE STAFF] - 08/30/18 11:20 am KEVIN RESTREPO [Primary Care Provider] - 09/02/18 10:00 am
[2018-08-26] MEDS ORDERED: ZOCOR 20MG PO SCH (22:00)
[2018-08-26] MEDS ORDERED: DESYREL 50 MG PO SCH (22:00)
== END 2018-08-26 14:35 | disposition home or self-care (01) | DRG 641 ==
LOC: ED 18:46 → MED SURG 08-24 00:22
PROVIDERS: ADMIT Family Medicine; ATTEND Family Medicine
PROC: 0D758ZZ Dilation of Esophagus, Via Natural or Artificial Opening Endoscopic (ICD-10-PCS; principal; 2018-08-25)
DX: E86.0 Dehydration (principal); K22.2 Esophageal obstruction; K29.80 Duodenitis without bleeding; R13.10 Dysphagia, unspecified; E87.0 Hyperosmolality and hypernatremia; K44.9 Diaphragmatic hernia without obstruction or gangrene; J44.9 Chronic obstructive pulmonary disease, unspecified; I10 Essential (primary) hypertension; N18.9 Chronic kidney disease, unspecified; F03.90 Unspecified dementia, unspecified severity, without behavioral disturbance, psychotic disturbance, mood disturbance, and anxiety; R62.7 Adult failure to thrive; R53.81 Other malaise; E87.6 Hypokalemia; Z79.899 Other long term (current) drug therapy
CPT/HCPCS: 36000; 36415; 71250; 80048; 80053; 81001; 83605; 83735; 83935; 84132; 84133; 84300; 84484; 85025; 93005; 94760; 96360; 96374; 96375; 99285; J0360; J1650; J2405; J2704; J3480; A9270-GY

== ENCOUNTER 2018-09-02 11:10 | Inpatient (IN) | payer MEDICARE ==
[2018-09-02] MEDS ORDERED: ROCEPHIN 1 Gm-D5w 50 ml Bag** 1 G/50 ML IVPB IV STA (11:53)
[2018-09-02] MEDS ORDERED: DUONEB 0.5-3 MG/3 ml Neb IH ONE ×4 (11:53→16:04)
[2018-09-02] MEDS ORDERED: Zithromax 500 MG/ 250 ML NaCl Premix 500 MG/250 ML IVPB IV STA (11:53)
[2018-09-02] MEDS ORDERED: solu-MEDROL 125 MG IV ONE (11:53)
--- NOTE | 2018-09-02 11:55 | ERPHSYRPT ---
- History of Present Illness Time Seen by Provider: 09/02/18 11:30 Source: patient Exam Limitations: clinical condition Patient Subjective Stated Complaint: pt here for sob and chest pain off and on for weeks now, he states when hes walks he gets sob, he denies any pain at persent time, pt was just dc a week ago from hospital. daughter states he had hes esphogus stretched Triage Nursing Assessment: pt alert, arrived per wc, resp easy, skin w/d/p. no edema noted, has congested sounding cough,chest clear, abd soft, pt denies chocking Physician History: PATIENT WITH A HISTORY OF COPD, COMPLAINS OF HAVING A PRODUCTIVE COUGH FOR 3 WEEKS ASSOCIATED WITH DYSPNEA, DIFFICULTY BREATHING, AND PAIN UPON COUGHING. DENIES FEVER OR CHILLS. DENIES RADIATION OF PAIN TO HIS NECK, JAW OR ARMS. Timing/Duration: week(s) Activities at Onset: activity Severity of Dyspnea-Max: moderate Severity of Dyspnea-Current: moderate Possible Cause: occasional episodes Modifying Factors: Improves With: coughing, exertion Associated Symptoms: cough, chest pain/discomfort International travel in last 2 weeks: No Allergies/Adverse Reactions: No Known Drug Allergies Allergy (Verified 09/02/18 11:22) Home Medications: ALPRAZolam [Xanax 0.5 mg] 0.5 mg PO BID 08/02/14 [History] Atorvastatin Calcium [Lipitor] 80 mg PO HS 06/20/15 [History] Carvedilol 3.125 mg [Coreg 3.125 MG] 6.25 mg PO BID 06/20/15 [History] Folic Acid 1 mg [Folate 1 mg] 1 mg PO DAILY 08/23/18 [History] Omeprazole 40 mg PO DAILY 08/23/18 [History] Trazodone HCl 50 mg [Desyrel 50 mg] 50 mg PO HS 08/23/18 [History] Lisinopril 20 mg [Zestril 20 MG] 40 mg DAILY 09/02/18 [History] Hx Tetanus, Diphtheria Vaccination/Date Given: No Hx Influenza Vaccination/Date Given: Yes Hx Pneumococcal Vaccination/Date Given: Yes Immunizations Up to Date: Yes - Review of Systems Constitutional: No Fever, No Chills Eyes: No Symptoms Ears, Nose, & Throat: No Symptoms Respiratory: Cough, Dyspnea Cardiac: No Symptoms, No Chest Pain, No Edema, No Syncope Abdominal/Gastrointestinal: No Symptoms, No Abdominal Pain, No Nausea, No Vomiting, No Diarrhea Genitourinary Symptoms: No Symptoms, No Dysuria Musculoskeletal: No Symptoms, No Back Pain, No Neck Pain Skin: No Symptoms, No Rash Neurological: No Dizziness, No Focal Weakness, No Sensory Changes Psychological: No Symptoms Endocrine: No Symptoms All Other Systems: Reviewed and Negative - Past Medical History Pertinent Past Medical History: Yes Neurological History: Dementia, Stroke, TIA, Other ENT History: Cataracts Cardiac History: High Cholesterol, Hypertension Respiratory History: COPD, Emphysema Endocrine Medical History: No Pertinent History Musculoskeletal History: No Pertinent History GI Medical History: GERD History: Renal Disease Psycho-Social History: Anxiety, Depression Male Reproductive Disorders: No Pertinent History Other Medical History: BRAIN ANEURYSM 2007, "several strokes" per sisters. Renal insufficiency, esophageal stricture - Past Surgical History Past Surgical History: Yes Neuro Surgical History: Neurological Surgery, Other Cardiac: No Pertinent History Respiratory: No Pertinent History Gastrointestinal: No Pertinent History Genitourinary: No Pertinent History Musculoskeletal: No Pertinent History Male Surgical History: No Pertinent History Other Surgical History: Brain aneurism, 2 clips in brain 2006 or 2007, CATARACT SURGERY X 3, esophagus stretched - Social History Smoking Status: Current every day smoker How long have you smoked: YEARS Exposure to second hand smoke: Yes Drug Use: none Patient Lives Alone: No - Nursing Vital Signs Nursing Vital Signs: Initial Vital Signs Temperature 98.0 F 09/02/18 11:15 Pulse Rate 92 H 09/02/18 11:15 Respiratory Rate 24 09/02/18 11:15 Blood Pressure 151/97 09/02/18 11:15 O2 Sat by Pulse Oximetry 98 09/02/18 11:15 Pain Scale Pain Intensity 0 - Physical Exam General Appearance: no apparent distress, alert Eye Exam: PERRL/EOMI Neck Exam: normal inspection, supple Respiratory Exam: diminished breath sounds, crackles/rales Cardiovascular/Chest Exam: normal heart sounds, regular rate/rhythm Abdominal/Gastrointestinal Exam: soft, No tenderness, No distention, No mass Extremity Exam: non-tender, normal range of motion, normal inspection, no calf tenderness, no pedal edema Peripheral Pulses Exam: carotid (R): 2+, carotid (L): 2+, femoral (R): 2+, femoral (L): 2+, dorsalis-pedis (R): 2+, dorsalis-pedis (L): 2+ Neurologic Exam: alert, oriented x 3, cooperative, circuit board assembler II-XII nml as tested, sensation nml, No motor deficits Skin Exam: normal color, warm, No dry SpO2 Interpretation: normal SpO2: 98 - Course Nursing assessment & vital signs reviewed: Yes EKG Interpreted by Me: RATE, Sinus Rhythm, NORMAL AXIS - CT Exams Chest CT Interpretation: Discussed w/radiologist (NEGATIVE LPULMONARY EMBOLISM, BILATERAL PLERUAL EFFUSIONS WITHOUT CARDIOMEGALY, STABLE DIFFUSE PULMONARY EMPHYSEMA WITH SCATTERED FIBROSIS/SCARRING) Ordered Tests: Active Orders 24 hr Category Date Time Status Shuttle Route Vehicle Operator STAT Care 09/02/18 11:54 Active Clean Catch Urine Specimen STAT Care 09/02/18 11:53 Active EKG-ER Only STAT Care 09/02/18 11:53 Active Oxygen-ED Only Nasal Cannula 2 lpm Care 09/02/18 11:53 Active CHEST 1 VIEW (PORTABLE) Stat Exams 09/02/18 11:54 Completed CHEST WITH CONTRAST [CT] Stat Exams 09/02/18 12:41 Completed BLOOD CULTURE Stat Lab 09/02/18 12:05 Received CBC W DIFF Stat Lab 09/02/18 12:25 Completed CMP Stat Lab 09/02/18 12:25 Completed D-DIMER QUANTITATION Stat Lab 09/02/18 12:25 Completed Lactic Acid Stat Lab 09/02/18 12:10 Completed MAGNESIUM Stat Lab 09/02/18 12:25 Completed NT PRO BNP Stat Lab 09/02/18 12:25 Completed PROTIME WITH INR Stat Lab 09/02/18 12:25 Completed TROPONIN Q3H Lab 09/02/18 12:25 Completed TROPONIN Q3H Lab 09/02/18 15:00 Completed TROPONIN Q3H Lab 09/02/18 18:00 Ordered TROPONIN Q3H Lab 09/02/18 21:00 Ordered TROPONIN Q3H Lab 09/03/18 00:00 Ordered UA W/RFX UR CULTURE Stat Lab 09/02/18 11:53 Uncollected Peak Expiratory Flow Rate ONCE RT 09/02/18 12:06 Active Respiratory Nebulizer STAT RT 09/02/18 11:54 Completed Respiratory Nebulizer STAT RT 09/02/18 15:52 Active Respiratory Therapy Assessment DAILY RT 09/02/18 12:06 Active Medication Summary Generic Name Dose Route Start Last Admin Trade Name Emanuel PRN Reason Stop Dose Admin Sodium Chloride 1,000 mls @ 100 mls/hr 09/02/18 12:00 09/02/18 13:14 Sodium Chloride 0.9% 1000 Ml IV 10/02/18 11:59 100 mls/hr .Q10H DONALDO Administration Discontinued Medications Generic Name Dose Route Start Last Admin Trade Name Emanuel PRN Reason Stop Dose Admin Albuterol/Ipratropium 3 ml 09/02/18 11:53 09/02/18 12:02 Duoneb 0.5-3 Mg/3 Ml Neb IH 09/02/18 11:54 3 ml STAT ONE Administration Albuterol/Ipratropium Confirm 09/02/18 12:00 Duoneb 0.5-3 Mg/3 Ml Neb Administered 09/02/18 12:01 Dose 3 ml IH .STK-MED ONE Albuterol/Ipratropium 3 ml 09/02/18 15:51 Duoneb 0.5-3 Mg/3 Ml Neb IH 09/02/18 15:52 STAT ONE Ceftriaxone Sodium/Dextrose 1 g in 50 mls @ 100 mls/hr 09/02/18 11:53 14:03 Rocephin 1 Gm-D5w 50 Ml Bag IV 09/02/18 12:22 Infused STAT STA Infusion Azithromycin 500 mg in 250 mls @ 250 mls/hr 09/02/18 11:53 09/02/18 16:01 Zithromax 500 Mg/ 250 Ml Nacl Premix IV 09/02/18 12:52 Infused STAT STA Infusion Ceftriaxone Sodium/Dextrose Confirm 09/02/18 13:11 Rocephin 1 Gm-D5w 50 Ml Bag Administered 09/02/18 13:12 Dose 1 g in 50 mls @ ud IV .STK-MED ONE Azithromycin Confirm 09/02/18 14:31 Zithromax 500 Mg/ 250 Ml Nacl Premix Administered 09/02/18 14:32 Dose 500 mg in 250 mls @ ud IV .STK-MED ONE Methylprednisolone Sodium Succinate 125 mg 09/02/18 11:53 09/02/18 13:13 Solu-Medrol 125 Mg IV 09/02/18 11:54 125 mg STAT ONE Administration Methylprednisolone Sodium Succinate Confirm 09/02/18 13:11 Solu-Medrol 125 Mg Administered 09/02/18 13:12 Dose 125 mg .ROUTE .STK-MED ONE Lab/Rad Data: Laboratory Result Diagrams 09/02/18 12:25 09/02/18 12:25 Laboratory Results 09/02/18 09/02/18 09/02/18 Range/Units 15:00 12:25 12:25 WBC (4.0-10.5) K/mm3 RBC (4.1-5.6) M/mm3 Hgb (12.5-18.0) gm/dl Hct (42-50) % MCV (78-100) fl MCH (26-32) pg MCHC (32-36) g/dl RDW (11.5-14.0) % Plt Count (150-450) K/mm3 MPV (6-9.5) fl Gran % (36.0-66.0) % Eos # (Auto) (0-0.5) Absolute Lymphs (auto) (1.0-4.6) Absolute Monos (auto) (0.0-1.3) Lymphocytes % (24.0-44.0) % Monocytes % (0.0-12.0) % Eosinophils % (0.00-5.0) % Basophils % (0.0-0.4) % Absolute Granulocytes (1.4-6.9) Basophils # (0-0.4) PT 12.8 (8.83-12.87) SECONDS INR 1.10 (0.8-3.0) D-Dimer 1308 H* (215-500) ng/mL Sodium (137-145) mmol/L Potassium (3.5-5.1) mmol/L Chloride (98-107) mmol/L Carbon Dioxide (22-30) mmol/L Anion Gap (5-15) MEQ/L BUN (9-20) mg/dL Creatinine (0.66-1.25) mg/dL Estimated GFR ML/MIN Glucose (74-106) mg/dL Lactic Acid (0.4-2.0) Calcium (8.4-10.2) mg/dL Magnesium (1.6-2.3) mg/dL Total Bilirubin (0.2-1.3) mg/dL AST (17-59) U/L ALT (0-50) U/L Alkaline Phosphatase (38-126) U/L Troponin I < 0.012 < 0.012 (0.000-0.034) ng/mL NT-Pro-B Natriuret Pep (0-900) pg/mL Serum Total Protein (6.3-8.2) g/dL Albumin (3.5-5.0) g/dL 09/02/18 09/02/18 09/02/18 Range/Units 12:25 12:25 12:10 WBC 7.4 (4.0-10.5) K/mm3 RBC 3.26 L (4.1-5.6) M/mm3 Hgb 10.4 L (12.5-18.0) gm/dl Hct 32.5 L (42-50) % MCV 99.7 (78-100) fl MCH 31.9 (26-32) pg MCHC 32.0 (32-36) g/dl RDW 15.8 H (11.5-14.0) % Plt Count 347 (150-450) K/mm3 MPV 9.8 H (6-9.5) fl Gran % 76.7 H (36.0-66.0) % Eos # (Auto) 0.02 (0-0.5) Absolute Lymphs (auto) 1.29 (1.0-4.6) Absolute Monos (auto) 0.39 (0.0-1.3) Lymphocytes % 17.4 L (24.0-44.0) % Monocytes % 5.3 (0.0-12.0) % Eosinophils % 0.3 (0.00-5.0) % Basophils % 0.3 (0.0-0.4) % Absolute Granulocytes 5.68 (1.4-6.9) Basophils # 0.02 (0-0.4) PT (8.83-12.87) SECONDS INR (0.8-3.0) D-Dimer (215-500) ng/mL Sodium 140 (137-145) mmol/L Potassium 4.2 (3.5-5.1) mmol/L Chloride 102 (98-107) mmol/L Carbon Dioxide 29 (22-30) mmol/L Anion Gap 13.0 (5-15) MEQ/L BUN 15 (9-20) mg/dL Creatinine 0.95 (0.66-1.25) mg/dL Estimated GFR > 60.0 ML/MIN Glucose 98 (74-106) mg/dL Lactic Acid 1.2 (0.4-2.0) Calcium 9.4 (8.4-10.2) mg/dL Magnesium 1.9 (1.6-2.3) mg/dL Total Bilirubin 0.30 (0.2-1.3) mg/dL AST 19 (17-59) U/L ALT 13 (0-50) U/L Alkaline Phosphatase 166 H (38-126) U/L Troponin I (0.000-0.034) ng/mL NT-Pro-B Natriuret Pep 419 (0-900) pg/mL Serum Total Protein 7.0 (6.3-8.2) g/dL Albumin 3.4 L (3.5-5.0) g/dL - Progress Progress: improved Progress Note: 09/02/18 16:[address] CLARK AT 1500 FOR OBSERVATION Blood Culture(s) Obtained: Yes Discussed with Dr.: Clark (DISCUSSED WITH DR CLARK AT 1500 FOR OBSERVATION) - Departure Departure Disposition: Observation Clinical Impression: Acute exacerbation of chronic obstructive airways disease, ACUTE CHEST PAIN Condition: Stable Critical Care Time: No Referrals: [facility] [Primary Care Provider] - Instructions: Chronic Obstructive Pulmonary Disease
[2018-09-02] MEDS ORDERED: Sodium Chloride 0.9% 1000 ML 1,000 ML IV SCH (12:00)
--- NOTE | 2018-09-02 12:15 | XRAY ---
Indication: Short of breath. Comparison: April 16, 2018. Portable chest remains hyperinflated and clear again with incidental tiny calcified granulomas. Heart is not enlarged. Bony thorax intact. No new/acute findings.
[2018-09-02 12:32] LABS: INR 1.1 (0.8-3.0); PROTIME 12.8 SECONDS (8.83-12.87)
[2018-09-02 12:36] LABS: BASOPHIL % 0.3 % (0.0-0.4); Basophil (Absolute #) 0.02 (0-0.4); Eosinophil % 0.3 % (0.00-5.0); Eosinophil (Absolute #) 0.02 (0-0.5); Granulocyte Absolute (ANC) 5.68 (1.4-6.9); Granulocytes % 76.7 % (36.0-66.0); Hematocrit 32.5 % (42-50); Hemoglobin 10.4 gm/dl (12.5-18.0); Lymphocyte (Absolute #) 1.29 (1.0-4.6); Lymphocytes % 17.4 % (24.0-44.0); Mean Cell Volume 99.7 fl (78-100); Mean Corpuscular Hemoglobin 31.9 pg (26-32); Mean Platelet Volume 9.8 fl (6-9.5); Monocyte (Absolute #) 0.39 (0.0-1.3); Monocytes % 5.3 % (0.0-12.0); Platelet Count 347 K/mm3 (150-450); Red Blood Count 3.26 M/mm3 (4.1-5.6); Red Cell Distribution Width 15.8 % (11.5-14.0); White Blood Count 7.4 K/mm3 (4.0-10.5)
[2018-09-02 12:47] LABS: ALBUMIN 3.4 g/dL (3.5-5.0); ALKALINE PHOSPHATASE 166 U/L (38-126); BLOOD UREA NITROGEN 15 mg/dL (9-20); CHLORIDE 102 mmol/L (98-107); Calcium 9.4 mg/dL (8.4-10.2); Carbon Dioxide 29 mmol/L (22-30); Creatinine 1 0.95 mg/dL (0.66-1.25); Glucose 98 mg/dL (74-106); MAGNESIUM 1.9 mg/dL (1.6-2.3); NT PRO BNP 419 pg/mL (0-900); Potassium 4.2 mmol/L (3.5-5.1); SGOT/AST 19 U/L (17-59); SGPT/ALT 13 U/L (0-50); SODIUM 140 mmol/L (137-145)
[2018-09-02] MEDS ORDERED: Sodium Chloride 0.9% 1000 ML 1,000 ML ONE (13:11)
[2018-09-02] MEDS ORDERED: solu-MEDROL 125 MG ONE (13:11)
[2018-09-02] MEDS ORDERED: ROCEPHIN 1 Gm-D5w 50 ml Bag** 1 G/50 ML IVPB IV ONE (13:11)
--- NOTE | 2018-09-02 14:28 | XRAY ---
Indication: Chest/back pain. Elevated d-dimer. Multiple contiguous axial images obtained through the chest using 80 cc Isovue 370 contrast and PE protocol. Comparison: August 23, 2018. There is satisfactory opacification of the pulmonary arteries. However mild respiration artifact limits evaluation of the more distal lobar and segmental branches. No central pulmonary embolus. Heart is not enlarged. Aorta remains mildly arteriosclerotic without aneurysm/dissection. No pathologic mediastinal/hilar lymphadenopathy. Examination of the lung parenchyma again demonstrates diffuse pulmonary emphysema with scattered fibrosis/scarring. No pulmonary mass, infiltrate, or effusion. Bony thorax intact again with mild osteopenia, mild degenerative changes throughout the spine, and remote T6/T10 compression deformities. Limited upper abdomen again demonstrates hepatic/splenic calcified granulomas and left renal atrophy. Visualized abdominal aorta demonstrates moderate eccentric arteriosclerotic disease. Impression: 1. Pulmonary embolus evaluation limited by respiration artifact. No central pulmonary embolus. 2. Stable diffuse pulmonary emphysema with scattered fibrosis/scarring. 3. No new/acute cardiopulmonary abnormalities. 4. Stable osteopenia, bony degenerative changes, and remote T6/T10 compression deformities. CT DI 10.00
[2018-09-02] MEDS ORDERED: Zithromax 500 MG/ 250 ML NaCl Premix 500 MG/250 ML IVPB IV ONE (14:31)
[2018-09-02] MEDS ORDERED: Xopenex 1.25 MG/0.5 ML UD NEBULE IH PRN (16:07)
[2018-09-02] MEDS ORDERED: Nitrostat 0.4 MG Tablet SL PRN (16:11)
[2018-09-02 16:35] LABS: Appearance CLEAR (CLEAR); Bilirubin NEGATIVE (NEGATIVE); Blood NEGATIVE Ery/ul (0-5); Glucose NEGATIVE (NEGATIVE); Ketones NEGATIVE (NEGATIVE); Leukocyte Esterase NEGATIVE (NEGATIVE); Nitrite NEGATIVE (NEGATIVE); Protein,Urine Dip NEGATIVE (Negative); Specific Gravity 1.018 (1.005-1.025); Urobilinogen NEGATIVE mg/dL (0-1)
[2018-09-02] MEDS: solu-MEDROL 125 MG IV SCH (18:30)
[2018-09-02] MEDS: Sodium Chloride 0.9% 1000 ML 1,000 ML IV SCH (18:40)
[2018-09-02] MEDS ORDERED: DUONEB 0.5-3 MG/3 ml Neb IH SCH (19:00)
[2018-09-02] MEDS: Coreg 6.25 MG PO SCH (21:49)
[2018-09-02] MEDS: xanAX 0.5 MG PO SCH (21:50)
[2018-09-02] MEDS: DESYREL 50 MG PO SCH (21:50)
[2018-09-02] MEDS: Wellbutrin SR 150 MG PO SCH (21:50)
[2018-09-03] MEDS: solu-MEDROL 125 MG IV SCH ×4 (00:51→21:01)
[2018-09-03] MEDS ORDERED: solu-MEDROL 125 MG ONE ×2 (06:26→19:52)
[2018-09-03] MEDS ORDERED: NON-FORMULARY ITEM (Omeprazole [Omeprazole] 40 MG) PO SCH (10:00)
[2018-09-03] MEDS: FOLATE 1 MG PO SCH (10:12)
[2018-09-03] MEDS: Klor Con 10 MEQ PO SCH ×2 (10:12→21:00)
[2018-09-03] MEDS: Protonix 40MG Tablet PO SCH (10:12)
[2018-09-03] MEDS: Zithromax 500 MG/ 250 ML NaCl Premix 500 MG/250 ML IVPB IV SCH (10:13)
[2018-09-03] MEDS: Zestril 20 MG PO SCH (10:13)
[2018-09-03] MEDS: xanAX 0.5 MG PO SCH ×2 (10:13→21:03)
[2018-09-03] MEDS: Wellbutrin SR 150 MG PO SCH ×2 (10:13→23:07)
[2018-09-03] MEDS: Coreg 6.25 MG PO SCH ×2 (10:13→20:59)
[2018-09-03] MEDS: ROCEPHIN 1 Gm-D5w 50 ml Bag** 1 G/50 ML IVPB IV SCH (10:13)
[2018-09-03] MEDS: Sodium Chloride 0.9% 1000 ML 1,000 ML IV SCH (17:22)
[2018-09-03] MEDS: DESYREL 50 MG PO SCH (20:59)
[2018-09-03] MEDS ORDERED: NON-FORMULARY ITEM (Atorvastatin Calcium [Lipitor] 80 MG) PO SCH (22:00)
[2018-09-03] MEDS ORDERED: Wellbutrin SR 150 MG ONE (22:11)
[2018-09-03] MEDS: ZOCOR 20MG PO SCH (23:08)
--- NOTE | 2018-09-03 23:28 | PCM.NOTE ---
Date and Time: 09/03/182322 - Review of Systems Constitutional: Fatigue, Weakness, Other (states feeling better today) Respiratory: Short Of Breath, Wheezing, Other (improved on current tx) Cardiac: Other (no further chest pain, no palpitations,no edema) Abdominal/Gastrointestinal: No Symptoms, Other (good appetite today) Objective Exam General Appearance: alert, thin, other (less anxious today,was "jummpy" on admission per nursing) Neurologic Exam: alert, oriented x 3 Skin Exam: normal color, warm Eye Exam: PERRL, EOMI Ears, Nose, Throat Exam: normal ENT inspection Neck Exam: normal inspection Respiratory Exam: diminished breath sounds, wheezing, other (right midand) Cardiovascular Exam: regular rate/rhythm, normal heart sounds, other (no edema) Gastrointestinal/Abdomen Exam: soft, normal bowel sounds, other (nontender) Extremity Exam: other (no edema,no calf tenderness) OBJECTIVE DATA Vital Signs: Vital Signs - 24 hr Temp Pulse Resp BP Pulse Ox 09/03/18 20:00 98.1 F 81 18 105/59 100 09/03/18 16:00 98.5 F 79 18 108/57 99 09/03/18 15:45 84 18 99 09/03/18 12:00 89 18 111/61 99 09/03/18 11:56 16 09/03/18 11:17 99 09/03/18 11:15 84 16 99 09/03/18 08:00 97.8 F 77 18 139/81 09/03/18 07:00 98.4 F 82 16 139/74 96 09/03/18 04:00 98.0 F 98 H 20 131/66 95 09/03/18 03:57 98.0 F 98 H 20 131/66 95 09/03/18 00:00 16 09/02/18 23:37 98.8 F 94 H 16 136/74 98 Oxygen-Last 24 hours O2 Percentage 2 Liters = 28% O2 Percentage 2 Liters = 28% O2 Percentage 2 Liters = 28% O2 Percentage 2 Liters = 28% O2 Percentage 2 Liters = 28% O2 Percentage 2 Liters = 28% O2 Percentage 2 Liters = 28% Oxygen Flowrate (L/min)-RT 2 Pain Assessment - Last Documented Pain Intensity 0 Pain Scale Used 0-10 Pain Scale Intake and Output: Intake & Output 09/01/18 09/02/18 09/03/18 09/04/18 11:59 11:59 11:59 11:59 Intake Total 770 1467 Output Total 580 Balance 190 1467 Weight 50.349 kg 51.4 kg Lab Results: Lab Results-Last 24 Hours 09/03/18 Range/Units 00:30 Troponin I < 0.012 (0.000-0.034) ng/mL Radiology Exams: Radiology Procedures Category Date Time Status CHEST 1 VIEW (PORTABLE) Stat Exams 09/02/18 11:54 Completed CHEST WITH CONTRAST [CT] Stat Exams 09/02/18 12:41 Completed Multi-Disciplinary Progress Notes: Multi-Disciplinary Progress Notes 09/03/18 10:16 Case Management Note by Donna Jimenez ATTEMPTED TO REACHE TONYA, PT'S DAUGHTER AND LAY CAREGIVER, REGARDING NEEDS AT DISCHARGE. NO ANSWER, NO VOICEMAIL BOX SET UP. Initialized on 09/03/18 10:16 - END OF NOTE 09/03/18 09:30 (created 09/03/18 10:18) Case Management Note by Donna Jimenez DISCUSSION WITH PT REGARDING NEEDS AT DISCHARGE. DISCUSSED THAT [facility] HAVE NOT BEEN ENOUGH SUPPORT. ENCOURAGED PT TO GO FOR REHAB STAY, HE HAS BEEN TOO WEAK TO CARE FOR SELF, LIVES WITH HIS SON, BUT SON WORKS AT NIGHT AND HAS TO SLEEP DURING THE DAY. ALSO, HAS DAUGHTERS THAT HELP FROM TIME TO TIME, BUT THEY WORK WELL. PT HAS BEEN TO [facility] IN THE PAST AND DID VERY WELL. REPORTS THAT HE WILL THINK ABOUT IT. Initialized on 09/03/18 10:18 - END OF NOTE Assessment/Plan (1) Acute exacerbation of chronic obstructive airways disease Current Visit: Yes Status: Acute Assessment & Plan: improving on current treatment Code(s): J44.1 - CHRONIC OBSTRUCTIVE PULMONARY DISEASE W (ACUTE) EXACERBATION (2) Malaise and fatigue Current Visit: Yes Status: Acute Assessment & Plan: improving with IV hydration and improved aeration of lungs Code(s): R53.81 - OTHER MALAISE; R53.83 - OTHER FATIGUE (3) Elevated d-dimer Current Visit: Yes Status: Acute Assessment & Plan: Chest CT negative for PE, Troponin serienot elevated. Code(s): R79.89 - OTHER SPECIFIED ABNORMAL FINDINGS OF BLOOD CHEMISTRY
[2018-09-04] MEDS: solu-MEDROL 125 MG IV SCH ×2 (06:42→14:49)
[2018-09-04] MEDS: Klor Con 10 MEQ PO SCH ×2 (10:10→22:58)
[2018-09-04] MEDS: ROCEPHIN 1 Gm-D5w 50 ml Bag** 1 G/50 ML IVPB IV SCH (10:10)
[2018-09-04] MEDS: Protonix 40MG Tablet PO SCH (10:11)
[2018-09-04] MEDS: Coreg 6.25 MG PO SCH ×2 (10:11→22:58)
[2018-09-04] MEDS: Zestril 20 MG PO SCH (10:11)
[2018-09-04] MEDS: Wellbutrin SR 150 MG PO SCH ×2 (10:11→22:58)
[2018-09-04] MEDS: xanAX 0.5 MG PO SCH ×2 (10:11→22:58)
[2018-09-04] MEDS: FOLATE 1 MG PO SCH (10:11)
[2018-09-04] MEDS: Zithromax 500 MG/ 250 ML NaCl Premix 500 MG/250 ML IVPB IV SCH (10:56)
[2018-09-04] MEDS: Sodium Chloride 0.9% 1000 ML 1,000 ML IV SCH (16:04)
[2018-09-04 17:28] LABS: Granulocyte Absolute (ANC) 18.57 (1.4-6.9); Hematocrit 26.8 % (42-50); Hemoglobin 8.2 gm/dl (12.5-18.0); Mean Cell Volume 105.1 fl (78-100); Mean Corpuscular Hgb Concent. 30.6 g/dl (32-36); Mean Platelet Volume 9.8 fl (6-9.5); Platelet Count 311 K/mm3 (150-450); Red Blood Count 2.55 M/mm3 (4.1-5.6); Red Cell Distribution Width 16.7 % (11.5-14.0); White Blood Count 19.3 K/mm3 (4.0-10.5)
--- NOTE | 2018-09-04 17:31 | PCM.NOTE ---
Date and Time: 09/04/181725 - Review of Systems Constitutional: Weakness (states feeling stronger and will start getting up and walking with assistance to improve strength before going home), Weight Loss ( has been enjoying his meals since the esophageal dilation ), Other Respiratory: Cough (continues to improve but still productive of yellow mucus per patient) Cardiac: No Symptoms Abdominal/Gastrointestinal: No Symptoms, Other (dysphagia has resolved since esophageal dilation and is eating full diet without difficulty) Genitourinary Symptoms: No Symptoms Objective Exam Neurologic Exam: alert, oriented x 3, cooperative Skin Exam: normal color, warm, dry Respiratory Exam: diminished breath sounds (much improved ,still few scattered eew), wheezing, other OBJECTIVE DATA Vital Signs: Vital Signs - 24 hr Temp Pulse Resp BP Pulse Ox 09/04/18 16:05 98.0 F 83 20 100/59 96 09/04/18 16:00 98.6 F 79 20 106/53 09/04/18 12:00 20 09/04/18 11:56 98.6 F 79 20 106/53 96 09/04/18 08:00 92 H 09/04/18 07:55 98 H 92 H 98 09/04/18 07:45 98.3 F 86 18 103/63 97 09/04/18 04:00 20 09/04/18 03:51 97.9 F 87 19 95/54 97 09/04/18 00:00 18 09/03/18 23:49 97.9 F 70 18 99/58 93 L 09/03/18 23:27 98 09/03/18 23:26 85 18 98 09/03/18 20:00 98.1 F 81 18 105/59 100 Oxygen-Last 24 hours O2 Percentage 3 Liters = 32% O2 Percentage 3 Liters = 32% O2 Percentage 3 Liters = 32% O2 Percentage 3 Liters = 32% O2 Percentage 3 Liters = 32% Oxygen Flowrate (L/min)-RT 2 Oxygen Flowrate (L/min)-RT 2 Pain Assessment - Last Documented Pain Intensity 0 Pain Scale Used 0-10 Pain Scale Intake and Output: Intake & Output 09/02/18 09/03/18 09/04/18 09/05/18 11:59 11:59 11:59 11:59 Intake Total 770 3795 400 Output Total 580 700 250 Balance 190 3095 150 Weight 50.349 kg 51.4 kg 52.6 kg Multi-Disciplinary Progress Notes: Multi-Disciplinary Progress Notes 09/04/18 09:50 Case Management Note by Donna Jimenez DISCHARGE PLAN REVIEWED WITH PT IN LENGTH AGAIN, ENCOURAGED REHAB STAY @ [facility] PRIOR TO DISCHARGE HOME. PT ADAMANTLY REFUSING TO GO. REPORTS THAT HE IS GOING HOME WITH THE [facility] SERVICES THAT WE HAD SET UP DURING LAST VISIT. 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 PT IS AGREEABLE FOR THIS. DENIES [facility] NEEDS FOR DISCHARGE. WILL FOLLOW. Initialized on 09/04/18 09:50 - END OF NOTE Assessment/Plan (1) Acute exacerbation of chronic obstructive airways disease Current Visit: Yes Status: Acute Assessment & Plan: continues to improve ,is tolerating tapering of IV solumedrol. Code(s): J44.1 - CHRONIC OBSTRUCTIVE PULMONARY DISEASE W (ACUTE) EXACERBATION (2) Malaise and fatigue Current Visit: Yes Status: Acute Assessment & Plan: will start walking with assistance to build strength before discharge Code(s): R53.81 - OTHER MALAISE; R53.83 - OTHER FATIGUE (3) Elevated d-dimer Current Visit: Yes Status: Acute Assessment & Plan: CT Chest neg for PE,no calf tenderness or edema Code(s): R79.89 - OTHER SPECIFIED ABNORMAL FINDINGS OF BLOOD CHEMISTRY
[2018-09-04 17:52] LABS: Mean Corpuscular Hemoglobin 32.1 pg (26-32)
[2018-09-04 18:01] LABS: ALBUMIN 2.6 g/dL (3.5-5.0); ALKALINE PHOSPHATASE 120 U/L (38-126); ANION GAP 10.3 MEQ/L (5-15); BILIRUBIN,TOTAL < 0.10 mg/dL (0.2-1.3); BLOOD UREA NITROGEN 31 mg/dL (9-20); CHLORIDE 110 mmol/L (98-107); Calcium 8.7 mg/dL (8.4-10.2); Carbon Dioxide 26 mmol/L (22-30); Creatinine 1 1.02 mg/dL (0.66-1.25); Glucose 164 mg/dL (74-106); Potassium 4.1 mmol/L (3.5-5.1); SGOT/AST 16 U/L (17-59); SGPT/ALT 14 U/L (0-50); SODIUM 142 mmol/L (137-145); Total Protein 5.6 g/dL (6.3-8.2)
[2018-09-04 18:47] LABS: BAND 2 % (0.0-2.0); Lymphocytes 1 % (24-44); Neutrophils 97 % (36.-66.); Ovalocytes 2+; Poikilocytosis 2+; Total Cells Counted 100
[2018-09-04 18:48] LABS: Tear Drop Cells 1+
[2018-09-04 18:49] LABS: Schistocytes 1+
[2018-09-04 18:50] LABS: Hypochromia 1+; Platelet Estimate NORMAL (NORMAL)
[2018-09-04] MEDS: ZOCOR 20MG PO SCH (22:58)
[2018-09-04] MEDS: DESYREL 50 MG PO SCH (22:58)
--- NOTE | 2018-09-05 08:49 | PCM.NOTE ---
Date and Time: 09/05/18 0845 Subjective Assessment: Pt states breathing is better. Was on low Na diet and really wanted biscuits and gravy so was switched to regular diet this morning. - Review of Systems Constitutional: No Fever Respiratory: Short Of Breath Objective Exam General Appearance: no apparent distress, cachetic Neurologic Exam: alert, cooperative Skin Exam: normal color, warm, dry, No rash Respiratory Exam: diminished breath sounds (poor air exchange), prolonged expirations, No crackles/rales, No rhonchi, No wheezing Cardiovascular Exam: regular rate/rhythm, normal heart sounds, No murmur Extremity Exam: No pedal edema, No swelling Back Exam: normal inspection, No rash OBJECTIVE DATA Vital Signs: Vital Signs - 24 hr Temp Pulse Resp BP Pulse Ox 09/05/18 07:41 98.2 F 93 H 18 126/72 99 09/05/18 04:00 98.1 F 95 H 18 119/57 98 09/05/18 00:00 19 09/04/18 23:35 97.8 F 65 19 115/59 97 09/04/18 20:28 102 H 18 92 L 09/04/18 20:00 18 09/04/18 19:58 97.9 F 92 H 18 112/60 98 09/04/18 16:05 98.0 F 83 20 100/59 96 09/04/18 16:00 98.6 F 79 20 106/53 09/04/18 12:00 20 09/04/18 11:56 98.6 F 79 20 106/53 96 Oxygen-Last 24 hours O2 Percentage 3 Liters = 32% O2 Percentage 3 Liters = 32% O2 Percentage 3 Liters = 32% O2 Percentage 3 Liters = 32% Oxygen Flowrate (L/min)-RT 3 Pain Assessment - Last Documented Pain Intensity 0 Pain Scale Used FLACC Intake and Output: Intake & Output 09/02/18 09/03/18 09/04/18 09/05/18 11:59 11:59 11:59 11:59 Intake Total 770 3795 3395 Output Total 580 700 800 Balance 190 3095 2595 Weight 50.349 kg 51.4 kg 52.6 kg 53.9 kg Lab Results: Lab Results-Last 24 Hours 09/04/18 09/04/18 Range/Units 17:24 17:24 WBC 19.3 H (4.0-10.5) K/mm3 RBC 2.55 L (4.1-5.6) M/mm3 Hgb 8.2 L (12.5-18.0) gm/dl Hct 26.8 L (42-50) % MCV 105.1 H (78-100) fl MCH 32.1 H (26-32) pg MCHC 30.6 L (32-36) g/dl RDW 16.7 H (11.5-14.0) % Plt Count 311 (150-450) K/mm3 MPV 9.8 H (6-9.5) fl Absolute Granulocytes 18.57 H (1.4-6.9) Segmented Neutrophils 97 H (36.-66.) % Band Neutrophils 2 (0.0-2.0) % Lymphocytes (Manual) 1 L (24-44) % Hypochromia 1+ Platelet Estimate NORMAL (NORMAL) RBC Morphology ABNORMAL Poikilocytosis 2+ Tear Drop Cells 1+ Ovalocytes 2+ Schistocytes 1+ Sodium 142 (137-145) mmol/L Potassium 4.1 (3.5-5.1) mmol/L Chloride 110 H (98-107) mmol/L Carbon Dioxide 26 (22-30) mmol/L Anion Gap 10.3 (5-15) MEQ/L BUN 31 H (9-20) mg/dL Creatinine 1.02 (0.66-1.25) mg/dL Estimated GFR > 60.0 ML/MIN Glucose 164 H (74-106) mg/dL Calcium 8.7 (8.4-10.2) mg/dL Total Bilirubin < 0.10 L (0.2-1.3) mg/dL AST 16 L (17-59) U/L ALT 14 (0-50) U/L Alkaline Phosphatase 120 (38-126) U/L Serum Total Protein 5.6 L (6.3-8.2) g/dL Albumin 2.6 L (3.5-5.0) g/dL Multi-Disciplinary Progress Notes: Multi-Disciplinary Progress Notes 09/04/18 09:50 Case Management Note by Donna Jimenez DISCHARGE PLAN REVIEWED WITH PT IN LENGTH AGAIN, ENCOURAGED REHAB STAY @ [facility] PRIOR TO DISCHARGE HOME. PT ADAMANTLY REFUSING TO GO. REPORTS THAT HE IS GOING HOME WITH THE [facility] SERVICES THAT WE HAD SET UP DURING LAST VISIT. 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 PT IS AGREEABLE FOR THIS. DENIES [facility] NEEDS FOR DISCHARGE. WILL FOLLOW. Initialized on 09/04/18 09:50 - END OF NOTE Assessment/Plan (1) Acute exacerbation of chronic obstructive airways disease Current Visit: Yes Status: Acute Assessment & Plan: day #4 zithromax and rocephin, so will d/c zithromax. Less wheezy than when I saw him last, but still not moving air well. On O2 per NC. ON IV steroid 40 BID. Code(s): J44.1 - CHRONIC OBSTRUCTIVE PULMONARY DISEASE W (ACUTE) EXACERBATION (2) Elevated d-dimer Current Visit: Yes Status: Acute Assessment & Plan: PE ruled out and troponins neg on admission. Code(s): R79.89 - OTHER SPECIFIED ABNORMAL FINDINGS OF BLOOD CHEMISTRY (3) Malaise and fatigue Current Visit: Yes Status: Chronic Code(s): R53.81 - OTHER MALAISE; R53.83 - OTHER FATIGUE (4) Chronic renal disease Current Visit: No Status: Chronic Qualifiers: Chronic kidney disease stage: stage 2 (mild) Qualified Code(s): N18.2 - Chronic kidney disease, stage 2 (mild) Code(s): N18.9 - CHRONIC KIDNEY DISEASE, UNSPECIFIED (5) Dementia Current Visit: No Status: Chronic Qualifiers: Dementia type: unspecified type Dementia behavioral disturbance: without behavioral disturbance Qualified Code(s): F03.90 - Unspecified dementia without behavioral disturbance Code(s): F03.90 - UNSPECIFIED DEMENTIA WITHOUT BEHAVIORAL DISTURBANCE (6) HTN (hypertension) Current Visit: No Status: Chronic Qualifiers: Hypertension type: essential hypertension Qualified Code(s): I10 - Essential (primary) hypertension Code(s): I10 - ESSENTIAL (PRIMARY) HYPERTENSION (7) Malnutrition Current Visit: No Status: Chronic Onset Date: ~10/18/17 Qualifiers: Malnutrition type: protein-calorie malnutrition Protein-calorie malnutrition severity: moderate Qualified Code(s): E44.0 - Moderate protein- calorie malnutrition Code(s): E46 - UNSPECIFIED PROTEIN-CALORIE MALNUTRITION (8) Physical deconditioning Current Visit: No Status: Chronic Assessment & Plan: Now refusing to go to LTCF. I will discuss with family today. Code(s): R53.81 - OTHER MALAISE
[2018-09-05] MEDS ORDERED: solu-MEDROL 125 MG IV SCH (10:00)
[2018-09-05] MEDS: Zithromax 500 MG/ 250 ML NaCl Premix 500 MG/250 ML IVPB IV SCH (10:04)
[2018-09-05] MEDS: xanAX 0.5 MG PO SCH ×2 (10:05→22:23)
[2018-09-05] MEDS: Wellbutrin SR 150 MG PO SCH ×2 (10:05→22:23)
[2018-09-05] MEDS: Zestril 20 MG PO SCH (10:05)
[2018-09-05] MEDS: ROCEPHIN 1 Gm-D5w 50 ml Bag** 1 G/50 ML IVPB IV SCH (10:06)
[2018-09-05] MEDS: solu-MEDROL 40 MG IV SCH ×2 (10:06→22:23)
[2018-09-05] MEDS: Klor Con 10 MEQ PO SCH ×2 (10:06→22:23)
[2018-09-05] MEDS: Coreg 6.25 MG PO SCH ×2 (10:06→22:23)
[2018-09-05] MEDS: FOLATE 1 MG PO SCH (10:06)
[2018-09-05] MEDS: Protonix 40MG Tablet PO SCH (11:22)
--- NOTE | 2018-09-05 14:40 | XRAY ---
Indication: Choking. Possible aspiration. Comparison: September 02, 2018. Portable chest again hyperinflated with new tiny nonspecific bibasilar pleural effusions. Remaining lungs clear. Heart is not enlarged.
[2018-09-05] MEDS: Sodium Chloride 0.9% 1000 ML 1,000 ML IV SCH (17:09)
[2018-09-05] MEDS: ZOCOR 20MG PO SCH (22:23)
[2018-09-05] MEDS: DESYREL 50 MG PO SCH (22:23)
[2018-09-06 08:24] LABS: Hematocrit 28.4 % (42-50); Hemoglobin 8.6 gm/dl (12.5-18.0); Mean Cell Volume 103.3 fl (78-100); Mean Corpuscular Hgb Concent. 30.3 g/dl (32-36); Mean Platelet Volume 9.5 fl (6-9.5); Platelet Count 301 K/mm3 (150-450); Red Blood Count 2.75 M/mm3 (4.1-5.6); Red Cell Distribution Width 16.8 % (11.5-14.0); White Blood Count 11.9 K/mm3 (4.0-10.5)
[2018-09-06] MEDS: Klor Con 10 MEQ PO SCH (08:28)
[2018-09-06] MEDS: Zestril 20 MG PO SCH (08:28)
[2018-09-06] MEDS: xanAX 0.5 MG PO SCH (08:28)
[2018-09-06] MEDS: Coreg 6.25 MG PO SCH (08:28)
[2018-09-06] MEDS: Wellbutrin SR 150 MG PO SCH (08:28)
[2018-09-06 08:29] LABS: Mean Corpuscular Hemoglobin 31.2 pg (26-32)
[2018-09-06] MEDS: FOLATE 1 MG PO SCH (08:29)
[2018-09-06] MEDS: Protonix 40MG Tablet PO SCH (08:29)
[2018-09-06] MEDS: solu-MEDROL 40 MG IV SCH (08:29)
[2018-09-06] MEDS: ROCEPHIN 1 Gm-D5w 50 ml Bag** 1 G/50 ML IVPB IV SCH (08:29)
--- NOTE | 2018-09-06 08:51 | PCM.NOTE ---
Date and Time: 09/06/18 0845 Subjective Assessment: Pt had a large choking episode yesterday with a meal - he is now NPO pending modified swallow study. CXR yesterday with small bibasilar effusions. He is hungry. He refused to walk yesterday except one trip around his bed. He uses a urinal, but the rest of the time is incontinent of urine into his Depend - doesn't seem to notice that he is urinating. This morning he is oriented to place but not to time (thinks the date is " or " and the year is "2010 - I'm getting closer!"). Objective Exam General Appearance: no apparent distress, alert Neurologic Exam: cooperative, disoriented Skin Exam: normal color, warm, dry, No rash Ears, Nose, Throat Exam: moist mucous membranes Respiratory Exam: diminished breath sounds (poor to fair air exchange), No crackles/rales, No rhonchi, No wheezing Cardiovascular Exam: regular rate/rhythm, normal heart sounds, No murmur Gastrointestinal/Abdomen Exam: soft, No normal bowel sounds (hyperactive), No tenderness, No distention, No mass, No guarding, No rebound Extremity Exam: normal inspection, No pedal edema, No swelling Back Exam: normal inspection, No rash OBJECTIVE DATA Vital Signs: Vital Signs - 24 hr Temp Pulse Resp BP BP Pulse Ox 09/06/18 07:50 82 18 99 09/06/18 06:47 98.3 F 80 18 169/85 92 L 09/06/18 04:00 97.6 F 91 H 18 173/85 100 09/06/18 03:26 16 09/06/18 00:00 98.1 F 77 16 146/78 100 09/05/18 20:00 98.7 F 92 H 18 129/63 98 09/05/18 19:48 88 18 99 09/05/18 14:52 97.4 F 86 18 111/70 100 09/05/18 12:46 113 H 24 95 09/05/18 12:00 18 09/05/18 11:40 97.9 F 75 18 105/63 92 L 09/05/18 09:18 97 H 18 99 Oxygen-Last 24 hours O2 Percentage 3 Liters = 32% O2 Percentage 3 Liters = 32% O2 Percentage 3 Liters = 32% O2 Percentage 3 Liters = 32% O2 Percentage 3 Liters = 32% Pain Assessment - Last Documented Pain Intensity 0 Pain Scale Used 0-10 Pain Scale,FLACC Intake and Output: Intake & Output 09/03/18 09/04/18 09/05/18 09/06/18 11:59 11:59 11:59 11:59 Intake Total 770 3795 3875 966 Output Total 580 960 569 7058 Balance 190 3095 3075 -584 Weight 51.4 kg 52.6 kg 53.9 kg 55.6 kg Lab Results: Lab Results-Last 24 Hours 09/06/18 Range/Units 08:12 WBC 11.9 H (4.0-10.5) K/mm3 RBC 2.75 L (4.1-5.6) M/mm3 Hgb 8.6 L (12.5-18.0) gm/dl Hct 28.4 L (42-50) % MCV 103.3 H (78-100) fl MCH 31.2 (26-32) pg MCHC 30.3 L (32-36) g/dl RDW 16.8 H (11.5-14.0) % Plt Count 301 (150-450) K/mm3 MPV 9.5 (6-9.5) fl Radiology Exams: Radiology Procedures Category Date Time Status CHEST 1 VIEW (PORTABLE) Urgent Exams 09/05/18 14:09 Completed ESOPHOGRAM [BARIUM SWALLOW ESOPHOGRAM] Routine Exams 09/06/18 Ordered MODIFIED BARIUM SWALLOW (RAD) [MODIFIED BARIUM SWALLOW Exams 09/06/18 Ordered EXAM] Routine Assessment/Plan (1) Dysphagia Current Visit: No Status: Acute Onset Date: ~10/18/17 Qualifiers: Dysphagia type: unspecified Qualified Code(s): R13.10 - Dysphagia, unspecified Assessment & Plan: with choking episode. Just had EGD with stretching of esophageal stricture within the past 2 weeks. Modified swallow study to be done today. Code(s): R13.10 - DYSPHAGIA, UNSPECIFIED (2) Acute exacerbation of chronic obstructive airways disease Current Visit: Yes Status: Acute Assessment & Plan: On IV rocephin day #4 (zithromax stopped today) and steroid (methylprednisolone 40mg IV BID) - when he is able to eat again, will change the steroid to po. Code(s): J44.1 - CHRONIC OBSTRUCTIVE PULMONARY DISEASE W (ACUTE) EXACERBATION (3) Physical deconditioning Current Visit: No Status: Chronic Assessment & Plan: His overall level of functioning is quite poor. Needs 24 hour care. Not safe to go home at this time. I will discuss with DARSHAN Josue today. Recommend LTCF placement for now. Code(s): R53.81 - OTHER MALAISE (4) Elevated d-dimer Current Visit: Yes Status: Acute Code(s): R79.89 - OTHER SPECIFIED ABNORMAL FINDINGS OF BLOOD CHEMISTRY (5) Malaise and fatigue Current Visit: Yes Status: Chronic Code(s): R53.81 - OTHER MALAISE; R53.83 - OTHER FATIGUE (6) Chronic renal disease Current Visit: No Status: Chronic Qualifiers: Chronic kidney disease stage: stage 2 (mild) Qualified Code(s): N18.2 - Chronic kidney disease, stage 2 (mild) Code(s): N18.9 - CHRONIC KIDNEY DISEASE, UNSPECIFIED (7) Dementia Current Visit: No Status: Chronic Qualifiers: Dementia type: unspecified type Dementia behavioral disturbance: without behavioral disturbance Qualified Code(s): F03.90 - Unspecified dementia without behavioral disturbance Code(s): F03.90 - UNSPECIFIED DEMENTIA WITHOUT BEHAVIORAL DISTURBANCE (8) HTN (hypertension) Current Visit: No Status: Chronic Qualifiers: Hypertension type: essential hypertension Qualified Code(s): I10 - Essential (primary) hypertension Code(s): I10 - ESSENTIAL (PRIMARY) HYPERTENSION (9) Malnutrition Current Visit: No Status: Chronic Onset Date: ~10/18/17 Qualifiers: Malnutrition type: protein-calorie malnutrition Protein-calorie malnutrition severity: moderate Qualified Code(s): E44.0 - Moderate protein- calorie malnutrition Code(s): E46 - UNSPECIFIED PROTEIN-CALORIE MALNUTRITION
[2018-09-06 09:11] LABS: ANION GAP 8.7 MEQ/L (5-15); BLOOD UREA NITROGEN 30 mg/dL (9-20); CHLORIDE 108 mmol/L (98-107); Calcium 8.5 mg/dL (8.4-10.2); Carbon Dioxide 30 mmol/L (22-30); Creatinine 1 0.84 mg/dL (0.66-1.25); Glucose 109 mg/dL (74-106); Potassium 4.8 mmol/L (3.5-5.1); SODIUM 142 mmol/L (137-145)
--- NOTE | 2018-09-06 14:10 | XRAY ---
Indication: Difficulty swallowing. Possible aspiration. Modified barium swallow study was performed by the Department of speech therapy with fluoroscopic assistance provided. Patient ingested multiple consistencies of liquids and solids. Full report and recommendations will be reported separately. Approximately 1.4 minute fluoroscopy used.
--- NOTE | 2018-09-06 14:10 | XRAY ---
Indication: Difficulty swallowing. Possible aspiration. Single contrast esophagram was performed in the AP plane. Patient ingested barium without miss swallow or aspiration. Esophagus is normal in course and caliber. No focal stricture, obstruction, filling defect, or hiatal hernia. Barium freely emptied into the stomach. Impression: Negative esophagram. Approximately 0.3 minute fluoroscopy used.
[2018-09-06] MEDS: Sodium Chloride 0.9% 1000 ML 1,000 ML IV SCH (14:18)
[2018-09-07] MEDS: DESYREL 50 MG PO SCH (00:33)
[2018-09-07] MEDS: Coreg 6.25 MG PO SCH ×2 (00:33→10:53)
[2018-09-07] MEDS: Klor Con 10 MEQ PO SCH ×2 (00:33→10:53)
[2018-09-07] MEDS: ZOCOR 20MG PO SCH (00:34)
[2018-09-07] MEDS: Wellbutrin SR 150 MG PO SCH ×2 (00:34→10:52)
[2018-09-07] MEDS: xanAX 0.5 MG PO SCH ×2 (00:34→10:53)
[2018-09-07] MEDS: solu-MEDROL 40 MG IV SCH (00:34)
[2018-09-07 06:46] VITALS: O2SAT 97
--- NOTE | 2018-09-07 09:00 | PCM.DS ---
Discharge Summary Date of Admission: 09/04/18 17:26 Admitting Physician: KEVIN RESTREPO Primary Care Provider: [facility] Allergies Allergies No Known Drug Allergies Allergy (Verified 09/02/18 11:22) Hospital Summary - Hospital Course Hospital Course: Pt is a 63 yo male with dementia and COPD, malnutrition and failure to thrive, who was admitted through ER with chest pain and COPD exacerbation. He had been admitted the previous week with esophageal stricture, unable to swallow food and medicines. Had EGD with dilatation and was eating well and feeling good. When he came to see me in follow up, he had recently started coughing and was c/ o 2 weeks of chest pain that he had not mentioned in the hospital. He was ruled out for GA and started on IV antibiotics and steroids for his lungs. CTA chest and CXR nonacute. He has stated that his breathing is "good" throughout (pt minimizes symptoms). He had a choking episode 2d ago on his food ; swallow study done and pt just needs to sit up to eat (still on regular diet). Pt is typically oriented for place but not time. He has been reluctant to go to LTCF but finally agreed to be discharged to [facility]. He gets up and walks very little and reluctantly. He uses a urinal but the rest of the time is incontinent of urine and it soaks his Depends. - Vitals & Intake/Output Vital Signs: Vital Signs Temperature 97.7 F 09/07/18 07:24 Pulse Rate 68 09/07/18 07:24 Respiratory Rate 20 09/07/18 07:24 Blood Pressure 138/70 09/07/18 07:24 O2 Sat by Pulse Oximetry 97 09/07/18 07:24 Oxygen-Last Documented O2 Percentage 2 Liters = 28% Intake & Output: Intake & Output 09/04/18 09/05/18 09/06/18 09/07/18 11:59 11:59 11:59 11:59 Intake Total 3795 3875 966 2964 Output Total 955 221 3988 1325 Balance 3095 3075 -1084 1639 Weight 52.6 kg 53.9 kg 55.6 kg 57.5 kg - Lab Result Diagrams: 09/06/18 08:12 09/06/18 08:00 Lab Results-Last 24 Hrs: Lab Results-Last 24 Hours 09/06/18 Range/Units 08:00 Sodium 142 (137-145) mmol/L Potassium 4.8 (3.5-5.1) mmol/L Chloride 108 H (98-107) mmol/L Carbon Dioxide 30 (22-30) mmol/L Anion Gap 8.7 (5-15) MEQ/L BUN 30 H (9-20) mg/dL Creatinine 0.84 (0.66-1.25) mg/dL Estimated GFR > 60.0 ML/MIN Glucose 109 H (74-106) mg/dL Calcium 8.5 (8.4-10.2) mg/dL Micro Results-Entire Visit: Microbiology 09/02/18 12:05 Blood Culture Gram Stain - Final Blood Not Reportable Blood Culture - Final NO GROWTH 09/02/18 12:05 Blood Culture Gram Stain - Final Blood Not Reportable Blood Culture - Final NO GROWTH - Radiology Exams Ordered Rad Exams-Entire Visit: Radiology Procedures Category Date Time Status CHEST 1 VIEW (PORTABLE) Urgent Exams 09/05/18 14:09 Completed ESOPHOGRAM [BARIUM SWALLOW ESOPHOGRAM] Routine Exams 09/06/18 13:55 Completed MODIFIED BARIUM SWALLOW (RAD) [MODIFIED BARIUM SWALLOW Exams 09/06/18 13:56 Completed EXAM] Routine - Procedures and Test Procedures and Tests throughout Hospitalization: Therapy Orders & Screens 09/02/18 11:54 Respiratory Nebulizer STAT Comment: Diagnosis: Shortness of Breath 09/02/18 12:06 Peak Expiratory Flow Rate ONCE Comment: Reason For Exam: Diagnosis: Shortness of Breath Respiratory Therapy Assessment DAILY Comment: Diagnosis: Shortness of Breath 09/02/18 15:52 Respiratory Nebulizer STAT Comment: Diagnosis: Shortness of Breath 09/02/18 16:05 Oxygen Nasal Cannula 2 lpm Comment: Diagnosis: Shortness of Breath 09/02/18 18:48 OT Screen per Nursing Assess Comment: Protocol Order Physician Instructions: Greater than 3 points order OT Admission Screening Reason For Exam: Triggered on Admission Diagnosis: COPD exacerbation Open Wound/Cellutlitis/Pressure Ulcers: No Acute Fx/ORIF/Change in wt bearing status: No Severe MUSCULOSKELETAL pain: Yes ADL Dysfunction: No Acute CVA w/Hemiparesis/Hemiplegia: No Decreased Functional Mobility/Strength: Yes Sprain/Strain: No Acute Post-op Mobility Dysfunction: No Total Points: 6 PT Screen per Nursing Assess Comment: Protocol Order Physician Instructions: Greater than 3 points order PT Admission Screenin Reason For Exam: Triggered on Admission Diagnosis: COPD exacerbation Open Wound/Cellutlitis/Pressure Ulcers: No Acute Fx/ORIF/Change in wt bearing status: No Severe MUSCULOSKELETAL pain: Yes ADL Dysfunction: No Acute CVA w/Hemiparesis/Hemiplegia: No Decreased Functional Mobility/Strength: Yes Sprain/Strain: No Acute Post-op Mobility Dysfunction: No Total Points: 6 Smoking Cessation Education ONCE Comment: Diagnosis: COPD exacerbation Smoking Status: Current every day smoker How long have you smoked: 30 years Have you smoked in the past 12 months: Yes Approximately how many cigarettes per day: 1 PPD Do you dip or chew tobacco: No If,Former Smoker,when did you quit: 201509/05/18 14:07 Speech Therapy Eval & Treat [ Eval & Treat (MD Order)] .as ordered Comment: Physician Instructions: Reason For Exam: choking. poss. asperation. Evaluate: Yes Treat: Yes Reason for Eval: choking. Diagnosis: COPD exacerbation 09/06/18 11:03 PT Eval & Treat ( Order) ROUTINE Reason for Eval:: weakness. Diagnosis: COPD exacerbation Discharge Exam General Appearance: no apparent distress, alert Neurologic Exam: cooperative, disoriented Skin Exam: normal color, warm, dry, No rash Respiratory Exam: normal breath sounds, lungs clear, No crackles/rales, No rhonchi, No wheezing Cardiovascular Exam: regular rate/rhythm, normal heart sounds, No murmur Gastrointestinal/Abdomen Exam: soft, No distention Extremity Exam: normal inspection, No pedal edema, No swelling Final Diagnosis/Problem List - Final Discharge Diagnosis/Problem (1) Dysphagia Current Visit: No Status: Acute Onset Date: ~10/18/17 Assessment & Plan: Resolved - pt to eat sitting straight up. Code(s): R13.10 - DYSPHAGIA, UNSPECIFIED (2) Acute exacerbation of chronic obstructive airways disease Current Visit: Yes Status: Acute Assessment & Plan: improved - to LTCF on po antibiotic to finish 10 and po steroid to finish 1 week. Code(s): J44.1 - CHRONIC OBSTRUCTIVE PULMONARY DISEASE W (ACUTE) EXACERBATION (3) Physical deconditioning Current Visit: No Status: Chronic Assessment & Plan: needs rehab. Code(s): R53.81 - OTHER MALAISE (4) Elevated d-dimer Current Visit: Yes Status: Resolved Code(s): R79.89 - OTHER SPECIFIED ABNORMAL FINDINGS OF BLOOD CHEMISTRY (5) Malaise and fatigue Current Visit: Yes Status: Chronic Code(s): R53.81 - OTHER MALAISE; R53.83 - OTHER FATIGUE (6) Chronic renal disease Current Visit: No Status: Chronic Code(s): N18.9 - CHRONIC KIDNEY DISEASE, UNSPECIFIED (7) Dementia Current Visit: No Status: Chronic Code(s): F03.90 - UNSPECIFIED DEMENTIA WITHOUT BEHAVIORAL DISTURBANCE (8) HTN (hypertension) Current Visit: No Status: Chronic Code(s): I10 - ESSENTIAL (PRIMARY) HYPERTENSION (9) Malnutrition Current Visit: No Status: Chronic Onset Date: ~10/18/17 Assessment & Plan: improved since esophageal dilatation Code(s): E46 - UNSPECIFIED PROTEIN-CALORIE MALNUTRITION - Discharge Disposition: DC TO ANY "OTHER" HALF-WAY Condition: Stable Prescriptions: New Amoxicillin/Potassium Clav [Augmentin 875-125 Tablet] 875 mg PO BID #12 tablet Prednisone 20 mg [Deltasone 20 mg] 20 mg PO DAILY #6 tablet Nitroglycerin 0.4 mg Tablet [Nitrostat 0.4 MG Tablet] 0.4 mg SL Q5MIN PRN MR X 3 PRN #0 bottle PRN Reason: Chest Pain Continue ALPRAZolam [Xanax 0.5 mg] 0.5 mg PO BID Bupropion HCl 150 mg Sr [Wellbutrin SR 150 MG] 150 mg PO BID #60 tablet.sa Atorvastatin Calcium [Lipitor] 80 mg PO HS Carvedilol 3.125 mg [Coreg 3.125 MG] 6.25 mg PO BID Albuterol 2.5 mg/3 ml Neb [Proventil 2.5 mg/3 ml Neb] 2.5 mg IH Q4HPRN PRN #30 neb PRN Reason: DIFFICULTY BREATHING Omeprazole 40 mg PO DAILY Folic Acid 1 mg [Folate 1 mg] 1 mg PO DAILY Trazodone HCl 50 mg [Desyrel 50 mg] 50 mg PO HS Potassium Chloride 10 Meq Tab* [Klor Con 10 MEQ] 10 meq PO BID #60 tab Carvedilol 6.25 mg [Coreg 6.25 MG] 6.25 mg PO BID #60 tablet Lisinopril 20 mg [Zestril 20 MG] 40 mg DAILY Folic Acid 1 mg PO DAILY Follow up with: [facility] [Primary Care Provider] - 1 Week
[2018-09-07] MEDS ORDERED: DELTASONE 20 MG PO SCH (10:00)
[2018-09-07] MEDS: Zestril 20 MG PO SCH (10:52)
[2018-09-07] MEDS: FOLATE 1 MG PO SCH (10:53)
[2018-09-07] MEDS: Protonix 40MG Tablet PO SCH (10:53)
[2018-09-07] MEDS: ROCEPHIN 1 Gm-D5w 50 ml Bag** 1 G/50 ML IVPB IV SCH (10:54)
[2018-09-07 11:46] VITALS: BP 185/78; PULSE 86
== END 2018-09-07 12:52 | DRG 191 ==
LOC: ED 11:10 → MED SURG 17:49 → OBSVTOIN 09-04 17:26
PROVIDERS: ADMIT Family Medicine; ATTEND Family Medicine
DX: J44.1 Chronic obstructive pulmonary disease with (acute) exacerbation (principal); E46 Unspecified protein-calorie malnutrition; R62.7 Adult failure to thrive; R13.10 Dysphagia, unspecified; R53.81 Other malaise; R79.89 Other specified abnormal findings of blood chemistry; N18.9 Chronic kidney disease, unspecified; F03.90 Unspecified dementia, unspecified severity, without behavioral disturbance, psychotic disturbance, mood disturbance, and anxiety; I10 Essential (primary) hypertension; Z79.899 Other long term (current) drug therapy
CPT/HCPCS: 36415; 71045; 71260; 74220; 74230; 80048; 80053; 81001; 83605; 83735; 83880; 84484; 85025; 85027; 85379; 85610; 87040; 92611; 93005; 93041; 93268; 94150; 94640; 94760; 96360; 96365; 96368; 96374; 97161; 99285; G0378; J0456; J0696; J2920; J2930; A9270-GY

== ENCOUNTER 2019-01-17 11:32 | Inpatient (IN) | payer MEDICARE ==
[2019-01-17] MEDS ORDERED: Phenergan 25 MG INJ IM PRN (12:23)
[2019-01-17] MEDS ORDERED: DUONEB 0.5-3 MG/3 ml Neb IH PRN ×2 (12:28→14:50)
[2019-01-17] MEDS ORDERED: Sodium Chloride 0.9% 1000 ML 1,000 ML IV SCH (12:30)
[2019-01-17] MEDS ORDERED: Phenergan 25 MG INJ IM ONE (12:30)
[2019-01-17] MEDS: NICODERM CQ 14 MG TOP SCH (12:42)
[2019-01-17] MEDS: ROCEPHIN 1 Gm-D5w 50 ml Bag** 1 G/50 ML IVPB IV SCH (12:42)
[2019-01-17] MEDS: solu-MEDROL 125 MG IV SCH ×3 (12:42→23:51)
[2019-01-17 12:46] LABS: Hematocrit 37.4 % (42-50); Hemoglobin 12.4 gm/dl (12.5-18.0); Mean Cell Volume 100.5 fl (78-100); Mean Corpuscular Hemoglobin 33.3 pg (26-32); Mean Corpuscular Hgb Concent. 33.2 g/dl (32-36); Platelet Count 224 K/mm3 (150-450); Red Blood Count 3.72 M/mm3 (4.1-5.6); Red Cell Distribution Width 15.1 % (11.5-14.0); White Blood Count 5.9 K/mm3 (4.0-10.5)
[2019-01-17 12:56] LABS: ALBUMIN 4.1 g/dL (3.5-5.0); ALKALINE PHOSPHATASE 156 U/L (38-126); AMYLASE 102 U/L (30-110); ANION GAP 16.4 MEQ/L (5-15); BLOOD UREA NITROGEN 24 mg/dL (9-20); CHLORIDE 102 mmol/L (98-107); Carbon Dioxide 30 mmol/L (22-30); Creatinine 1 1.14 mg/dL (0.66-1.25); Glucose 107 mg/dL (74-106); LIPASE 76 U/L (23-300); Potassium 4.5 mmol/L (3.5-5.1); SGOT/AST 26 U/L (17-59); SGPT/ALT 16 U/L (0-50); SODIUM 144 mmol/L (137-145); Total Protein 7.9 g/dL (6.3-8.2)
--- NOTE | 2019-01-17 13:30 | XRAY ---
Indication: Intractable nausea/vomiting 1 week. Comparison: October 18, 2017. 2 views of the abdomen remain nonacute nonobstructed with again mild diffuse scattered colonic fecal debris. Ingested medication/pill seen right mid abdomen. Stable scattered aortoiliac calcifications and left renal micro-calculi. Remaining solid organs unremarkable. Osseous structures intact again with mild osteopenia and degenerative changes. Impression: Again mild fecal stasis without obstruction and left renal micro-calculi.
--- NOTE | 2019-01-17 13:33 | XRAY ---
Indication: COPD exacerbation. Comparison: September 05, 2018. PA/lateral chest remains hyperinflated without focal infiltrate, consolidation, or large effusion. Heart and mediastinal structures within normal limits. Bony thorax intact with mild osteopenia, degenerative changes, and remote T5/T9 compression fractures. Impression: Stable nonacute hyperinflated chest with chronic features.
[2019-01-17] MEDS ORDERED: Nitrostat 0.4 MG Tablet SL PRN (13:44)
[2019-01-17] MEDS: Zithromax 500 MG/ 250 ML NaCl Premix 500 MG/250 ML IVPB IV SCH (14:29)
[2019-01-17] MEDS: Sodium Chloride 0.9% 1000 ML 1,000 ML IV SCH ×2 (14:30→23:48)
[2019-01-17] MEDS: DUONEB 0.5-3 MG/3 ml Neb IH SCH (19:24)
[2019-01-17] MEDS ORDERED: NON-FORMULARY ITEM (Atorvastatin Calcium [Lipitor] 80 MG) PO SCH (22:00)
[2019-01-17] MEDS: xanAX 0.5 MG PO SCH (22:06)
[2019-01-17] MEDS: Coreg 6.25 MG PO SCH (22:06)
[2019-01-17] MEDS: Wellbutrin SR 150 MG PO SCH (22:06)
[2019-01-17] MEDS: ZOCOR 20MG PO SCH (22:07)
[2019-01-18 04:29] LABS: Hematocrit 28.4 % (42-50); Mean Cell Volume 101.8 fl (78-100); Mean Corpuscular Hemoglobin 33.3 pg (26-32); Mean Corpuscular Hgb Concent. 32.7 g/dl (32-36); Mean Platelet Volume 9.2 fl (6-9.5); Platelet Count 204 K/mm3 (150-450); Red Blood Count 2.79 M/mm3 (4.1-5.6); Red Cell Distribution Width 14.4 % (11.5-14.0); White Blood Count 4.4 K/mm3 (4.0-10.5)
[2019-01-18 04:37] LABS: Hemoglobin 9.3 gm/dl (12.5-18.0)
[2019-01-18 05:10] LABS: ANION GAP 13.4 MEQ/L (5-15); BLOOD UREA NITROGEN 19 mg/dL (9-20); CHLORIDE 106 mmol/L (98-107); Carbon Dioxide 24 mmol/L (22-30); Creatinine 1 0.77 mg/dL (0.66-1.25); Glucose 111 mg/dL (74-106); Potassium 4.5 mmol/L (3.5-5.1); SODIUM 139 mmol/L (137-145)
[2019-01-18 05:16] LABS: Calcium 8.4 mg/dL (8.4-10.2)
[2019-01-18] MEDS: solu-MEDROL 125 MG IV SCH (05:56)
[2019-01-18] MEDS: DUONEB 0.5-3 MG/3 ml Neb IH SCH ×2 (07:08→18:43)
[2019-01-18] MEDS: Sodium Chloride 0.9% 1000 ML 1,000 ML IV SCH ×2 (07:55→20:21)
--- NOTE | 2019-01-18 09:11 | PCM.NOTE ---
Date and Time: 01/18/19904 Subjective Assessment: He is feeling better this morning, tolerated CLD yesterday and ate biscuits and gravy this morning. - Review of Systems Constitutional: No Fever Abdominal/Gastrointestinal: No Nausea Objective Exam General Appearance: no apparent distress, thin Neurologic Exam: alert, cooperative Skin Exam: normal color, warm, dry, No rash Ears, Nose, Throat Exam: moist mucous membranes Neck Exam: normal inspection Respiratory Exam: normal breath sounds, lungs clear, No crackles/rales, No rhonchi, No wheezing Cardiovascular Exam: regular rate/rhythm, normal heart sounds, No murmur Extremity Exam: No pedal edema, No swelling OBJECTIVE DATA Vital Signs: Vital Signs - 24 hr Temp Pulse Resp BP Pulse Ox 01/18/19 07:18 98.3 F 79 18 130/58 97 01/18/19 07:12 85 18 97 01/18/19 04:21 97.8 F 85 20 137/66 98 01/18/19 00:00 97.0 F 90 24 116/55 97 01/17/19 19:27 100 H 20 97 01/17/19 19:11 98.5 F 104 H 18 142/71 94 L 01/17/19 15:38 98.5 F 96 H 18 121/64 95 01/17/19 14:33 94 H 16 95 01/17/19 12:13 98.2 F 126 H 18 137/93 95 01/17/19 11:48 98.2 F 118 H 20 137/93 95 01/17/19 11:47 98.2 F 126 H 18 137/93 95 Oxygen-Last 24 hours O2 Percentage 2 Liters = 28% O2 Percentage 2 Liters = 28% O2 Percentage 2 Liters = 28% Pain Assessment - Last Documented Pain Intensity 0 Pain Scale Used 0-10 Pain Scale Intake and Output: Intake & Output 01/15/19 01/16/19 01/17/19 01/18/19 11:59 11:59 11:59 11:59 Intake Total 3915 Output Total 1050 Balance 2865 Weight 55.2 kg 58.2 kg Lab Results: Lab Results-Last 24 Hours 01/17/19 01/17/19 01/18/19 Range/Units 12:25 12:25 04:15 WBC 5.9 4.4 (4.0-10.5) K/mm3 RBC 3.72 L 2.79 L (4.1-5.6) M/mm3 Hgb 12.4 L 9.3 L D (12.5-18.0) gm/dl Hct 37.4 L 28.4 L (42-50) % MCV 100.5 H 101.8 H (78-100) fl MCH 33.3 H 33.3 H (26-32) pg MCHC 33.2 32.7 (32-36) g/dl RDW 15.1 H 14.4 H (11.5-14.0) % Plt Count 224 204 (150-450) K/mm3 MPV 11.0 H 9.2 (6-9.5) fl Sodium 144 (137-145) mmol/L Potassium 4.5 (3.5-5.1) mmol/L Chloride 102 (98-107) mmol/L Carbon Dioxide 30 (22-30) mmol/L Anion Gap 16.4 H (5-15) MEQ/L BUN 24 H (9-20) mg/dL Creatinine 1.14 (0.66-1.25) mg/dL Estimated GFR > 60.0 ML/MIN Glucose 107 H (74-106) mg/dL Calcium 10.0 (8.4-10.2) mg/dL Total Bilirubin 0.60 (0.2-1.3) mg/dL AST 26 (17-59) U/L ALT 16 (0-50) U/L Alkaline Phosphatase 156 H (38-126) U/L Serum Total Protein 7.9 (6.3-8.2) g/dL Albumin 4.1 (3.5-5.0) g/dL Amylase 102 (30-110) U/L Lipase 76 (23-300) U/L 01/18/19 Range/Units 04:15 WBC (4.0-10.5) K/mm3 RBC (4.1-5.6) M/mm3 Hgb (12.5-18.0) gm/dl Hct (42-50) % MCV (78-100) fl MCH (26-32) pg MCHC (32-36) g/dl RDW (11.5-14.0) % Plt Count (150-450) K/mm3 MPV (6-9.5) fl Sodium 139 (137-145) mmol/L Potassium 4.5 (3.5-5.1) mmol/L Chloride 106 (98-107) mmol/L Carbon Dioxide 24 (22-30) mmol/L Anion Gap 13.4 (5-15) MEQ/L BUN 19 (9-20) mg/dL Creatinine 0.77 (0.66-1.25) mg/dL Estimated GFR > 60.0 ML/MIN Glucose 111 H (74-106) mg/dL Calcium 8.4 D (8.4-10.2) mg/dL Total Bilirubin (0.2-1.3) mg/dL AST (17-59) U/L ALT (0-50) U/L Alkaline Phosphatase (38-126) U/L Serum Total Protein (6.3-8.2) g/dL Albumin (3.5-5.0) g/dL Amylase (30-110) U/L Lipase (23-300) U/L Radiology Exams: Radiology Procedures Category Date Time Status ABDOMEN 2 VIEW Routine Exams 01/17/19 13:14 Completed CHEST 2 VIEWS (PA AND LAT) Routine Exams 01/17/19 13:14 Completed Assessment/Plan (1) COPD exacerbation Current Visit: No Status: Suspected Assessment & Plan: On day #2 of rocephin and zithromax. I advised him he will need several days of IV antibiotics since he failed outpatient treatment. Code(s): J44.1 - CHRONIC OBSTRUCTIVE PULMONARY DISEASE W (ACUTE) EXACERBATION (2) HTN (hypertension) Current Visit: No Status: Chronic Qualifiers: Hypertension type: essential hypertension Code(s): I10 - ESSENTIAL (PRIMARY) HYPERTENSION (3) History of stroke Current Visit: No Status: Chronic Assessment & Plan: will keep on lovenox 40mg SQ daily. Code(s): Z86.73 - PRSNL HX OF TIA (TIA), AND CEREB INFRC W/O RESID DEFICITS (4) Dementia Current Visit: No Status: Chronic Qualifiers: Dementia type: Alzheimer's disease Alzheimer's disease onset: unspecified onset Dementia behavioral disturbance: without behavioral disturbance Qualified Code(s): G30.9 - Alzheimer's disease, unspecified; F02.80 - Dementia in other diseases classified elsewhere without behavioral disturbance Code(s): F03.90 - UNSPECIFIED DEMENTIA WITHOUT BEHAVIORAL DISTURBANCE (5) Failure to thrive Current Visit: No Status: Chronic Qualifiers: Code(s): AYH6562 -
[2019-01-18 09:19] LABS: Appearance CLEAR (CLEAR); Bilirubin NEGATIVE (NEGATIVE); Blood NEGATIVE Ery/ul (0-5); Glucose NEGATIVE (NEGATIVE); Ketones NEGATIVE (NEGATIVE); Leukocyte Esterase NEGATIVE (NEGATIVE); Mucus SLIGHT /HPF (NEGATIVE); Nitrite NEGATIVE (NEGATIVE); Protein,Urine Dip NEGATIVE (Negative); Specific Gravity 1.009 (1.005-1.025); Urobilinogen NEGATIVE mg/dL (0-1)
[2019-01-18] MEDS: ROCEPHIN 1 Gm-D5w 50 ml Bag** 1 G/50 ML IVPB IV SCH (09:46)
[2019-01-18] MEDS: Klor Con 10 MEQ PO SCH (09:48)
[2019-01-18] MEDS: Coreg 6.25 MG PO SCH ×2 (09:49→21:26)
[2019-01-18] MEDS: Zestril 20 MG PO SCH (09:49)
[2019-01-18] MEDS: NICODERM CQ 14 MG TOP SCH (09:49)
[2019-01-18] MEDS: xanAX 0.5 MG PO SCH ×2 (09:49→21:25)
[2019-01-18] MEDS: DELTASONE 20 MG PO SCH (09:49)
[2019-01-18] MEDS: FOLATE 1 MG PO SCH (09:49)
[2019-01-18] MEDS: Wellbutrin SR 150 MG PO SCH ×2 (09:49→21:25)
[2019-01-18] MEDS: Protonix 40MG Tablet PO SCH (09:49)
[2019-01-18] MEDS: ENOXAPARIN SODIUM SQ SCH (09:54)
[2019-01-18] MEDS ORDERED: NON-FORMULARY ITEM (Omeprazole [Omeprazole] 40 MG) PO SCH (10:00)
[2019-01-18] MEDS: Zithromax 500 MG/ 250 ML NaCl Premix 500 MG/250 ML IVPB IV SCH (12:00)
[2019-01-18] MEDS: ZOCOR 20MG PO SCH (21:25)
[2019-01-19] MEDS: Sodium Chloride 0.9% 1000 ML 1,000 ML IV SCH ×3 (03:47→22:07)
[2019-01-19 05:07] LABS: Hematocrit 28.8 % (42-50); Mean Cell Volume 104.3 fl (78-100); Mean Corpuscular Hemoglobin 32.6 pg (26-32); Mean Corpuscular Hgb Concent. 31.3 g/dl (32-36); Mean Platelet Volume 10.5 fl (6-9.5); Platelet Count 198 K/mm3 (150-450); Red Blood Count 2.76 M/mm3 (4.1-5.6); Red Cell Distribution Width 14.9 % (11.5-14.0)
[2019-01-19 05:08] LABS: ALBUMIN 2.9 g/dL (3.5-5.0); ALKALINE PHOSPHATASE 87 U/L (38-126); ANION GAP 12.6 MEQ/L (5-15); BLOOD UREA NITROGEN 26 mg/dL (9-20); CHLORIDE 112 mmol/L (98-107); Calcium 8.3 mg/dL (8.4-10.2); Carbon Dioxide 24 mmol/L (22-30); Creatinine 1 1.06 mg/dL (0.66-1.25); Glucose 103 mg/dL (74-106); SGOT/AST 18 U/L (17-59); SGPT/ALT 13 U/L (0-50); SODIUM 144 mmol/L (137-145); Total Protein 5.7 g/dL (6.3-8.2)
[2019-01-19] MEDS: DUONEB 0.5-3 MG/3 ml Neb IH SCH ×2 (06:38→18:42)
--- NOTE | 2019-01-19 09:02 | PCM.NOTE ---
Date and Time: 01/19/19 0859 Subjective Assessment: No complaints, he says he is feeling better today. He says the year is "2018" and it is October. - Review of Systems Constitutional: No Fever Respiratory: Cough Objective Exam General Appearance: no apparent distress, alert, thin Neurologic Exam: cooperative, disoriented Skin Exam: normal color, warm, dry, No rash Respiratory Exam: lungs clear, diminished breath sounds, No crackles/rales, No rhonchi, No wheezing Cardiovascular Exam: regular rate/rhythm, normal heart sounds, No murmur Extremity Exam: normal inspection, No pedal edema, No swelling Back Exam: normal inspection, No rash OBJECTIVE DATA Vital Signs: Vital Signs - 24 hr Temp Pulse Resp BP Pulse Ox 01/19/19 07:00 99 F 96 H 20 169/90 98 01/19/19 06:40 96 H 18 98 01/19/19 03:00 98.7 F 87 18 154/74 94 L 01/18/19 23:00 97.6 F 91 H 18 125/65 95 01/18/19 19:31 97.9 F 92 H 18 129/59 98 01/18/19 18:43 93 H 24 98 01/18/19 16:00 97.9 F 78 19 106/56 94 L 01/18/19 12:00 98.4 F 87 18 109/61 96 Oxygen-Last 24 hours O2 Percentage 2 Liters = 28% O2 Percentage 2 Liters = 28% O2 Percentage 2 Liters = 28% O2 Percentage 2 Liters = 28% Pain Assessment - Last Documented Pain Intensity 0 Pain Scale Used 0-10 Pain Scale Intake and Output: Intake & Output 01/16/19 01/17/19 01/18/19 01/19/19 11:59 11:59 11:59 11:59 Intake Total 3915 3559 Output Total 1050 525 Balance 2865 3034 Weight 55.2 kg 58.2 kg 62.3 kg Lab Results: Lab Results-Last 24 Hours 01/18/19 01/19/19 01/19/19 Range/Units 09:00 05:02 05:02 WBC 15.0 H (4.0-10.5) K/mm3 RBC 2.76 L (4.1-5.6) M/mm3 Hgb 9.0 L (12.5-18.0) gm/dl Hct 28.8 L (42-50) % MCV 104.3 H (78-100) fl MCH 32.6 H (26-32) pg MCHC 31.3 L (32-36) g/dl RDW 14.9 H (11.5-14.0) % Plt Count 198 (150-450) K/mm3 MPV 10.5 H (6-9.5) fl Sodium 144 (137-145) mmol/L Potassium 4.0 (3.5-5.1) mmol/L Chloride 112 H (98-107) mmol/L Carbon Dioxide 24 (22-30) mmol/L Anion Gap 12.6 (5-15) MEQ/L BUN 26 H (9-20) mg/dL Creatinine 1.06 (0.66-1.25) mg/dL Estimated GFR > 60.0 ML/MIN Glucose 103 (74-106) mg/dL Calcium 8.3 L (8.4-10.2) mg/dL Total Bilirubin 0.20 (0.2-1.3) mg/dL AST 18 (17-59) U/L ALT 13 (0-50) U/L Alkaline Phosphatase 87 (38-126) U/L Serum Total Protein 5.7 L (6.3-8.2) g/dL Albumin 2.9 L (3.5-5.0) g/dL Urine Color YELLOW (YELLOW) Urine Appearance CLEAR (CLEAR) Urine pH 6.0 (5-6) Ur Specific [place] 1.009 (1.005-1.025) Urine Protein NEGATIVE (Negative) Urine Ketones NEGATIVE (NEGATIVE) Urine Blood NEGATIVE (0-5) Matthias/ul Urine Nitrite NEGATIVE (NEGATIVE) Urine Bilirubin NEGATIVE (NEGATIVE) Urine Urobilinogen NEGATIVE (0-1) mg/dL Ur Leukocyte Esterase NEGATIVE (NEGATIVE) Urine WBC (Auto) NONE (0-5) /HPF Urine RBC (Auto) NONE (0-2) /HPF U Epithel Cells (Auto) NONE (FEW) /HPF Urine Bacteria (Auto) NONE (NEGATIVE) /HPF Urine Mucus (Auto) SLIGHT (NEGATIVE) /HPF Urine Culture Reflexed NO (NO) Urine Glucose NEGATIVE (NEGATIVE) mg/dL Stool Occult Bld Scrn (NEGATIVE) 01/19/19 Range/Units 05:04 WBC (4.0-10.5) K/mm3 RBC (4.1-5.6) M/mm3 Hgb (12.5-18.0) gm/dl Hct (42-50) % MCV (78-100) fl MCH (26-32) pg MCHC (32-36) g/dl RDW (11.5-14.0) % Plt Count (150-450) K/mm3 MPV (6-9.5) fl Sodium (137-145) mmol/L Potassium (3.5-5.1) mmol/L Chloride (98-107) mmol/L Carbon Dioxide (22-30) mmol/L Anion Gap (5-15) MEQ/L BUN (9-20) mg/dL Creatinine (0.66-1.25) mg/dL Estimated GFR ML/MIN Glucose (74-106) mg/dL Calcium (8.4-10.2) mg/dL Total Bilirubin (0.2-1.3) mg/dL AST (17-59) U/L ALT (0-50) U/L Alkaline Phosphatase (38-126) U/L Serum Total Protein (6.3-8.2) g/dL Albumin (3.5-5.0) g/dL Urine Color (YELLOW) Urine Appearance (CLEAR) Urine pH (5-6) Ur Specific [place] (1.005-1.025) Urine Protein (Negative) Urine Ketones (NEGATIVE) Urine Blood (0-5) Matthias/ul Urine Nitrite (NEGATIVE) Urine Bilirubin (NEGATIVE) Urine Urobilinogen (0-1) mg/dL Ur Leukocyte Esterase (NEGATIVE) Urine WBC (Auto) (0-5) /HPF Urine RBC (Auto) (0-2) /HPF U Epithel Cells (Auto) (FEW) /HPF Urine Bacteria (Auto) (NEGATIVE) /HPF Urine Mucus (Auto) (NEGATIVE) /HPF Urine Culture Reflexed (NO) Urine Glucose (NEGATIVE) mg/dL Stool Occult Bld Scrn NEGATIVE (NEGATIVE) Radiology Exams: Radiology Procedures Category Date Time Status ABDOMEN 2 VIEW Routine Exams 01/17/19 13:14 Completed CHEST 2 VIEWS (PA AND LAT) Routine Exams 01/17/19 13:14 Completed Assessment/Plan (1) COPD exacerbation Current Visit: No Status: Suspected Assessment & Plan: HE is stable, had failed outpatient, he should be here several days on IV antibiotics. Day #3 rocephin and zithromax today. Code(s): J44.1 - CHRONIC OBSTRUCTIVE PULMONARY DISEASE W (ACUTE) EXACERBATION (2) HTN (hypertension) Current Visit: No Status: Chronic Qualifiers: Hypertension type: essential hypertension Assessment & Plan: Did have one bp 169 systolic - will have aide recheck BP. Code(s): I10 - ESSENTIAL (PRIMARY) HYPERTENSION (3) History of stroke Current Visit: No Status: Chronic Code(s): Z86.73 - PRSNL HX OF TIA (TIA), AND CEREB INFRC W/O RESID DEFICITS (4) Dementia Current Visit: No Status: Chronic Qualifiers: Dementia type: Alzheimer's disease Alzheimer's disease onset: unspecified onset Dementia behavioral disturbance: without behavioral disturbance Qualified Code(s): G30.9 - Alzheimer's disease, unspecified; F02.80 - Dementia in other diseases classified elsewhere without behavioral disturbance Code(s): F03.90 - UNSPECIFIED DEMENTIA WITHOUT BEHAVIORAL DISTURBANCE (5) Failure to thrive Current Visit: No Status: Chronic Qualifiers: Code(s): RJX3839 -
[2019-01-19] MEDS: ROCEPHIN 1 Gm-D5w 50 ml Bag** 1 G/50 ML IVPB IV SCH (09:47)
[2019-01-19] MEDS: ENOXAPARIN SODIUM SQ SCH (09:49)
[2019-01-19] MEDS: FOLATE 1 MG PO SCH (09:50)
[2019-01-19] MEDS: Coreg 6.25 MG PO SCH ×2 (09:50→22:44)
[2019-01-19] MEDS: DELTASONE 20 MG PO SCH (09:50)
[2019-01-19] MEDS: Klor Con 10 MEQ PO SCH (09:50)
[2019-01-19] MEDS: Protonix 40MG Tablet PO SCH (09:51)
[2019-01-19] MEDS: NICODERM CQ 14 MG TOP SCH (09:51)
[2019-01-19] MEDS: Wellbutrin SR 150 MG PO SCH ×2 (09:52→22:44)
[2019-01-19] MEDS: xanAX 0.5 MG PO SCH ×2 (09:52→22:44)
[2019-01-19] MEDS: Zestril 20 MG PO SCH (09:52)
[2019-01-19] MEDS: Zithromax 500 MG/ 250 ML NaCl Premix 500 MG/250 ML IVPB IV SCH (11:40)
[2019-01-19] MEDS: ZOCOR 20MG PO SCH (22:44)
[2019-01-20] MEDS: Sodium Chloride 0.9% 1000 ML 1,000 ML IV SCH ×2 (04:52→16:13)
[2019-01-20 05:15] LABS: Hematocrit 30.5 % (42-50); Hemoglobin 9.5 gm/dl (12.5-18.0); Mean Cell Volume 105.5 fl (78-100); Mean Corpuscular Hgb Concent. 31.1 g/dl (32-36); Mean Platelet Volume 9.7 fl (6-9.5); Platelet Count 223 K/mm3 (150-450); Red Blood Count 2.89 M/mm3 (4.1-5.6); Red Cell Distribution Width 15.4 % (11.5-14.0); White Blood Count 9.5 K/mm3 (4.0-10.5)
[2019-01-20 05:17] LABS: Mean Corpuscular Hemoglobin 32.8 pg (26-32)
[2019-01-20 05:24] LABS: ANION GAP 10.4 MEQ/L (5-15); BLOOD UREA NITROGEN 20 mg/dL (9-20); CHLORIDE 113 mmol/L (98-107); Calcium 8.3 mg/dL (8.4-10.2); Carbon Dioxide 27 mmol/L (22-30); Creatinine 1 0.97 mg/dL (0.66-1.25); Glucose 86 mg/dL (74-106); SODIUM 146 mmol/L (137-145)
[2019-01-20] MEDS: DUONEB 0.5-3 MG/3 ml Neb IH SCH ×2 (06:37→18:29)
--- NOTE | 2019-01-20 08:46 | PCM.NOTE ---
Date and Time: 01/20/19841 Subjective Assessment: Pt says his breathing is better. Noted he's on O2 at home at night only. Has been on 2L NC here at night. Rubén po. [place] wheezy yesterday. - Review of Systems Constitutional: No Fever Respiratory: Cough, Short Of Breath Objective Exam General Appearance: no apparent distress, thin Neurologic Exam: alert, cooperative Skin Exam: normal color, warm, dry, No rash Eye Exam: eyes nml inspection Ears, Nose, Throat Exam: moist mucous membranes Neck Exam: normal inspection Respiratory Exam: diminished breath sounds, wheezing (exp throughout), No crackles/rales, No rhonchi Cardiovascular Exam: regular rate/rhythm, normal heart sounds, No murmur Back Exam: normal inspection, No rash OBJECTIVE DATA Vital Signs: Vital Signs - 24 hr Temp Pulse Resp BP Pulse Ox 01/20/19 07:56 98.5 F 84 16 153/77 98 01/20/19 06:40 84 20 98 01/20/19 04:12 98.3 F 85 20 160/81 98 01/20/19 00:14 98.5 F 92 H 20 119/59 98 01/19/19 19:49 97.9 F 89 21 159/82 97 01/19/19 18:43 91 H 18 99 01/19/19 16:20 97.9 F 82 18 143/81 98 01/19/19 11:54 98.3 F 77 18 143/82 96 01/19/19 09:33 148/78 Oxygen-Last 24 hours O2 Percentage 2 Liters = 28% O2 Percentage 2 Liters = 28% O2 Percentage 2 Liters = 28% O2 Percentage 2 Liters = 28% O2 Percentage 2 Liters = 28% O2 Percentage 2 Liters = 28% Pain Assessment - Last Documented Pain Intensity 0 Pain Scale Used [facility] Intake and Output: Intake & Output 01/17/19 01/18/19 01/19/19 01/20/19 11:59 11:59 11:59 11:59 Intake Total 3915 4039 3653 Output Total 1050 1125 2455 Balance 7478 3522 5136 Weight 55.2 kg 58.2 kg 62.3 kg 63.1 kg Lab Results: Lab Results-Last 24 Hours 01/19/19 01/20/19 01/20/19 Range/Units 22:15 04:58 04:58 WBC 9.5 (4.0-10.5) K/mm3 RBC 2.89 L (4.1-5.6) M/mm3 Hgb 9.5 L (12.5-18.0) gm/dl Hct 30.5 L (42-50) % MCV 105.5 H (78-100) fl MCH 32.8 H (26-32) pg MCHC 31.1 L (32-36) g/dl RDW 15.4 H (11.5-14.0) % Plt Count 223 (150-450) K/mm3 MPV 9.7 H (6-9.5) fl Sodium 146 H (137-145) mmol/L Potassium 4.0 (3.5-5.1) mmol/L Chloride 113 H (98-107) mmol/L Carbon Dioxide 27 (22-30) mmol/L Anion Gap 10.4 (5-15) MEQ/L BUN 20 (9-20) mg/dL Creatinine 0.97 (0.66-1.25) mg/dL Estimated GFR > 60.0 ML/MIN Glucose 86 (74-106) mg/dL Calcium 8.3 L (8.4-10.2) mg/dL Stool Occult Bld Scrn NEGATIVE (NEGATIVE) Assessment/Plan (1) COPD exacerbation Current Visit: No Status: Suspected Assessment & Plan: with increased wheezing today on exam -will increase his steroid from po to IV. I tried to call his POAJoselo, yesterday without result. Will try again today. Pt's brother stopped by the office yesterday, and talked to RN at hospital yesterday, about pt's medication regimen and asking for a pulmonology consult. The pt is actually doing really well, I don't see a need for pulmonology consult. Will not be discussing with the brother as he is not on the pt's chart BUT I did discuss with pt today. Of course pt would just like to d/c to home and was actually upset yesterday that I wasn't sending him home (we did discuss yesterday the need to stay several days). This morning the pt is pleasant and cooperative, didn't mention any of that (he had discussed with RN yesterday). Code(s): J44.1 - CHRONIC OBSTRUCTIVE PULMONARY DISEASE W (ACUTE) EXACERBATION (2) HTN (hypertension) Current Visit: No Status: Chronic Qualifiers: Hypertension type: essential hypertension Code(s): I10 - ESSENTIAL (PRIMARY) HYPERTENSION (3) History of stroke Current Visit: No Status: Chronic Code(s): Z86.73 - PRSNL HX OF TIA (TIA), AND CEREB INFRC W/O RESID DEFICITS (4) Dementia Current Visit: No Status: Chronic Qualifiers: Dementia type: Alzheimer's disease Alzheimer's disease onset: unspecified onset Dementia behavioral disturbance: without behavioral disturbance Qualified Code(s): G30.9 - Alzheimer's disease, unspecified; F02.80 - Dementia in other diseases classified elsewhere without behavioral disturbance Code(s): F03.90 - UNSPECIFIED DEMENTIA WITHOUT BEHAVIORAL DISTURBANCE (5) Failure to thrive Current Visit: No Status: Chronic Qualifiers: Code(s): [id number] -
[2019-01-20] MEDS: ROCEPHIN 1 Gm-D5w 50 ml Bag** 1 G/50 ML IVPB IV SCH (10:23)
[2019-01-20] MEDS: FOLATE 1 MG PO SCH (10:26)
[2019-01-20] MEDS: Zestril 20 MG PO SCH (10:26)
[2019-01-20] MEDS: solu-MEDROL 40 MG IV SCH ×2 (10:26→22:07)
[2019-01-20] MEDS: NICODERM CQ 14 MG TOP SCH (10:27)
[2019-01-20] MEDS: xanAX 0.5 MG PO SCH ×2 (10:27→22:07)
[2019-01-20] MEDS: Coreg 6.25 MG PO SCH ×2 (10:27→22:07)
[2019-01-20] MEDS: Protonix 40MG Tablet PO SCH (10:27)
[2019-01-20] MEDS: Wellbutrin SR 150 MG PO SCH ×2 (10:27→22:07)
[2019-01-20] MEDS: Klor Con 10 MEQ PO SCH (10:27)
[2019-01-20] MEDS: ENOXAPARIN SODIUM SQ SCH (10:27)
[2019-01-20] MEDS: ZOCOR 20MG PO SCH (22:07)
[2019-01-21] MEDS: DUONEB 0.5-3 MG/3 ml Neb IH SCH (06:34)
[2019-01-21 06:39] VITALS: O2SAT 97
[2019-01-21 07:57] VITALS: BP 147/82; PULSE 92
[2019-01-21] MEDS: NICODERM CQ 14 MG TOP SCH (10:01)
[2019-01-21] MEDS: FOLATE 1 MG PO SCH (10:01)
[2019-01-21] MEDS: Coreg 6.25 MG PO SCH (10:01)
[2019-01-21] MEDS: ENOXAPARIN SODIUM SQ SCH (10:01)
[2019-01-21] MEDS: Klor Con 10 MEQ PO SCH (10:01)
[2019-01-21] MEDS: Protonix 40MG Tablet PO SCH (10:02)
[2019-01-21] MEDS: xanAX 0.5 MG PO SCH (10:02)
[2019-01-21] MEDS: ROCEPHIN 1 Gm-D5w 50 ml Bag** 1 G/50 ML IVPB IV SCH (10:02)
[2019-01-21] MEDS: Zestril 20 MG PO SCH (10:02)
[2019-01-21] MEDS: solu-MEDROL 40 MG IV SCH (10:02)
[2019-01-21] MEDS: Wellbutrin SR 150 MG PO SCH (10:02)
--- NOTE | 2019-01-23 12:59 | DS ---
DISCHARGE DIAGNOSES: 1) ABDOMINAL PAIN. 2) VOMITING. 3) DEHYDRATION. 4) CHRONIC OBSTRUCTIVE PULMONARY DISEASE EXACERBATION. HOSPITAL COURSE: The patient is a 63 year-old male patient who was seen in the office and directly admitted to the hospital for abdominal pain, vomiting and dehydration. It was also noted the patient was having exacerbation of his chronic obstructive pulmonary disease. He was admitted to the hospital and given IV fluids and antiemetic. He was treated with IV Rocephin, Zithromax, Solu-Medrol and nebulizer treatments. The patient did improve with the above treatments to the point where he was felt ready to go home again by the morning of 01/21/2019. His vital signs: He was afebrile, pulse 81, respiratory rate 19, blood pressure 166/80. O2 saturation was 98% on supplemental oxygen. At the time of discharge, he had stool that was occult blood negative. His BMP on 01/20/2019 showed a sugar of 86, BUN 20, creatinine 0.97. Potassium was normal. Sodium slightly high at 146. Anion gap was normal. White count was 9,800, hemoglobin 9.5, PLT count 223,000. The patient at this time will be discharged home on prednisone 30 mg for three days, 20 mg for three days and 10 mg for three days, Augmentin 875 mg twice a day for seven days. He has oxygen and nebulizer treatments at home with Albuterol for his nebulizer treatments. The patient is instructed to come back to the hospital if he has any problems with increasing shortness of breath or problems with recurrent abdominal pain.
== END 2019-01-21 10:00 | disposition home or self-care (01) | DRG 392 ==
LOC: MED SURG 11:32 → OBSVTOIN 01-18 09:05
PROVIDERS: ADMIT Family Medicine; ATTEND Family Medicine
DX: R10.9 Unspecified abdominal pain (principal); J44.1 Chronic obstructive pulmonary disease with (acute) exacerbation; E86.0 Dehydration; R11.2 Nausea with vomiting, unspecified; R62.7 Adult failure to thrive; F03.90 Unspecified dementia, unspecified severity, without behavioral disturbance, psychotic disturbance, mood disturbance, and anxiety; Z79.899 Other long term (current) drug therapy; Z86.73 Personal history of transient ischemic attack (TIA), and cerebral infarction without residual deficits
CPT/HCPCS: 36415; 71046; 74021; 80048; 80053; 81001; 82150; 82270; 83690; 85027; 87040; 94150; 94640; 94760; 97110; 97161; 97530; G0378; J0456; J0696; J1650; J2550; J2920; J2930; A9270-GY

== ENCOUNTER 2023-05-16 11:31 | Emergency (ER) | payer MEDICARE ==
[2023-05-16 11:53] VITALS: TEMP 97.8
--- NOTE | 2023-05-16 11:56 | ERPHSYRPT ---
- History of Present Illness Time Seen by Provider: 05/16/23 11:51 Source: patient, family, EMS Exam Limitations: no limitations Physician History: I saw the pt at the time of his arrival from EMS and interviewed him then, but it was several minutes until I could chart this. Hence the delay. He has noted this rash just today with pain, but has no other symptoms, no SOBreath or CP. except for the pain at this rash in the right chest dermatomal and back thoaracic distribution. There are vesicles and lesions consistent with shingles in this location. family member reports urinary symptoms in pt and requests test - so this is ordered . results discussed. risks/benefits discussed and pt /family wish AB bactrim Tx. Timing/Duration: today Quality: burning, painful Severity: moderate Location: torso Possible Causes: other (consistnet with Shingles. ) Associated Symptoms: denies symptoms Allergies/Adverse Reactions: No Known Drug Allergies Allergy (Verified 05/16/23 11:33) Home Medications: ALPRAZolam [Xanax 0.5 mg] 0.5 mg PO BID 08/02/14 [History] Atorvastatin Calcium [Lipitor] 80 mg PO HS 06/20/15 [History] Folic Acid 1 mg [Folate 1 mg] 1 mg PO DAILY 08/23/18 [History] Omeprazole 40 mg PO DAILY 08/23/18 [History] Lisinopril 20 mg [Zestril 20 MG] 40 mg PO DAILY 09/02/18 [History] Potassium Chloride Tab* [Klor Con] 10 meq PO DAILY 01/17/19 [History] Ferrous Sulfate 325 mg [Feosol 325 mg] 1 tab PO DAILY 05/16/23 [History] Meloxicam 1 tab PO DAILY 05/16/23 [History] Hx Tetanus, Diphtheria Vaccination/Date Given: No Hx Influenza Vaccination/Date Given: Yes Hx Pneumococcal Vaccination/Date Given: Yes - Review of Systems Constitutional: No Fever, No Chills Eyes: No Symptoms Ears, Nose, & Throat: No Symptoms Respiratory: No Cough, No Dyspnea Cardiac: No Chest Pain, No Edema, No Syncope Abdominal/Gastrointestinal: No Abdominal Pain, No Nausea, No Vomiting, No Diarrhea Genitourinary Symptoms: No Dysuria Musculoskeletal: No Back Pain, No Neck Pain Skin: Rash, Skin Lesions Neurological: No Dizziness, No Focal Weakness, No Sensory Changes Psychological: No Symptoms Endocrine: No Symptoms All Other Systems: Reviewed and Negative - Past Medical History Pertinent Past Medical History: Yes Neurological History: TIA, Other ENT History: Cataracts Cardiac History: Hypertension Respiratory History: COPD, Emphysema Endocrine Medical History: No Pertinent History Musculoskeletal History: No Pertinent History GI Medical History: GERD History: Renal Disease Psycho-Social History: Anxiety, Depression Male Reproductive Disorders: No Pertinent History Other Medical History: BRAIN anyerusm, Pt uses O2 at home at 2L - Past Surgical History Past Surgical History: Yes Neuro Surgical History: Neurological Surgery, Other Cardiac: No Pertinent History Respiratory: No Pertinent History Gastrointestinal: No Pertinent History Genitourinary: No Pertinent History Musculoskeletal: No Pertinent History Male Surgical History: No Pertinent History Other Surgical History: Brain aneurism, 2 clips in brain 2006 or 2007, CATARACT SURGERY X 3, esophagus stretched - Social History Smoking Status: Current every day smoker How long have you smoked: 30 Exposure to second hand smoke: No Drug Use: none Patient Lives Alone: No - Nursing Vital Signs Nursing Vital Signs: Initial Vital Signs Temperature 97.8 F 05/16/23 11:35 Pulse Rate 73 05/16/23 11:35 Respiratory Rate 18 05/16/23 11:35 Blood Pressure 130/84 05/16/23 11:35 O2 Sat by Pulse Oximetry 99 05/16/23 11:35 Pain Scale Pain Intensity 5 - Physical Exam General Appearance: no apparent distress, alert Eye Exam: PERRL/EOMI, eyes nml inspection Ears, Nose, Throat Exam: normal ENT inspection, pharynx normal, moist mucous membranes Neck Exam: normal inspection, non-tender, supple, full range of motion Respiratory Exam: normal breath sounds, lungs clear, No respiratory distress Cardiovascular Exam: regular rate/rhythm, normal heart sounds Gastrointestinal/Abdomen Exam: soft, mass, No tenderness Back Exam: normal inspection, normal range of motion, No CVA tenderness, No vertebral tenderness Extremity Exam: normal inspection, normal range of motion Neurologic Exam: alert, oriented x 3, cooperative, normal mood/affect, sensation nml, No motor deficits Skin Exam: normal color, warm, dry, rash (consistent with shingles in the right thoracic dermatome) SpO2 Interpretation: normal O2 Delivery: Room Air - Course Nursing assessment & vital signs reviewed: Yes Ordered Tests: Active Orders 24 hr Category Date Time Status CULTURE,URINE Stat Lab 05/16/23 12:58 Received UA W/RFX UR CULTURE Stat Lab 05/16/23 12:58 Completed Medication Summary Discontinued Medications Generic Name Dose Route Start Last Admin Trade Name Emanuel PRN Reason Stop Dose Admin Acyclovir 200 mg 05/16/23 11:57 05/16/23 12:05 Acyclovir 200 Mg Capsule PO 05/16/23 11:58 200 mg STAT ONE Administration Acyclovir Confirm 05/16/23 12:02 Acyclovir 200 Mg Capsule Administered 05/16/23 12:03 Dose 200 mg .ROUTE .STK-MED ONE Oxycodone/Acetaminophen 1 tab 05/16/23 11:57 05/16/23 12:05 Oxycodone / Apap 10/325 Mg 1 Tablet PO 05/16/23 11:58 1 tab STAT STA Administration Oxycodone/Acetaminophen Confirm 05/16/23 12:03 Oxycodone / Apap 10/325 Mg 1 Tablet Administered 05/16/23 12:04 Dose 1 tab .ROUTE .STK-MED ONE Lab/Rad Data: Laboratory Results 05/16/23 Range/Units 12:58 Urine Color Yellow (Yellow) Urine Appearance Turbid A (Clear) Urine pH 7.0 (4.6-8.0) Ur Specific [place] 1.020 (1.005-1.030) Urine Protein 30 (Negative) Urine Glucose (UA) Negative (Negative) mg/dL Urine Ketones Negative (Negative) Urine Blood Small A (Negative) Urine Nitrite Positive A (Negative) Urine Bilirubin Negative (Negative) Urine Urobilinogen 1.0 A (0.2) mg/dL Ur Leukocyte Esterase Large A (Negative) U Hyaline Cast (Auto) 3-5 A (0-2) /LPF Urine Microscopic RBC 3-5 (0-5) /HPF Urine Microscopic WBC >100 A (0-5) /HPF Ur Epithelial Cells None Seen (None Seen) /HPF Urine Bacteria Many A (None Seen) /HPF Urine Culture Reflexed YES (NO) - Progress Progress: improved, re-examined Progress Note: 05/16/23 12:44 discussed risks/benefits of Tx fancicolvir and pain meds for shingles hydrocodone and pt and family wish to proceed - scripts sent to pharmacy. Counseled pt/family regarding: diagnosis, need for follow-up Medical Desision Making - Independent Historian Additional History obtained from: Family, EMS - Discussion of managment Reviewed:: Need for additional workup Agreed on:: Treatment plan, need for follow-up - Diagnostic Testing Diagnostic test were ordered, analyzed, and reviewed by me: No - Risk of complications The pt has a mod risk of morbidity or mortality based on: Need for prescription drug management The pt has a high risk of morbidity or mortality based on: Decision regarding hospitilization or escalation of hosp level of care - Departure Departure Disposition: Home Clinical Impression: Shingles, UTI (urinary tract infection) Condition: Good Critical Care Time: No Referrals: KEVIN HAILE [ACTIVE STAFF] - Follow up/PCP as directed Instructions: Shingles (DC), Urinary Tract Infection, Adult (DC) Additional Instructions: follow-up with your Dr. for progress. Return meantime if not improving or any concerns. isolate from others until lesions are scabbed over. Prescriptions: Hydrocodone/Acetaminophen [Hydrocodone-Acetamin 5-325 mg] 1 tab PO Q6HPRN PRN #14 tablet MDD 4 PRN Reason: Pain Smz/Tmp Ds Tablet [Bactrim Ds Tablet] 1 udtab PO BID #20 tablet Famciclovir 500 mg PO TID #20 tablet
[2023-05-16] MEDS ORDERED: OXYCODONE-ACETAMINOPHEN 10-325 PO STA (11:57)
[2023-05-16] MEDS ORDERED: ACYCLOVIR PO ONE (11:57)
[2023-05-16] MEDS ORDERED: ACYCLOVIR ONE (12:02)
[2023-05-16] MEDS ORDERED: OXYCODONE-ACETAMINOPHEN 10-325 ONE (12:03)
[2023-05-16 13:10] LABS: Appearance Turbid (Clear); Bacteria Many /HPF (None Seen); Bilirubin Negative (Negative); Blood Small (Negative); Epithelial Cells None Seen /HPF (None Seen); Glucose, Urine Negative (Negative); Ketones Negative (Negative); Leukocyte Esterase Large (Negative); Nitrite Positive (Negative); Protein,Urine Dip 30 (Negative); WBC >100 /HPF (0-5)
[2023-05-16 13:12] LABS: ADD URINE CULTURE? YES (NO)
[2023-05-16 13:26] VITALS: O2SAT 98
[2023-05-16] MEDS ORDERED: ZOFRAN ODT 4 MG ONE (14:54)
[2023-05-16] MEDS ORDERED: ZOFRAN ODT 4 MG PO ONE (14:55)
[2023-05-16 14:57] VITALS: BP 122/78; PULSE 80; RESP 19
== END 2023-05-16 15:04 | disposition home or self-care (01) ==
LOC: ED 11:31
DX: B02.9 Zoster without complications (principal); N39.0 Urinary tract infection, site not specified; R21 Rash and other nonspecific skin eruption; I10 Essential (primary) hypertension; Z79.891 Long term (current) use of opiate analgesic; Z79.899 Other long term (current) drug therapy; Z72.0 Tobacco use; Z99.81 Dependence on supplemental oxygen
CPT/HCPCS: 81001; 87077; 87086; 87186; 99283; Q0162; A9270-GY

== ENCOUNTER 2023-07-01 02:02 | Observation (INO) | payer MEDICARE ==
--- NOTE | 2023-07-01 02:25 | ERPHSYRPT ---
- History of Present Illness Time Seen by Provider: 07/01/23 02:17 Historian: patient Exam Limitations: no limitations Physician History: 68-year-old male history of COPD current smoker presents to our ED via EMS for evaluation of chest pain. Patient states he awoke from sleep with chest pain. Upon arrival to our ED patient O2 sat on room air was 74%. Patient was tac hycardic. Physical exam showed patient was wheezing. Patient was also shaking tremors of the upper extremities observed. EMS administered 324 mg of aspirin and 1 nitro sublingual. Patient had no active chest pain upon arrival to our ED. However in light of his hypoxia patient was immediately placed on 4 L oxygen nasal cannula. O2 sat increased from 74% to 96%. Patient now comfortable. Patient has a baseline tachycardia. Patient voices no other complaints or concerns at this time. Portions of this note were created with voice recognition technology. There may be grammatical, spelling, punctuation or sound alike errors Timing/Duration: today Activities at Onset: none Quality: aching Location: substernal Chest Pain Radiation: no radiation Severity of Pain-Max: moderate Severity of Pain-Current: mild Modifying Factors: Improves With: nothing Associated Symptoms: denies symptoms Nitro Today/Relief: 0.4 mg x 1 Aspirin Treatment Today: 325 mg x 1 Allergies/Adverse Reactions: No Known Drug Allergies Allergy (Verified 07/01/23 02:10) Home Medications: ALPRAZolam [Xanax 0.5 mg] 0.5 mg PO BID 08/02/14 [History] Atorvastatin Calcium [Lipitor] 80 mg PO HS 06/20/15 [History] Folic Acid 1 mg [Folate 1 mg] 1 mg PO DAILY 08/23/18 [History] Omeprazole 40 mg PO DAILY 08/23/18 [History] Lisinopril 20 mg [Zestril 20 MG] 40 mg PO DAILY 09/02/18 [History] Potassium Chloride Tab* [Klor Con] 10 meq PO DAILY 01/17/19 [History] Ferrous Sulfate 325 mg [Feosol 325 mg] 2 tab PO DAILY 05/16/23 [History] Meloxicam 1 tab PO DAILY 05/16/23 [History] Hx Tetanus, Diphtheria Vaccination/Date Given: No Hx Influenza Vaccination/Date Given: Yes Hx Pneumococcal Vaccination/Date Given: Yes Travel Risk - Vaccine Status Have you recieved a Covid-19 vaccination: No - Review of Systems Constitutional: No Symptoms, No Fever, No Chills Eyes: No Symptoms Ears, Nose, & Throat: No Symptoms Respiratory: No Symptoms, No Cough, No Dyspnea Cardiac: No Symptoms, No Chest Pain, No Edema, No Syncope Abdominal/Gastrointestinal: No Symptoms, No Abdominal Pain, No Nausea, No Vomiting, No Diarrhea Genitourinary Symptoms: No Symptoms, No Dysuria Musculoskeletal: No Symptoms, No Back Pain, No Neck Pain Skin: No Symptoms, No Rash Neurological: No Symptoms, No Dizziness, No Focal Weakness, No Sensory Changes Psychological: No Symptoms Endocrine: No Symptoms Hematologic/Lymphatic: No Symptoms Immunological/Allergic: No Symptoms All Other Systems: Reviewed and Negative - Past Medical History Pertinent Past Medical History: Yes Neurological History: TIA, Other ENT History: Cataracts Cardiac History: Hypertension Respiratory History: COPD, Emphysema Endocrine Medical History: No Pertinent History Musculoskeletal History: No Pertinent History GI Medical History: GERD History: Renal Disease Psycho-Social History: Anxiety, Depression Male Reproductive Disorders: No Pertinent History Other Medical History: BRAIN anyerusm, Pt uses O2 at home at 2L - Past Surgical History Past Surgical History: Yes Neuro Surgical History: Neurological Surgery, Other Cardiac: No Pertinent History Respiratory: No Pertinent History Gastrointestinal: No Pertinent History Genitourinary: No Pertinent History Musculoskeletal: No Pertinent History Male Surgical History: No Pertinent History Other Surgical History: Brain aneurism, 2 clips in brain 2006 or 2007, CATARACT SURGERY X 3, esophagus stretched - Social History Smoking Status: Current every day smoker How long have you smoked: 30 Exposure to second hand smoke: No Drug Use: none Patient Lives Alone: No - Nursing Vital Signs Nursing Vital Signs: Initial Vital Signs Temperature 99 F 07/01/23 02:03 Pulse Rate 128 H 07/01/23 02:03 Respiratory Rate 24 07/01/23 02:03 Blood Pressure 153/103 07/01/23 02:03 O2 Sat by Pulse Oximetry 96 07/01/23 02:03 Pain Scale Pain Intensity 0 - Physical Exam General Appearance: no apparent distress, alert Eye Exam: PERRL/EOMI, eyes nml inspection Ears, Nose, Throat Exam: normal ENT inspection, TMs normal, pharynx normal, moist mucous membranes, dry mucous membranes, other Neck Exam: normal inspection, non-tender, supple, full range of motion Respiratory Exam: normal breath sounds, lungs clear, airway intact, No respiratory distress Cardiovascular Exam: regular rate/rhythm, normal heart sounds, normal peripheral pulses Gastrointestinal/Abdomen Exam: soft, No tenderness, No mass Back Exam: normal inspection, No CVA tenderness, No vertebral tenderness Extremity Exam: normal inspection, normal range of motion Neurologic Exam: alert, oriented x 3, cooperative, normal mood/affect, sensation nml, No motor deficits Skin Exam: normal color, warm, dry Lymphatic Exam: No adenopathy SpO2 Interpretation: normal O2 Delivery: Room Air - Course Nursing assessment & vital signs reviewed: Yes EKG Interpreted by Me: RATE (135), Sinus Tach, NORMAL AXIS, NORMAL INTERVALS, Left Bundle Branch Block - Radiology Exams Chest X-ray Interpretation: Teleradiologist Report (Right mid zone pneumonic consolidation) - CT Exams Chest CT Interpretation: Tele-radiologist Report (No PE lung granuloma coronary artery calcifications atherosclerotic disease T5-T9 wedge compression fractures 50% 60% height loss right upper lobe pneumonia, diffuse emphysema) Ordered Tests: Active Orders 24 hr Category Date Time Status Surgical Instrument Repair Specialist STAT Care 07/01/23 02:09 Active EKG-ER Only STAT Care 07/01/23 02:09 Active IV Insertion STAT Care 07/01/23 02:09 Active Pulse Oximetry (ED) STAT Care 07/01/23 02:09 Active CHEST 1 VIEW (PORTABLE) Stat Exams 07/01/23 02:09 Completed CHEST WITH CONTRAST [CT] Stat Exams 07/01/23 03:30 Completed BLOOD CULTURE Stat Lab 07/01/23 02:32 Received CBC W DIFF Stat Lab 07/01/23 02:30 Completed CMP Stat Lab 07/01/23 02:30 Completed TROPONIN Q4H Lab 07/01/23 02:30 Completed TROPONIN Q4H Lab 07/01/23 06:15 Ordered TROPONIN Q4H Lab 07/01/23 10:15 Ordered Respiratory Therapy Assessment DAILY RT 07/01/23 03:51 Active Transfer Order Routine Transfer 07/01/23 Ordered Medication Summary Generic Name Dose Route Start Last Admin Trade Name Freq PRN Reason Stop Dose Admin Sodium Chloride 1,000 mls @ 100 mls/hr 07/01/23 05:45 07/01/23 05:43 Sodium Chloride 0.9% 1000 Ml IV 07/31/23 05:44 Not Given .Q10H DONALDO Sodium Chloride 1,000 mls @ 120 mls/hr 07/01/23 05:45 07/01/23 05:42 Sodium Chloride 0.9% 1000 Ml IV 07/31/23 05:44 120 mls/hr .Q8H20M DONALDO Administration Discontinued Medications Generic Name Dose Route Start Last Admin Trade Name Freq PRN Reason Stop Dose Admin Albuterol/Ipratropium 3 ml 07/01/23 02:25 07/01/23 02:39 Ipratropium/Albuterol Sulfate 3 Ml Ampul.Neb IH 07/01/23 02:26 Not Given STAT ONE Albuterol/Ipratropium Confirm 07/01/23 02:34 Ipratropium/Albuterol Sulfate 3 Ml Ampul.Neb Administered 07/01/23 02:35 Dose 3 ml IH .STK-MED ONE Albuterol/Ipratropium 3 ml 07/01/23 03:41 07/01/23 03:48 Ipratropium/Albuterol Sulfate 3 Ml Ampul.Neb IH 07/01/23 03:42 3 ml STAT ONE Administration Albuterol/Ipratropium Confirm 07/01/23 03:46 Ipratropium/Albuterol Sulfate 3 Ml Ampul.Neb Administered 07/01/23 03:47 Dose 3 ml IH .STK-MED ONE Methylprednisolone Sodium 0 mg 07/01/23 02:25 07/01/23 02:43 Succinate 125 mg/ Sterile IV 07/01/23 02:26 125 mg Water 2 ml STAT ONE Administration Ceftriaxone Sodium/Dextrose 2 g in 50 mls @ 100 mls/hr 07/01/23 03:28 07/01/23 04:38 Rocephin 2 Gm-D5w 50ml Bag IV 07/01/23 03:57 Infused STAT STA Infusion Azithromycin 500 mg in 250 mls @ 250 mls/hr 07/01/23 03:28 07/01/23 05:30 Zithromax 500 Mg/ 250 Ml Nacl Premix IV 07/01/23 04:27 Infused STAT STA Infusion Ceftriaxone Sodium/Dextrose Confirm 07/01/23 03:31 Rocephin 2 Gm-D5w 50ml Bag Administered 07/01/23 03:32 Dose 2 g in 50 mls @ ud IV .STK-MED ONE Azithromycin Confirm 07/01/23 04:28 Zithromax 500 Mg/ 250 Ml Nacl Premix Administered 07/01/23 04:29 Dose 500 mg in 250 mls @ ud IV .STK-MED ONE Methylprednisolone Sodium Succinate Confirm 07/01/23 02:43 Methylprednis Sod Succ 125 Mg/2 Ml Vial Administered 07/01/23 02:44 Dose 125 mg .ROUTE .STK-MED ONE Sterile Water Confirm 07/01/23 02:43 Water For Injection,Sterile 10 Ml Vial Administered 07/01/23 02:44 Dose 10 ml IJ .STK-MED ONE Lab/Rad Data: Laboratory Result Diagrams 07/01/23 02:30 07/01/23 02:30 Laboratory Results 07/01/23 07/01/23 07/01/23 Range/Units 02:32 02:30 02:30 WBC (4.0-10.5) x10^3/uL RBC (4.1-5.6) x10^6/uL Hgb (12.5-18.0) g/dL Hct (42-50) % MCV (78-100) fL MCH (26-32) pg MCHC (32-36) g/dL RDW (11.5-14.0) % Plt Count (150-450) x10^3/uL MPV (7.5-11.0) fL Gran % (36.0-66.0) % Immature Gran % (Auto) (0.00-0.4) % Nucleat RBC Rel Count (0.00-0.1) % Eos # (Auto) (0-0.5) x10^3/uL Immature Gran # (Auto) (0.00-0.03) x10^3u/L Absolute Lymphs (auto) (1.0-4.6) x10^3/uL Absolute Monos (auto) (0.0-1.3) x10^3/uL Absolute Nucleated RBC (0.00-0.01) x10^3u/L Lymphocytes % (24.0-44.0) % Monocytes % (0.0-12.0) % Eosinophils % (0.00-5.0) % Basophils % (0.0-0.4) % Absolute Granulocytes (1.4-6.9) x10^3/uL Basophils # (0-0.4) x10^3/uL Sodium 143 (137-145) mmol/L Potassium 4.2 (3.5-5.1) mmol/L Chloride 106 (98-107) mmol/L Carbon Dioxide 30 (22-30) mmol/L Anion Gap 11.7 (5-15) MEQ/L BUN 23 H (9-20) mg/dL Creatinine 1.09 (0.66-1.25) mg/dL Estimated GFR 74.4 ML/MIN Glucose 118 H (74-106) mg/dL Calcium 9.2 (8.4-10.2) mg/dL Total Bilirubin 0.60 (0.2-1.3) mg/dL AST 22 (17-59) U/L ALT 15 (0-50) U/L Alkaline Phosphatase 137 H (38-126) U/L Troponin I < 0.012 (0.000-0.034) ng/mL Serum Total Protein 7.6 (6.3-8.2) g/dL Albumin 3.9 (3.5-5.0) g/dL Influenza Type A Ag NEGATIVE (NEGATIVE) Influenza Type B Ag NEGATIVE (NEGATIVE) RSV (PCR) NEGATIVE (NEGATIVE) SARS-CoV-2 (PCR) NEGATIVE (NEGATIVE) 07/01/23 Range/Units 02:30 WBC 6.9 (4.0-10.5) x10^3/uL RBC 2.77 L (4.1-5.6) x10^6/uL Hgb 8.9 L (12.5-18.0) g/dL Hct 30.6 L (42-50) % MCV 110.5 H (78-100) fL MCH 32.1 H (26-32) pg MCHC 29.1 L (32-36) g/dL RDW 16.6 H (11.5-14.0) % Plt Count 287 (150-450) x10^3/uL MPV 10.9 (7.5-11.0) fL Gran % 88.7 H (36.0-66.0) % Immature Gran % (Auto) 0.3 (0.00-0.4) % Nucleat RBC Rel Count 0.4 H (0.00-0.1) % Eos # (Auto) 0.04 (0-0.5) x10^3/uL Immature Gran # (Auto) 0.02 (0.00-0.03) x10^3u/L Absolute Lymphs (auto) 0.62 L (1.0-4.6) x10^3/uL Absolute Monos (auto) 0.08 (0.0-1.3) x10^3/uL Absolute Nucleated RBC 0.03 H (0.00-0.01) x10^3u/L Lymphocytes % 9.1 L (24.0-44.0) % Monocytes % 1.2 (0.0-12.0) % Eosinophils % 0.6 (0.00-5.0) % Basophils % 0.1 (0.0-0.4) % Absolute Granulocytes 6.08 (1.4-6.9) x10^3/uL Basophils # 0.01 (0-0.4) x10^3/uL Sodium (137-145) mmol/L Potassium (3.5-5.1) mmol/L Chloride (98-107) mmol/L Carbon Dioxide (22-30) mmol/L Anion Gap (5-15) MEQ/L BUN (9-20) mg/dL Creatinine (0.66-1.25) mg/dL Estimated GFR ML/MIN Glucose (74-106) mg/dL Calcium (8.4-10.2) mg/dL Total Bilirubin (0.2-1.3) mg/dL AST (17-59) U/L ALT (0-50) U/L Alkaline Phosphatase (38-126) U/L Troponin I (0.000-0.034) ng/mL Serum Total Protein (6.3-8.2) g/dL Albumin (3.5-5.0) g/dL Influenza Type A Ag (NEGATIVE) Influenza Type B Ag (NEGATIVE) RSV (PCR) (NEGATIVE) SARS-CoV-2 (PCR) (NEGATIVE) - Progress Progress: improved Air Movement: good Progress Note: 68-year-old male presents to our ED via EMS for evaluation of chest pain and shortness of breath. Nitroglycerin and aspirin administered by EMS. upon arrival to our ED patient was tachycardic at 135 and hypoxic at 74% on room air. Physical exam revealed diminished breath sounds with diffuse wheezing. Dry oral mucous membranes no fever. Patient is an active smoker. In light of patient's profound hypoxia shortness of breath tachycardia history of smoking CTA chest completed. CTA chest negative for PE. However a right upper lobe pneumonia was identified. Patient has known emphysema. T5-T9 compression fractures were observed with 50 to 60% height loss however this is believed to be an old finding based on previous studies. We contacted the radiologist to update the report with an estimated age of the fracture. This addendum is pending. BUN/creatinine ratio slightly elevated. Patient is slightly dehydrated on physical examination. IV fluids initiated. Patient currently on a facemask at 5 L. O2 sat 99%. Heart rate improved from 1 35-1 11. Repeat EKG currently being performed. IV antibiotics infused. Patient will require hospitalization for further evaluation and treatment. Plan of care discussed with patient. Daughter at bedside. They agree to admission to [facility] for further evaluation and treatment. Patient accepted by Dr. Healy at 5:43 AM. Portions of this note were created with voice recognition technology. There may be grammatical, spelling, punctuation or sound alike errors Complexity problem addressed is high, threat to bodily function in light of patient's profound hypoxia and tachycardia Critical care time is 1 hour in light of the profound hypoxemia of 74% on room air. Immediate action indicated to prevent further deterioration. Complexity of data reviewed and analyzed is extensive. Test ordered test reviewed. Results analyzed and correlated clinically with history and physical examination. Management discussed with hospitalist Dr. Healy who accepts admission to observation to telemetry unit Risk of complication and or risk of morbidity/mortality of patient management is high. Patient requires hospitalization for further evaluation and treatment. Vitals now stable. Time spent to admit patient is approximately 30 minutes. Plan of care established for shared decision making. No social determinants of health present impede follow-up. Portions of this note were created with voice recognition technology. There may be grammatical, spelling, punctuation or sound alike errors 07/01/23 05:45 Repeat EKG performed at 5:50 AM. Rate is now 110 showing a sinus tachycardia with a left bundle branch block. Normal intervals. Normal axis 07/01/23 05:52 07/01/23 05:53 Blood Culture(s) Obtained: Yes Antibiotics given: Yes Discussed with DrLala: Other Will see patient in: hospital (observation) (Patient accepted by Dr. Healy at 5:43 AM) Counseled pt/family regarding: lab results, diagnosis, rad results - Departure Departure Disposition: Observation Clinical Impression: Chest pain, Macrocytic anemia, Hypoxia, COPD exacerbation, Tachycardia, Right upper lobe pneumonia, Diffuse lung emphysema, Lung granuloma, Coronary artery calcification, Atherosclerotic cardiovascular disease, T5-T9 wedge compression f ractures Condition: Stable Critical Care Time: Yes Critical Care Time(excluding separately billable procedures): Critical 30-74 mins Referrals: RAO LIEBERMAN MD [Primary Care Provider] - Follow up/PCP as directed Instructions: Chronic Obstructive Pulmonary Disease
[2023-07-01] MEDS ORDERED: DUONEB 0.5-3 MG/3 ml Neb IH ONE ×2 (02:34→03:46)
[2023-07-01] MEDS: DUONEB 0.5-3 MG/3 ml Neb IH ONE ×2 (02:39→03:48)
[2023-07-01 02:40] LABS: Absolute Neutrophil Ct (ANC) 6.08 x10^3/uL (1.4-6.9); BASOPHIL % 0.1 % (0.0-0.4); Basophil (Absolute #) 0.01 x10^3/uL (0-0.4); Eosinophil % 0.6 % (0.00-5.0); Eosinophil (Absolute #) 0.04 x10^3/uL (0-0.5); Hematocrit 30.6 % (42-50); Hemoglobin 8.9 g/dL (12.5-18.0); IMMATURE GRAN # 0.02 x10^3u/L (0.00-0.03); IMMATURE GRAN % 0.3 % (0.00-0.4); Lymphocyte (Absolute #) 0.62 x10^3/uL (1.0-4.6); Lymphocytes % 9.1 % (24.0-44.0); Mean Cell Volume 110.5 fL (78-100); Mean Corpuscular Hemoglobin 32.1 pg (26-32); Mean Corpuscular Hgb Concent. 29.1 g/dL (32-36); Mean Platelet Volume 10.9 fL (7.5-11.0); Monocyte (Absolute #) 0.08 x10^3/uL (0.0-1.3); Monocytes % 1.2 % (0.0-12.0); NUCLEATED RBC # 0.03 x10^3u/L (0.00-0.01); NUCLEATED RBC % 0.4 % (0.00-0.1); Neutrophil % 88.7 % (36.0-66.0); Platelet Count 287 x10^3/uL (150-450); Red Blood Count 2.77 x10^6/uL (4.1-5.6); Red Cell Distribution Width 16.6 % (11.5-14.0); White Blood Count 6.9 x10^3/uL (4.0-10.5)
[2023-07-01] MEDS ORDERED: Sterile H2O 10 ml IJ ONE (02:43)
[2023-07-01] MEDS ORDERED: solu-MEDROL ONE (02:43)
[2023-07-01] MEDS: solu-MEDROL 125 MG, Sterile H2O 10 ml 2 ML IV ONE (02:43)
[2023-07-01 02:57] LABS: ALBUMIN 3.9 g/dL (3.5-5.0); ANION GAP 11.7 MEQ/L (5-15); BILIRUBIN,TOTAL 0.6 mg/dL (0.2-1.3); Calcium 9.2 mg/dL (8.4-10.2); Creatinine 1 1.09 mg/dL (0.66-1.25); EST GLOMERULAR FILTRATION RATE 74.4 ML/MIN; Potassium 4.2 mmol/L (3.5-5.1); Total Protein 7.6 g/dL (6.3-8.2)
[2023-07-01 03:22] LABS: INFLUENZA A NEGATIVE (NEGATIVE); INFLUENZA B NEGATIVE (NEGATIVE); RESPIRATORY SYNCTIAL VIRUS NEGATIVE (NEGATIVE); SARS-CoV-2 Xpert Express NEGATIVE (NEGATIVE)
[2023-07-01] MEDS ORDERED: ROCEPHIN 2 Gm-D5w 50ML BAG** 2 G/50 ML IVPB IV ONE (03:31)
[2023-07-01] MEDS: ROCEPHIN 2 Gm-D5w 50ML BAG** 2 G/50 ML IVPB IV STA (03:31)
--- NOTE | 2023-07-01 03:43 | XRAY ---
CLINICAL HISTORY: pain TECHNIQUE: X-ray of the chest, AP view. COMPARISON: 01/17/2019. FINDINGS: Rotation towards the right side. Normal configuration of the mediastinum. The jose m are normal in size and position. The cardiac size is normal. The bony thorax is unremarkable. The costophrenic and cardiophrenic angles are clear. IMPRESSION: 1. Wedge-shaped opacity in the right mid zone with air bronchogram, suggestive of pneumonic consolidation. 2. Interval development of consolidation compared to previous radiographs. Electronically Signed by: Jasmine Hernandez MD. (07/01/2023 03:39:56 EST)
[2023-07-01] MEDS: Zithromax 500 MG/ 250 ML NaCl Premix 500 MG/250 ML IVPB IV STA (04:28)
[2023-07-01] MEDS ORDERED: Zithromax 500 MG/ 250 ML NaCl Premix 500 MG/250 ML IVPB IV ONE (04:28)
--- NOTE | 2023-07-01 05:26 | XRAY ---
CLINICAL HISTORY: SOB, hypoxia, tachycardia, PE? TECHNIQUE: Contiguous axial images were obtained from the neck base through the upper abdomen following intravenous administration of contrast material. If IV contrast material had not been administered, the likelihood of detecting abnormalities relevant to the patient's condition would have been substantially decreased. In addition, sagittal and coronal reconstructions were performed. CT scan was performed according to ALARA (as low as reasonable achievable). COMPARISON: 09/02/2018 FINDINGS: Adequate contrast bolus without evidence of pulmonary embolism. Diffuse emphysematous changes are seen in both lung cobb. Patchy area of subpleural consolidation seen in the right upper lobe - anterior segment. Soft tissue density nodule measuring 5 mm is seen in right lower lobe - ser 3, img 41. Tiny calcification measuring 2 mm is also seen in right lower lobe - granuloma. Rest of the lungs are clear. The central airways are patent. There are no pleural effusions. No pneumothorax is seen. The heart, aorta, and pulmonary arteries are of normal size and configuration. There are mild coronary artery and aortic atherosclerotic calcifications. No pericardial effusion is identified. The thyroid is unremarkable. No mediastinal, hilar, or axillary lymphadenopathy is noted. No suspicious lytic or sclerotic osseous lesions are identified. Wedge compression of T5 and T9 vertebral bodies seen with about 50-60% height reduction. IMPRESSION: 1.No evidence of pulmonary embolism. 2.Diffuse emphysematous changes are seen in both lung cobb - stable. 3.Patchy area of subpleural consolidation seen in the right upper lobe - anterior segment. This is a new finding. 4. Stable - soft tissue density nodule in right lower lobe. Electronically Signed by: Dr. Terrence Robles MD. (07/01/2023 05:22:19 EST)
[2023-07-01] MEDS: Sodium Chloride 0.9% 1000 ML 1,000 ML IV SCH ×2 (05:42)
--- NOTE | 2023-07-01 06:33 | PCM.HP ---
History of Present Illness - Chief Complaint Chief Complaint: chest pain Date: 07/01/23 History of Present Illness: Mr. RUBI is a 68 year old male with a past medical history significant for hypertension, COPD and hyperlipidemia who was brought to the hospital by EMS after waking up with chest pain. He was given ASA/NTG and brought to the ER where he was found to be hypoxic in the 70s with exp wheezing. He was given steroids, nebulizers and recommended for admission. He is resting in bed, lethargic but arousable. He appears to be comfortable. No current chest pain or shortness of breath. No nausea, vomiting or diarrhea. No fever/chills, or productive cough. - Review of Systems Constitutional: No Fever, No Chills Eyes: No Vision Changes Ears, Nose, & Throat: No Nose Discharge Respiratory: Short Of Breath, No Cough, No Orthopnea Cardiac: No Chest Pain, No Edema Abdominal/Gastrointestinal: No Abdominal Pain, No Nausea, No Vomiting, No Diarrhea Genitourinary Symptoms: No Dysuria, No Frequency, No Hematuria Musculoskeletal: No Back Pain, No Neck Pain Skin: No Cellulitis, No Rash Neurological: No Dizziness, No Focal Weakness Psychological: No Suicidal Ideations Endocrine: No Polyuria, No Polydipsia Medications & Allergies Home Medications: Home Medication List ALPRAZolam [Xanax 0.5 mg] 0.5 mg PO BID 08/02/14 [History Confirmed 07/01/23] Bupropion HCl 150 mg Sr [Wellbutrin SR 150 MG] 150 mg PO BID #60 tablet.sa 05/29/15 [Rx Confirmed 07/01/23] Atorvastatin Calcium [Lipitor] 80 mg PO HS 06/20/15 [History Confirmed 07/01/23] Folic Acid 1 mg [Folate 1 mg] 1 mg PO DAILY 08/23/18 [History Confirmed 07/01/23] Omeprazole 40 mg PO DAILY 08/23/18 [History Confirmed 07/01/23] Carvedilol [Coreg ] 6.25 mg PO BID #60 tablet 08/26/18 [Rx Confirmed 07/01/23] Lisinopril 20 mg [Zestril 20 MG] 40 mg PO DAILY 09/02/18 [History Confirmed 07/01/23] Potassium Chloride Tab* [Klor Con] 10 meq PO DAILY 01/17/19 [History Confirmed 07/01/23] Ferrous Sulfate 325 mg [Feosol 325 mg] 2 tab PO DAILY 05/16/23 [History Confirmed 07/01/23] Meloxicam 1 tab PO DAILY 05/16/23 [History Confirmed 07/01/23] Allergies/Adverse Reactions: Allergies Allergy/AdvReac Type Severity Reaction Status Date / Time No Known Drug Allergies Allergy Verified 07/01/23 02:10 - Past Medical History Past Medical History: Yes Neurological History: TIA, Other ENT History: Cataracts Cardiac History: Hypertension Respiratory History: COPD, Emphysema Endocrine Medical History: No Pertinent History Musculoskelatal History: No Pertinent History GI Medical History: GERD History: Renal Disease Pyscho-Social History: Anxiety, Depression Male Reproductive Disorders: No Pertinent History Comment: BRAIN anyerusm, Pt uses O2 at home at 2L - Past Surgical History Past Surgical History: Yes Neuro Surgical History: Neurological Surgery, Other Cardiac History: No Pertinent History Respiratory Surgery: No Pertinent History GI Surgical History: No Pertinent History Genitourinary Surgical Hx: No Pertinent History Musculskeletal Surgical Hx: No Pertinent History Male Surgical History: No Pertinent History Other Surgical History: Brain aneurism, 2 clips in brain 2006 or 2007, CATARACT SURGERY X 3, esophagus stretched - Social History Smoking Status: Current every day smoker How long have you smoked: 30 Exposure to second hand smoke: No Alcohol: None Drug Use: none - Physical Exam Vital Signs: Vital Signs - 24 hr Temp Pulse Pulse Resp BP BP Pulse Ox 07/01/23 06:00 110 H 109/65 98 07/01/23 05:30 102 H 105/62 99 07/01/23 05:02 120 H 20 138/66 100 07/01/23 04:31 103 H 155/85 97 07/01/23 04:00 112 H 115/99 96 07/01/23 03:51 120 H 24 95 07/01/23 03:30 122 H 29 H 127/93 94 L 07/01/23 03:27 120 H 24 121/91 07/01/23 03:20 128 H 22 07/01/23 03:10 127 H 30 H 07/01/23 03:03 128 H 21 07/01/23 02:48 127 H 28 H 163/119 95 07/01/23 02:47 130 H 07/01/23 02:40 132 H 23 07/01/23 02:34 96 07/01/23 02:32 131 H 29 H 96 07/01/23 02:08 129 H 26 H 153/103 74 L 07/01/23 02:03 99 F 128 H 130 H 24 153/103 96 General Appearance: no apparent distress Neurologic Exam: alert Ears, Nose, Throat Exam: dry mucous membranes Neck Exam: supple Respiratory Exam: wheezing, No respiratory distress Cardiovascular Exam: regular rate/rhythm Gastrointestinal/Abdomen Exam: soft Extremity Exam: No pedal edema Skin Exam: normal color, No rash Results - Labs Lab/Micro Results: Lab Results-Last 24 Hours 07/01/23 07/01/23 07/01/23 Range/Units 02:30 02:30 02:30 WBC 6.9 (4.0-10.5) x10^3/uL RBC 2.77 L (4.1-5.6) x10^6/uL Hgb 8.9 L (12.5-18.0) g/dL Hct 30.6 L (42-50) % MCV 110.5 H (78-100) fL MCH 32.1 H (26-32) pg MCHC 29.1 L (32-36) g/dL RDW 16.6 H (11.5-14.0) % Plt Count 287 (150-450) x10^3/uL MPV 10.9 (7.5-11.0) fL Gran % 88.7 H (36.0-66.0) % Immature Gran % (Auto) 0.3 (0.00-0.4) % Nucleat RBC Rel Count 0.4 H (0.00-0.1) % Eos # (Auto) 0.04 (0-0.5) x10^3/uL Immature Gran # (Auto) 0.02 (0.00-0.03) x10^3u/L Absolute Lymphs (auto) 0.62 L (1.0-4.6) x10^3/uL Absolute Monos (auto) 0.08 (0.0-1.3) x10^3/uL Absolute Nucleated RBC 0.03 H (0.00-0.01) x10^3u/L Lymphocytes % 9.1 L (24.0-44.0) % Monocytes % 1.2 (0.0-12.0) % Eosinophils % 0.6 (0.00-5.0) % Basophils % 0.1 (0.0-0.4) % Absolute Granulocytes 6.08 (1.4-6.9) x10^3/uL Basophils # 0.01 (0-0.4) x10^3/uL Sodium 143 (137-145) mmol/L Potassium 4.2 (3.5-5.1) mmol/L Chloride 106 (98-107) mmol/L Carbon Dioxide 30 (22-30) mmol/L Anion Gap 11.7 (5-15) MEQ/L BUN 23 H (9-20) mg/dL Creatinine 1.09 (0.66-1.25) mg/dL Estimated GFR 74.4 ML/MIN Glucose 118 H (74-106) mg/dL Calcium 9.2 (8.4-10.2) mg/dL Total Bilirubin 0.60 (0.2-1.3) mg/dL AST 22 (17-59) U/L ALT 15 (0-50) U/L Alkaline Phosphatase 137 H (38-126) U/L Troponin I < 0.012 (0.000-0.034) ng/mL Serum Total Protein 7.6 (6.3-8.2) g/dL Albumin 3.9 (3.5-5.0) g/dL Influenza Type A Ag (NEGATIVE) Influenza Type B Ag (NEGATIVE) RSV (PCR) (NEGATIVE) SARS-CoV-2 (PCR) (NEGATIVE) 07/01/23 07/01/23 Range/Units 02:32 05:20 WBC (4.0-10.5) x10^3/uL RBC (4.1-5.6) x10^6/uL Hgb (12.5-18.0) g/dL Hct (42-50) % MCV (78-100) fL MCH (26-32) pg MCHC (32-36) g/dL RDW (11.5-14.0) % Plt Count (150-450) x10^3/uL MPV (7.5-11.0) fL Gran % (36.0-66.0) % Immature Gran % (Auto) (0.00-0.4) % Nucleat RBC Rel Count (0.00-0.1) % Eos # (Auto) (0-0.5) x10^3/uL Immature Gran # (Auto) (0.00-0.03) x10^3u/L Absolute Lymphs (auto) (1.0-4.6) x10^3/uL Absolute Monos (auto) (0.0-1.3) x10^3/uL Absolute Nucleated RBC (0.00-0.01) x10^3u/L Lymphocytes % (24.0-44.0) % Monocytes % (0.0-12.0) % Eosinophils % (0.00-5.0) % Basophils % (0.0-0.4) % Absolute Granulocytes (1.4-6.9) x10^3/uL Basophils # (0-0.4) x10^3/uL Sodium (137-145) mmol/L Potassium (3.5-5.1) mmol/L Chloride (98-107) mmol/L Carbon Dioxide (22-30) mmol/L Anion Gap (5-15) MEQ/L BUN (9-20) mg/dL Creatinine (0.66-1.25) mg/dL Estimated GFR ML/MIN Glucose (74-106) mg/dL Calcium (8.4-10.2) mg/dL Total Bilirubin (0.2-1.3) mg/dL AST (17-59) U/L ALT (0-50) U/L Alkaline Phosphatase (38-126) U/L Troponin I 0.013 (0.000-0.034) ng/mL Serum Total Protein (6.3-8.2) g/dL Albumin (3.5-5.0) g/dL Influenza Type A Ag NEGATIVE (NEGATIVE) Influenza Type B Ag NEGATIVE (NEGATIVE) RSV (PCR) NEGATIVE (NEGATIVE) SARS-CoV-2 (PCR) NEGATIVE (NEGATIVE) - Radiology Impressions Radiology Exams & Impressions: Radiology Procedures Category Date Time Status CHEST 1 VIEW (PORTABLE) Stat Exams 07/01/23 02:09 Completed CHEST WITH CONTRAST [CT] Stat Exams 07/01/23 03:30 Completed - Other Procedures and Tests Respiratory Therapy 07/01/23 03:51 Respiratory Therapy Assessment DAILY Assessment/Plan (1) Acute exacerbation of chronic obstructive airways disease Current Visit: Yes Status: Acute Assessment & Plan: COPD exacerbation with hypoxemia 1. Admit to hospital 2. Steroids/duonebs 3. Supplemental oxygen 4. Monitor O2 sats Code(s): J44.1 - CHRONIC OBSTRUCTIVE PULMONARY DISEASE W (ACUTE) EXACERBATION (2) Hypoxia Current Visit: Yes Status: Acute Assessment & Plan: Likely with underlying pneumonia 1. Will start antibiotics 2. Sputum cultures 3. Trend WBC Code(s): R09.02 - HYPOXEMIA (3) Acute renal failure Current Visit: No Status: Acute Assessment & Plan: Likely some mild prerenal azotemia - at slight risk for contrast nephropathy from CTA chest 1. Gentle IVFs 2. Encourage PO intake 3. Follow I/Os 4. Watch electrolytes, creatinine closely (4) HTN (hypertension) Current Visit: No Status: Chronic Qualifiers: Hypertension type: primary hypertension Qualified Code(s): I10 - Essential (primary) hypertension Code(s): I10 - ESSENTIAL (PRIMARY) HYPERTENSION Telemedicine Encounter - Telemedicine Encounter Telemedicine Encounter: The entirety of this encounter was performed via Telemedicine"
[2023-07-01] MEDS ORDERED: TYLENOL 325 MG PO PRN (06:37)
[2023-07-01] MEDS: DUONEB 0.5-3 MG/3 ml Neb IH SCH (07:45)
[2023-07-01] MEDS: FOLATE 1 MG PO SCH (10:22)
[2023-07-01] MEDS: Coreg PO SCH (10:23)
[2023-07-01] MEDS: Wellbutrin SR 150 MG PO SCH (10:23)
[2023-07-01] MEDS: Zestril 20 MG PO SCH (10:23)
[2023-07-01] MEDS: ENOXAPARIN SODIUM SQ SCH (10:23)
[2023-07-01 12:53] LABS: Appearance Clear (Clear); Bacteria None Seen /HPF (None Seen); Bilirubin Negative (Negative); Blood Negative (Negative); Epithelial Cells None Seen /HPF (None Seen); Glucose, Urine Negative (Negative); Hyaline Casts NONE SEEN /LPF (0-2); Ketones Negative (Negative); Leukocyte Esterase Negative (Negative); Nitrite Negative (Negative); Ph 5.5 (4.6-8.0); Protein,Urine Dip Negative (Negative); RBC 0-2 /HPF (0-5); Specific Gravity >=1.030 (1.005-1.030); WBC 0-2 /HPF (0-5)
[2023-07-01 12:54] LABS: ADD URINE CULTURE? NO (NO)
[2023-07-01] MEDS: ROCEPHIN 1 GM / 100 ML NaCl 1 GM/100 ML IVPB IV SCH (21:52)
[2023-07-01] MEDS: Zithromax 500 MG/ 250 ML NaCl Premix 500 MG/250 ML IVPB IV SCH (21:52)
[2023-07-02 05:29] LABS: ALBUMIN 2.8 g/dL (3.5-5.0); BILIRUBIN,TOTAL 0.1 mg/dL (0.2-1.3); Creatinine 1 0.93 mg/dL (0.66-1.25); Potassium 3.9 mmol/L (3.5-5.1); Total Protein 5.8 g/dL (6.3-8.2)
[2023-07-02 06:38] LABS: Absolute Neutrophil Ct (ANC) 13.26 x10^3/uL (1.4-6.9); BASOPHIL % 0.1 % (0.0-0.4); Basophil (Absolute #) 0.02 x10^3/uL (0-0.4); Eosinophil (Absolute #) 0 x10^3/uL (0-0.5); IMMATURE GRAN # 0.21 x10^3u/L (0.00-0.03); IMMATURE GRAN % 1.4 % (0.00-0.4); Lymphocyte (Absolute #) 1.12 x10^3/uL (1.0-4.6); Lymphocytes % 7.4 % (24.0-44.0); Mean Cell Volume 112.1 fL (78-100); Mean Corpuscular Hemoglobin 32.7 pg (26-32); Mean Corpuscular Hgb Concent. 29.2 g/dL (32-36); Mean Platelet Volume 10.7 fL (7.5-11.0); Monocyte (Absolute #) 0.43 x10^3/uL (0.0-1.3); Monocytes % 2.9 % (0.0-12.0); Neutrophil % 88.2 % (36.0-66.0); Platelet Count 224 x10^3/uL (150-450); Red Blood Count 2.14 x10^6/uL (4.1-5.6)
[2023-07-02 07:46] VITALS: O2SAT 100
[2023-07-02 08:28] LABS: Absolute Neutrophil Ct (ANC) 13.69 x10^3/uL (1.4-6.9); BASOPHIL % 0.1 % (0.0-0.4); Basophil (Absolute #) 0.01 x10^3/uL (0-0.4); Eosinophil (Absolute #) 0 x10^3/uL (0-0.5); Hematocrit 25.6 % (42-50); Hemoglobin 7.3 g/dL (12.5-18.0); IMMATURE GRAN # 0.19 x10^3u/L (0.00-0.03); IMMATURE GRAN % 1.2 % (0.00-0.4); Lymphocyte (Absolute #) 1.48 x10^3/uL (1.0-4.6); Lymphocytes % 9.3 % (24.0-44.0); Mean Cell Volume 111.8 fL (78-100); Mean Corpuscular Hemoglobin 31.9 pg (26-32); Mean Corpuscular Hgb Concent. 28.5 g/dL (32-36); Monocyte (Absolute #) 0.48 x10^3/uL (0.0-1.3); Neutrophil % 86.4 % (36.0-66.0); Platelet Count 219 x10^3/uL (150-450); Red Blood Count 2.29 x10^6/uL (4.1-5.6); Red Cell Distribution Width 16.8 % (11.5-14.0); White Blood Count 15.9 x10^3/uL (4.0-10.5)
[2023-07-02 09:10] LABS: Slide Review 1 YES
[2023-07-02 09:33] LABS: Slide Review 1 YES
--- NOTE | 2023-07-02 10:05 | PCM.DS ---
Discharge Summary Date of Admission: 07/01/23 06:15 Date of Discharge: 07/02/23 Admitting Physician: WENDIE NARVAEZ MD Primary Care Provider: RAO LIEBERMAN Allergies Allergies No Known Drug Allergies Allergy (Verified 07/01/23 02:10) Hospital Summary - Hospital Course Hospital Course: Mr. RUBI is a 68 year old male with a past medical history significant for hypertension, COPD and hyperlipidemia. He was brought to the hospital by EMS after waking up with chest pain. He was given ASA/NTG and brought to the ER where he was found to be hypoxic in the 70s with exp wheezing. He was given steroids, nebulizers, and antibiotics and recommended for admission. Trop x3 negative. He has denies CP since admission. He is on baseline 2lNC baseline oxygen. He has been treated with continued antibiotics and duonebs. He feels he is doing better and would like to go home today. Per old records it appears he has chronic anemia. Will need to f/u Op for further evaluation. Hgb stable at 7.3. He states he has not had any dark or bloody stools and has not had a BM since admission. Will need to F/U with PCP OP for repeat labs and possible colonoscopy or eval by hematology OP. WBC elevated today 2:2 steriods in ER - Vitals & Intake/Output Vital Signs: Vital Signs Temperature 97.9 F 07/02/23 07:45 Pulse Rate 84 07/02/23 07:45 Respiratory Rate 20 07/02/23 07:45 Blood Pressure 138/66 07/02/23 07:45 O2 Sat by Pulse Oximetry 100 07/02/23 07:45 Intake & Output: Intake & Output 06/29/23 06/30/23 07/01/23 07/02/23 11:59 11:59 11:59 11:59 Intake Total 240 3294 Output Total 1050 Balance 240 2244 Weight 58.3 kg - Lab Result Diagrams: 07/02/23 08:20 07/02/23 04:34 Lab Results-Last 24 Hrs: Lab Results-Last 24 Hours 07/01/23 07/01/23 07/02/23 Range/Units 10:14 12:46 04:34 WBC 15.0 H (4.0-10.5) x10^3/uL RBC 2.14 L (4.1-5.6) x10^6/uL Hgb 7.0 L* D (12.5-18.0) g/dL Hct 24.0 L (42-50) % MCV 112.1 H (78-100) fL MCH 32.7 H (26-32) pg MCHC 29.2 L (32-36) g/dL RDW 17.0 H (11.5-14.0) % Plt Count 224 (150-450) x10^3/uL MPV 10.7 (7.5-11.0) fL Gran % 88.2 H (36.0-66.0) % Immature Gran % (Auto) 1.4 H (0.00-0.4) % Nucleat RBC Rel Count 0.0 (0.00-0.1) % Eos # (Auto) 0 (0-0.5) x10^3/uL Immature Gran # (Auto) 0.21 H (0.00-0.03) x10^3u/L Absolute Lymphs (auto) 1.12 (1.0-4.6) x10^3/uL Absolute Monos (auto) 0.43 (0.0-1.3) x10^3/uL Absolute Nucleated RBC 0.00 (0.00-0.01) x10^3u/L Lymphocytes % 7.4 L (24.0-44.0) % Monocytes % 2.9 (0.0-12.0) % Eosinophils % 0.0 (0.00-5.0) % Basophils % 0.1 (0.0-0.4) % Absolute Granulocytes 13.26 H (1.4-6.9) x10^3/uL Basophils # 0.02 (0-0.4) x10^3/uL Sodium (137-145) mmol/L Potassium (3.5-5.1) mmol/L Chloride (98-107) mmol/L Carbon Dioxide (22-30) mmol/L Anion Gap (5-15) MEQ/L BUN (9-20) mg/dL Creatinine (0.66-1.25) mg/dL Estimated GFR ML/MIN Glucose (74-106) mg/dL Calcium (8.4-10.2) mg/dL Total Bilirubin (0.2-1.3) mg/dL AST (17-59) U/L ALT (0-50) U/L Alkaline Phosphatase (38-126) U/L Troponin I < 0.012 (0.000-0.034) ng/mL Serum Total Protein (6.3-8.2) g/dL Albumin (3.5-5.0) g/dL Urine Color Yellow (Yellow) Urine Appearance Clear (Clear) Urine pH 5.5 (4.6-8.0) Ur Specific [place] >=1.030 A (1.005-1.030) Urine Protein Negative (Negative) Urine Glucose (UA) Negative (Negative) mg/dL Urine Ketones Negative (Negative) Urine Blood Negative (Negative) Urine Nitrite Negative (Negative) Urine Bilirubin Negative (Negative) Urine Urobilinogen 1.0 A (0.2) mg/dL Ur Leukocyte Esterase Negative (Negative) U Hyaline Cast (Auto) NONE SEEN (0-2) /LPF Urine Microscopic RBC 0-2 (0-5) /HPF Urine Microscopic WBC 0-2 (0-5) /HPF Ur Epithelial Cells None Seen (None Seen) /HPF Urine Bacteria None Seen (None Seen) /HPF Urine Culture Reflexed NO (NO) Slides for Path Review YES 07/02/23 07/02/23 Range/Units 04:34 08:20 WBC 15.9 H (4.0-10.5) x10^3/uL RBC 2.29 L (4.1-5.6) x10^6/uL Hgb 7.3 L (12.5-18.0) g/dL Hct 25.6 L (42-50) % MCV 111.8 H (78-100) fL MCH 31.9 (26-32) pg MCHC 28.5 L (32-36) g/dL RDW 16.8 H (11.5-14.0) % Plt Count 219 (150-450) x10^3/uL MPV 10.0 (7.5-11.0) fL Gran % 86.4 H (36.0-66.0) % Immature Gran % (Auto) 1.2 H (0.00-0.4) % Nucleat RBC Rel Count 0.0 (0.00-0.1) % Eos # (Auto) 0 (0-0.5) x10^3/uL Immature Gran # (Auto) 0.19 H (0.00-0.03) x10^3u/L Absolute Lymphs (auto) 1.48 (1.0-4.6) x10^3/uL Absolute Monos (auto) 0.48 (0.0-1.3) x10^3/uL Absolute Nucleated RBC 0.00 (0.00-0.01) x10^3u/L Lymphocytes % 9.3 L (24.0-44.0) % Monocytes % 3.0 (0.0-12.0) % Eosinophils % 0.0 (0.00-5.0) % Basophils % 0.1 (0.0-0.4) % Absolute Granulocytes 13.69 H (1.4-6.9) x10^3/uL Basophils # 0.01 (0-0.4) x10^3/uL Sodium 139 (137-145) mmol/L Potassium 3.9 (3.5-5.1) mmol/L Chloride 111 H (98-107) mmol/L Carbon Dioxide 21 L (22-30) mmol/L Anion Gap 11.0 (5-15) MEQ/L BUN 23 H (9-20) mg/dL Creatinine 0.93 (0.66-1.25) mg/dL Estimated GFR 90.0 ML/MIN Glucose 107 H (74-106) mg/dL Calcium 8.0 L (8.4-10.2) mg/dL Total Bilirubin 0.10 L (0.2-1.3) mg/dL AST 16 L (17-59) U/L ALT 11 (0-50) U/L Alkaline Phosphatase 92 (38-126) U/L Troponin I (0.000-0.034) ng/mL Serum Total Protein 5.8 L (6.3-8.2) g/dL Albumin 2.8 L (3.5-5.0) g/dL Urine Color (Yellow) Urine Appearance (Clear) Urine pH (4.6-8.0) Ur Specific [place] (1.005-1.030) Urine Protein (Negative) Urine Glucose (UA) (Negative) mg/dL Urine Ketones (Negative) Urine Blood (Negative) Urine Nitrite (Negative) Urine Bilirubin (Negative) Urine Urobilinogen (0.2) mg/dL Ur Leukocyte Esterase (Negative) U Hyaline Cast (Auto) (0-2) /LPF Urine Microscopic RBC (0-5) /HPF Urine Microscopic WBC (0-5) /HPF Ur Epithelial Cells (None Seen) /HPF Urine Bacteria (None Seen) /HPF Urine Culture Reflexed (NO) Slides for Path Review YES Micro Results-Entire Visit: Microbiology 07/01/23 02:32 Blood Culture - Preliminary Blood 07/01/23 02:30 Blood Culture - Preliminary Blood - Radiology Exams Ordered Rad Exams-Entire Visit: Radiology Procedures Category Date Time Status CHEST 1 VIEW (PORTABLE) Stat Exams 07/01/23 02:09 Completed CHEST WITH CONTRAST [CT] Stat Exams 07/01/23 03:30 Completed - Procedures and Test Procedures and Tests throughout Hospitalization: Therapy Orders & Screens 07/01/23 03:51 Respiratory Therapy Assessment DAILY Comment: 07/01/23 06:37 Respiratory Therapy Consult ONCE Comment: Reason For Exam: Diagnosis: chest pain 07/01/23 07:37 Respiratory Therapy Assessment DAILY Comment: Diagnosis: chest pain 07/01/23 07:38 Oxygen Nasal Cannula 4 lpm Comment: Diagnosis: chest pain 07/01/23 10:00 OT Screen per Nursing Assess ONCE Comment: Protocol Order Physician Instructions: Greater than 3 points order OT Admission Screening Reason For Exam: Triggered on Admission Diagnosis: COPD EXACERBATION, PNEUMONIA, HYPOXIA, CHEST PAIN AND ACS Open Wound/Cellutlitis/Pressure Ulcers: No Acute Fx/ORIF/Change in wt bearing status: No Severe MUSCULOSKELETAL pain: No ADL Dysfunction: Yes Acute CVA w/Hemiparesis/Hemiplegia: No Decreased Functional Mobility/Strength: Yes Sprain/Strain: No Acute Post-op Mobility Dysfunction: No Total Points: 4 PT Screen per Nursing Assess ONCE Comment: Protocol Order Physician Instructions: Greater than 3 points order PT Admission Screenin Reason For Exam: Triggered on Admission Diagnosis: COPD EXACERBATION, PNEUMONIA, HYPOXIA, CHEST PAIN AND ACS Open Wound/Cellutlitis/Pressure Ulcers: No Acute Fx/ORIF/Change in wt bearing status: No Severe MUSCULOSKELETAL pain: No ADL Dysfunction: Yes Acute CVA w/Hemiparesis/Hemiplegia: No Decreased Functional Mobility/Strength: Yes Sprain/Strain: No Acute Post-op Mobility Dysfunction: No Total Points: 4 RT Screen per Nursing Assess ONCE Comment: Protocol Order Physician Instructions: Greater than 3 points order RT Admission Screen Reason For Exam: Triggered on Admission Diagnosis: COPD EXACERBATION, PNEUMONIA, HYPOXIA, CHEST PAIN AND ACS Diagnosis: COPD EXACERBATION, PNEUMONIA, HYPOXIA, CHEST PAIN AND ACS Pneumonia: Yes Home O2: Yes: 2L PER NC AT HOME Asthma: No CHF: No Home CPAP/BIPAP: No Home Nebs/MDI: Yes Total Points: 13 Smoking Cessation Education ONCE Comment: Diagnosis: COPD EXACERBATION, PNEUMONIA, HYPOXIA, CHEST PAIN AND ACS Smoking Status: Current every day smoker How long have you smoked: 30 Have you smoked in the past 12 months: Yes Approximately how many cigarettes per day: 20 Do you dip or chew tobacco: No If,Former Smoker,when did you quit: 2016 [address] Screen per Nursing Assess ONCE Comment: Protocol Order Physician Instructions: Greater than [address] Admission Screening Reason For Exam: Triggered on Admission Diagnosis: COPD EXACERBATION, PNEUMONIA, HYPOXIA, CHEST PAIN AND ACS CVA/Dyshpagia/Aphasia: No Cognitive Deficits: No Dehydration/Nutrition Deficit: No Reflux: No Oral-Motor Difficulties: No Pneumonia: Yes Residential Resident: No Total Points: 5 07/02/23 07:32 RT Miscellaneous Order ROUTINE Comment: Physician Instructions: Reason For Exam: eval for home o2 Diagnosis: COPD EXACERBATION, PNEUMONIA, HYPOXIA, CHEST PAIN AND ACS Discharge Exam General Appearance: no apparent distress, alert Neurologic Exam: alert, oriented x 3, cooperative, normal mood/affect, nml cerebellar function, sensation nml, No motor deficits Eye Exam: PERRL, EOMI, eyes nml inspection Ears, Nose, Throat Exam: normal ENT inspection, pharynx normal, moist mucous membranes Neck Exam: normal inspection, non-tender, supple, full range of motion Respiratory Exam: normal breath sounds, lungs clear, No respiratory distress Cardiovascular Exam: regular rate/rhythm, normal heart sounds Gastrointestinal/Abdomen Exam: soft, No tenderness, No mass Male Genitalia Exam: deferred Rectal Exam: deferred Back Exam: normal inspection, normal range of motion, No CVA tenderness, No vertebral tenderness Extremity Exam: normal inspection, normal range of motion Skin Exam: normal color, warm, dry Final Diagnosis/Problem List - Final Discharge Diagnosis/Problem (1) Acute exacerbation of chronic obstructive airways disease Current Visit: Yes Status: Acute Assessment & Plan: - Steroids,duonebs, antibiotics- started in ER - duonebs and antibiotics continued - Supplemental oxygen - Monitor O2 sats - Tele 07/01 - Pt on baseline oxygen at 2lNC -100% - Lung sounds are clear - CXR IMPRESSION: 1. Wedge-shaped opacity in the right mid zone with air bronchogram, suggestive of pneumonic consolidation. 2. Interval development of consolidation compared to previous radiographs. - Chest CT IMPRESSION: 1.No evidence of pulmonary embolism. 2.Diffuse emphysematous changes are seen in both lung cobb - stable. 3.Patchy area of subpleural consolidation seen in the right upper lobe - anterior segment. This is a new finding. 4. Stable - soft tissue density nodule in right lower lobe. - Will need Pulm f/u OP regarding CT results. Code(s): J44.1 - CHRONIC OBSTRUCTIVE PULMONARY DISEASE W (ACUTE) EXACERBATION (2) Hypoxia Current Visit: Yes Status: Acute Assessment & Plan: - 07/01 - WBC elevated most likely 2:2 steroids agve in ER - Lung sounds clear on baseline oxygen of 2lNC 100% Code(s): R09.02 - HYPOXEMIA (3) Acute renal failure Current Visit: No Status: Resolved Assessment & Plan: - IVF- stopped, Pt eating and drinking well - resolved (4) HTN (hypertension) Current Visit: No Status: Chronic Assessment & Plan: - BP stable continue home meds Code(s): I10 - ESSENTIAL (PRIMARY) HYPERTENSION (5) Anxiety Current Visit: Yes Status: Chronic Assessment & Plan: - xanax held on admission as pt was not very responsive - restarted 07/01- pt awake and alert Code(s): F41.9 - ANXIETY DISORDER, UNSPECIFIED - Discharge Discharge Date: 07/02/23 Disposition: Home, Self-Care Condition: Stable Prescriptions: Continue ALPRAZolam [Xanax 0.5 mg] 0.5 mg PO BID Bupropion HCl 150 mg Sr [Wellbutrin SR 150 MG] 150 mg PO BID #60 tablet.sa Atorvastatin Calcium [Lipitor] 80 mg PO HS Omeprazole 40 mg PO DAILY Folic Acid 1 mg [Folate 1 mg] 1 mg PO DAILY Carvedilol [Coreg ] 6.25 mg PO BID #60 tablet Lisinopril 20 mg [Zestril 20 MG] 40 mg PO DAILY Potassium Chloride Tab* [Klor Con] 10 meq PO DAILY Meloxicam 1 tab PO DAILY Ferrous Sulfate 325 mg [Feosol 325 mg] 2 tab PO DAILY Follow up with: RAO LIEBERMAN MD [Primary Care Provider] -
[2023-07-02] MEDS: xanAX 0.5 MG PO SCH (10:39)
[2023-07-02 12:09] VITALS: BP 135/87; PULSE 92; RESP 22; TEMP 98.4
== END 2023-07-02 14:21 | disposition home or self-care (01) ==
LOC: EEVIPCON 02:02 → ED 02:02 → MED SURG 06:15
PROVIDERS: ADMIT Internal Medicine Nephrology; ATTEND Internal Medicine Nephrology
DX: J44.1 Chronic obstructive pulmonary disease with (acute) exacerbation (principal); R09.2 Respiratory arrest; N17.9 Acute kidney failure, unspecified; I10 Essential (primary) hypertension; R07.9 Chest pain, unspecified; E78.5 Hyperlipidemia, unspecified; F41.9 Anxiety disorder, unspecified; F17.200 Nicotine dependence, unspecified, uncomplicated; Z79.899 Other long term (current) drug therapy; Z20.828 Contact with and (suspected) exposure to other viral communicable diseases; Z99.81 Dependence on supplemental oxygen
CPT/HCPCS: 0241U; 36000; 36415; 71045; 71260; 80053; 81001; 84484; 85025; 87040; 93005; 93041; 94640; 94760; 94762; 96374; 99285; J0456; J0696; J1650; J2930; Q3014; A9270-GY

== ENCOUNTER 2024-02-22 11:03 | Inpatient (IN) | payer MEDICARE, OTHER ==
--- NOTE | 2024-02-22 11:23 | ERPHSYRPT ---
- History of Present Illness Time Seen by Provider: 02/22/24 11:18 Source: patient Exam Limitations: no limitations Physician History: 68-year-old male history of COPD on 3 L nasal cannula 24 hours/day presents to our ED for chest pain, cough shortness of breath generalized weakness. Symptoms have been progressive over the past 2 to 3 days. Symptoms are moderate in in tensity. No specific worsening or improving factors. No active chest pain at this time. No nausea no vomiting no rash. No fever. Patient is resting comfortably. He voices no other complaints or concerns at this time. Portions of this note were created with voice recognition technology. There may be grammatical, spelling, punctuation or sound alike errors Timing/Duration: today, day(s) Severity: moderate Modifying Factors: Improves With: nothing Associated Symptoms: denies symptoms Allergies/Adverse Reactions: No Known Drug Allergies Allergy (Verified 02/22/24 11:15) Home Medications: ALPRAZolam [Xanax 0.5 mg] 0.5 mg PO BID 08/02/14 [History] Atorvastatin Calcium [Lipitor] 80 mg PO HS 06/20/15 [History] Folic Acid 1 mg [Folate 1 mg] 1 mg PO DAILY 08/23/18 [History] Omeprazole 40 mg PO DAILY 08/23/18 [History] Lisinopril 20 mg [Zestril 20 MG] 40 mg PO DAILY 09/02/18 [History] Potassium Chloride Tab* [Klor Con] 10 meq PO DAILY 01/17/19 [History] Ferrous Sulfate 325 mg [Feosol 325 mg] 2 tab PO DAILY 05/16/23 [History] Albuterol 2.5 mg/3 ml Neb [Proventil 2.5 mg/3 ml Neb] 2.5 mg IH TIDPRN 07/13/23 [History] Budesonide [Pulmicort] 1 mg IH DAILY 07/13/23 [History] Docusate Sodium 100 mg PO BID 07/13/23 [History] Hx Tetanus, Diphtheria Vaccination/Date Given: No Hx Influenza Vaccination/Date Given: Yes Hx Pneumococcal Vaccination/Date Given: Yes - Review of Systems Constitutional: No Symptoms, No Fever, No Chills Eyes: No Symptoms Ears, Nose, & Throat: No Symptoms Respiratory: No Symptoms, No Cough, No Dyspnea Cardiac: No Symptoms, No Chest Pain, No Edema, No Syncope Abdominal/Gastrointestinal: No Symptoms, No Abdominal Pain, No Nausea, No Vomiting, No Diarrhea Genitourinary Symptoms: No Symptoms, No Dysuria Musculoskeletal: No Symptoms, No Back Pain, No Neck Pain Skin: No Symptoms, No Rash Neurological: No Symptoms, No Dizziness, No Focal Weakness, No Sensory Changes Psychological: No Symptoms Endocrine: No Symptoms Hematologic/Lymphatic: No Symptoms Immunological/Allergic: No Symptoms All Other Systems: Reviewed and Negative - Past Medical History Pertinent Past Medical History: Yes Neurological History: TIA, Other ENT History: Cataracts Cardiac History: Hypertension Respiratory History: COPD, Emphysema Endocrine Medical History: No Pertinent History Musculoskeletal History: No Pertinent History GI Medical History: GERD History: Renal Disease Psycho-Social History: Anxiety, Depression Male Reproductive Disorders: No Pertinent History Other Medical History: BRAIN anyerusm, Pt uses O2 at home at 2L - Past Surgical History Past Surgical History: Yes Neuro Surgical History: Neurological Surgery, Other Cardiac: No Pertinent History Respiratory: No Pertinent History Gastrointestinal: No Pertinent History Genitourinary: No Pertinent History Musculoskeletal: No Pertinent History Male Surgical History: No Pertinent History Other Surgical History: Brain aneurism, 2 clips in brain 2006 or 2007, CATARACT SURGERY X 3, esophagus stretched - Social History Smoking Status: Current every day smoker How long have you smoked: 30 Exposure to second hand smoke: No Drug Use: none Patient Lives Alone: No - Social Determinants of Health Will the patient participate in the screening: Declined to provide - Nursing Vital Signs Nursing Vital Signs: Initial Vital Signs Pulse Rate 68 02/22/24 11:16 Respiratory Rate 20 02/22/24 11:16 Blood Pressure 96/63 02/22/24 11:16 O2 Sat by Pulse Oximetry 98 02/22/24 11:16 Pain Scale Pain Intensity 0 - Physical Exam General Appearance: no apparent distress, alert, other (Patient appears lean and frail.) Eye Exam: PERRL/EOMI, eyes nml inspection Ears, Nose, Throat Exam: normal ENT inspection, TMs normal, pharynx normal, moist mucous membranes Neck Exam: normal inspection, non-tender, supple, full range of motion Respiratory Exam: normal breath sounds, lungs clear, airway intact, No respiratory distress Cardiovascular Exam: regular rate/rhythm, normal heart sounds, normal peripheral pulses Gastrointestinal/Abdomen Exam: soft, normal bowel sounds, No tenderness, No mass Back Exam: normal inspection, normal range of motion, No CVA tenderness, No vertebral tenderness Extremity Exam: normal inspection, normal range of motion, pelvis stable Neurologic Exam: alert, oriented x 3, cooperative, normal mood/affect, nml cerebellar function, nml station & gait, sensation nml, No motor deficits Skin Exam: normal color, warm, dry, No rash Lymphatic Exam: No adenopathy SpO2 Interpretation: normal O2 Delivery: Room Air - Course Nursing assessment & vital signs reviewed: Yes EKG Interpreted by Me: RATE (81), Sinus Rhythm, NORMAL AXIS, NORMAL INTERVALS, Left Bundle Branch Block Ordered Tests: Active Orders 24 hr Category Date Time Status Refueling [place]man STAT Care 02/22/24 11:24 Active EKG-ER Only STAT Care 02/22/24 11:23 Active IV Insertion STAT Care 02/22/24 11:23 Active Pulse Oximetry (ED) STAT Care 02/22/24 11:23 Active CHEST 1 VIEW (PORTABLE) Stat Exams 02/22/24 11:24 Completed BLOOD CULTURE Stat Lab 02/22/24 11:54 Received CBC W DIFF Stat Lab 02/22/24 11:30 Completed CMP Stat Lab 02/22/24 11:30 Completed TROPONIN Q4H Lab 02/22/24 11:30 Completed TROPONIN Q4H Lab 02/22/24 14:24 Completed TROPONIN Q4H Lab 02/22/24 19:30 Ordered UA W/RFX UR CULTURE Stat Lab 02/22/24 11:39 Completed Transfer Order Routine Transfer 02/22/24 Ordered Medication Summary Generic Name Dose Route Start Last Admin Trade Name Freq PRN Reason Stop Dose Admin Sodium Chloride 1,000 mls @ 200 mls/hr 02/22/24 14:15 02/22/24 14:55 Sodium Chloride 0.9% 1000 Ml IV 03/23/24 14:14 200 mls/hr .Q5H DONALDO Administration Discontinued Medications Generic Name Dose Route Start Last Admin Trade Name Freq PRN Reason Stop Dose Admin Ceftriaxone Sodium 2 gm in 100 mls @ 200 mls/hr 02/22/24 14:01 02/22/24 15:28 Rocephin 2 Gm/100 Ml Nacl IV 02/22/24 14:30 Infused STAT ONE Infusion Azithromycin 500 mg in 250 mls @ 250 mls/hr 02/22/24 14:01 Zithromax 500 Mg/ 250 Ml Nacl Premix IV 02/22/24 15:00 STAT STA Ceftriaxone Sodium Confirm 02/22/24 14:54 Rocephin 2 Gm/100 Ml Nacl Administered 02/22/24 14:55 Dose 2 gm in 100 mls @ ud IV .STK-MED ONE Lab/Rad Data: Laboratory Result Diagrams 02/22/24 11:30 02/22/24 11:30 Laboratory Results 02/22/24 02/22/24 02/22/24 Range/Units 14:24 11:39 11:39 WBC (4.23-9.07) x10^3/uL RBC (4.63-6.08) x10^6/uL Hgb (13.7-17.5) g/dL Hct (40.1-51.0) % MCV (79.0-92.2) fL MCH (25.7-32.2) pg MCHC (32.3-36.5) g/dL RDW (11.6-14.4) % Plt Count (163-337) x10^3/uL MPV (9.4-12.4) fL Gran % (34.0-67.9) % Immature Gran % (Auto) (0.001-0.429) % Nucleat RBC Rel Count (0.00-0.2) % Eos # (Auto) (0.04-0.54) x10^3/uL Immature Gran # (Auto) (0.001-0.031) x10^3u/L Absolute Lymphs (auto) (1.32-3.57) x10^3/uL Absolute Monos (auto) (0.30-0.82) x10^3/uL Absolute Nucleated RBC (0.00-0.012) x10^3u/L Lymphocytes % (21.8-53.1) % Monocytes % (5.3-12.2) % Eosinophils % (0.8-7.0) % Basophils % (0.2-1.2) % Absolute Granulocytes (1.78-5.38) x10^3/uL Basophils # (0.01-0.08) x10^3/uL Sodium (135-145) mmol/L Potassium (3.5-5.1) mmol/L Chloride (98-107) mmol/L Carbon Dioxide (22-30) mmol/L Anion Gap (5-15) MEQ/L BUN (9-20) mg/dL Creatinine (0.66-1.25) mg/dL Estimated GFR ML/MIN Glucose (74-106) mg/dL Calcium (8.4-10.2) mg/dL Total Bilirubin (0.2-1.3) mg/dL AST (17-59) U/L ALT (0-50) U/L Alkaline Phosphatase (38-126) U/L Troponin I 0.057 H* (0.000-0.033) ng/mL Serum Total Protein (6.3-8.2) g/dL Albumin (3.5-5.0) g/dL Urine Color Yellow (Yellow) Urine Appearance Clear (Clear) Urine pH 5.5 (4.6-8.0) Ur Specific Holmes 1.025 (1.005-1.030) Urine Protein 30 (Negative) Urine Glucose (UA) Negative (Negative) mg/dL Urine Ketones Negative (Negative) Urine Blood Negative (Negative) Urine Nitrite Negative (Negative) Urine Bilirubin Negative (Negative) Urine Urobilinogen 1.0 A (0.2) mg/dL Ur Leukocyte Esterase Negative (Negative) U Hyaline Cast (Auto) 11-20 (0-2) /LPF Urine Microscopic RBC 0-2 (0-5) /HPF Urine Microscopic WBC 0-2 (0-5) /HPF Ur Epithelial Cells None Seen (None Seen) /HPF Urine Bacteria None Seen (None Seen) /HPF Urine Mucus Moderate A (NEGATIVE) /HPF Urine Yeast (Budding) (None Seen) /HPF Urine Culture Reflexed NO (NO) Influenza Type A Ag NEGATIVE (NEGATIVE) Influenza Type B Ag NEGATIVE (NEGATIVE) RSV (PCR) NEGATIVE (NEGATIVE) SARS-CoV-2 (PCR) NEGATIVE (NEGATIVE) 02/22/24 02/22/24 02/22/24 Range/Units 11:30 11:30 11:30 WBC 10.3 H (4.23-9.07) x10^3/uL RBC 2.44 L (4.63-6.08) x10^6/uL Hgb 8.1 L (13.7-17.5) g/dL Hct 26.4 L (40.1-51.0) % MCV 108.2 H (79.0-92.2) fL MCH 33.2 H (25.7-32.2) pg MCHC 30.7 L (32.3-36.5) g/dL RDW 17.3 H (11.6-14.4) % Plt Count 194 (163-337) x10^3/uL MPV 12.3 (9.4-12.4) fL Gran % 86.7 H (34.0-67.9) % Immature Gran % (Auto) 0.7 H (0.001-0.429) % Nucleat RBC Rel Count 0.0 (0.00-0.2) % Eos # (Auto) 0.01 L (0.04-0.54) x10^3/uL Immature Gran # (Auto) 0.07 H (0.001-0.031) x10^3u/L Absolute Lymphs (auto) 0.89 L (1.32-3.57) x10^3/uL Absolute Monos (auto) 0.38 (0.30-0.82) x10^3/uL Absolute Nucleated RBC 0.00 (0.00-0.012) x10^3u/L Lymphocytes % 8.7 L (21.8-53.1) % Monocytes % 3.7 L (5.3-12.2) % Eosinophils % 0.1 L (0.8-7.0) % Basophils % 0.1 L (0.2-1.2) % Absolute Granulocytes 8.92 H (1.78-5.38) x10^3/uL Basophils # 0.01 (0.01-0.08) x10^3/uL Sodium 142 (135-145) mmol/L Potassium 4.5 (3.5-5.1) mmol/L Chloride 105 (98-107) mmol/L Carbon Dioxide 29 (22-30) mmol/L Anion Gap 12.0 (5-15) MEQ/L BUN 41 H (9-20) mg/dL Creatinine 1.68 H (0.66-1.25) mg/dL Estimated GFR 44.3 ML/MIN Glucose 110 H (74-106) mg/dL Calcium 8.5 (8.4-10.2) mg/dL Total Bilirubin 1.00 (0.2-1.3) mg/dL AST 31 (17-59) U/L ALT 19 (0-50) U/L Alkaline Phosphatase 101 (38-126) U/L Troponin I 0.081 H* (0.000-0.033) ng/mL Serum Total Protein 7.0 (6.3-8.2) g/dL Albumin 3.5 (3.5-5.0) g/dL Urine Color (Yellow) Urine Appearance (Clear) Urine pH (4.6-8.0) Ur Specific Holmes (1.005-1.030) Urine Protein (Negative) Urine Glucose (UA) (Negative) mg/dL Urine Ketones (Negative) Urine Blood (Negative) Urine Nitrite (Negative) Urine Bilirubin (Negative) Urine Urobilinogen (0.2) mg/dL Ur Leukocyte Esterase (Negative) U Hyaline Cast (Auto) (0-2) /LPF Urine Microscopic RBC (0-5) /HPF Urine Microscopic WBC (0-5) /HPF Ur Epithelial Cells (None Seen) /HPF Urine Bacteria (None Seen) /HPF Urine Mucus (NEGATIVE) /HPF Urine Yeast (Budding) (None Seen) /HPF Urine Culture Reflexed (NO) Influenza Type A Ag (NEGATIVE) Influenza Type B Ag (NEGATIVE) RSV (PCR) (NEGATIVE) SARS-CoV-2 (PCR) (NEGATIVE) - Progress Progress: improved Progress Note: 68-year-old male presents to our ED for evaluation of some chest pain shortness of breath at home. Generalized weakness. Evaluation reveals a frail appearing 68-year-old male. Initial troponin elevated at 0.081.. Repeat troponin is trending downward 0.057. Patient denies chest pain while in our ED.. Therefore no nitroglycerin administered. 81 mg chewable aspirin administered.. Chest x- ray reveals a left upper lobe pneumonia. Azithromycin and Rocephin administered. Patient will require further evaluation and treatment. Management discussed with hospitalist Dr. Lisa who accept admission to observation at 3:27 PM. Plan of care discussed with patient and his daughter at bedside. They agree to admission to [facility] for further evaluation and treatment. Portions of this note were created with voice recognition technology. There may be grammatical, spelling, punctuation or sound alike errors Complexity of problem addressed is moderate acute complicated. No critical care time. Complexity data reviewed and analyzed is extensive. Test ordered chest reviewed results analyzed and correlated clinically with history and physical exam. Management discussed with hospitalist who accepts admission to observation. Risk of complication and or risk of morbidity/mortality of patient management is high. Patient requires hospitalization for further evaluation and treatment. Vital stable. Time spent to admit patient approximately 20 minutes. Plan of care established for shared decision making. No social determinants of health present to impede follow-up. Portions of this note were created with voice recognition technology. There may be grammatical, spelling, punctuation or sound alike errors 02/22/24 15:31 02/22/24 15:36 Counseled pt/family regarding: diagnosis, need for follow-up, rad results - Departure Departure Disposition: Observation Clinical Impression: Left upper lobe pneumonia, Macrocytic anemia, Elevated troponin, Shortness of breath, Acute renal injury, Dehydration Condition: Stable Critical Care Time: No Referrals: RAO LIEBERMAN MD [Primary Care Provider] - Follow up/PCP as directed
[2024-02-22 12:06] LABS: Absolute Neutrophil Ct (ANC) 8.92 x10^3/uL (1.78-5.38); BASOPHIL % 0.1 % (0.2-1.2); Basophil (Absolute #) 0.01 x10^3/uL (0.01-0.08); Eosinophil % 0.1 % (0.8-7.0); Eosinophil (Absolute #) 0.01 x10^3/uL (0.04-0.54); Hematocrit 26.4 % (40.1-51.0); Hemoglobin 8.1 g/dL (13.7-17.5); IMMATURE GRAN # 0.07 x10^3u/L (0.001-0.031); IMMATURE GRAN % 0.7 % (0.001-0.429); Lymphocyte (Absolute #) 0.89 x10^3/uL (1.32-3.57); Lymphocytes % 8.7 % (21.8-53.1); Mean Cell Volume 108.2 fL (79.0-92.2); Mean Corpuscular Hemoglobin 33.2 pg (25.7-32.2); Mean Corpuscular Hgb Concent. 30.7 g/dL (32.3-36.5); Mean Platelet Volume 12.3 fL (9.4-12.4); Monocyte (Absolute #) 0.38 x10^3/uL (0.30-0.82); Monocytes % 3.7 % (5.3-12.2); Neutrophil % 86.7 % (34.0-67.9); Platelet Count 194 x10^3/uL (163-337); Red Blood Count 2.44 x10^6/uL (4.63-6.08); Red Cell Distribution Width 17.3 % (11.6-14.4); White Blood Count 10.3 x10^3/uL (4.23-9.07)
[2024-02-22 12:23] LABS: Appearance Clear (Clear); Bacteria None Seen /HPF (None Seen); Bilirubin Negative (Negative); Blood Negative (Negative); Epithelial Cells None Seen /HPF (None Seen); Glucose, Urine Negative (Negative); Ketones Negative (Negative); Leukocyte Esterase Negative (Negative); Nitrite Negative (Negative); Ph 5.5 (4.6-8.0); Protein,Urine Dip 30 (Negative); RBC 0-2 /HPF (0-5); Specific Gravity 1.025 (1.005-1.030); WBC 0-2 /HPF (0-5)
[2024-02-22 12:24] LABS: Mucus Moderate /HPF (NEGATIVE)
[2024-02-22 12:36] LABS: ALBUMIN 3.5 g/dL (3.5-5.0); Calcium 8.5 mg/dL (8.4-10.2); Creatinine 1 1.68 mg/dL (0.66-1.25); EST GLOMERULAR FILTRATION RATE 44.3 ML/MIN; Potassium 4.5 mmol/L (3.5-5.1)
[2024-02-22 12:44] LABS: INFLUENZA A NEGATIVE (NEGATIVE); INFLUENZA B NEGATIVE (NEGATIVE); RESPIRATORY SYNCTIAL VIRUS NEGATIVE (NEGATIVE); SARS-CoV-2 Xpert Express NEGATIVE (NEGATIVE)
--- NOTE | 2024-02-22 13:03 | XRAY ---
Indication: Chest pain and weakness. Comparison: 2023 Portable chest again hyperinflated with new left upper lobe pneumonic infiltrate without consolidation/large effusion. Remaining heart and lungs unremarkable. Bony thorax intact again with osteopenia, minimal remote T9 fracture, and minimal dextroscoliosis.
[2024-02-22] MEDS ORDERED: ROCEPHIN 2 GM/100 ML NACL 2 GM/100 ML IVPB IV ONE (14:54)
[2024-02-22] MEDS: Sodium Chloride 0.9% 1000 ML 1,000 ML IV SCH (14:55)
[2024-02-22] MEDS: ROCEPHIN 2 GM/100 ML NACL 2 GM/100 ML IVPB IV ONE (14:56)
[2024-02-22] MEDS ORDERED: Zithromax 500 MG/ 250 ML NaCl Premix 500 MG/250 ML IVPB IV ONE (15:33)
[2024-02-22] MEDS: Zithromax 500 MG/ 250 ML NaCl Premix 500 MG/250 ML IVPB IV STA (15:35)
[2024-02-22] MEDS ORDERED: BABY ASPIRIN 81 MG CHEW ONE (15:37)
[2024-02-22] MEDS: BABY ASPIRIN 81 MG CHEW PO ONE (15:37)
--- NOTE | 2024-02-22 16:07 | PCM.HP ---
History of Present Illness - Chief Complaint Chief Complaint: pneumonia, dehydration Date: 02/22/24 History of Present Illness: is a 68 year old male with PMHX of COPD on 3 L nasal cannula 24 hours/day, daily smoker, HTN, hyperlipidemia, GERD and anxiety. He presented to our ED today for chest pain, cough, shortness of breath, and generalized weakness. Symptoms have been progressive over the past 2 to 3 days. Symptoms are moderate in intensity. SOB worsening with exertion, resting improving sxs. Patient is resting comfortably. He voices no other complaints or concerns at this time. In ER he was found to have CARL pneumonia and started on IV antibiotic s. Flu/ COVID/RSV negative. Trop X1 elevated at 0.081, will continue to trend. Creat 1.68, + ROHIT- continue IVF. Pt deneis CP, Abd pain, N/V/D. - Review of Systems Constitutional: Weakness, No Fever, No Chills Eyes: No Symptoms Ears, Nose, & Throat: No Symptoms Respiratory: Cough, Short Of Breath Cardiac: Chest Pain, No Edema, No Syncope Abdominal/Gastrointestinal: No Abdominal Pain, No Nausea, No Vomiting, No Diarrhea Genitourinary Symptoms: No Dysuria Musculoskeletal: No Back Pain, No Neck Pain Skin: No Rash Neurological: No Dizziness, No Focal Weakness, No Sensory Changes Psychological: No Symptoms Endocrine: No Symptoms Hematologic/Lymphatic: No Symptoms Immunological/Allergic: No Symptoms Medications & Allergies Home Medications: Home Medication List ALPRAZolam [Xanax 0.5 mg] 0.5 mg PO BID 08/02/14 [History Confirmed 02/22/24] Bupropion HCl 150 mg Sr [Wellbutrin SR 150 MG] 150 mg PO BID #60 tablet.sa 05/29/15 [Rx Confirmed 02/22/24] Atorvastatin Calcium [Lipitor] 80 mg PO HS 06/20/15 [History Confirmed 02/22/24] Folic Acid 1 mg [Folate 1 mg] 1 mg PO DAILY 08/23/18 [History Confirmed 02/22/24] Omeprazole 40 mg PO DAILY 08/23/18 [History Confirmed 02/22/24] Carvedilol [Coreg ] 6.25 mg PO BID #60 tablet 08/26/18 [Rx Confirmed 02/22/24] Lisinopril 20 mg [Zestril 20 MG] 20 mg PO DAILY 09/02/18 [History Confirmed 02/22/24] Potassium Chloride Tab* [Klor Con] 10 meq PO DAILY 01/17/19 [History Confirmed 02/22/24] Ferrous Sulfate 325 mg [Feosol 325 mg] 1 tab PO DAILY 05/16/23 [History Confirmed 02/22/24] Albuterol 2.5 mg/3 ml Neb [Proventil 2.5 mg/3 ml Neb] 2.5 mg IH TIDPRN 07/13/23 [History Confirmed 02/22/24] Budesonide [Pulmicort] 1 mg IH DAILY 07/13/23 [History Confirmed 02/22/24] Docusate Sodium 100 mg PO BID 07/13/23 [History Confirmed 02/22/24] Allergies/Adverse Reactions: Allergies Allergy/AdvReac Type Severity Reaction Status Date / Time No Known Drug Allergies Allergy Verified 02/22/24 11:15 - Past Medical History Past Medical History: Yes Neurological History: TIA, Other ENT History: Cataracts Cardiac History: Hypertension Respiratory History: COPD, Emphysema Endocrine Medical History: No Pertinent History Musculoskelatal History: No Pertinent History GI Medical History: GERD History: Renal Disease Pyscho-Social History: Anxiety, Depression Male Reproductive Disorders: No Pertinent History Comment: BRAIN anyerusm, Pt uses O2 at home at 2L - Past Surgical History Past Surgical History: Yes Neuro Surgical History: Neurological Surgery, Other Cardiac History: No Pertinent History Respiratory Surgery: No Pertinent History GI Surgical History: No Pertinent History Genitourinary Surgical Hx: No Pertinent History Musculskeletal Surgical Hx: No Pertinent History Male Surgical History: No Pertinent History Other Surgical History: Brain aneurism, 2 clips in brain 2006 or 2007, CATARACT SURGERY X 3, esophagus stretched Significant Family History: no pertinent family hx - Social History Smoking Status: Current every day smoker How long have you smoked: 30 Exposure to second hand smoke: No Alcohol: None Drug Use: none - Social Determinants of Health Will the patient participate in the screening: Declined to provide Do you worry about a steady place to live?: No Do you have any problems with any of the following?: No known problems In the past 12 months,have you had to go without utilities?: No Have you or anyone in your house had to go without enough: No Transportation Issues: No Has anyone in your support network made you feel unsafe?: No Comment: lives with daughter - Physical Exam Vital Signs: Vital Signs - 24 hr Temp Pulse Resp BP BP Pulse Ox 02/22/24 14:30 68 19 122/69 94 L 02/22/24 14:00 72 19 91/45 96 02/22/24 13:30 65 18 105/65 96 02/22/24 13:00 68 18 138/75 94 L 02/22/24 12:31 72 20 99/79 95 02/22/24 12:07 80 18 106/62 100 02/22/24 11:39 96 02/22/24 11:19 97.9 F 78 20 96/63 98 02/22/24 11:16 68 20 96/63 98 General Appearance: no apparent distress, alert, cachetic Neurologic Exam: alert, oriented x 3, cooperative, normal mood/affect, nml cerebellar function, nml station & gait, sensation nml, No motor deficits Eye Exam: PERRL/EOMI, eyes nml inspection Ears, Nose, Throat Exam: normal ENT inspection, TMs normal, pharynx normal, moist mucous membranes Neck Exam: normal inspection, non-tender, supple, full range of motion Respiratory Exam: crackles/rales, No respiratory distress Cardiovascular Exam: regular rate/rhythm, normal heart sounds, normal peripheral pulses Gastrointestinal/Abdomen Exam: soft, normal bowel sounds, No tenderness, No mass Back Exam: normal inspection, normal range of motion, No CVA tenderness, No vertebral tenderness Extremity Exam: normal inspection, normal range of motion, pelvis stable Skin Exam: normal color, warm, dry, No rash Lymphatic Exam: No adenopathy Results - Labs Lab/Micro Results: Lab Results-Last 24 Hours 02/22/24 02/22/24 02/22/24 Range/Units 11:30 11:30 11:30 WBC 10.3 H (4.23-9.07) x10^3/uL RBC 2.44 L (4.63-6.08) x10^6/uL Hgb 8.1 L (13.7-17.5) g/dL Hct 26.4 L (40.1-51.0) % MCV 108.2 H (79.0-92.2) fL MCH 33.2 H (25.7-32.2) pg MCHC 30.7 L (32.3-36.5) g/dL RDW 17.3 H (11.6-14.4) % Plt Count 194 (163-337) x10^3/uL MPV 12.3 (9.4-12.4) fL Gran % 86.7 H (34.0-67.9) % Immature Gran % (Auto) 0.7 H (0.001-0.429) % Nucleat RBC Rel Count 0.0 (0.00-0.2) % Eos # (Auto) 0.01 L (0.04-0.54) x10^3/uL Immature Gran # (Auto) 0.07 H (0.001-0.031) x10^3u/L Absolute Lymphs (auto) 0.89 L (1.32-3.57) x10^3/uL Absolute Monos (auto) 0.38 (0.30-0.82) x10^3/uL Absolute Nucleated RBC 0.00 (0.00-0.012) x10^3u/L Lymphocytes % 8.7 L (21.8-53.1) % Monocytes % 3.7 L (5.3-12.2) % Eosinophils % 0.1 L (0.8-7.0) % Basophils % 0.1 L (0.2-1.2) % Absolute Granulocytes 8.92 H (1.78-5.38) x10^3/uL Basophils # 0.01 (0.01-0.08) x10^3/uL Sodium 142 (135-145) mmol/L Potassium 4.5 (3.5-5.1) mmol/L Chloride 105 (98-107) mmol/L Carbon Dioxide 29 (22-30) mmol/L Anion Gap 12.0 (5-15) MEQ/L BUN 41 H (9-20) mg/dL Creatinine 1.68 H (0.66-1.25) mg/dL Estimated GFR 44.3 ML/MIN Glucose 110 H (74-106) mg/dL Calcium 8.5 (8.4-10.2) mg/dL Total Bilirubin 1.00 (0.2-1.3) mg/dL AST 31 (17-59) U/L ALT 19 (0-50) U/L Alkaline Phosphatase 101 (38-126) U/L Troponin I 0.081 H* (0.000-0.033) ng/mL Serum Total Protein 7.0 (6.3-8.2) g/dL Albumin 3.5 (3.5-5.0) g/dL Urine Color (Yellow) Urine Appearance (Clear) Urine pH (4.6-8.0) Ur Specific [place] (1.005-1.030) Urine Protein (Negative) Urine Glucose (UA) (Negative) mg/dL Urine Ketones (Negative) Urine Blood (Negative) Urine Nitrite (Negative) Urine Bilirubin (Negative) Urine Urobilinogen (0.2) mg/dL Ur Leukocyte Esterase (Negative) U Hyaline Cast (Auto) (0-2) /LPF Urine Microscopic RBC (0-5) /HPF Urine Microscopic WBC (0-5) /HPF Ur Epithelial Cells (None Seen) /HPF Urine Bacteria (None Seen) /HPF Urine Mucus (NEGATIVE) /HPF Urine Yeast (Budding) (None Seen) /HPF Urine Culture Reflexed (NO) Influenza Type A Ag (NEGATIVE) Influenza Type B Ag (NEGATIVE) RSV (PCR) (NEGATIVE) SARS-CoV-2 (PCR) (NEGATIVE) 02/22/24 02/22/24 02/22/24 Range/Units 11:39 11:39 14:24 WBC (4.23-9.07) x10^3/uL RBC (4.63-6.08) x10^6/uL Hgb (13.7-17.5) g/dL Hct (40.1-51.0) % MCV (79.0-92.2) fL MCH (25.7-32.2) pg MCHC (32.3-36.5) g/dL RDW (11.6-14.4) % Plt Count (163-337) x10^3/uL MPV (9.4-12.4) fL Gran % (34.0-67.9) % Immature Gran % (Auto) (0.001-0.429) % Nucleat RBC Rel Count (0.00-0.2) % Eos # (Auto) (0.04-0.54) x10^3/uL Immature Gran # (Auto) (0.001-0.031) x10^3u/L Absolute Lymphs (auto) (1.32-3.57) x10^3/uL Absolute Monos (auto) (0.30-0.82) x10^3/uL Absolute Nucleated RBC (0.00-0.012) x10^3u/L Lymphocytes % (21.8-53.1) % Monocytes % (5.3-12.2) % Eosinophils % (0.8-7.0) % Basophils % (0.2-1.2) % Absolute Granulocytes (1.78-5.38) x10^3/uL Basophils # (0.01-0.08) x10^3/uL Sodium (135-145) mmol/L Potassium (3.5-5.1) mmol/L Chloride (98-107) mmol/L Carbon Dioxide (22-30) mmol/L Anion Gap (5-15) MEQ/L BUN (9-20) mg/dL Creatinine (0.66-1.25) mg/dL Estimated GFR ML/MIN Glucose (74-106) mg/dL Calcium (8.4-10.2) mg/dL Total Bilirubin (0.2-1.3) mg/dL AST (17-59) U/L ALT (0-50) U/L Alkaline Phosphatase (38-126) U/L Troponin I 0.057 H* (0.000-0.033) ng/mL Serum Total Protein (6.3-8.2) g/dL Albumin (3.5-5.0) g/dL Urine Color Yellow (Yellow) Urine Appearance Clear (Clear) Urine pH 5.5 (4.6-8.0) Ur Specific [place] 1.025 (1.005-1.030) Urine Protein 30 (Negative) Urine Glucose (UA) Negative (Negative) mg/dL Urine Ketones Negative (Negative) Urine Blood Negative (Negative) Urine Nitrite Negative (Negative) Urine Bilirubin Negative (Negative) Urine Urobilinogen 1.0 A (0.2) mg/dL Ur Leukocyte Esterase Negative (Negative) U Hyaline Cast (Auto) 11-20 (0-2) /LPF Urine Microscopic RBC 0-2 (0-5) /HPF Urine Microscopic WBC 0-2 (0-5) /HPF Ur Epithelial Cells None Seen (None Seen) /HPF Urine Bacteria None Seen (None Seen) /HPF Urine Mucus Moderate A (NEGATIVE) /HPF Urine Yeast (Budding) (None Seen) /HPF Urine Culture Reflexed NO (NO) Influenza Type A Ag NEGATIVE (NEGATIVE) Influenza Type B Ag NEGATIVE (NEGATIVE) RSV (PCR) NEGATIVE (NEGATIVE) SARS-CoV-2 (PCR) NEGATIVE (NEGATIVE) - Radiology Impressions Radiology Exams & Impressions: Radiology Procedures Category Date Time Status CHEST 1 VIEW (PORTABLE) Stat Exams 02/22/24 11:24 Completed Assessment/Plan (1) Left upper lobe pneumonia Current Visit: Yes Status: Acute Assessment & Plan: - On baseline 3lNC 94% - CXR reviewed- CARL infiltrate - Tele - Flu/COVID/RSV negative - Sputum culture - TB gold labs test pending - BC x2 pending. - WBC 10.3 - CBC reviewed. - Azithromycin and Rocephin started in ER- continue - IVF - CT chest from 07/01/23: IMPRESSION: 1.No evidence of pulmonary embolism. 2.Diffuse emphysematous changes are seen in both lung cobb - stable. 3.Patchy area of subpleural consolidation seen in the right upper lobe - anterior segment. This is a new finding. 4. Stable - soft tissue density nodule in right lower lobe. - Associated weakness- PT eval and treat. - Duonebs Q6 Code(s): J18.9 - PNEUMONIA, UNSPECIFIED ORGANISM (2) Elevated troponin Current Visit: Yes Status: Acute Assessment & Plan: - Trop 0.081, 0.057 trending down- continue to trend - Likely demand ischemia 2:2 pneumonia. - Cardiology consult - Tele - EKG Code(s): R79.89 - OTHER SPECIFIED ABNORMAL FINDINGS OF BLOOD CHEMISTRY (3) Dehydration Current Visit: Yes Status: Acute Assessment & Plan: - IVF - CMP reviewed Code(s): E86.0 - DEHYDRATION (4) ROHIT (acute kidney injury) Current Visit: Yes Status: Acute Assessment & Plan: - Creat 1.68, baseline 0.93 - IV fluids Code(s): N17.9 - ACUTE KIDNEY FAILURE, UNSPECIFIED (5) Anxiety and depression Current Visit: Yes Status: Chronic Assessment & Plan: -Continue home meds Code(s): F41.9 - ANXIETY DISORDER, UNSPECIFIED; F32.A - DEPRESSION, UNSPECIFIED (6) Iron deficiency anemia Current Visit: Yes Status: Chronic Assessment & Plan: - Continue ferrous sulfate - Hgb 8.1 trend - malnutrition - Motor Winder consulted. Code(s): D50.9 - IRON DEFICIENCY ANEMIA, UNSPECIFIED (7) COPD (chronic obstructive pulmonary disease) Current Visit: Yes Status: Chronic Assessment & Plan: - On baseline 3LNC 94% - Not in acute exacerbation (8) GERD (gastroesophageal reflux disease) Current Visit: Yes Status: Chronic Assessment & Plan: - Continue PPI Code(s): K21.9 - GASTRO-ESOPHAGEAL REFLUX DISEASE WITHOUT ESOPHAGITIS (9) Hyperlipidemia Current Visit: Yes Status: Chronic Assessment & Plan: - Continue statin Code(s): E78.5 - HYPERLIPIDEMIA, UNSPECIFIED (10) Tobacco abuse Current Visit: No Status: Chronic Assessment & Plan: - advised cessation - nicotine patch - education provided Code(s): Z72.0 - TOBACCO USE (11) History of stroke Current Visit: No Status: Chronic Assessment & Plan: - noted, adds to complexity Code(s): Z86.73 - PRSNL HX OF TIA (TIA), AND CEREB INFRC W/O RESID DEFICITS (12) Malnutrition Current Visit: No Status: Chronic Onset Date: ~10/18/17 Qualifiers: Malnutrition type: protein-calorie malnutrition Protein-calorie malnutrition severity: moderate Qualified Code(s): E44.0 - Moderate protein- calorie malnutrition Assessment & Plan: - High protein ensure added with each meal - House regular diet - Nutrition consult. - BMI 18.8 VTE: SCD's d/t anemia PPI: omeprazole Next of KIN: Child- Mike Rivas D/C plan: 2-3 days Code status: Full Code(s): E46 - UNSPECIFIED PROTEIN-CALORIE MALNUTRITION Telemedicine Encounter - Telemedicine Encounter Telemedicine Encounter: "The entirety of this encounter was performed via Telemedicine" This visit was performed using real-time audio and video connection between my location and thepatients locationwith the assistance of a surrogateat the patients location. Written or verbal consent was obtained from the patient/guardian to perform this visit [facility] technology. Any patient questions regarding the telemedicine interaction were answered.
[2024-02-22] MEDS: Nicoderm CQ 21 MG TOP SCH (16:43)
[2024-02-22] MEDS ORDERED: PROVENTIL 2.5 MG/3 ML NEB IH PRN (17:30)
[2024-02-22] MEDS ORDERED: PULMICORT 0.5 MG/2 ML RESPULES IH ONE (18:48)
[2024-02-22] MEDS: DUONEB 0.5-3 MG/3 ml Neb IH SCH (19:04)
[2024-02-22] MEDS: Coreg PO SCH (21:22)
[2024-02-22] MEDS: ZOCOR 20MG PO SCH (21:22)
[2024-02-22] MEDS: Wellbutrin SR 150 MG PO SCH (21:22)
[2024-02-22] MEDS: xanAX 0.5 MG PO SCH (21:22)
[2024-02-22] MEDS: Docusate Sodium 100 MG PO SCH (21:22)
[2024-02-22 22:35] LABS: ABO TYPING A; Antibody Screen NEGATIVE (NEGATIVE); RH TYPING POSITIVE
[2024-02-23 05:48] LABS: Hematocrit 21.7 % (40.1-51.0); Mean Cell Volume 110.2 fL (79.0-92.2); Mean Platelet Volume 12.7 fL (9.4-12.4); Platelet Count 137 x10^3/uL (163-337); Red Blood Count 1.97 x10^6/uL (4.63-6.08); Red Cell Distribution Width 17.5 % (11.6-14.4); White Blood Count 8.2 x10^3/uL (4.23-9.07)
[2024-02-23 05:50] LABS: Hemoglobin 6.5 g/dL (13.7-17.5)
[2024-02-23 06:30] LABS: ALBUMIN 2.9 g/dL (3.5-5.0); ANION GAP 14.1 MEQ/L (5-15); BILIRUBIN,TOTAL 0.4 mg/dL (0.2-1.3); Calcium 8.3 mg/dL (8.4-10.2); Creatinine 1 1.23 mg/dL (0.66-1.25); EST GLOMERULAR FILTRATION RATE 64.4 ML/MIN; Potassium 3.9 mmol/L (3.5-5.1)
[2024-02-23] MEDS ORDERED: DUONEB 0.5-3 MG/3 ml Neb IH ONE (07:01)
[2024-02-23] MEDS: PULMICORT 0.5 MG/2 ML RESPULES IH SCH (07:07)
[2024-02-23 08:29] LABS: CROSS MATCH (PRBC) COMPATIBLE (COMPATIBLE)
--- NOTE | 2024-02-23 08:36 | PCM.CONS ---
History of Present Illness - Date of Consult Date of Encounter: 02/23/24 Consulting Wooden Frame Builder: BOOKER DANIEL MD Requesting Provider: Attending Provider: MANUELA GONZALEZ MD Primary Care Provider: PCP: RAO LIEBERMAN - Consult Narrative HPI: Patient is a 68M who denies fevers, chills, nausea, vomiting, diarrhea, syncope, presyncope, dysphagia,odynophagia, orthopnea, paroxysmal nocturnal dyspnea, shortness of breath, chest pain, refluxsymptoms, belly pain, dysuria, hematuria, melena, hematochezia, seizures, paralysis, or other neurological changes. All other systems have been reviewed and are negative. cc:: The requesting physician will be sent a copy of the consult. - Past Medical History Past Medical History: Yes Neurological History: TIA, Other ENT History: Cataracts Cardiac History: Hypertension Respiratory History: COPD, Emphysema Endocrine Medical History: No Pertinent History Musculoskelatal History: No Pertinent History GI Medical History: GERD History: Renal Disease Pyscho-Social History: Anxiety, Depression Male Reproductive Disorders: No Pertinent History Comment: BRAIN anyerusm, Pt uses O2 at home at 2L - Past Surgical History Past Surgical History: Yes Neuro Surgical History: Neurological Surgery, Other Cardiac History: No Pertinent History Respiratory Surgery: No Pertinent History GI Surgical History: No Pertinent History Genitourinary Surgical Hx: No Pertinent History Musculskeletal Surgical Hx: No Pertinent History Male Surgical History: No Pertinent History Other Surgical History: Brain aneurism, 2 clips in brain 2006 or 2007, CATARACT SURGERY X 3, esophagus stretched Significant Family History: no pertinent family hx - Social History Smoking Status: Current every day smoker How long have you smoked: 30 Exposure to second hand smoke: No Alcohol: None Drug Use: none - Social Determinants of Health Will the patient participate in the screening: Declined to provide Do you worry about a steady place to live?: No Do you have any problems with any of the following?: No known problems In the past 12 months,have you had to go without utilities?: No Have you or anyone in your house had to go without enough: No Transportation Issues: No Has anyone in your support network made you feel unsafe?: No Comment: lives with daughter Medications & Allergies Home Medications: Home Medication List ALPRAZolam [Xanax 0.5 mg] 0.5 mg PO BID 08/02/14 [History Confirmed 02/22/24] Bupropion HCl 150 mg Sr [Wellbutrin SR 150 MG] 150 mg PO BID #60 tablet.sa 05/29/15 [Rx Confirmed 02/22/24] Atorvastatin Calcium [Lipitor] 80 mg PO HS 06/20/15 [History Confirmed 02/22/24] Folic Acid 1 mg [Folate 1 mg] 1 mg PO DAILY 08/23/18 [History Confirmed 02/22/24] Omeprazole 40 mg PO DAILY 08/23/18 [History Confirmed 02/22/24] Carvedilol [Coreg ] 6.25 mg PO BID #60 tablet 08/26/18 [Rx Confirmed 02/22/24] Lisinopril 20 mg [Zestril 20 MG] 20 mg PO DAILY 09/02/18 [History Confirmed 02/22/24] Potassium Chloride Tab* [Klor Con] 10 meq PO DAILY 01/17/19 [History Confirmed 02/22/24] Ferrous Sulfate 325 mg [Feosol 325 mg] 1 tab PO DAILY 05/16/23 [History Confirmed 02/22/24] Albuterol 2.5 mg/3 ml Neb [Proventil 2.5 mg/3 ml Neb] 2.5 mg IH TIDPRN 07/13/23 [History Confirmed 02/22/24] Budesonide [Pulmicort] 1 mg IH DAILY 07/13/23 [History Confirmed 02/22/24] Docusate Sodium 100 mg PO BID 07/13/23 [History Confirmed 02/22/24] Allergies/Adverse Reactions: Allergies Allergy/AdvReac Type Severity Reaction Status Date / Time No Known Drug Allergies Allergy Verified 02/22/24 11:15 Exam - Vitals Vital Signs: Vital Signs - 24 hr Temp Pulse Resp BP BP Pulse Ox 02/23/24 07:51 97.9 F 76 16 99/49 99 02/23/24 07:07 75 18 90 L 02/23/24 04:00 97.3 F 88 19 110/53 99 02/23/24 02:18 76 16 98 02/23/24 00:00 97.6 F 89 18 98/54 99 02/22/24 20:00 97.9 F 75 16 96/54 100 02/22/24 19:08 75 16 100 02/22/24 17:09 97.3 F 70 15 104/58 99 02/22/24 16:19 99 02/22/24 16:02 70 02/22/24 14:30 68 19 122/69 94 L 02/22/24 14:00 72 19 91/45 96 02/22/24 13:30 65 18 105/65 96 02/22/24 13:00 68 18 138/75 94 L 02/22/24 12:31 72 20 99/79 95 02/22/24 12:07 80 18 106/62 100 02/22/24 11:39 96 02/22/24 11:19 97.9 F 78 20 96/63 98 02/22/24 11:16 68 20 96/63 98 Narrative: per tele video consulty, VSS stable SpO2: 99 Results Vital Signs: Vital Signs - 24 hr Temp Pulse Resp BP BP Pulse Ox 02/23/24 07:51 97.9 F 76 16 99/49 99 02/23/24 07:07 75 18 90 L 02/23/24 04:00 97.3 F 88 19 110/53 99 02/23/24 02:18 76 16 98 02/23/24 00:00 97.6 F 89 18 98/54 99 02/22/24 20:00 97.9 F 75 16 96/54 100 02/22/24 19:08 75 16 100 02/22/24 17:09 97.3 F 70 15 104/58 99 02/22/24 16:19 99 02/22/24 16:02 70 02/22/24 14:30 68 19 122/69 94 L 02/22/24 14:00 72 19 91/45 96 02/22/24 13:30 65 18 105/65 96 02/22/24 13:00 68 18 138/75 94 L 02/22/24 12:31 72 20 99/79 95 02/22/24 12:07 80 18 106/62 100 02/22/24 11:39 96 02/22/24 11:19 97.9 F 78 20 96/63 98 02/22/24 11:16 68 20 96/63 98 Pain Assessment - Last Documented Pain Intensity 0 Intake and Output: Intake & Output 02/20/24 02/21/24 02/22/24 02/23/24 11:59 11:59 11:59 11:59 Intake Total 1112 Balance 1112 Weight 59.5 kg 57 kg LAB: I have reviewed the Labs in [facility] [facility]. Radiology Exams: Radiology Procedures Category Date Time Status CHEST 1 VIEW (PORTABLE) Stat Exams 02/22/24 11:24 Completed Assessment & Plan (1) Iron deficiency anemia Current Visit: Yes Status: Chronic Code(s): D50.9 - IRON DEFICIENCY ANEMIA, UNSPECIFIED (2) Chest pain Current Visit: No Status: Acute Assessment & Plan: 1) elevated troponin- is likely a combination of pneumonia, anemia, and ckd. EKG reviewed NSR with no ischemic changes. For now would treat anemia with transfusion and treat PNA with abx. Currently assymptomatic with no chest pain. His anemia and CKD would make invasive cardiac procedures like a LHC prohibitive at this moment. would cw asa for now. cw bb and statin. When acute issues have resolved he should get an outpt stress test. Would hold ELIZABET for now due to his ROHIT on CKD Code(s): R07.9 - CHEST PAIN, UNSPECIFIED - Encounter Encounter: "The entirety of this encounter was performed via Telemedicine using audio and visual "
[2024-02-23] MEDS: Protonix 40MG Tablet PO SCH (09:15)
[2024-02-23] MEDS: Klor Con PO SCH (09:15)
[2024-02-23] MEDS: FOLATE 1 MG PO SCH (09:15)
[2024-02-23] MEDS: Zestril 20 MG PO SCH (09:15)
[2024-02-23] MEDS: FEOSOL 325 MG PO SCH (09:15)
[2024-02-23] MEDS ORDERED: PULMICORT 0.5 MG/2 ML RESPULES IH SCH (10:00)
[2024-02-23] MEDS: Zithromax 500 MG/ 250 ML NaCl Premix 500 MG/250 ML IVPB IV SCH (10:25)
--- NOTE | 2024-02-23 11:18 | PCM.NOTE ---
Date and Time: 02/23/24 1110 Subjective Assessment: 02/22/24 is a 68 year old male with PMHX of COPD on 3 L nasal cannula 24 hours/day, daily smoker, HTN, hyperlipidemia, GERD and anxiety. He presented to our ED today for chest pain, cough, shortness of breath, and generalized weakness. Symptoms have been progressive over the past 2 to 3 days. Symptoms are moderate in intensity. SOB worsening with exertion, resting improving sxs. Patient is resting comfortably. He voices no other complaints or concerns at this time. In ER he was found to have CARL pneumonia and started on IV antibiotics. Flu/ COVID/RSV negative. Trop X1 elevated at 0.081, will continue to trend. Creat 1.68, + ROHIT- continue IVF. Pt deneis CP, Abd pain, N/V/D. 02/23/24 Pt resting in bed. He continues to c/o weakness. Hgb 6.5 and 1 unit of PRBC ordered today. He denies dark or bloody stools, or vomiting blood. Occult stool ordered. ROHIT resolved, IVF stopped. Sputum and BC x2 pending. He is on 2L 99% Continue IV antibiotics for Pneumonia. Quantiferon - TB Gold pending to r/o TB. Pt in isolation for this. He denies any further concerns at this time. - Review of Systems Constitutional: Weakness, No Fever, No Chills Eyes: No Symptoms Ears, Nose, & Throat: No Symptoms Respiratory: No Cough, No Short Of Breath Cardiac: No Chest Pain, No Edema, No Syncope Abdominal/Gastrointestinal: No Abdominal Pain, No Nausea, No Vomiting, No Diarrhea Genitourinary Symptoms: No Dysuria Musculoskeletal: No Back Pain, No Neck Pain Skin: No Rash Neurological: No Dizziness, No Focal Weakness, No Sensory Changes Psychological: No Symptoms Endocrine: No Symptoms Hematologic/Lymphatic: No Symptoms Immunological/Allergic: No Symptoms Objective Exam General Appearance: no apparent distress, alert Neurologic Exam: alert, oriented x 3, cooperative, normal mood/affect, nml cerebellar function, sensation nml, No motor deficits Skin Exam: normal color, warm, dry Eye Exam: PERRL, EOMI, eyes nml inspection Ears, Nose, Throat Exam: normal ENT inspection, pharynx normal, moist mucous membranes Neck Exam: normal inspection, non-tender, supple, full range of motion Respiratory Exam: normal breath sounds, lungs clear, No respiratory distress Cardiovascular Exam: regular rate/rhythm, normal heart sounds Gastrointestinal/Abdomen Exam: soft, No tenderness, No mass Extremity Exam: normal inspection, normal range of motion Back Exam: normal inspection, normal range of motion, No CVA tenderness, No vertebral tenderness Male Genitalia Exam: deferred Rectal Exam: deferred Objective Data Vital Signs: Vital Signs - 24 hr Temp Pulse Resp BP BP Pulse Ox 02/23/24 08:48 99 02/23/24 07:51 97.9 F 76 16 99/49 99 02/23/24 07:07 75 18 90 L 02/23/24 04:00 97.3 F 88 19 110/53 99 02/23/24 02:18 76 16 98 02/23/24 00:00 97.6 F 89 18 98/54 99 02/22/24 20:00 97.9 F 75 16 96/54 100 02/22/24 19:08 75 16 100 02/22/24 17:09 97.3 F 70 15 104/58 99 02/22/24 16:19 99 02/22/24 16:02 70 02/22/24 14:30 68 19 122/69 94 L 02/22/24 14:00 72 19 91/45 96 02/22/24 13:30 65 18 105/65 96 02/22/24 13:00 68 18 138/75 94 L 02/22/24 12:31 72 20 99/79 95 02/22/24 12:07 80 18 106/62 100 02/22/24 11:39 96 02/22/24 11:19 97.9 F 78 20 96/63 98 02/22/24 11:16 68 20 96/63 98 Pain Assessment - Last Documented Pain Intensity 0 Intake and Output: Intake & Output 02/20/24 02/21/24 02/22/24 02/23/24 11:59 11:59 11:59 11:59 Intake Total 1792 Balance 1792 Weight 59.5 kg 57 kg Lab Results: Lab Results-Last 24 Hours 02/22/24 02/22/24 02/22/24 Range/Units 11:30 11:30 11:30 WBC 10.3 H (4.23-9.07) x10^3/uL RBC 2.44 L (4.63-6.08) x10^6/uL Hgb 8.1 L (13.7-17.5) g/dL Hct 26.4 L (40.1-51.0) % MCV 108.2 H (79.0-92.2) fL MCH 33.2 H (25.7-32.2) pg MCHC 30.7 L (32.3-36.5) g/dL RDW 17.3 H (11.6-14.4) % Plt Count 194 (163-337) x10^3/uL MPV 12.3 (9.4-12.4) fL Gran % 86.7 H (34.0-67.9) % Immature Gran % (Auto) 0.7 H (0.001-0.429) % Nucleat RBC Rel Count 0.0 (0.00-0.2) % Eos # (Auto) 0.01 L (0.04-0.54) x10^3/uL Immature Gran # (Auto) 0.07 H (0.001-0.031) x10^3u/L Absolute Lymphs (auto) 0.89 L (1.32-3.57) x10^3/uL Absolute Monos (auto) 0.38 (0.30-0.82) x10^3/uL Absolute Nucleated RBC 0.00 (0.00-0.012) x10^3u/L Lymphocytes % 8.7 L (21.8-53.1) % Monocytes % 3.7 L (5.3-12.2) % Eosinophils % 0.1 L (0.8-7.0) % Basophils % 0.1 L (0.2-1.2) % Absolute Granulocytes 8.92 H (1.78-5.38) x10^3/uL Basophils # 0.01 (0.01-0.08) x10^3/uL Sodium 142 (135-145) mmol/L Potassium 4.5 (3.5-5.1) mmol/L Chloride 105 (98-107) mmol/L Carbon Dioxide 29 (22-30) mmol/L Anion Gap 12.0 (5-15) MEQ/L BUN 41 H (9-20) mg/dL Creatinine 1.68 H (0.66-1.25) mg/dL Estimated GFR 44.3 ML/MIN Glucose 110 H (74-106) mg/dL Calcium 8.5 (8.4-10.2) mg/dL Total Bilirubin 1.00 (0.2-1.3) mg/dL AST 31 (17-59) U/L ALT 19 (0-50) U/L Alkaline Phosphatase 101 (38-126) U/L Troponin I 0.081 H* (0.000-0.033) ng/mL Serum Total Protein 7.0 (6.3-8.2) g/dL Albumin 3.5 (3.5-5.0) g/dL Prealbumin (17.6-36.0) mg/dL Urine Color (Yellow) Urine Appearance (Clear) Urine pH (4.6-8.0) Ur Specific [place] (1.005-1.030) Urine Protein (Negative) Urine Glucose (UA) (Negative) mg/dL Urine Ketones (Negative) Urine Blood (Negative) Urine Nitrite (Negative) Urine Bilirubin (Negative) Urine Urobilinogen (0.2) mg/dL Ur Leukocyte Esterase (Negative) U Hyaline Cast (Auto) (0-2) /LPF Urine Microscopic RBC (0-5) /HPF Urine Microscopic WBC (0-5) /HPF Ur Epithelial Cells (None Seen) /HPF Urine Bacteria (None Seen) /HPF Urine Mucus (NEGATIVE) /HPF Urine Yeast (Budding) (None Seen) /HPF Urine Culture Reflexed (NO) Influenza Type A Ag (NEGATIVE) Influenza Type B Ag (NEGATIVE) RSV (PCR) (NEGATIVE) SARS-CoV-2 (PCR) (NEGATIVE) ABO Group Rh Factor Antibody Screen (NEGATIVE) Crossmatch (COMPATIBLE) 02/22/24 02/22/24 02/22/24 Range/Units 11:39 11:39 14:24 WBC (4.23-9.07) x10^3/uL RBC (4.63-6.08) x10^6/uL Hgb (13.7-17.5) g/dL Hct (40.1-51.0) % MCV (79.0-92.2) fL MCH (25.7-32.2) pg MCHC (32.3-36.5) g/dL RDW (11.6-14.4) % Plt Count (163-337) x10^3/uL MPV (9.4-12.4) fL Gran % (34.0-67.9) % Immature Gran % (Auto) (0.001-0.429) % Nucleat RBC Rel Count (0.00-0.2) % Eos # (Auto) (0.04-0.54) x10^3/uL Immature Gran # (Auto) (0.001-0.031) x10^3u/L Absolute Lymphs (auto) (1.32-3.57) x10^3/uL Absolute Monos (auto) (0.30-0.82) x10^3/uL Absolute Nucleated RBC (0.00-0.012) x10^3u/L Lymphocytes % (21.8-53.1) % Monocytes % (5.3-12.2) % Eosinophils % (0.8-7.0) % Basophils % (0.2-1.2) % Absolute Granulocytes (1.78-5.38) x10^3/uL Basophils # (0.01-0.08) x10^3/uL Sodium (135-145) mmol/L Potassium (3.5-5.1) mmol/L Chloride (98-107) mmol/L Carbon Dioxide (22-30) mmol/L Anion Gap (5-15) MEQ/L BUN (9-20) mg/dL Creatinine (0.66-1.25) mg/dL Estimated GFR ML/MIN Glucose (74-106) mg/dL Calcium (8.4-10.2) mg/dL Total Bilirubin (0.2-1.3) mg/dL AST (17-59) U/L ALT (0-50) U/L Alkaline Phosphatase (38-126) U/L Troponin I 0.057 H* (0.000-0.033) ng/mL Serum Total Protein (6.3-8.2) g/dL Albumin (3.5-5.0) g/dL Prealbumin (17.6-36.0) mg/dL Urine Color Yellow (Yellow) Urine Appearance Clear (Clear) Urine pH 5.5 (4.6-8.0) Ur Specific [place] 1.025 (1.005-1.030) Urine Protein 30 (Negative) Urine Glucose (UA) Negative (Negative) mg/dL Urine Ketones Negative (Negative) Urine Blood Negative (Negative) Urine Nitrite Negative (Negative) Urine Bilirubin Negative (Negative) Urine Urobilinogen 1.0 A (0.2) mg/dL Ur Leukocyte Esterase Negative (Negative) U Hyaline Cast (Auto) 11-20 (0-2) /LPF Urine Microscopic RBC 0-2 (0-5) /HPF Urine Microscopic WBC 0-2 (0-5) /HPF Ur Epithelial Cells None Seen (None Seen) /HPF Urine Bacteria None Seen (None Seen) /HPF Urine Mucus Moderate A (NEGATIVE) /HPF Urine Yeast (Budding) (None Seen) /HPF Urine Culture Reflexed NO (NO) Influenza Type A Ag NEGATIVE (NEGATIVE) Influenza Type B Ag NEGATIVE (NEGATIVE) RSV (PCR) NEGATIVE (NEGATIVE) SARS-CoV-2 (PCR) NEGATIVE (NEGATIVE) ABO Group Rh Factor Antibody Screen (NEGATIVE) Crossmatch (COMPATIBLE) 02/22/24 02/22/24 02/22/24 Range/Units 14:24 14:24 21:35 WBC (4.23-9.07) x10^3/uL RBC (4.63-6.08) x10^6/uL Hgb (13.7-17.5) g/dL Hct (40.1-51.0) % MCV (79.0-92.2) fL MCH (25.7-32.2) pg MCHC (32.3-36.5) g/dL RDW (11.6-14.4) % Plt Count (163-337) x10^3/uL MPV (9.4-12.4) fL Gran % (34.0-67.9) % Immature Gran % (Auto) (0.001-0.429) % Nucleat RBC Rel Count (0.00-0.2) % Eos # (Auto) (0.04-0.54) x10^3/uL Immature Gran # (Auto) (0.001-0.031) x10^3u/L Absolute Lymphs (auto) (1.32-3.57) x10^3/uL Absolute Monos (auto) (0.30-0.82) x10^3/uL Absolute Nucleated RBC (0.00-0.012) x10^3u/L Lymphocytes % (21.8-53.1) % Monocytes % (5.3-12.2) % Eosinophils % (0.8-7.0) % Basophils % (0.2-1.2) % Absolute Granulocytes (1.78-5.38) x10^3/uL Basophils # (0.01-0.08) x10^3/uL Sodium (135-145) mmol/L Potassium (3.5-5.1) mmol/L Chloride (98-107) mmol/L Carbon Dioxide (22-30) mmol/L Anion Gap (5-15) MEQ/L BUN (9-20) mg/dL Creatinine (0.66-1.25) mg/dL Estimated GFR ML/MIN Glucose (74-106) mg/dL Calcium (8.4-10.2) mg/dL Total Bilirubin (0.2-1.3) mg/dL AST (17-59) U/L ALT (0-50) U/L Alkaline Phosphatase (38-126) U/L Troponin I 0.032 (0.000-0.033) ng/mL Serum Total Protein (6.3-8.2) g/dL Albumin (3.5-5.0) g/dL Prealbumin 7.91 L (17.6-36.0) mg/dL Urine Color (Yellow) Urine Appearance (Clear) Urine pH (4.6-8.0) Ur Specific [place] (1.005-1.030) Urine Protein (Negative) Urine Glucose (UA) (Negative) mg/dL Urine Ketones (Negative) Urine Blood (Negative) Urine Nitrite (Negative) Urine Bilirubin (Negative) Urine Urobilinogen (0.2) mg/dL Ur Leukocyte Esterase (Negative) U Hyaline Cast (Auto) (0-2) /LPF Urine Microscopic RBC (0-5) /HPF Urine Microscopic WBC (0-5) /HPF Ur Epithelial Cells (None Seen) /HPF Urine Bacteria (None Seen) /HPF Urine Mucus (NEGATIVE) /HPF Urine Yeast (Budding) (None Seen) /HPF Urine Culture Reflexed (NO) Influenza Type A Ag (NEGATIVE) Influenza Type B Ag (NEGATIVE) RSV (PCR) (NEGATIVE) SARS-CoV-2 (PCR) (NEGATIVE) ABO Group A Rh Factor POSITIVE Antibody Screen NEGATIVE (NEGATIVE) Crossmatch (COMPATIBLE) 02/23/24 02/23/24 02/23/24 Range/Units 05:27 05:27 07:23 WBC 8.2 (4.23-9.07) x10^3/uL RBC 1.97 L (4.63-6.08) x10^6/uL Hgb 6.5 L* (13.7-17.5) g/dL Hct 21.7 L (40.1-51.0) % MCV 110.2 H (79.0-92.2) fL MCH 33.0 H (25.7-32.2) pg MCHC 30.0 L (32.3-36.5) g/dL RDW 17.5 H (11.6-14.4) % Plt Count 137 L (163-337) x10^3/uL MPV 12.7 H (9.4-12.4) fL Gran % (34.0-67.9) % Immature Gran % (Auto) (0.001-0.429) % Nucleat RBC Rel Count (0.00-0.2) % Eos # (Auto) (0.04-0.54) x10^3/uL Immature Gran # (Auto) (0.001-0.031) x10^3u/L Absolute Lymphs (auto) (1.32-3.57) x10^3/uL Absolute Monos (auto) (0.30-0.82) x10^3/uL Absolute Nucleated RBC (0.00-0.012) x10^3u/L Lymphocytes % (21.8-53.1) % Monocytes % (5.3-12.2) % Eosinophils % (0.8-7.0) % Basophils % (0.2-1.2) % Absolute Granulocytes (1.78-5.38) x10^3/uL Basophils # (0.01-0.08) x10^3/uL Sodium 145 (135-145) mmol/L Potassium 3.9 (3.5-5.1) mmol/L Chloride 110 H (98-107) mmol/L Carbon Dioxide 25 (22-30) mmol/L Anion Gap 14.1 (5-15) MEQ/L BUN 38 H (9-20) mg/dL Creatinine 1.23 (0.66-1.25) mg/dL Estimated GFR 64.4 ML/MIN Glucose 118 H (74-106) mg/dL Calcium 8.3 L (8.4-10.2) mg/dL Total Bilirubin 0.40 (0.2-1.3) mg/dL AST 28 (17-59) U/L ALT 25 (0-50) U/L Alkaline Phosphatase 91 (38-126) U/L Troponin I (0.000-0.033) ng/mL Serum Total Protein 6.0 L (6.3-8.2) g/dL Albumin 2.9 L (3.5-5.0) g/dL Prealbumin (17.6-36.0) mg/dL Urine Color (Yellow) Urine Appearance (Clear) Urine pH (4.6-8.0) Ur Specific [place] (1.005-1.030) Urine Protein (Negative) Urine Glucose (UA) (Negative) mg/dL Urine Ketones (Negative) Urine Blood (Negative) Urine Nitrite (Negative) Urine Bilirubin (Negative) Urine Urobilinogen (0.2) mg/dL Ur Leukocyte Esterase (Negative) U Hyaline Cast (Auto) (0-2) /LPF Urine Microscopic RBC (0-5) /HPF Urine Microscopic WBC (0-5) /HPF Ur Epithelial Cells (None Seen) /HPF Urine Bacteria (None Seen) /HPF Urine Mucus (NEGATIVE) /HPF Urine Yeast (Budding) (None Seen) /HPF Urine Culture Reflexed (NO) Influenza Type A Ag (NEGATIVE) Influenza Type B Ag (NEGATIVE) RSV (PCR) (NEGATIVE) SARS-CoV-2 (PCR) (NEGATIVE) ABO Group Rh Factor Antibody Screen (NEGATIVE) Crossmatch COMPATIBLE (COMPATIBLE) Radiology Exams: Radiology Procedures Category Date Time Status CHEST 1 VIEW (PORTABLE) Stat Exams 02/22/24 11:24 Completed Assessment/Plan (1) Left upper lobe pneumonia Current Visit: Yes Status: Acute Code(s): J18.9 - PNEUMONIA, UNSPECIFIED ORGANISM (2) Elevated troponin Current Visit: Yes Status: Acute Code(s): R79.89 - OTHER SPECIFIED ABNORMAL FINDINGS OF BLOOD CHEMISTRY (3) Dehydration Current Visit: Yes Status: Acute Code(s): E86.0 - DEHYDRATION (4) ROHIT (acute kidney injury) Current Visit: Yes Status: Acute Code(s): N17.9 - ACUTE KIDNEY FAILURE, UNSPECIFIED (5) Anxiety and depression Current Visit: Yes Status: Chronic Code(s): F41.9 - ANXIETY DISORDER, UNSPECIFIED; F32.A - DEPRESSION, UNSPECIFIED (6) Iron deficiency anemia Current Visit: Yes Status: Chronic Code(s): D50.9 - IRON DEFICIENCY ANEMIA, UNSPECIFIED (7) COPD (chronic obstructive pulmonary disease) Current Visit: Yes Status: Chronic (8) GERD (gastroesophageal reflux disease) Current Visit: Yes Status: Chronic Code(s): K21.9 - GASTRO-ESOPHAGEAL REFLUX DISEASE WITHOUT ESOPHAGITIS (9) Hyperlipidemia Current Visit: Yes Status: Chronic Code(s): E78.5 - HYPERLIPIDEMIA, UNSPECIFIED (10) Tobacco abuse Current Visit: No Status: Chronic Code(s): Z72.0 - TOBACCO USE (11) History of stroke Current Visit: No Status: Chronic Code(s): Z86.73 - PRSNL HX OF TIA (TIA), AND CEREB INFRC W/O RESID DEFICITS (12) Malnutrition Current Visit: No Status: Chronic Onset Date: ~10/18/17 Qualifiers: Malnutrition type: protein-calorie malnutrition Protein-calorie malnutrition severity: moderate Qualified Code(s): E44.0 - Moderate protein- calorie malnutrition Assessment & Plan: (1) Left upper lobe pneumonia Current Visit: Yes Status: Acute Assessment & Plan: - On baseline 3lNC 94% - CXR reviewed- CARL infiltrate - Tele - Flu/COVID/RSV negative - Sputum culture - TB gold labs test pending - BC x2 pending. - WBC 10.3 - CBC reviewed. - Azithromycin and Rocephin started in ER- continue - IVF - CT chest from 07/01/23: IMPRESSION: 1.No evidence of pulmonary embolism. 2.Diffuse emphysematous changes are seen in both lung cobb - stable. 3.Patchy area of subpleural consolidation seen in the right upper lobe - anterior segment. This is a new finding. 4. Stable - soft tissue density nodule in right lower lobe. - Associated weakness- PT eval and treat. - Duonebs Q6 02/23/24 - TB GOLD pending - Continued weakness - 2lNC 99%- BL is 3lNC - BC x2 and sputum culture pending - IV antibiotics - CBC and CMP reviewed - WBC 8.2 Code(s): J18.9 - PNEUMONIA, UNSPECIFIED ORGANISM (2) Elevated troponin Current Visit: Yes Status: Acute Assessment & Plan: - Trop 0.081, 0.057, 0.32 trended down - Likely demand ischemia 2:2 pneumonia. - Cardiology consulted - note read and agree with plan of care - Tele - EKG Code(s): R79.89 - OTHER SPECIFIED ABNORMAL FINDINGS OF BLOOD CHEMISTRY (3) Dehydration Current Visit: Yes Status: Acute Assessment & Plan: - IVF - CMP reviewed 02/22 - IVF stopped - resolved Code(s): E86.0 - DEHYDRATION (4) ROHIT (acute kidney injury) Current Visit: Yes Status: Acute Assessment & Plan: - Creat 1.68, baseline 0.93 - IV fluids 02/22 - IVF stopped - resolved - ELIZABET not held as ROHIT resolved Code(s): N17.9 - ACUTE KIDNEY FAILURE, UNSPECIFIED (5) Anxiety and depression Current Visit: Yes Status: Chronic Assessment & Plan: -Continue home meds Code(s): F41.9 - ANXIETY DISORDER, UNSPECIFIED; F32.A - DEPRESSION, UNSPECIFIED (6) Iron deficiency anemia Current Visit: Yes Status: Chronic Assessment & Plan: - Continue ferrous sulfate - Hgb 8.1 trend - malnutrition - [employer] consulted. 02/22 - Hgb 6.5- transfuse 1 unit and recheck - trend H&H Code(s): D50.9 - IRON DEFICIENCY ANEMIA, UNSPECIFIED (7) COPD (chronic obstructive pulmonary disease) Current Visit: Yes Status: Chronic Assessment & Plan: - On baseline 3LNC 94% - Not in acute exacerbation 02/22 - on 2lNC 99% (8) GERD (gastroesophageal reflux disease) Current Visit: Yes Status: Chronic Assessment & Plan: - Continue PPI Code(s): K21.9 - GASTRO-ESOPHAGEAL REFLUX DISEASE WITHOUT ESOPHAGITIS (9) Hyperlipidemia Current Visit: Yes Status: Chronic Assessment & Plan: - Continue statin Code(s): E78.5 - HYPERLIPIDEMIA, UNSPECIFIED (10) Tobacco abuse Current Visit: No Status: Chronic Assessment & Plan: - advised cessation - nicotine patch - education provided Code(s): Z72.0 - TOBACCO USE (11) History of stroke Current Visit: No Status: Chronic Assessment & Plan: - noted, adds to complexity Code(s): Z86.73 - PRSNL HX OF TIA (TIA), AND CEREB INFRC W/O RESID DEFICITS (12) Malnutrition Current Visit: No Status: Chronic Onset Date: ~10/18/17 Qualifiers: Malnutrition type: protein-calorie malnutrition Protein-calorie malnutrition severity: moderate Qualified Code(s): E44.0 - Moderate protein- calorie malnutrition Assessment & Plan: - High protein ensure added with each meal - House regular diet - Nutrition consult. - BMI 18.8 VTE: SCD's d/t anemia PPI: omeprazole Next of KIN: Child- Mike Rivas D/C plan: 1-2 days Code status: Full Code(s): E46 - UNSPECIFIED PROTEIN-CALORIE MALNUTRITION Code(s): E46 - UNSPECIFIED PROTEIN-CALORIE MALNUTRITION
[2024-02-23 12:10] LABS: IFOB TEST RESULTS NEGATIVE (NEGATIVE)
[2024-02-23] MEDS: ROCEPHIN 1 GM / 100 ML NaCl 1 GM/100 ML IVPB IV SCH (12:28)
[2024-02-23 15:23] LABS: Hematocrit 25.4 % (40.1-51.0); Hemoglobin 7.6 g/dL (13.7-17.5)
[2024-02-24 05:29] LABS: Hematocrit 25.1 % (40.1-51.0); Hemoglobin 7.8 g/dL (13.7-17.5); Mean Cell Volume 103.3 fL (79.0-92.2); Mean Corpuscular Hemoglobin 32.1 pg (25.7-32.2); Mean Corpuscular Hgb Concent. 31.1 g/dL (32.3-36.5); Platelet Count 151 x10^3/uL (163-337); Red Blood Count 2.43 x10^6/uL (4.63-6.08); Red Cell Distribution Width 21.8 % (11.6-14.4); White Blood Count 10.1 x10^3/uL (4.23-9.07)
[2024-02-24 06:00] LABS: ALBUMIN 2.7 g/dL (3.5-5.0); ANION GAP 11.1 MEQ/L (5-15); BILIRUBIN,TOTAL 0.3 mg/dL (0.2-1.3); Calcium 8.5 mg/dL (8.4-10.2); Creatinine 1 1.1 mg/dL (0.66-1.25); EST GLOMERULAR FILTRATION RATE 73.6 ML/MIN; Potassium 3.5 mmol/L (3.5-5.1); Total Protein 5.9 g/dL (6.3-8.2)
--- NOTE | 2024-02-24 12:01 | PCM.NOTE ---
Date and Time: 02/24/24 1153 Subjective Assessment: 02/22/24 is a 68 year old male with PMHX of COPD on 3 L nasal cannula 24 hours/day, daily smoker, HTN, hyperlipidemia, GERD and anxiety. He presented to our ED today for chest pain, cough, shortness of breath, and generalized weakness. Symptoms have been progressive over the past 2 to 3 days. Symptoms are moderate in intensity. SOB worsening with exertion, resting improving sxs. Patient is resting comfortably. He voices no other complaints or concerns at this time. In ER he was found to have CARL pneumonia and started on IV antibiotics. Flu/ COVID/RSV negative. Trop X1 elevated at 0.081, will continue to trend. Creat 1.68, + ROHIT- continue IVF. Pt deneis CP, Abd pain, N/V/D. 02/23/24 Pt resting in bed. He continues to c/o weakness. Hgb 6.5 and 1 unit of PRBC ordered today. He denies dark or bloody stools, or vomiting blood. Occult stool ordered. ROHIT resolved, IVF stopped. Sputum and BC x2 pending. He is on 2L 99% Continue IV antibiotics for Pneumonia. Quantiferon - TB Gold pending to r/o TB. Pt in isolation for this. He denies any further concerns at this time. 02/24/24 Pt resting in bed. Encouraged pt to get up with staff today and sit in chair for meals. PT was unable to work with pt yesterday and he is in isolation. TB Gold test pending. He states he is feeling better but weak. Continue IV antibiotics for pneumonia. He is currently on 2lNC 96%, 3lNC is Baseline O2. Na+ 147, placed on low sodium heart healthy diet. BCx2 negative. Sputum culture pending. After 1 unit of PRBC yesterday hgb 7.8. He denies CP, abd. pain, N/V/D. - Review of Systems Constitutional: Weakness, No Fever, No Chills Eyes: No Symptoms Ears, Nose, & Throat: No Symptoms Respiratory: Short Of Breath, No Cough Cardiac: No Chest Pain, No Edema, No Syncope Abdominal/Gastrointestinal: No Abdominal Pain, No Nausea, No Vomiting, No Diarrhea Genitourinary Symptoms: No Dysuria Musculoskeletal: No Back Pain, No Neck Pain Skin: No Rash Neurological: No Dizziness, No Focal Weakness, No Sensory Changes Psychological: No Symptoms Endocrine: No Symptoms Hematologic/Lymphatic: No Symptoms Immunological/Allergic: No Symptoms Objective Exam General Appearance: no apparent distress, alert, thin Neurologic Exam: alert, oriented x 3, cooperative, normal mood/affect, nml ce rebellar function, sensation nml, motor weakness, No motor deficits Skin Exam: normal color, warm, dry Eye Exam: PERRL, EOMI, eyes nml inspection Ears, Nose, Throat Exam: normal ENT inspection, pharynx normal, moist mucous membranes Neck Exam: normal inspection, non-tender, supple, full range of motion Respiratory Exam: normal breath sounds, lungs clear, No respiratory distress Cardiovascular Exam: regular rate/rhythm, normal heart sounds Gastrointestinal/Abdomen Exam: soft, No tenderness, No mass Extremity Exam: normal inspection, normal range of motion Back Exam: normal inspection, normal range of motion, No CVA tenderness, No vertebral tenderness Male Genitalia Exam: deferred Rectal Exam: deferred Objective Data Vital Signs: Vital Signs - 24 hr Temp Pulse Resp BP Pulse Ox 02/24/24 11:41 99.0 F 106 H 20 133/86 96 02/24/24 08:00 97.9 F 90 18 145/65 93 L 02/24/24 05:41 67 16 100 02/24/24 04:00 98.3 F 87 20 143/69 96 02/24/24 00:00 98.3 F 87 19 146/63 96 02/23/24 20:00 98.1 F 90 22 133/61 96 02/23/24 19:55 85 20 98 02/23/24 16:00 98.0 F 83 16 127/58 96 02/23/24 14:40 91 L 02/23/24 14:39 87 L 02/23/24 12:48 79 18 100 02/23/24 12:00 98.1 F 84 17 107/55 100 Pain Assessment - Last Documented Pain Intensity 0 Intake and Output: Intake & Output 02/21/24 02/22/24 02/23/24 02/24/24 11:59 11:59 11:59 11:59 Intake Total 1792 6860 Output Total 1 Balance 1792 2669 Weight 59.5 kg 57 kg Lab Results: Lab Results-Last 24 Hours 02/23/24 02/23/24 02/24/24 Range/Units 11:59 15:15 05:23 WBC 10.1 H (4.23-9.07) x10^3/uL RBC 2.43 L (4.63-6.08) x10^6/uL Hgb 7.6 L 7.8 L (13.7-17.5) g/dL Hct 25.4 L 25.1 L (40.1-51.0) % MCV 103.3 H D (79.0-92.2) fL MCH 32.1 (25.7-32.2) pg MCHC 31.1 L (32.3-36.5) g/dL RDW 21.8 H (11.6-14.4) % Plt Count 151 L (163-337) x10^3/uL MPV 12.0 (9.4-12.4) fL Sodium (135-145) mmol/L Potassium (3.5-5.1) mmol/L Chloride (98-107) mmol/L Carbon Dioxide (22-30) mmol/L Anion Gap (5-15) MEQ/L BUN (9-20) mg/dL Creatinine (0.66-1.25) mg/dL Estimated GFR ML/MIN Glucose (74-106) mg/dL Calcium (8.4-10.2) mg/dL Total Bilirubin (0.2-1.3) mg/dL AST (17-59) U/L ALT (0-50) U/L Alkaline Phosphatase (38-126) U/L Serum Total Protein (6.3-8.2) g/dL Albumin (3.5-5.0) g/dL Stl Occult Blood (IFOB) NEGATIVE (NEGATIVE) 02/24/24 Range/Units 05:23 WBC (4.23-9.07) x10^3/uL RBC (4.63-6.08) x10^6/uL Hgb (13.7-17.5) g/dL Hct (40.1-51.0) % MCV (79.0-92.2) fL MCH (25.7-32.2) pg MCHC (32.3-36.5) g/dL RDW (11.6-14.4) % Plt Count (163-337) x10^3/uL MPV (9.4-12.4) fL Sodium 147 H (135-145) mmol/L Potassium 3.5 (3.5-5.1) mmol/L Chloride 111 H (98-107) mmol/L Carbon Dioxide 28 (22-30) mmol/L Anion Gap 11.1 (5-15) MEQ/L BUN 32 H (9-20) mg/dL Creatinine 1.10 (0.66-1.25) mg/dL Estimated GFR 73.6 ML/MIN Glucose 101 (74-106) mg/dL Calcium 8.5 (8.4-10.2) mg/dL Total Bilirubin 0.30 (0.2-1.3) mg/dL AST 26 (17-59) U/L ALT 20 (0-50) U/L Alkaline Phosphatase 84 (38-126) U/L Serum Total Protein 5.9 L (6.3-8.2) g/dL Albumin 2.7 L (3.5-5.0) g/dL Stl Occult Blood (IFOB) (NEGATIVE) Radiology Exams: Radiology Procedures Category Date Time Status CHEST 1 VIEW (PORTABLE) Stat Exams 02/22/24 11:24 Completed Multi-Disciplinary Progress Notes: Multi-Disciplinary Progress Notes 02/24/24 11:24 Case Management Note by Silvia Lopez PATIENT WORKED WITH [employer] IN PHYSICAL THERAPY TODAY- PATIENT NEEDING ASSISTANCE WITH WALKING AND WAS INCONTINENT. PATIENT COULD BENEFIT FROM A REHAB STAY. S/W DAUGHTER- SHE VERIFIED UNDERSTANDING BUT STATED PATIENT WOULD NOT LIKELY BE INTERESTED IN A REHAB STAY. SHE REPORTS SOMEONE IS WITH PATIENT ALL THE TIME AT HOME AND CAN HELP HIM WALK WITH HIS WALKER. SHE REPORTS PATIENT IN INCONTINENT AT [facility] SO THEY ARE ALREADY USED TO DEALING WITH THAT. SHE DID REQUEST PHYSICAL THERAPY IN HOME. DISCUSSED PROVIDERS- WILL SET UP. SHE DENIES ANY OTHER NEEDS. PATIENT QUALIFIED FOR 24 HR OXYGEN ON 02/22- WILL SEND IN ORDER TO [facility] ONCE DC DATE CONFIRMED SO PATIENT CAN HAVE A PORTABLE DELIVERED FOR DC TO HOME. Initialized on 02/24/24 11:24 - END OF NOTE 02/24/24 11:08 Case Management Note by Silvia Lopez REFERRAL FAXED TO [facility]. THEY WILL NEED NOTIFIED AT TIME OF DC AT [phone]. THEY WILL NEED FAXED THE DC INSTRUCTIONS, DC MED LIST AND DC SUMMARY TO [phone] Initialized on 02/24/24 11:08 - END OF NOTE 02/23/24 14:39 Respiratory Note by Luz Elena Acosta PATIENT'S O2 SAT IS 87% ON ROOM AIR AT REST. PATIENT PLACED ON O2 AT 2LPM AND O2 SAT INCREASED TO 91% ON 2LPM PER NC AT REST. Initialized on 02/23/24 14:39 - END OF NOTE Assessment/Plan (1) Left upper lobe pneumonia Current Visit: Yes Status: Acute Code(s): J18.9 - PNEUMONIA, UNSPECIFIED ORGANISM (2) Elevated troponin Current Visit: Yes Status: Acute Code(s): R79.89 - OTHER SPECIFIED ABNORMAL FINDINGS OF BLOOD CHEMISTRY (3) Dehydration Current Visit: Yes Status: Acute Code(s): E86.0 - DEHYDRATION (4) ROHIT (acute kidney injury) Current Visit: Yes Status: Acute Code(s): N17.9 - ACUTE KIDNEY FAILURE, UNSPECIFIED (5) Anxiety and depression Current Visit: Yes Status: Chronic Code(s): F41.9 - ANXIETY DISORDER, UNSPECIFIED; F32.A - DEPRESSION, UNSPECIFIED (6) Iron deficiency anemia Current Visit: Yes Status: Chronic Code(s): D50.9 - IRON DEFICIENCY ANEMIA, UNSPECIFIED (7) COPD (chronic obstructive pulmonary disease) Current Visit: Yes Status: Chronic (8) GERD (gastroesophageal reflux disease) Current Visit: Yes Status: Chronic Code(s): K21.9 - GASTRO-ESOPHAGEAL REFLUX DISEASE WITHOUT ESOPHAGITIS (9) Hyperlipidemia Current Visit: Yes Status: Chronic Code(s): E78.5 - HYPERLIPIDEMIA, UNS PECIFIED (10) Tobacco abuse Current Visit: No Status: Chronic Code(s): Z72.0 - TOBACCO USE (11) History of stroke Current Visit: No Status: Chronic Code(s): Z86.73 - PRSNL HX OF TIA (TIA), AND CEREB INFRC W/O RESID DEFICITS (12) Malnutrition Current Visit: No Status: Chronic Onset Date: ~10/18/17 Qualifiers: Malnutrition type: protein-calorie malnutrition Protein-calorie malnutrition severity: moderate Qualified Code(s): E44.0 - Moderate protein- calorie malnutrition Assessment & Plan: (1) Left upper lobe pneumonia Current Visit: Yes Status: Acute Assessment & Plan: - On baseline 3lNC 94% - CXR reviewed- CARL infiltrate - Tele - Flu/COVID/RSV negative - Sputum culture - TB gold labs test pending - BC x2 pending. - WBC 10.3 - CBC reviewed. - Azithromycin and Rocephin started in ER- continue - IVF - CT chest from 07/01/23: IMPRESSION: 1.No evidence of pulmonary embolism. 2.Diffuse emphysematous changes are seen in both lung cobb - stable. 3.Patchy area of subpleural consolidation seen in the right upper lobe - anterior segment. This is a new finding. 4. Stable - soft tissue density nodule in right lower lobe. - Associated weakness- PT eval and treat. - Duonebs Q6 02/23/24 - TB GOLD pending - Continued weakness - 2lNC 99%- BL is 3lNC - BC x2 and sputum culture pending - IV antibiotics - CBC and CMP reviewed - WBC 8.2 02/23 - WBC 10.1 - CBC, CMP reviewed - 2LNC 96% - Continued weakness, up in chair with meals, up with assist - BC x2 negative - sputum sample pending Code(s): J18.9 - PNEUMONIA, UNSPECIFIED ORGANISM (2) Elevated troponin Current Visit: Yes Status: Acute Assessment & Plan: - Trop 0.081, 0.057, 0.32 trended down - Likely demand ischemia 2:2 pneumonia. - Cardiology consulted - note read and agree with plan of care - Tele - EKG Code(s): R79.89 - OTHER SPECIFIED ABNORMAL FINDINGS OF BLOOD CHEMISTRY (3) Dehydration Current Visit: Yes Status: Acute Assessment & Plan: - IVF - CMP reviewed 02/22 - IVF stopped - resolved Code(s): E86.0 - DEHYDRATION (4) ROHIT (acute kidney injury) Current Visit: Yes Status: Acute Assessment & Plan: - Creat 1.68, baseline 0.93 - IV fluids 02/22 - IVF stopped - resolved - ELIZABET not held as ROHIT resolved Code(s): N17.9 - ACUTE KIDNEY FAILURE, UNSPECIFIED (5) Anxiety and depression Current Visit: Yes Status: Chronic Assessment & Plan: -Continue home meds Code(s): F41.9 - ANXIETY DISORDER, UNSPECIFIED; F32.A - DEPRESSION, UNSPECIFIED (6) Iron deficiency anemia Current Visit: Yes Status: Chronic Assessment & Plan: - Continue ferrous sulfate - Hgb 8.1 trend - malnutrition - Upholstery Covers Inspector consulted. 02/22 - Hgb 6.5- transfuse 1 unit and recheck - trend H&H 02/23 - Hgb 7.8- trend Code(s): D50.9 - IRON DEFICIENCY ANEMIA, UNSPECIFIED (7) COPD (chronic obstructive pulmonary disease) Current Visit: Yes Status: Chronic Assessment & Plan: - On baseline 3LNC 94% - Not in acute exacerbation 02/22 - on 2lNC 99% 02/23 - On 2LNC 96% (8) GERD (gastroesophageal reflux disease) Current Visit: Yes Status: Chronic Assessment & Plan: - Continue PPI Code(s): K21.9 - GASTRO-ESOPHAGEAL REFLUX DISEASE WITHOUT ESOPHAGITIS (9) Hyperlipidemia Current Visit: Yes Status: Chronic Assessment & Plan: - Continue statin Code(s): E78.5 - HYPERLIPIDEMIA, UNSPECIFIED (10) Tobacco abuse Current Visit: No Status: Chronic Assessment & Plan: - advised cessation - nicotine patch - education provided Code(s): Z72.0 - TOBACCO USE (11) History of stroke Current Visit: No Status: Chronic Assessment & Plan: - noted, adds to complexity Code(s): Z86.73 - PRSNL HX OF TIA (TIA), AND CEREB INFRC W/O RESID DEFICITS (12) Malnutrition Current Visit: No Status: Chronic Onset Date: ~10/18/17 Qualifiers: Malnutrition type: protein-calorie malnutrition Protein-calorie malnutriti on severity: moderate Qualified Code(s): E44.0 - Moderate protein-calorie malnutrition Assessment & Plan: - High protein ensure added with each meal - House regular diet - Nutrition consult. - BMI 18.8 Code(s): E46 - UNSPECIFIED PROTEIN-CALORIE MALNUTRITION Code(s): E46 - UNSPECIFIED PROTEIN-CALORIE MALNUTRITION (13) Hypernatremia Current Visit: Yes Status: Acute Assessment & Plan: - Na+147- trend - low sodium, heart healthy diet VTE: SCD's d/t anemia PPI: omeprazole Next of KIN: Child- Mike Rivas D/C plan: 1-2 days Code status: Full Code(s): E87.0 - HYPEROSMOLALITY AND HYPERNATREMIA
[2024-02-25] MEDS ORDERED: Zofran 4 MG/2 ML VIAL ONE (03:50)
[2024-02-25] MEDS: TYLENOL 325 MG PO PRN (04:03)
[2024-02-25] MEDS: Zofran 4 MG/2 ML VIAL IV PRN (04:04)
[2024-02-25 05:11] LABS: Hematocrit 25.6 % (40.1-51.0); Mean Cell Volume 101.2 fL (79.0-92.2); Mean Corpuscular Hemoglobin 31.6 pg (25.7-32.2); Mean Corpuscular Hgb Concent. 31.3 g/dL (32.3-36.5); Mean Platelet Volume 11.6 fL (9.4-12.4); Platelet Count 166 x10^3/uL (163-337); Red Blood Count 2.53 x10^6/uL (4.63-6.08); Red Cell Distribution Width 20.1 % (11.6-14.4); White Blood Count 7.9 x10^3/uL (4.23-9.07)
[2024-02-25 05:24] LABS: ALBUMIN 2.8 g/dL (3.5-5.0); ANION GAP 11.1 MEQ/L (5-15); BILIRUBIN,TOTAL 0.8 mg/dL (0.2-1.3); Calcium 8.3 mg/dL (8.4-10.2); Creatinine 1 0.9 mg/dL (0.66-1.25); EST GLOMERULAR FILTRATION RATE 93.6 ML/MIN; Potassium 3.8 mmol/L (3.5-5.1)
--- NOTE | 2024-02-25 10:38 | XRAY ---
CLINICAL HISTORY: elevated temp, SOB COMPARISON: 07/01/2023 CT scan and x-ray chest TECHNIQUE: X-ray chest AP portable view. FINDINGS: Mildly hyperinflated both lung cobb. Bilateral apical pleural thickening. Patchy opacities are seen left upper zone. New findings Redemonstration of opacities with significant interval reduction. Prominent bronchovascular markings are seen in the bilateral perihilar regions. Nodule seen in the right lower zone. Minimal blunting of the right costophrenic angle is seen. Heart size appears unremarkable. IMPRESSION: 1. Patchy opacities are seen left upper zone. New findings Clinical and lab correlation is advised. 2. Mildly hyperinflated both lung cobb. 3. Redemonstration of opacities with significant interval reduction. 4. Minimal right pleural thickening/effusion. [facility] was called on at 9:31 AM POSTPARTUM NURSE, 02/25/2024, and results were verbally communicated to (COMPLAINT ADJUSTER) Delphine Bronson. Electronically Signed by: Jasmine Hernandez MD. (02/25/2024 10:34:19 EDT)
[2024-02-25] MEDS: PIPERACILLIN/TAZOBACTAM 3.375 GM in Sodium Chloride 100ML MINI-BAG PLUS 100 ML IV SCH (13:28)
--- NOTE | 2024-02-25 13:36 | PCM.NOTE ---
Date and Time: 02/25/24 1329 Subjective Assessment: 02/22/24 is a 68 year old male with PMHX of COPD on 3 L nasal cannula 24 hours/day, daily smoker, HTN, hyperlipidemia, GERD and anxiety. He presented to our ED today for chest pain, cough, shortness of breath, and generalized weakness. Symptoms have been progressive over the past 2 to 3 days. Symptoms are moderate in intensity. SOB worsening with exertion, resting improving sxs. Patient is resting comfortably. He voices no other complaints or concerns at this time. In ER he was found to have CARL pneumonia and started on IV antibiotics. Flu/ COVID/RSV negative. Trop X1 elevated at 0.081, will continue to trend. Creat 1.68, + ROHIT- continue IVF. Pt deneis CP, Abd pain, N/V/D. 02/23/24 Pt resting in bed. He continues to c/o weakness. Hgb 6.5 and 1 unit of PRBC ordered today. He denies dark or bloody stools, or vomiting blood. Occult stool ordered. ROHIT resolved, IVF stopped. Sputum and BC x2 pending. He is on 2L 99% Continue IV antibiotics for Pneumonia. Quantiferon - TB Gold pending to r/o TB. Pt in isolation for this. He denies any further concerns at this time. 02/24/24 Pt resting in bed. Encouraged pt to get up with staff today and sit in chair for meals. PT was unable to work with pt yesterday and he is in isolation. TB Gold test pending. He states he is feeling better but weak. Continue IV antibiotics for pneumonia. He is currently on 2lNC 96%, 3lNC is Baseline O2. Na+ 147, placed on low sodium heart healthy diet. BCx2 negative. Sputum culture pending. After 1 unit of PRBC yesterday hgb 7.8. He denies CP, abd. pain, N/V/D. 02/25/24 Pt resting in bed. He states he does not feel well today. He became confused last night and started waling in the hallway. Per daught er he gets this way sometimes at home but can worsen in the hospital. He also developed nausea and a fever of 100.2 @ 0400, and 99.1 at 0800 today. Repeat BCx2 ordered. Antibiotics changed to Zosyn. CXR worse and CT chest ordered. This cannot be done until 5pm today as he is in isolation for possible TB. Hgb 8.0 after 1 unit PRBC gave yesterday. BC x2 negative. Sputum culture pending. WBC 7.9. He admits to continued SOB and is on 3lNC 100%. Case management has set up portable oxygen for home use. He denies CP, abd. pain, V/D. - Review of Systems Constitutional: No Fever, No Chills Eyes: No Symptoms Ears, Nose, & Throat: No Symptoms Respiratory: Short Of Breath, No Cough Cardiac: No Chest Pain, No Edema, No Syncope Abdominal/Gastrointestinal: Nausea, No Abdominal Pain, No Vomiting, No Diarrhea Genitourinary Symptoms: No Dysuria Musculoskeletal: No Back Pain, No Neck Pain Skin: No Rash Neurological: No Dizziness, No Focal Weakness, No Sensory Changes Psychological: No Symptoms Endocrine: No Symptoms Hematologic/Lymphatic: No Symptoms Immunological/Allergic: No Symptoms Objective Exam General Appearance: no apparent distress, alert Neurologic Exam: alert, oriented x 3, cooperative, normal mood/affect, nml cerebellar function, sensation nml, No motor deficits Skin Exam: normal color, warm, dry Eye Exam: PERRL, EOMI, eyes nml inspection Ears, Nose, Throat Exam: normal ENT inspection, pharynx normal, moist mucous membranes Neck Exam: normal inspection, non-tender, supple, full range of motion Respiratory Exam: normal breath sounds, lungs clear, No respiratory distress Cardiovascular Exam: regular rate/rhythm, normal heart sounds Gastrointestinal/Abdomen Exam: soft, No tenderness, No mass Extremity Exam: normal inspection, normal range of motion Back Exam: normal inspection, normal range of motion, No CVA tenderness, No vertebral tenderness Male Genitalia Exam: deferred Rectal Exam: deferred Objective Data Vital Signs: Vital Signs - 24 hr Temp Pulse Resp BP Pulse Ox 02/25/24 11:43 97.6 F 86 17 104/62 96 02/25/24 08:00 99.1 F 115 H 22 115/91 100 02/25/24 07:03 92 H 18 100 02/25/24 04:00 100.2 F 119 H 22 158/84 98 02/25/24 00:00 98.2 F 95 H 20 136/78 99 02/24/24 20:00 98.3 F 102 H 21 154/78 99 02/24/24 18:58 107 H 20 91 L 02/24/24 16:00 98.1 F 86 20 148/37 99 Pain Assessment - Last Documented Pain Intensity 0 Intake and Output: Intake & Output 02/23/24 02/24/24 02/25/24 02/26/24 11:59 11:59 11:59 11:59 Intake Total 1792 2670 1463 Output Total 1 Balance 1792 2669 1463 Weight 57 kg Lab Results: Lab Results-Last 24 Hours 02/25/24 02/25/24 Range/Units 05:05 05:05 WBC 7.9 (4.23-9.07) x10^3/uL RBC 2.53 L (4.63-6.08) x10^6/uL Hgb 8.0 L (13.7-17.5) g/dL Hct 25.6 L (40.1-51.0) % MCV 101.2 H (79.0-92.2) fL MCH 31.6 (25.7-32.2) pg MCHC 31.3 L (32.3-36.5) g/dL RDW 20.1 H (11.6-14.4) % Plt Count 166 (163-337) x10^3/uL MPV 11.6 (9.4-12.4) fL Sodium 140 (135-145) mmol/L Potassium 3.8 (3.5-5.1) mmol/L Chloride 104 (98-107) mmol/L Carbon Dioxide 29 (22-30) mmol/L Anion Gap 11.1 (5-15) MEQ/L BUN 19 (9-20) mg/dL Creatinine 0.90 (0.66-1.25) mg/dL Estimated GFR 93.6 ML/MIN Glucose 89 (74-106) mg/dL Calcium 8.3 L (8.4-10.2) mg/dL Total Bilirubin 0.80 (0.2-1.3) mg/dL AST 24 (17-59) U/L ALT 19 (0-50) U/L Alkaline Phosphatase 91 (38-126) U/L Serum Total Protein 6.0 L (6.3-8.2) g/dL Albumin 2.8 L (3.5-5.0) g/dL Radiology Exams: Radiology Procedures Category Date Time Status CHEST 1 VIEW (PORTABLE) Stat Exams 02/25/24 08:38 Completed CHEST W/WO CONTRAST [CT] Routine Exams 02/25/24 11:10 Ordered Multi-Disciplinary Progress Notes: Multi-Disciplinary Progress Notes 02/25/24 11:06 Respiratory Note by Luz Elena Acosta PATIENT O2 SAT ON 2LPM PER NC AT REST IS 95%. PATIENT TAKEN OFF O2 AND PLACED ON ROOM AIR AT REST. PATIENT'S O2 SAT IS 88% ON ROOM AIR AT REST. PATIENT PLACED BACK ON 2LPM PER NC AND O2 SAT INCREASED TO 93% ON O2 AT 2LPM PER NC AT REST. Initialized on 02/25/24 11:06 - END OF NOTE Assessment/Plan (1) Left upper lobe pneumonia Current Visit: Yes Status: Acute Code(s): J18.9 - PNEUMONIA, UNSPECIFIED ORGANISM (2) Elevated troponin Current Visit: Yes Status: Acute Code(s): R79.89 - OTHER SPECIFIED ABNORMAL FINDINGS OF BLOOD CHEMISTRY (3) Dehydration Current Visit: Yes Status: Acute Code(s): E86.0 - DEHYDRATION (4) ROHIT (acute kidney injury) Current Visit: Yes Status: Acute Code(s): N17.9 - ACUTE KIDNEY FAILURE, UNSPECIFIED (5) Anxiety and depression Current Visit: Yes Status: Chronic Code(s): F41.9 - ANXIETY DISORDER, UNS PECIFIED; F32.A - DEPRESSION, UNSPECIFIED (6) Iron deficiency anemia Current Visit: Yes Status: Chronic Code(s): D50.9 - IRON DEFICIENCY ANEMIA, UNSPECIFIED (7) COPD (chronic obstructive pulmonary disease) Current Visit: Yes Status: Chronic (8) GERD (gastroesophageal reflux disease) Current Visit: Yes Status: Chronic Code(s): K21.9 - GASTRO-ESOPHAGEAL REFLUX DISEASE WITHOUT ESOPHAGITIS (9) Hyperlipidemia Current Visit: Yes Status: Chronic Code(s): E78.5 - HYPERLIPIDEMIA, UNSPECIFIED (10) Tobacco abuse Current Visit: No Status: Chronic Code(s): Z72.0 - TOBACCO USE (11) History of stroke Current Visit: No Status: Chronic Code(s): Z86.73 - PRSNL HX OF TIA (TIA), AND CEREB INFRC W/O RESID DEFICITS (12) Malnutrition Current Visit: No Status: Chronic Onset Date: ~10/18/17 Qualifiers: Malnutrition type: protein-calorie malnutrition Protein-calorie malnutrition severity: moderate Qualified Code(s): E44.0 - Moderate protein- calorie malnutrition Code(s): E46 - UNSPECIFIED PROTEIN-CALORIE MALNUTRITION (13) Hypernatremia Current Visit: Yes Status: Acute Assessment & Plan: (1) Left upper lobe pneumonia Current Visit: Yes Status: Acute Assessment & Plan: - On baseline 3lNC 94% - CXR reviewed- CARL infiltrate - Tele - Flu/COVID/RSV negative - Sputum culture - TB gold labs test pending - BC x2 pending. - WBC 10.3 - CBC reviewed. - Azithromycin and Rocephin started in ER- continue - IVF - CT chest from 07/01/23: IMPRESSION: 1.No evidence of pulmonary embolism. 2.Diffuse emphysematous changes are seen in both lung cobb - stable. 3.Patchy area of subpleural consolidation seen in the right upper lobe - anterior segment. This is a new finding. 4. Stable - soft tissue density nodule in right lower lobe. - Associated weakness- PT eval and treat. - Duonebs Q6 02/23/24 - TB GOLD pending - Continued weakness - 2lNC 99%- BL is 3lNC - BC x2 and sputum culture pending - IV antibiotics - CBC and CMP reviewed - WBC 8.2 02/23 - WBC 10.1 - CBC, CMP reviewed - 2LNC 96% - Continued weakness, up in chair with meals, up with assist - BC x2 negative - sputum sample pending 02/23 - CBC, CMP reviewed - WBC 7.9 - fever last night - CXR reviewed- worse - CT chest pending - TB GOLD pending - antibiotics changed to Zosyn - Repeat BC x2 - sputum sample pending Code(s): J18.9 - PNEUMONIA, UNSPECIFIED ORGANISM (2) Elevated troponin Current Visit: Yes Status: Acute Assessment & Plan: - Trop 0.081, 0.057, 0.32 trended down - Likely demand ischemia 2:2 pneumonia. - Cardiology consulted - note read and agree with plan of care - Tele - EKG Code(s): R79.89 - OTHER SPECIFIED ABNORMAL FINDINGS OF BLOOD CHEMISTRY (3) Dehydration Current Visit: Yes Status: Acute Assessment & Plan: - IVF - CMP reviewed 02/22 - IVF stopped - resolved Code(s): E86.0 - DEHYDRATION (4) ROHIT (acute kidney injury) Current Visit: Yes Status: Acute Assessment & Plan: - Creat 1.68, baseline 0.93 - IV fluids 02/22 - IVF stopped - resolved - ELIZABET not held as ROHIT resolved Code(s): N17.9 - ACUTE KIDNEY FAILURE, UNSPECIFIED (5) Anxiety and depression Current Visit: Yes Status: Chronic Assessment & Plan: -Continue home meds Code(s): F41.9 - ANXIETY DISORDER, UNSPECIFIED; F32.A - DEPRESSION, UNSPECIFIED (6) Iron deficiency anemia Current Visit: Yes Status: Chronic Assessment & Plan: - Continue ferrous sulfate - Hgb 8.1 trend - malnutrition - [employer] Pan [employer] Operator consulted. 02/22 - Hgb 6.5- transfuse 1 unit and recheck - trend H&H 02/23 - Hgb 7.8- trend 02/24 - Hgb 8- trend Code(s): D50.9 - IRON DEFICIENCY ANEMIA, UNSPECIFIED (7) COPD (chronic obstructive pulmonary disease) Current Visit: Yes Status: Chronic Assessment & Plan: - On baseline 3LNC 94% - Not in acute exacerbation 02/22 - on 2lNC 99% 02/23 - On 2LNC 96% 02/24 - 3lNC 100% - CM set up portable O2 at home. (8) GERD (gastroesophageal reflux disease) Current Visit: Yes Status: Chronic Assessment & Plan: - Continue PPI Code(s): K21.9 - GASTRO-ESOPHAGEAL REFLUX DISEASE WITHOUT ESOPHAGITIS (9) Hyperlipidemia Current Visit: Yes Status: Chronic Assessment & Plan: - Continue statin Code(s): E78.5 - HYPERLIPIDEMIA, UNSPECIFIED (10) Tobacco abuse Current Visit: No Status: Chronic Assessment & Plan: - advised cessation - nicotine patch - education provided Code(s): Z72.0 - TOBACCO USE (11) History of stroke Current Visit: No Status: Chronic Assessment & Plan: - noted, adds to complexity Code(s): Z86.73 - PRSNL HX OF TIA (TIA), AND CEREB INFRC W/O RESID DEFICITS (12) Malnutrition Current Visit: No Status: Chronic Onset Date: ~10/18/17 Qualifiers: Malnutrition type: protein-calorie malnutrition Protein-calorie malnutrition severity: moderate Qualified Code(s): E44.0 - Moderate protein- calorie malnutrition Assessment & Plan: - High protein ensure added with each meal - House regular diet - Nutrition consult. - BMI 18.8 Code(s): E46 - UNSPECIFIED PROTEIN-CALORIE MALNUTRITION Code(s): E46 - UNSPECIFIED PROTEIN-CALORIE MALNUTRITION (13) Hypernatremia Current Visit: Yes Status: Acute Assessment & Plan: - Na+147- trend - low sodium, heart healthy diet 02/24 - Na+ 140 today- ok VTE: SCD's d/t anemia PPI: omeprazole Next of KIN: Child- Mike Rivas D/C plan: 1-2 days Code status: Full Code(s): E87.0 - HYPEROSMOLALITY AND HYPERNATREMIA Code(s): E87.0 - HYPEROSMOLALITY AND HYPERNATREMIA
[2024-02-25 21:28] LABS: QuantiFERON-TB Gold Plus Indeterminate (Negative)
[2024-02-26 06:33] LABS: Hematocrit 24.5 % (40.1-51.0); Hemoglobin 7.5 g/dL (13.7-17.5); Mean Cell Volume 103.4 fL (79.0-92.2); Mean Corpuscular Hemoglobin 31.6 pg (25.7-32.2); Mean Corpuscular Hgb Concent. 30.6 g/dL (32.3-36.5); Mean Platelet Volume 11.9 fL (9.4-12.4); Platelet Count 161 x10^3/uL (163-337); Red Blood Count 2.37 x10^6/uL (4.63-6.08); Red Cell Distribution Width 19.3 % (11.6-14.4)
[2024-02-26 06:49] LABS: ALBUMIN 2.7 g/dL (3.5-5.0); ANION GAP 10.5 MEQ/L (5-15); BILIRUBIN,TOTAL 0.7 mg/dL (0.2-1.3); Creatinine 1 0.96 mg/dL (0.66-1.25); EST GLOMERULAR FILTRATION RATE 86.6 ML/MIN; Potassium 3.5 mmol/L (3.5-5.1); Total Protein 5.7 g/dL (6.3-8.2)
--- NOTE | 2024-02-26 09:52 | XRAY ---
CLINICAL HISTORY: increased SOB, worsening CXR COMPARISON: Prior CT dated 07/01/2023. TECHNIQUE: Contiguous axial CT images of the chest were acquired with and without administration of intravenous contrast. Coronal and sagittal reconstructions were obtained. One of the following dose reduction techniques were utilized for this exam: Automated exposure control, adjustment of the mA and/or kV according to patient size, and use of iterative reconstruction. FINDINGS: Lungs: Thin-walled cavity with air-fluid level and few septations within in apex of the left lung. Mild contrast enhancement of the peripheral wall. It measures 5.0 x 4.0 x 3.5 cm in size. Bronchiolactatic changes and reticular thickening in apicoposterior segment of the left upper lobe. Marked emphysematous changes in bilateral lungs. Few atelectatic bands are scattered in bilateral lungs. Mild bilateral hydropneumothorax. Bilateral mild pleural effusion. Mediastinum: No mediastinal mass or abnormal lymphadenopathy. Normal appearance of the thymus. Hilar Structures: Normal size and configuration, no enlargement. Heart and Great Vessels: Normal heart size and configuration. No pericardial effusion. Atherosclerotic wall calcifications in the aorta and its branches. Coronary artery disease. Pulmonary Arteries: No evidence of pulmonary embolism. Normal size and course of the pulmonary arteries. Bones: Compression deformity in T5 and T9 vertebral bodies. Spondylotic changes in the thoracic spine. Normal bone density and alignment. No evidence of rib fractures. Chest Wall: No masses or soft tissue abnormalities. Upper Abdomen: Visualized portions of the liver, spleen, pancreas, adrenal glands, and kidneys are normal. No abnormalities were noted in the visualized upper abdominal organs. Mixed-density plaques in the abdominal aorta causing mild stenosis (20-30%). Thyroid: Normal size and morphology. No nodules or masses. Esophagus: Normal course and caliber. No masses or dilatation. IMPRESSION: 1. Thin-walled cavity with air-fluid level and peripheral wall enhancement in the apex of left lung likely abscess. New finding 2. Bronchiolactatic changes and reticular thickening in apicoposterior segment of the left upper lobe. New finding 3. Mild bilateral hydropneumothorax. New finding 4. Emphysematous changes and atelectatic bands in bilateral lungs. Stable 5. Bilateral mild pleural effusion. [facility] was called on at 8:30 AM BACK HOE OPERATOR, 02/26/2024, and results were verbally communicated to Sary (Nurse). Electronically Signed by: Jasmine Hernandez MD. (02/26/2024 09:48:01 EDT)
[2024-02-26] MEDS: Lasix 20 MG/2 ML IV ONE (10:10)
[2024-02-26] MEDS: Aplisol ID ONE (11:19)
--- NOTE | 2024-02-26 12:55 | PCM.DS ---
Discharge Summary Date of Admission: 02/24/24 11:53 Date of Discharge: 02/26/24 Admitting Physician: MANUELA GONZALEZ MD Consults: Consults on Case 02/22/24 16:14 Nutritional Consult ROUTINE 02/22/24 16:36 Consult Cardiology ROUTINE Primary Care Provider: RAO LIEBERMAN Allergies Allergies No Known Drug Allergies Allergy (Verified 02/22/24 11:15) Hospital Summary - Hospital Course Hospital Course: 02/22/24 is a 68 year old male with PMHX of COPD on 3 L nasal cannula 24 hours /day, daily smoker, HTN, hyperlipidemia, GERD and anxiety. He presented to our ED today for chest pain, cough, shortness of breath, and generalized weakness. Symptoms have been progressive over the past 2 to 3 days. Symptoms are moderate in intensity. SOB worsening with exertion, resting improving sxs. Patient is resting comfortably. He voices no other complaints or concerns at this time. In ER he was found to have CARL pneumonia and started on IV antibiotics. Flu/ COVID/RSV negative. Trop X1 elevated at 0.081, will continue to trend. Creat 1.68, + ROHIT- continue IVF. Pt deneis CP, Abd pain, N/V/D. 02/23/24 Pt resting in bed. He continues to c/o weakness. Hgb 6.5 and 1 unit of PRBC ordered today. He denies dark or bloody stools, or vomiting blood. Occult stool ordered. ROHIT resolved, IVF stopped. Sputum and BC x2 pending. He is on 2L 99% Continue IV antibiotics for Pneumonia. Quantiferon - TB Gold pending to r/o TB. Pt in isolation for this. He denies any further concerns at this time. 02/24/24 Pt resting in bed. Encouraged pt to get up with staff today and sit in chair for meals. PT was unable to work with pt yesterday and he is in isolation. TB Gold test pending. He states he is feeling better but weak. Continue IV antibiotics for pneumonia. He is currently on 2lNC 96%, 3lNC is Baseline O2. Na+ 147, placed on low sodium heart healthy diet. BCx2 negative. Sputum culture pending. After 1 unit of PRBC yesterday hgb 7.8. He denies CP, abd. pain, N/V/D. 02/25/24 Pt resting in bed. He states he does not feel well today. He became confused last night and started waling in the hallway. Per daught er he gets this way sometimes at home but can worsen in the hospital. He also developed nausea and a fever of 100.2 @ 0400, and 99.1 at 0800 today. Repeat BCx2 ordered. Antibiotics changed to Zosyn. CXR worse and CT chest ordered. This cannot be done until 5pm today as he is in isolation for possible TB. Hgb 8.0 after 1 unit PRBC gave yesterday. BC x2 negative. Sputum culture pending. WBC 7.9. He admits to continued SOB and is on 3lNC 100%. Case management has set up portable oxygen for home use. He denies CP, abd. pain, V/D. 02/26/24 Pt resting in bed. TB gold test came back inclusive. Sputum Acid fast smear with culture as well as TB skin test ordered. Pt refused to have CT chest last night, so it was completed today, as he was agreeable. After reviewing results he appears to have a cavitary lesion and will need further workup by infectious disease for TB, and Pulmonology. Will transfer pt to a higher level of care. We currently do not have pulmonology as he is out until next . Pt remains on 3lNC at 98%. He denies CP, abd. pain, N/V/D. - Vitals & Intake/Output Vital Signs: Vital Signs Temperature 98.6 F 02/26/24 07:38 Pulse Rate 93 H 02/26/24 07:38 Respiratory Rate 17 02/26/24 07:38 Blood Pressure 122/64 02/26/24 07:38 O2 Sat by Pulse Oximetry 98 02/26/24 07:38 Intake & Output: Intake & Output 02/24/24 02/25/24 02/26/24 02/27/24 11:59 11:59 11:59 11:59 Intake Total 2670 1463 739 Output Total 1 150 Balance 2669 1463 589 - Lab Result Diagrams: 02/26/24 05:55 02/26/24 05:55 Lab Results-Last 24 Hrs: Lab Results-Last 24 Hours 02/22/24 02/25/24 02/26/24 Range/Units 21:35 20:56 05:55 WBC 8.0 (4.23-9.07) x10^3/uL RBC 2.37 L (4.63-6.08) x10^6/uL Hgb 7.5 L (13.7-17.5) g/dL Hct 24.5 L (40.1-51.0) % MCV 103.4 H (79.0-92.2) fL MCH 31.6 (25.7-32.2) pg MCHC 30.6 L (32.3-36.5) g/dL RDW 19.3 H (11.6-14.4) % Plt Count 161 L (163-337) x10^3/uL MPV 11.9 (9.4-12.4) fL Sodium (135-145) mmol/L Potassium (3.5-5.1) mmol/L Chloride (98-107) mmol/L Carbon Dioxide (22-30) mmol/L Anion Gap (5-15) MEQ/L BUN (9-20) mg/dL Creatinine (0.66-1.25) mg/dL Estimated GFR ML/MIN Glucose (74-106) mg/dL POC Glucometer 92 (74 to 106) mg/dL Calcium (8.4-10.2) mg/dL Total Bilirubin (0.2-1.3) mg/dL AST (17-59) U/L ALT (0-50) U/L Alkaline Phosphatase (38-126) U/L Serum Total Protein (6.3-8.2) g/dL Albumin (3.5-5.0) g/dL TB (QFT) Incubation TB Test (QFT) Nil 0.01 (.) IU/mL TB Test (QFT) Mitogen 0.36 (.) IU/mL TB Test (QFT) Ag 1 0.02 (.) IU/mL TB Test (QFT) Ag 2 0.02 (.) IU/mL TB Test (QFT) Indeterminate H (Negative) TB Test (QFT) Criteria Comment (.) 02/26/24 Range/Units 05:55 WBC (4.23-9.07) x10^3/uL RBC (4.63-6.08) x10^6/uL Hgb (13.7-17.5) g/dL Hct (40.1-51.0) % MCV (79.0-92.2) fL MCH (25.7-32.2) pg MCHC (32.3-36.5) g/dL RDW (11.6-14.4) % Plt Count (163-337) x10^3/uL MPV (9.4-12.4) fL Sodium 141 (135-145) mmol/L Potassium 3.5 (3.5-5.1) mmol/L Chloride 104 (98-107) mmol/L Carbon Dioxide 29 (22-30) mmol/L Anion Gap 10.5 (5-15) MEQ/L BUN 16 (9-20) mg/dL Creatinine 0.96 (0.66-1.25) mg/dL Estimated GFR 86.6 ML/MIN Glucose 99 (74-106) mg/dL POC Glucometer (74 to 106) mg/dL Calcium 8.0 L (8.4-10.2) mg/dL Total Bilirubin 0.70 (0.2-1.3) mg/dL AST 22 (17-59) U/L ALT 17 (0-50) U/L Alkaline Phosphatase 91 (38-126) U/L Serum Total Protein 5.7 L (6.3-8.2) g/dL Albumin 2.7 L (3.5-5.0) g/dL TB (QFT) Incubation TB Test (QFT) Nil (.) IU/mL TB Test (QFT) Mitogen (.) IU/mL TB Test (QFT) Ag 1 (.) IU/mL TB Test (QFT) Ag 2 (.) IU/mL TB Test (QFT) (Negative) TB Test (QFT) Criteria (.) Micro Results-Entire Visit: Microbiology 02/26/24 Unknown Acid Fast Bacilli (AFB) Probe - Final Sputum - Expectorant Not Reportable M.tuberculosis Complex DNA Probe - Final Not Reportable Mycobact. avium Complex DNA Probe - Final Not Reportable Mycobacterium kansasii DNA Probe - Final Not Reportable Mycobacterium gordanae DNA Probe - Final Not Reportable Mycobacterium DNA Probe - Final Not Reportable Organism ID (Sequencing) - Final Not Reportable Organism ID (Sequencing 2)(LASHAWN) - Final Not Reportable AFB Susceptibility Testing - Final Not Reportable 02/25/24 09:00 Blood Culture - Preliminary Blood 02/22/24 11:54 Blood Culture - Preliminary Blood 02/22/24 11:45 Blood Culture - Preliminary Blood - Radiology Exams Ordered Rad Exams-Entire Visit: Radiology Procedures Category Date Time Status CHEST 1 VIEW (PORTABLE) Stat Exams 02/25/24 08:38 Completed CHEST W/WO CONTRAST [CT] Routine Exams 02/26/24 11:10 Completed - Procedures and Test Procedures and Tests throughout Hospitalization: Therapy Orders & Screens 02/22/24 16:18 Oxygen Nasal Cannula 3 lpm Comment: Diagnosis: pneumonia, dehydration 02/22/24 16:39 PT Eval & Treat (MD Order) ONCE Reason for Eval:: SOB, weakness Diagnosis: pneumonia, dehydration 02/22/24 17:34 OT Screen per Nursing Assess ONCE Comment: Protocol Order Physician Instructions: Greater than 3 points order OT Admission Screening Reason For Exam: Triggered on Admission Diagnosis: pneumonia, dehydration Open Wound/Cellutlitis/Pressure Ulcers: No Acute Fx/ORIF/Change in wt bearing status: No Severe MUSCULOSKELETAL pain: No ADL Dysfunction: Yes Acute CVA w/Hemiparesis/Hemiplegia: No Decreased Functional Mobility/Strength: Yes Sprain/Strain: No Acute Post-op Mobility Dysfunction: No Total Points: 4 PT Screen per Nursing Assess ONCE Comment: Protocol Order Physician Instructions: Greater than 3 points order PT Admission Screenin Reason For Exam: Triggered on Admission Diagnosis: pneumonia, dehydration Open Wound/Cellutlitis/Pressure Ulcers: No Acute Fx/ORIF/Change in wt bearing status: No Severe MUSCULOSKELETAL pain: No ADL Dysfunction: Yes Acute CVA w/Hemiparesis/Hemiplegia: No Decreased Functional Mobility/Strength: Yes Sprain/Strain: No Acute Post-op Mobility Dysfunction: No Total Points: 4 RT Screen per Nursing Assess ONCE Comment: Protocol Order Physician Instructions: Greater than 3 points order RT Admission Screen Reason For Exam: Triggered on Admission Diagnosis: pneumonia, dehydration Diagnosis: pneumonia, dehydration Pneumonia: Yes Home O2: Yes Asthma: No CHF: No Home CPAP/BIPAP: No Home Nebs/MDI: Yes Total Points: 13 Smoking Cessation Education ONCE Comment: Diagnosis: pneumonia, dehydration Smoking Status: Current every day smoker How long have you smoked: "50 years" Have you smoked in the past 12 months: Yes Approximately how many cigarettes per day: 20 Do you dip or chew tobacco: No If,Former Smoker,when did you quit: 2016 ST Screen per Nursing Assess ONCE Comment: Protocol Order Physician Instructions: Greater than [address] Admission Screening Reason For Exam: Triggered on Admission Diagnosis: pneumonia, dehydration CVA/Dyshpagia/Aphasia: No Cognitive Deficits: No Dehydration/Nutrition Deficit: Yes Reflux: No Oral-Motor Difficulties: No Pneumonia: Yes Long-Term Resident: No Total Points: 10 02/22/24 17:53 Respiratory Therapy Assessment DAILY Comment: Diagnosis: pneumonia, dehydration Discharge Exam General Appearance: no apparent distress, alert Neurologic Exam: alert, oriented x 3, cooperative, normal mood/affect, nml cerebellar function, sensation nml, motor weakness, No motor deficits Eye Exam: PERRL, EOMI, eyes nml inspection Ears, Nose, Throat Exam: normal ENT inspection, pharynx normal, moist mucous membranes Neck Exam: normal inspection, non-tender, supple, full range of motion Respiratory Exam: normal breath sounds, wheezing, No respiratory distress Cardiovascular Exam: regular rate/rhythm, normal heart sounds Gastrointestinal/Abdomen Exam: soft, No tenderness, No mass Male Genitalia Exam: deferred Rectal Exam: deferred Back Exam: normal inspection, normal range of motion, No CVA tenderness, No vertebral tenderness Extremity Exam: normal inspection, normal range of motion Skin Exam: warm, dry, pale Final Diagnosis/Problem List - Final Discharge Diagnosis/Problem (1) Left upper lobe pneumonia Current Visit: Yes Status: Acute Code(s): J18.9 - PNEUMONIA, UNSPECIFIED ORGANISM (2) Elevated troponin Current Visit: Yes Status: Acute Code(s): R79.89 - OTHER SPECIFIED ABNORMAL FINDINGS OF BLOOD CHEMISTRY (3) Dehydration Current Visit: Yes Status: Acute Code(s): E86.0 - DEHYDRATION (4) ROHIT (acute kidney injury) Current Visit: Yes Status: Acute Code(s): N17.9 - ACUTE KIDNEY FAILURE, UNSPECIFIED (5) Anxiety and depression Current Visit: Yes Status: Chronic Code(s): F41.9 - ANXIETY DISORDER, UNSPECIFIED; F32.A - DEPRESSION, UNSPECIFIED (6) Iron deficiency anemia Current Visit: Yes Status: Chronic Code(s): D50.9 - IRON DEFICIENCY ANEMIA, UNSPECIFIED (7) COPD (chronic obstructive pulmonary disease) Current Visit: Yes Status: Chronic (8) GERD (gastroesophageal reflux disease) Current Visit: Yes Status: Chronic Code(s): K21.9 - GASTRO-ESOPHAGEAL REFLUX DISEASE WITHOUT ESOPHAGITIS (9) Hyperlipidemia Current Visit: Yes Status: Chronic Code(s): E78.5 - HYPERLIPIDEMIA, UNSPECIFIED (10) Tobacco abuse Current Visit: No Status: Chronic Code(s): Z72.0 - TOBACCO USE (11) History of stroke Current Visit: No Status: Chronic Code(s): Z86.73 - PRSNL HX OF TIA (TIA), AND CEREB INFRC W/O RESID DEFICITS (12) Malnutrition Current Visit: No Status: Chronic Onset Date: ~10/18/17 Code(s): E46 - UNSPECIFIED PROTEIN-CALORIE MALNUTRITION (13) Hypernatremia Current Visit: Yes Status: Acute Assessment & Plan: (1) Left upper lobe pneumonia Current Visit: Yes Status: Acute Assessment & Plan: - On baseline 3lNC 94% - CXR reviewed- CARL infiltrate - Tele - Flu/COVID/RSV negative - Sputum culture - TB gold labs test pending - BC x2 pending. - WBC 10.3 - CBC reviewed. - Azithromycin and Rocephin started in ER- continue - IVF - CT chest from 07/01/23: IMPRESSION: 1.No evidence of pulmonary embolism. 2.Diffuse emphysematous changes are seen in both lung cobb - stable. 3.Patchy area of subpleural consolidation seen in the right upper lobe - anterior segment. This is a new finding. 4. Stable - soft tissue density nodule in right lower lobe. - Associated weakness- PT eval and treat. - Duonebs Q6 02/23/24 - TB GOLD pending - Continued weakness - 2lNC 99%- BL is 3lNC - BC x2 and sputum culture pending - IV antibiotics - CBC and CMP reviewed - WBC 8.2 02/23 - WBC 10.1 - CBC, CMP reviewed - 2LNC 96% - Continued weakness, up in chair with meals, up with assist - BC x2 negative - sputum sample pending 02/23 - CBC, CMP reviewed - WBC 7.9 - fever last night - CXR reviewed- worse - CT chest pending - TB GOLD pending - antibiotics changed to Zosyn - Repeat BC x2 - sputum sample pending 02/24 - TB Gold test inconclusive - Acid fast sputum with culture and TB skin test - repeat BC x1 negative, 1 pending - CBC, CMP reviewed - Temp 99.9 last night - tx ot higher level of care after reviewing CT results Code(s): J18.9 - PNEUMONIA, UNSPECIFIED ORGANISM (2) Elevated troponin Current Visit: Yes Status: Acute Assessment & Plan: - Trop 0.081, 0.057, 0.32 trended down - Likely demand ischemia 2:2 pneumonia. - Cardiology consulted - note read and agree with plan of care - Tele - EKG Code(s): R79.89 - OTHER SPECIFIED ABNORMAL FINDINGS OF BLOOD CHEMISTRY (3) Dehydration Current Visit: Yes Status: Acute Assessment & Plan: - IVF - CMP reviewed 02/22 - IVF stopped - resolved Code(s): E86.0 - DEHYDRATION (4) ROHIT (acute kidney injury) Current Visit: Yes Status: Acute Assessment & Plan: - Creat 1.68, baseline 0.93 - IV fluids 02/22 - IVF stopped - resolved - ELIZABET not held as ROHIT resolved Code(s): N17.9 - ACUTE KIDNEY FAILURE, UNSPECIFIED (5) Anxiety and depression Current Visit: Yes Status: Chronic Assessment & Plan: -Continue home meds Code(s): F41.9 - ANXIETY DISORDER, UNSPECIFIED; F32.A - DEPRESSION, UNSPECIFIED (6) Iron deficiency anemia Current Visit: Yes Status: Chronic Assessment & Plan: - Continue ferrous sulfate - Hgb 8.1 trend - malnutrition - Vehicle Body Sander consulted. 02/22 - Hgb 6.5- transfuse 1 unit and recheck - trend H&H 02/23 - Hgb 7.8- trend 02/24 - Hgb 8- trend 02/25 - Hgb 7.5 Code(s): D50.9 - IRON DEFICIENCY ANEMIA, UNSPECIFIED (7) COPD (chronic obstructive pulmonary disease) Current Visit: Yes Status: Chronic Assessment & Plan: - On baseline 3LNC 94% - Not in acute exacerbation 02/22 - on 2lNC 99% 02/23 - On 2LNC 96% 02/24 - 3lNC 100% - CM set up portable O2 at home. (8) GERD (gastroesophageal reflux disease) Current Visit: Yes Status: Chronic Assessment & Plan: - Continue PPI Code(s): K21.9 - GASTRO-ESOPHAGEAL REFLUX DISEASE WITHOUT ESOPHAGITIS (9) Hyperlipidemia Current Visit: Yes Status: Chronic Assessment & Plan: - Continue statin Code(s): E78.5 - HYPERLIPIDEMIA, UNSPECIFIED (10) Tobacco abuse Current Visit: No Status: Chronic Assessment & Plan: - advised cessation - nicotine patch - education provided Code(s): Z72.0 - TOBACCO USE (11) History of stroke Current Visit: No Status: Chronic Assessment & Plan: - noted, adds to complexity Code(s): Z86.73 - PRSNL HX OF TIA (TIA), AND CEREB INFRC W/O RESID DEFICITS (12) Malnutrition Current Visit: No Status: Chronic Onset Date: ~10/18/17 Qualifiers: Malnutrition type: protein-calorie malnutrition Protein-calorie malnutrition severity: moderate Qualified Code(s): E44.0 - Moderate protein- calorie malnutrition Assessment & Plan: - High protein ensure added with each meal - House regular diet - Nutrition consult. - BMI 18.8 Code(s): E46 - UNSPECIFIED PROTEIN-CALORIE MALNUTRITION Code(s): E46 - UNSPECIFIED PROTEIN-CALORIE MALNUTRITION (13) Hypernatremia Current Visit: Yes Status: Acute Assessment & Plan: - Na+147- trend - low sodium, heart healthy diet 02/24 - Na+ 140 today- ok- resolved Code(s): E87.0 - HYPEROSMOLALITY AND HYPERNATREMIA Code(s): E87.0 - HYPEROSMOLALITY AND HYPERNATREMIA - Discharge Discharge Date: 02/26/24 Disposition: DC TO [facility] Condition: Stable Prescriptions: Continue ALPRAZolam [Xanax 0.5 mg] 0.5 mg PO BID Bupropion HCl 150 mg Sr [Wellbutrin SR 150 MG] 150 mg PO BID #60 tablet.sa Atorvastatin Calcium [Lipitor] 80 mg PO HS Omeprazole 40 mg PO DAILY Folic Acid 1 mg [Folate 1 mg] 1 mg PO DAILY Carvedilol [Coreg ] 6.25 mg PO BID #60 tablet Lisinopril 20 mg [Zestril 20 MG] 20 mg PO DAILY Potassium Chloride Tab* [Klor Con] 10 meq PO DAILY Ferrous Sulfate 325 mg [Feosol 325 mg] 1 tab PO BID Budesonide [Pulmicort] 1 mg IH DAILY Albuterol 2.5 mg/3 ml Neb [Proventil 2.5 mg/3 ml Neb] 2.5 mg IH TIDPRN Docusate Sodium 100 mg PO BID Additional Instructions: WEAR 2L/NC WHILE AWAKE THEN 3L/NC WHILE SLEEPING [facility] SHOULD CONTACT YOU TO DELIVER MORE PORTABLE TANKS FOR WHEN PATIENT NEEDS TO LEAVE THE HOUSE. [facility] THEY WILL CALL TO ARRANGE A TIME TO COME SEE YOU. THEIR PHONE NUMBER IS [phone] IF YOU NEED TO REACH THEM Follow up with: RAO LIEBERMAN MD [Primary Care Provider] -
[2024-02-26 15:30] VITALS: BP 121/48; PULSE 85; RESP 19; TEMP 99.5; O2SAT 99
== END 2024-02-26 17:25 | disposition home or self-care (01) | DRG 194 ==
LOC: ED 11:03 → EEVIPCON 11:03 → MED SURG 15:56 → UNDOADMOB 15:56 → OBSVTOIN 02-24 11:53 → MED SURG 02-24 15:40 → UNDOADMOB 02-24 15:56 → MED SURG 02-24 19:52 → OBSVTOIN 02-25 11:53 → INTOOBSV 02-25 11:53
PROVIDERS: ADMIT Internal Medicine; ATTEND Internal Medicine
DX: J18.9 Pneumonia, unspecified organism (principal); E44.0 Moderate protein-calorie malnutrition; N17.9 Acute kidney failure, unspecified; E87.0 Hyperosmolality and hypernatremia; R79.89 Other specified abnormal findings of blood chemistry; E86.0 Dehydration; F41.9 Anxiety disorder, unspecified; F32.A Depression, unspecified; D50.9 Iron deficiency anemia, unspecified; J44.9 Chronic obstructive pulmonary disease, unspecified; K21.9 Gastro-esophageal reflux disease without esophagitis; E78.5 Hyperlipidemia, unspecified; Z86.73 Personal history of transient ischemic attack (TIA), and cerebral infarction without residual deficits; F17.200 Nicotine dependence, unspecified, uncomplicated; I10 Essential (primary) hypertension; Z79.899 Other long term (current) drug therapy; Z99.81 Dependence on supplemental oxygen
CPT/HCPCS: 0241U; 36415; 36430; 71045; 71270; 80053; 81001; 82947; 84134; 84484; 85014; 85018; 85025; 85027; 86480; 86850; 86900; 86901; 86922; 87040; 93005; 93041; 93268; 94640; 94760; 94762; 96365; 97110; 97161; 97530; 99285; G0328; G0378; P9016; Q3014; 82274; J0456; J0696; J1940; J2405; A9270-GY

== ENCOUNTER 2024-03-06 19:54 | Observation (INO) | payer MEDICARE, OTHER ==
--- NOTE | 2024-03-06 20:22 | ERPHSYRPT ---
- History of Present Illness Time Seen by Provider: 03/06/24 20:15 Source: patient Exam Limitations: no limitations Patient Subjective Stated Complaint: weakness Triage Nursing Assessment: Pt brought in by ambulance. Pt c/o weakness which occured several hours ago. Pt has been treated recently for pneumonia. Pt is alert and oriented x3. Lung cobb diminished throughout ant and post, not hearing alot of air movement. Pt c/o non-prod cough. Pt wears 3L n/c at home aat. Pt denies any chest pain or sob. Pt denies any pain. Pt is answering all questions appropriately. Pt is afebrile. Pt was recently tested for TB, and we were informed by family/EMS that 3 tests came back negative for TB at [facility]. Physician History: 68yo f presents via EMS for generalized weakness. Pt reports he has had progress ively worsening weakness in the LEs for the past 4-5 months. Pt was recently treated for pneumonia, was hospitalized for several days, is currently completing a course of amoxicillin. Pt reports his respiratory status has improved significantly over when the pneumonia started. Pt reports he is having difficulties walking around his house, states his legs are starting to give out on him and is afraid he is going to fall. Pt reports hx of arthritis in both knees. Pt also endorses hx of brain aneurysm. Timing/Duration: other (worsening for 4-5 mos) Severity: moderate Associated Symptoms: weakness, No nausea, No vomiting, No abdominal pain, No shortness of breath, No diaphoresis, No cough, No chills, No chest pain, No fever, No headaches, No syncope, No seizure Allergies/Adverse Reactions: No Known Drug Allergies Allergy (Verified 03/06/24 20:07) Home Medications: ALPRAZolam [Xanax 0.5 mg] 0.5 mg PO BID 08/02/14 [History] Atorvastatin Calcium [Lipitor] 80 mg PO HS 06/20/15 [History] Folic Acid 1 mg [Folate 1 mg] 1 mg PO DAILY 08/23/18 [History] Omeprazole 40 mg PO DAILY 08/23/18 [History] Lisinopril 20 mg [Zestril 20 MG] 20 mg PO DAILY 09/02/18 [History] Ferrous Sulfate 325 mg [Feosol 325 mg] 1 tab PO DAILY 05/16/23 [History] Albuterol 2.5 mg/3 ml Neb [Proventil 2.5 mg/3 ml Neb] 2.5 mg IH TIDPRN 07/13/23 [History] Budesonide [Pulmicort] 1 mg IH DAILY 07/13/23 [History] Docusate Sodium 100 mg PO DAILY 07/13/23 [History] Nicotine 21 mg [Nicoderm CQ 21 MG] 1 patch DAILY 03/06/24 [History] Hx Tetanus, Diphtheria Vaccination/Date Given: Yes Hx Influenza Vaccination/Date Given: Yes Hx Pneumococcal Vaccination/Date Given: No Travel Risk - International Travel Have you traveled outside of the country in past 3 weeks: No - Emerging Infectious Disease Are you exhibiting symptoms associated with any current EIDs: No - Review of Systems Constitutional: Fatigue, Weakness, No Fever, No Chills Respiratory: No Symptoms Cardiac: No Symptoms Abdominal/Gastrointestinal: No Symptoms Musculoskeletal: No Symptoms Neurological: No Dizziness, No Paralysis, No Parasthesia, No Sensory Changes, No Speech Changes - Past Medical History Pertinent Past Medical History: Yes Neurological History: TIA, Other ENT History: Cataracts Cardiac History: Hypertension Respiratory History: COPD, Emphysema Endocrine Medical History: No Pertinent History Musculoskeletal History: No Pertinent History GI Medical History: GERD History: Renal Disease Psycho-Social History: Anxiety, Depression Male Reproductive Disorders: No Pertinent History Other Medical History: BRAIN anyerusm, Pt uses O2 at home at 2L - Past Surgical History Past Surgical History: Yes Neuro Surgical History: Neurological Surgery, Other Cardiac: No Pertinent History Respiratory: No Pertinent History Gastrointestinal: No Pertinent History Genitourinary: No Pertinent History Musculoskeletal: No Pertinent History Male Surgical History: No Pertinent History Other Surgical History: Brain aneurism, 2 clips in brain 2006 or 2007, CATARACT SURGERY X 3, esophagus stretched Significant Family History: no pertinent family hx - Social History Smoking Status: Current every day smoker How long have you smoked: 45 yrs Exposure to second hand smoke: No Drug Use: none Patient Lives Alone: No - Social Determinants of Health Will the patient participate in the screening: Declined to provide - Nursing Vital Signs Nursing Vital Signs: Initial Vital Signs Temperature 97.6 F 03/06/24 19:55 Pulse Rate 88 03/06/24 19:55 Respiratory Rate 24 03/06/24 19:55 Blood Pressure 99/62 03/06/24 19:55 O2 Sat by Pulse Oximetry 98 03/06/24 19:55 Pain Scale Pain Intensity 0 - Physical Exam General Appearance: no apparent distress, alert Respiratory Exam: normal breath sounds, lungs clear, airway intact, No chest tenderness, No respiratory distress Cardiovascular Exam: regular rate/rhythm, normal heart sounds, normal peripheral pulses Gastrointestinal/Abdomen Exam: soft, No tenderness, No distention Neurologic Exam: alert, oriented x 3, cooperative, felt hat pouncing operator hand II-XII nml as tested, normal mood/affect, sensation nml, No motor deficits, No sensory deficit, No confusion, No agitation SpO2 Interpretation: normal SpO2: 98 O2 Delivery: Room Air - Course EKG Interpreted by Me: RATE (85), Sinus Rhythm, prolonged QT interval, Non- specific ST Changes (not suggestive of acute ischemia, ), Other (qtcb [id number]) Ordered Tests: Active Orders 24 hr Category Date Time Status EKG-ER Only STAT Care 03/06/24 20:18 Active IV Insertion-2nd Peripheral STAT Care 03/06/24 21:53 Active HEAD WITHOUT CONTRAST [CT] Stat Exams 03/06/24 20:31 Taken BLOOD CULTURE Stat Lab 03/06/24 20:25 Received CBC W DIFF Stat Lab 03/06/24 20:20 Completed CK-Creatinine Phosphokinase Stat Lab 03/06/24 20:20 Completed CMP Stat Lab 03/06/24 20:20 Completed Lactic Acid Stat Lab 03/06/24 20:18 Completed NT PRO BNPII Stat Lab 03/06/24 20:20 Completed TROPONIN Q4H Lab 03/06/24 20:20 Completed TROPONIN Q4H Lab 03/07/24 00:30 Ordered TROPONIN Q4H Lab 03/07/24 04:30 Ordered TSH [TSH, 3RD Generation] Stat Lab 03/06/24 20:20 Completed UA W/RFX UR CULTURE Stat Lab 03/06/24 20:19 Ordered Vitamin B12 Stat Lab 03/06/24 20:20 Completed Medication Summary Generic Name Dose Route Start Last Admin Trade Name Freq PRN Reason Stop Dose Admin Sodium Chloride 500 mls @ 100 mls/hr 03/06/24 20:30 03/06/24 20:30 Sodium Chloride 0.9% 500 Ml IV 04/05/24 20:29 100 mls/hr .Q5H DONALDO Administration Lab/Rad Data: Laboratory Result Diagrams 03/06/24 20:20 03/06/24 20:20 Laboratory Results 03/06/24 03/06/24 03/06/24 Range/Units 21:00 20:25 20:20 WBC (4.23-9.07) x10^3/uL RBC (4.63-6.08) x10^6/uL Hgb (13.7-17.5) g/dL Hct (40.1-51.0) % MCV (79.0-92.2) fL MCH (25.7-32.2) pg MCHC (32.3-36.5) g/dL RDW (11.6-14.4) % Plt Count (163-337) x10^3/uL MPV (9.4-12.4) fL Gran % (34.0-67.9) % Immature Gran % (Auto) (0.001-0.429) % Nucleat RBC Rel Count (0.00-0.2) % Eos # (Auto) (0.04-0.54) x10^3/uL Immature Gran # (Auto) (0.001-0.031) x10^3u/L Absolute Lymphs (auto) (1.32-3.57) x10^3/uL Absolute Monos (auto) (0.30-0.82) x10^3/uL Absolute Nucleated RBC (0.00-0.012) x10^3u/L Lymphocytes % (21.8-53.1) % Monocytes % (5.3-12.2) % Eosinophils % (0.8-7.0) % Basophils % (0.2-1.2) % Absolute Granulocytes (1.78-5.38) x10^3/uL Basophils # (0.01-0.08) x10^3/uL Sodium (135-145) mmol/L Potassium (3.5-5.1) mmol/L Chloride (98-107) mmol/L Carbon Dioxide (22-30) mmol/L Anion Gap (5-15) MEQ/L BUN (9-20) mg/dL Creatinine (0.66-1.25) mg/dL Estimated GFR ML/MIN Glucose (74-106) mg/dL Lactic Acid (0.4-2.0) Calcium (8.4-10.2) mg/dL Total Bilirubin (0.2-1.3) mg/dL AST (17-59) U/L ALT (0-50) U/L Alkaline Phosphatase (38-126) U/L Creatine Kinase (55-170) U/L Troponin I (0.000-0.033) ng/mL NT-Pro-B Natriuret Pep (<300) pg/mL Serum Total Protein (6.3-8.2) g/dL Albumin (3.5-5.0) g/dL Vitamin B12 (239-931) pg/mL TSH 3rd Generation 2.576 (0.470-4.680) mIU/L Influenza Type A Ag NEGATIVE (NEGATIVE) Influenza Type B Ag NEGATIVE (NEGATIVE) RSV (PCR) NEGATIVE (NEGATIVE) SARS-CoV-2 (PCR) NEGATIVE (NEGATIVE) Slides for Path Review ABO Group A Rh Factor POSITIVE Antibody Screen NEGATIVE (NEGATIVE) Crossmatch COMPATIBLE (COMPATIBLE) 03/06/24 03/06/24 03/06/24 Range/Units 20:20 20:20 20:20 WBC (4.23-9.07) x10^3/uL RBC (4.63-6.08) x10^6/uL Hgb (13.7-17.5) g/dL Hct (40.1-51.0) % MCV (79.0-92.2) fL MCH (25.7-32.2) pg MCHC (32.3-36.5) g/dL RDW (11.6-14.4) % Plt Count (163-337) x10^3/uL MPV (9.4-12.4) fL Gran % (34.0-67.9) % Immature Gran % (Auto) (0.001-0.429) % Nucleat RBC Rel Count (0.00-0.2) % Eos # (Auto) (0.04-0.54) x10^3/uL Immature Gran # (Auto) (0.001-0.031) x10^3u/L Absolute Lymphs (auto) (1.32-3.57) x10^3/uL Absolute Monos (auto) (0.30-0.82) x10^3/uL Absolute Nucleated RBC (0.00-0.012) x10^3u/L Lymphocytes % (21.8-53.1) % Monocytes % (5.3-12.2) % Eosinophils % (0.8-7.0) % Basophils % (0.2-1.2) % Absolute Granulocytes (1.78-5.38) x10^3/uL Basophils # (0.01-0.08) x10^3/uL Sodium 145 (135-145) mmol/L Potassium 4.1 (3.5-5.1) mmol/L Chloride 111 H (98-107) mmol/L Carbon Dioxide 26 (22-30) mmol/L Anion Gap 12.6 (5-15) MEQ/L BUN 20 (9-20) mg/dL Creatinine 1.42 H (0.66-1.25) mg/dL Estimated GFR 54.2 ML/MIN Glucose 116 H (74-106) mg/dL Lactic Acid (0.4-2.0) Calcium 8.0 L (8.4-10.2) mg/dL Total Bilirubin 0.30 (0.2-1.3) mg/dL AST 29 (17-59) U/L ALT 28 (0-50) U/L Alkaline Phosphatase 84 (38-126) U/L Creatine Kinase 31 L (55-170) U/L Troponin I < 0.012 (0.000-0.033) ng/mL NT-Pro-B Natriuret Pep 603 (<300) pg/mL Serum Total Protein 6.1 L (6.3-8.2) g/dL Albumin 2.6 L (3.5-5.0) g/dL Vitamin B12 550 (239-931) pg/mL TSH 3rd Generation (0.470-4.680) mIU/L Influenza Type A Ag (NEGATIVE) Influenza Type B Ag (NEGATIVE) RSV (PCR) (NEGATIVE) SARS-CoV-2 (PCR) (NEGATIVE) Slides for Path Review ABO Group Rh Factor Antibody Screen (NEGATIVE) Crossmatch (COMPATIBLE) 03/06/24 03/06/24 Range/Units 20:20 20:18 WBC 5.4 (4.23-9.07) x10^3/uL RBC 2.12 L (4.63-6.08) x10^6/uL Hgb 6.6 L* (13.7-17.5) g/dL Hct 22.7 L (40.1-51.0) % MCV 107.1 H (79.0-92.2) fL MCH 31.1 (25.7-32.2) pg MCHC 29.1 L (32.3-36.5) g/dL RDW 19.5 H (11.6-14.4) % Plt Count 306 (163-337) x10^3/uL MPV 11.2 (9.4-12.4) fL Gran % 77.2 H (34.0-67.9) % Immature Gran % (Auto) 0.4 (0.001-0.429) % Nucleat RBC Rel Count 0.0 (0.00-0.2) % Eos # (Auto) 0.01 L (0.04-0.54) x10^3/uL Immature Gran # (Auto) 0.02 (0.001-0.031) x10^3u/L Absolute Lymphs (auto) 0.93 L (1.32-3.57) x10^3/uL Absolute Monos (auto) 0.27 L (0.30-0.82) x10^3/uL Absolute Nucleated RBC 0.00 (0.00-0.012) x10^3u/L Lymphocytes % 17.2 L (21.8-53.1) % Monocytes % 5.0 L (5.3-12.2) % Eosinophils % 0.2 L (0.8-7.0) % Basophils % 0.0 L (0.2-1.2) % Absolute Granulocytes 4.18 (1.78-5.38) x10^3/uL Basophils # 0 L (0.01-0.08) x10^3/uL Sodium (135-145) mmol/L Potassium (3.5-5.1) mmol/L Chloride (98-107) mmol/L Carbon Dioxide (22-30) mmol/L Anion Gap (5-15) MEQ/L BUN (9-20) mg/dL Creatinine (0.66-1.25) mg/dL Estimated GFR ML/MIN Glucose (74-106) mg/dL Lactic Acid 1.4 (0.4-2.0) Calcium (8.4-10.2) mg/dL Total Bilirubin (0.2-1.3) mg/dL AST (17-59) U/L ALT (0-50) U/L Alkaline Phosphatase (38-126) U/L Creatine Kinase (55-170) U/L Troponin I (0.000-0.033) ng/mL NT-Pro-B Natriuret Pep (<300) pg/mL Serum Total Protein (6.3-8.2) g/dL Albumin (3.5-5.0) g/dL Vitamin B12 (239-931) pg/mL TSH 3rd Generation (0.470-4.680) mIU/L Influenza Type A Ag (NEGATIVE) Influenza Type B Ag (NEGATIVE) RSV (PCR) (NEGATIVE) SARS-CoV-2 (PCR) (NEGATIVE) Slides for Path Review YES ABO Group Rh Factor Antibody Screen (NEGATIVE) Crossmatch (COMPATIBLE) - Progress Progress: re-examined Progress Note: 03/06/24 22:06 hgb 6.6 - ordered type and screen and 1u PRBC ekg wnl trop negative wbc 5.4k CT head showed - compared to 04/17/18 - again nonacute senile 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 no new acute findings 22:11 plan for admission to [facility] for anemia and weakness - I discussed pt case w/ Dr Lisa who is willing to accept Discussed with .: Nichole Will see patient in: hospital (observation) Counseled pt/family regarding: lab results, diagnosis, need for follow-up, rad results Medical Desision Making - Diagnostic Testing Diagnostic test were ordered, analyzed, and reviewed by me: Yes Radiological Interpretation: Reviewed by me, Teleradiologist Report - Risk of complications The pt has a high risk of morbidity or mortality based on: Decision regarding hospitilization or escalation of hosp level of care - Departure Departure Disposition: Observation Clinical Impression: Generalized weakness Anemia Qualifiers: Anemia type: other cause Other causes of anemia: other cause, not classified Qualified Code(s): D64.89 - Other specified anemias Condition: Stable Critical Care Time: No Referrals: RAO LIEBERMAN MD [Primary Care Provider] - Follow up/PCP as directed
[2024-03-06] MEDS ORDERED: Sodium Chloride 0.9% 500 ML 500 ML IV ONE (20:29)
[2024-03-06] MEDS: Sodium Chloride 0.9% 500 ML 500 ML IV SCH (20:30)
[2024-03-06 20:45] LABS: Absolute Neutrophil Ct (ANC) 4.18 x10^3/uL (1.78-5.38); Basophil (Absolute #) 0 x10^3/uL (0.01-0.08); Eosinophil % 0.2 % (0.8-7.0); Eosinophil (Absolute #) 0.01 x10^3/uL (0.04-0.54); Hematocrit 22.7 % (40.1-51.0); IMMATURE GRAN # 0.02 x10^3u/L (0.001-0.031); IMMATURE GRAN % 0.4 % (0.001-0.429); Lymphocyte (Absolute #) 0.93 x10^3/uL (1.32-3.57); Lymphocytes % 17.2 % (21.8-53.1); Mean Cell Volume 107.1 fL (79.0-92.2); Mean Corpuscular Hemoglobin 31.1 pg (25.7-32.2); Mean Corpuscular Hgb Concent. 29.1 g/dL (32.3-36.5); Mean Platelet Volume 11.2 fL (9.4-12.4); Monocyte (Absolute #) 0.27 x10^3/uL (0.30-0.82); Neutrophil % 77.2 % (34.0-67.9); Platelet Count 306 x10^3/uL (163-337); Red Blood Count 2.12 x10^6/uL (4.63-6.08); Red Cell Distribution Width 19.5 % (11.6-14.4); White Blood Count 5.4 x10^3/uL (4.23-9.07)
[2024-03-06 20:48] LABS: Hemoglobin 6.6 g/dL (13.7-17.5)
[2024-03-06 21:09] LABS: ALBUMIN 2.6 g/dL (3.5-5.0); ANION GAP 12.6 MEQ/L (5-15); BILIRUBIN,TOTAL 0.3 mg/dL (0.2-1.3); Creatinine 1 1.42 mg/dL (0.66-1.25); EST GLOMERULAR FILTRATION RATE 54.2 ML/MIN; Potassium 4.1 mmol/L (3.5-5.1); Total Protein 6.1 g/dL (6.3-8.2)
[2024-03-06 21:26] LABS: Slide Review 1 YES
[2024-03-06 21:40] LABS: ABO TYPING A; Antibody Screen NEGATIVE (NEGATIVE); RH TYPING POSITIVE
[2024-03-06 21:42] LABS: CROSS MATCH (PRBC) COMPATIBLE (COMPATIBLE)
[2024-03-06 21:56] LABS: INFLUENZA A NEGATIVE (NEGATIVE); INFLUENZA B NEGATIVE (NEGATIVE); RESPIRATORY SYNCTIAL VIRUS NEGATIVE (NEGATIVE); SARS-CoV-2 Xpert Express NEGATIVE (NEGATIVE)
[2024-03-06] MEDS: TYLENOL 325 MG PO ONE (23:16)
[2024-03-07] MEDS ORDERED: Docusate Sodium 100 MG PO PRN (00:13)
[2024-03-07] MEDS ORDERED: Zofran 4 MG/2 ML VIAL IV PRN (00:13)
[2024-03-07] MEDS ORDERED: MILK OF MAGNESIA 30 ML PO PRN (00:13)
[2024-03-07] MEDS ORDERED: TYLENOL 325 MG PO PRN (00:13)
[2024-03-07] MEDS ORDERED: Sodium Chloride 0.9% 1000 ML 1,000 ML IV SCH (00:15)
--- NOTE | 2024-03-07 00:22 | PCM.HP ---
History of Present Illness - Chief Complaint Chief Complaint: anemia Date: 03/06/24 History of Present Illness: is a 68 year old male with a history of chronic respiratory failure (on 3LPM O2) and a recent hospitalization for pneumonia (TB ruled out) whop now presented to the ED with a complaint of generalized weakness. He does not report cough, fever, chills, dyspnea or chest pain. He also does not report hematemesis, melena or hematochezia. However, in the ED, the patient was noted to have significant anemia and a transfusion was ordered. At the time of my evaluation, he did not have any complaints. He has been so weak lately that he has been afraid that he was at risk of falling. - Review of Systems Constitutional: Fatigue Eyes: No Symptoms Ears, Nose, & Throat: No Symptoms Respiratory: No Symptoms Cardiac: No Symptoms Abdominal/Gastrointestinal: No Symptoms Genitourinary Symptoms: No Symptoms Musculoskeletal: No Symptoms Skin: No Symptoms Neurological: No Symptoms Psychological: No Symptoms Endocrine: No Symptoms Hematologic/Lymphatic: No Symptoms Immunological/Allergic: No Symptoms All Other Systems: Reviewed and Negative Medications & Allergies Home Medications: Home Medication List ALPRAZolam [Xanax 0.5 mg] 0.5 mg PO BID 08/02/14 [History Confirmed 03/06/24] Bupropion HCl 150 mg Sr [Wellbutrin SR 150 MG] 150 mg PO BID #60 tablet.sa 05/29/15 [Rx Confirmed 03/06/24] Atorvastatin Calcium [Lipitor] 80 mg PO HS 06/20/15 [History Confirmed 03/06/24] Folic Acid 1 mg [Folate 1 mg] 1 mg PO DAILY 08/23/18 [History Confirmed 03/06/24] Omeprazole 40 mg PO DAILY 08/23/18 [History Confirmed 03/06/24] Carvedilol [Coreg ] 6.25 mg PO BID #60 tablet 08/26/18 [Rx Confirmed 03/06/24] Lisinopril 20 mg [Zestril 20 MG] 20 mg PO DAILY 09/02/18 [History Confirmed 03/06/24] Ferrous Sulfate 325 mg [Feosol 325 mg] 325 mg PO DAILY 05/16/23 [History Confirmed 03/06/24] Albuterol 2.5 mg/3 ml Neb [Proventil 2.5 mg/3 ml Neb] 1 puff IH TIDPRN 07/13/23 [History Confirmed 03/06/24] Budesonide [Pulmicort] 1 neb IH DAILY PRN PRN 07/13/23 [History Confirmed 03/06/24] Docusate Sodium 100 mg PO DAILY 07/13/23 [History Confirmed 03/06/24] Nicotine 21 mg [Nicoderm CQ 21 MG] 1 patch TOP DAILY 03/06/24 [History Confirmed 03/06/24] Allergies/Adverse Reactions: Allergies Allergy/AdvReac Type Severity Reaction Status Date / Time No Known Drug Allergies Allergy Verified 03/06/24 20:07 - Past Medical History Past Medical History: Yes Neurological History: TIA, Other ENT History: Cataracts Cardiac History: Hypertension Respiratory History: COPD, Emphysema Endocrine Medical History: No Pertinent History Musculoskelatal History: No Pertinent History GI Medical History: GERD History: Renal Disease Pyscho-Social History: Anxiety, Depression Male Reproductive Disorders: No Pertinent History Comment: BRAIN anyerusm, Pt uses O2 at home at 2L - Past Surgical History Past Surgical History: Yes Neuro Surgical History: Neurological Surgery, Other Cardiac History: No Pertinent History Respiratory Surgery: No Pertinent History GI Surgical History: No Pertinent History Genitourinary Surgical Hx: No Pertinent History Musculskeletal Surgical Hx: No Pertinent History Male Surgical History: No Pertinent History Other Surgical History: Brain aneurism, 2 clips in brain 2006 or 2007, CATARACT SURGERY X 3, esophagus stretched Significant Family History: no pertinent family hx Family History: No family history of marrow disorders - Social History Smoking Status: Current every day smoker How long have you smoked: 45 yrs Exposure to second hand smoke: No Alcohol: None Drug Use: none - Social Determinants of Health Will the patient participate in the screening: Declined to provide Do you worry about a steady place to live?: No In the past 12 months,have you had to go without utilities?: No Have you or anyone in your house had to go without enough: No Transportation Issues: No Has anyone in your support network made you feel unsafe?: No Comment: lives with daughter - Physical Exam Vital Signs: Vital Signs - 24 hr Temp Pulse Resp BP BP Pulse Ox 11/05/24 00:00 98.6 F 85 16 106/54 99 03/06/24 22:42 99.0 F 88 20 111/59 98 03/06/24 22:13 98 03/06/24 22:00 86 29 H 92/52 98 03/06/24 21:50 88 24 03/06/24 21:40 83 22 99 03/06/24 21:35 85 27 H 96 03/06/24 21:21 100/56 03/06/24 21:20 88 32 H 03/06/24 21:10 85 29 H 03/06/24 21:00 89 30 H 100/56 98 03/06/24 20:50 82 25 H 03/06/24 20:40 87 28 H 03/06/24 20:32 89 17 03/06/24 20:00 85 30 H 98/64 100 03/06/24 19:55 97.6 F 88 24 99/62 98 General Appearance: no apparent distress, alert Neurologic Exam: alert, oriented x 3, cooperative, armed security officer II-XII nml as tested, normal mood/affect, nml cerebellar function Eye Exam: PERRL/EOMI, eyes nml inspection Ears, Nose, Throat Exam: normal ENT inspection Neck Exam: normal inspection, non-tender, supple, full range of motion Respiratory Exam: normal breath sounds, lungs clear Cardiovascular Exam: regular rate/rhythm, normal heart sounds Gastrointestinal/Abdomen Exam: soft, normal bowel sounds Back Exam: normal range of motion Extremity Exam: normal inspection, normal range of motion Skin Exam: pale Results - Labs Lab/Micro Results: Lab Results-Last 24 Hours 03/06/24 03/06/24 03/06/24 Range/Units 20:18 20:20 20:20 WBC 5.4 (4.23-9.07) x10^3/uL RBC 2.12 L (4.63-6.08) x10^6/uL Hgb 6.6 L* (13.7-17.5) g/dL Hct 22.7 L (40.1-51.0) % MCV 107.1 H (79.0-92.2) fL MCH 31.1 (25.7-32.2) pg MCHC 29.1 L (32.3-36.5) g/dL RDW 19.5 H (11.6-14.4) % Plt Count 306 (163-337) x10^3/uL MPV 11.2 (9.4-12.4) fL Gran % 77.2 H (34.0-67.9) % Immature Gran % (Auto) 0.4 (0.001-0.429) % Nucleat RBC Rel Count 0.0 (0.00-0.2) % Eos # (Auto) 0.01 L (0.04-0.54) x10^3/uL Immature Gran # (Auto) 0.02 (0.001-0.031) x10^3u/L Absolute Lymphs (auto) 0.93 L (1.32-3.57) x10^3/uL Absolute Monos (auto) 0.27 L (0.30-0.82) x10^3/uL Absolute Nucleated RBC 0.00 (0.00-0.012) x10^3u/L Lymphocytes % 17.2 L (21.8-53.1) % Monocytes % 5.0 L (5.3-12.2) % Eosinophils % 0.2 L (0.8-7.0) % Basophils % 0.0 L (0.2-1.2) % Absolute Granulocytes 4.18 (1.78-5.38) x10^3/uL Basophils # 0 L (0.01-0.08) x10^3/uL Sodium 145 (135-145) mmol/L Potassium 4.1 (3.5-5.1) mmol/L Chloride 111 H (98-107) mmol/L Carbon Dioxide 26 (22-30) mmol/L Anion Gap 12.6 (5-15) MEQ/L BUN 20 (9-20) mg/dL Creatinine 1.42 H (0.66-1.25) mg/dL Estimated GFR 54.2 ML/MIN Glucose 116 H (74-106) mg/dL Lactic Acid 1.4 (0.4-2.0) Calcium 8.0 L (8.4-10.2) mg/dL Total Bilirubin 0.30 (0.2-1.3) mg/dL AST 29 (17-59) U/L ALT 28 (0-50) U/L Alkaline Phosphatase 84 (38-126) U/L Creatine Kinase 31 L (55-170) U/L Troponin I (0.000-0.033) ng/mL NT-Pro-B Natriuret Pep 603 (<300) pg/mL Serum Total Protein 6.1 L (6.3-8.2) g/dL Albumin 2.6 L (3.5-5.0) g/dL Vitamin B12 (239-931) pg/mL TSH 3rd Generation (0.470-4.680) mIU/L Influenza Type A Ag (NEGATIVE) Influenza Type B Ag (NEGATIVE) RSV (PCR) (NEGATIVE) SARS-CoV-2 (PCR) (NEGATIVE) Slides for Path Review YES ABO Group Rh Factor Antibody Screen (NEGATIVE) Crossmatch (COMPATIBLE) 03/06/24 03/06/24 03/06/24 Range/Units 20:20 20:20 20:20 WBC (4.23-9.07) x10^3/uL RBC (4.63-6.08) x10^6/uL Hgb (13.7-17.5) g/dL Hct (40.1-51.0) % MCV (79.0-92.2) fL MCH (25.7-32.2) pg MCHC (32.3-36.5) g/dL RDW (11.6-14.4) % Plt Count (163-337) x10^3/uL MPV (9.4-12.4) fL Gran % (34.0-67.9) % Immature Gran % (Auto) (0.001-0.429) % Nucleat RBC Rel Count (0.00-0.2) % Eos # (Auto) (0.04-0.54) x10^3/uL Immature Gran # (Auto) (0.001-0.031) x10^3u/L Absolute Lymphs (auto) (1.32-3.57) x10^3/uL Absolute Monos (auto) (0.30-0.82) x10^3/uL Absolute Nucleated RBC (0.00-0.012) x10^3u/L Lymphocytes % (21.8-53.1) % Monocytes % (5.3-12.2) % Eosinophils % (0.8-7.0) % Basophils % (0.2-1.2) % Absolute Granulocytes (1.78-5.38) x10^3/uL Basophils # (0.01-0.08) x10^3/uL Sodium (135-145) mmol/L Potassium (3.5-5.1) mmol/L Chloride (98-107) mmol/L Carbon Dioxide (22-30) mmol/L Anion Gap (5-15) MEQ/L BUN (9-20) mg/dL Creatinine (0.66-1.25) mg/dL Estimated GFR ML/MIN Glucose (74-106) mg/dL Lactic Acid (0.4-2.0) Calcium (8.4-10.2) mg/dL Total Bilirubin (0.2-1.3) mg/dL AST (17-59) U/L ALT (0-50) U/L Alkaline Phosphatase (38-126) U/L Creatine Kinase (55-170) U/L Troponin I < 0.012 (0.000-0.033) ng/mL NT-Pro-B Natriuret Pep (<300) pg/mL Serum Total Protein (6.3-8.2) g/dL Albumin (3.5-5.0) g/dL Vitamin B12 550 (239-931) pg/mL TSH 3rd Generation 2.576 (0.470-4.680) mIU/L Influenza Type A Ag (NEGATIVE) Influenza Type B Ag (NEGATIVE) RSV (PCR) (NEGATIVE) SARS-CoV-2 (PCR) (NEGATIVE) Slides for Path Review ABO Group Rh Factor Antibody Screen (NEGATIVE) Crossmatch (COMPATIBLE) 03/06/24 03/06/24 Range/Units 20:25 21:00 WBC (4.23-9.07) x10^3/uL RBC (4.63-6.08) x10^6/uL Hgb (13.7-17.5) g/dL Hct (40.1-51.0) % MCV (79.0-92.2) fL MCH (25.7-32.2) pg MCHC (32.3-36.5) g/dL RDW (11.6-14.4) % Plt Count (163-337) x10^3/uL MPV (9.4-12.4) fL Gran % (34.0-67.9) % Immature Gran % (Auto) (0.001-0.429) % Nucleat RBC Rel Count (0.00-0.2) % Eos # (Auto) (0.04-0.54) x10^3/uL Immature Gran # (Auto) (0.001-0.031) x10^3u/L Absolute Lymphs (auto) (1.32-3.57) x10^3/uL Absolute Monos (auto) (0.30-0.82) x10^3/uL Absolute Nucleated RBC (0.00-0.012) x10^3u/L Lymphocytes % (21.8-53.1) % Monocytes % (5.3-12.2) % Eosinophils % (0.8-7.0) % Basophils % (0.2-1.2) % Absolute Granulocytes (1.78-5.38) x10^3/uL Basophils # (0.01-0.08) x10^3/uL Sodium (135-145) mmol/L Potassium (3.5-5.1) mmol/L Chloride (98-107) mmol/L Carbon Dioxide (22-30) mmol/L Anion Gap (5-15) MEQ/L BUN (9-20) mg/dL Creatinine (0.66-1.25) mg/dL Estimated GFR ML/MIN Glucose (74-106) mg/dL Lactic Acid (0.4-2.0) Calcium (8.4-10.2) mg/dL Total Bilirubin (0.2-1.3) mg/dL AST (17-59) U/L ALT (0-50) U/L Alkaline Phosphatase (38-126) U/L Creatine Kinase (55-170) U/L Troponin I (0.000-0.033) ng/mL NT-Pro-B Natriuret Pep (<300) pg/mL Serum Total Protein (6.3-8.2) g/dL Albumin (3.5-5.0) g/dL Vitamin B12 (239-931) pg/mL TSH 3rd Generation (0.470-4.680) mIU/L Influenza Type A Ag NEGATIVE (NEGATIVE) Influenza Type B Ag NEGATIVE (NEGATIVE) RSV (PCR) NEGATIVE (NEGATIVE) SARS-CoV-2 (PCR) NEGATIVE (NEGATIVE) Slides for Path Review ABO Group A Rh Factor POSITIVE Antibody Screen NEGATIVE (NEGATIVE) Crossmatch COMPATIBLE (COMPATIBLE) - Radiology Impressions Radiology Exams & Impressions: Radiology Procedures Category Date Time Status HEAD WITHOUT CONTRAST [CT] Stat Exams 03/06/24 20:31 Taken Assessment/Plan (1) Iron deficiency anemia Current Visit: No Status: Chronic Assessment & Plan: Transfusing. May need to confirm with family whether he has received a GI workup in the recent past. Could consider outpatient referral. Follow counts. Elevated temperature during transfusion improved after Tylenol administration. Code(s): D50.9 - IRON DEFICIENCY ANEMIA, UNSPECIFIED (2) Generalized weakness Current Visit: Yes Status: Acute Assessment & Plan: PT/OT eval/treat. Code(s): R53.1 - WEAKNESS (3) COPD (chronic obstructive pulmonary disease) Current Visit: No Status: Chronic Qualifiers: Assessment & Plan: On 3LPM chronically. Stable from a respiratory perspective. (4) Chronic renal disease Current Visit: No Status: Chronic Assessment & Plan: CKD noted. Continue the patient's lisinopril for now. Received IV fluids in ED. Recheck creatinine in AM. May have a component of dehydration but also does have a history of volume overload in the past. Follow volume status, in/out balance. Code(s): N18.9 - CHRONIC KIDNEY DISEASE, UNSPECIFIED Telemedicine Encounter - Telemedicine Encounter Telemedicine Encounter: "The entirety of this encounter was performed via Telemedicine" This visit was performed using real-time audio and video connection between my location and thepatients locationwith the assistance of a surrogateat the patients location. Written or verbal consent was obtained from the patient/guardian to perform this visit using[employer] technology. Any patient questions regarding the telemedicine interaction were answered.
[2024-03-07] MEDS ORDERED: PROVENTIL 2.5 MG/3 ML NEB IH SCH (00:30)
[2024-03-07] MEDS ORDERED: PROVENTIL 2.5 MG/3 ML NEB IH PRN (00:38)
[2024-03-07 03:08] LABS: Absolute Neutrophil Ct (ANC) 3.07 x10^3/uL (1.78-5.38); BASOPHIL % 0.2 % (0.2-1.2); Basophil (Absolute #) 0.01 x10^3/uL (0.01-0.08); Eosinophil (Absolute #) 0 x10^3/uL (0.04-0.54); Hematocrit 25.2 % (40.1-51.0); Hemoglobin 7.5 g/dL (13.7-17.5); IMMATURE GRAN # 0.02 x10^3u/L (0.001-0.031); IMMATURE GRAN % 0.4 % (0.001-0.429); Lymphocyte (Absolute #) 1.68 x10^3/uL (1.32-3.57); Lymphocytes % 33.1 % (21.8-53.1); Mean Cell Volume 103.3 fL (79.0-92.2); Mean Corpuscular Hemoglobin 30.7 pg (25.7-32.2); Mean Corpuscular Hgb Concent. 29.8 g/dL (32.3-36.5); Mean Platelet Volume 10.9 fL (9.4-12.4); Monocytes % 5.9 % (5.3-12.2); Neutrophil % 60.4 % (34.0-67.9); Platelet Count 247 x10^3/uL (163-337); Red Blood Count 2.44 x10^6/uL (4.63-6.08); Red Cell Distribution Width 19.3 % (11.6-14.4); White Blood Count 5.1 x10^3/uL (4.23-9.07)
[2024-03-07 03:29] LABS: Calcium 7.8 mg/dL (8.4-10.2); Creatinine 1 1.14 mg/dL (0.66-1.25); EST GLOMERULAR FILTRATION RATE 70.5 ML/MIN; Potassium 4.5 mmol/L (3.5-5.1)
[2024-03-07] MEDS ORDERED: PULMICORT 0.5 MG/2 ML RESPULES IH PRN (07:17)
[2024-03-07] MEDS ORDERED: Sodium Chloride 3 ML UD NEBULES IH PRN (07:18)
--- NOTE | 2024-03-07 08:37 | XRAY ---
Indication: Weakness. History of brain aneurysm. Multiple contiguous axial images obtained through the head without contrast. Comparison: April 16, 2018 Again age-appropriate global atrophy, moderate periventricular degenerative micro-ischemia bilaterally, remote left posterior parietal infarct, remote infarct right cerebellum, remote bilateral basal ganglia lacunar infarcts, and sella aneurysm clips. No acute intracranial hemorrhage, hydrocephalus, or mass effect. Fourth ventricle is midline. Bony calvarium intact again with left temporoparietal craniotomy. Visualized paranasal sinuses and mastoid air cells are clear. Impression: Continued nonacute senile brain again with multifocal remote infarcts as detailed. 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
--- NOTE | 2024-03-07 08:40 | PCM.DS ---
Discharge Summary Date of Admission: 03/06/24 22:41 Date of Discharge: 03/07/24 Admitting Physician: MANUELA GONZALEZ MD Primary Care Provider: RAO LIEBERMAN Allergies Allergies No Known Drug Allergies Allergy (Verified 03/06/24 20:07) Hospital Summary - Hospital Course Hospital Course: is a 68 year old male with a history of daily smoker, iron deficiency anemia,anxiety, depression, brain aneurism, HTN, GERD, COPD emphysema, chronic respiratory failure (on 3LPM O2) and a recent hospitalization for pneumonia (TB ruled out). He presented to the ED on 03/06/24 with a complaint of generalized weakness and reports he could barely walk. He does not report cough, fever, chills, dyspnea or chest pain. He also does not report hematemesis, melena or hematochezia. However, in the ED, the patient was noted to have significant anemia with Hgb of 6.6 and a transfusion was ordered. He reports he has been so weak lately that he has been afraid that he was at risk of falling. At last visit [facility] was set up by case management. Hgb today is 7.5. He states he feels much better. Will have PT eval and treat and if he does ok he wants to go home today. He denies any further concerns at this time. - Vitals & Intake/Output Vital Signs: Vital Signs Temperature 98.1 F 03/07/24 08:00 Pulse Rate 81 03/07/24 08:00 Respiratory Rate 16 03/07/24 08:00 Blood Pressure 124/60 03/07/24 08:00 O2 Sat by Pulse Oximetry 95 03/07/24 08:00 Intake & Output: Intake & Output 03/04/24 03/05/24 03/06/24 03/07/24 12:59 11:59 11:59 11:59 Weight 60 kg - Lab Result Diagrams: 03/07/24 03:00 03/07/24 03:00 Lab Results-Last 24 Hrs: Lab Results-Last 24 Hours 03/06/24 03/06/24 03/06/24 Range/Units 20:18 20:20 20:20 WBC 5.4 (4.23-9.07) x10^3/uL RBC 2.12 L (4.63-6.08) x10^6/uL Hgb 6.6 L* (13.7-17.5) g/dL Hct 22.7 L (40.1-51.0) % MCV 107.1 H (79.0-92.2) fL MCH 31.1 (25.7-32.2) pg MCHC 29.1 L (32.3-36.5) g/dL RDW 19.5 H (11.6-14.4) % Plt Count 306 (163-337) x10^3/uL MPV 11.2 (9.4-12.4) fL Gran % 77.2 H (34.0-67.9) % Immature Gran % (Auto) 0.4 (0.001-0.429) % Nucleat RBC Rel Count 0.0 (0.00-0.2) % Eos # (Auto) 0.01 L (0.04-0.54) x10^3/uL Immature Gran # (Auto) 0.02 (0.001-0.031) x10^3u/L Absolute Lymphs (auto) 0.93 L (1.32-3.57) x10^3/uL Absolute Monos (auto) 0.27 L (0.30-0.82) x10^3/uL Absolute Nucleated RBC 0.00 (0.00-0.012) x10^3u/L Lymphocytes % 17.2 L (21.8-53.1) % Monocytes % 5.0 L (5.3-12.2) % Eosinophils % 0.2 L (0.8-7.0) % Basophils % 0.0 L (0.2-1.2) % Absolute Granulocytes 4.18 (1.78-5.38) x10^3/uL Basophils # 0 L (0.01-0.08) x10^3/uL Sodium 145 (135-145) mmol/L Potassium 4.1 (3.5-5.1) mmol/L Chloride 111 H (98-107) mmol/L Carbon Dioxide 26 (22-30) mmol/L Anion Gap 12.6 (5-15) MEQ/L BUN 20 (9-20) mg/dL Creatinine 1.42 H (0.66-1.25) mg/dL Estimated GFR 54.2 ML/MIN Glucose 116 H (74-106) mg/dL Lactic Acid 1.4 (0.4-2.0) Calcium 8.0 L (8.4-10.2) mg/dL Total Bilirubin 0.30 (0.2-1.3) mg/dL AST 29 (17-59) U/L ALT 28 (0-50) U/L Alkaline Phosphatase 84 (38-126) U/L Creatine Kinase 31 L (55-170) U/L Troponin I (0.000-0.033) ng/mL NT-Pro-B Natriuret Pep 603 (<300) pg/mL Serum Total Protein 6.1 L (6.3-8.2) g/dL Albumin 2.6 L (3.5-5.0) g/dL Vitamin B12 (239-931) pg/mL TSH 3rd Generation (0.470-4.680) mIU/L Influenza Type A Ag (NEGATIVE) Influenza Type B Ag (NEGATIVE) RSV (PCR) (NEGATIVE) SARS-CoV-2 (PCR) (NEGATIVE) Slides for Path Review YES ABO Group Rh Factor Antibody Screen (NEGATIVE) Crossmatch (COMPATIBLE) 03/06/24 03/06/24 03/06/24 Range/Units 20:20 20:20 20:20 WBC (4.23-9.07) x10^3/uL RBC (4.63-6.08) x10^6/uL Hgb (13.7-17.5) g/dL Hct (40.1-51.0) % MCV (79.0-92.2) fL MCH (25.7-32.2) pg MCHC (32.3-36.5) g/dL RDW (11.6-14.4) % Plt Count (163-337) x10^3/uL MPV (9.4-12.4) fL Gran % (34.0-67.9) % Immature Gran % (Auto) (0.001-0.429) % Nucleat RBC Rel Count (0.00-0.2) % Eos # (Auto) (0.04-0.54) x10^3/uL Immature Gran # (Auto) (0.001-0.031) x10^3u/L Absolute Lymphs (auto) (1.32-3.57) x10^3/uL Absolute Monos (auto) (0.30-0.82) x10^3/uL Absolute Nucleated RBC (0.00-0.012) x10^3u/L Lymphocytes % (21.8-53.1) % Monocytes % (5.3-12.2) % Eosinophils % (0.8-7.0) % Basophils % (0.2-1.2) % Absolute Granulocytes (1.78-5.38) x10^3/uL Basophils # (0.01-0.08) x10^3/uL Sodium (135-145) mmol/L Potassium (3.5-5.1) mmol/L Chloride (98-107) mmol/L Carbon Dioxide (22-30) mmol/L Anion Gap (5-15) MEQ/L BUN (9-20) mg/dL Creatinine (0.66-1.25) mg/dL Estimated GFR ML/MIN Glucose (74-106) mg/dL Lactic Acid (0.4-2.0) Calcium (8.4-10.2) mg/dL Total Bilirubin (0.2-1.3) mg/dL AST (17-59) U/L ALT (0-50) U/L Alkaline Phosphatase (38-126) U/L Creatine Kinase (55-170) U/L Troponin I < 0.012 (0.000-0.033) ng/mL NT-Pro-B Natriuret Pep (<300) pg/mL Serum Total Protein (6.3-8.2) g/dL Albumin (3.5-5.0) g/dL Vitamin B12 550 (239-931) pg/mL TSH 3rd Generation 2.576 (0.470-4.680) mIU/L Influenza Type A Ag (NEGATIVE) Influenza Type B Ag (NEGATIVE) RSV (PCR) (NEGATIVE) SARS-CoV-2 (PCR) (NEGATIVE) Slides for Path Review ABO Group Rh Factor Antibody Screen (NEGATIVE) Crossmatch (COMPATIBLE) 03/06/24 03/06/24 03/07/24 Range/Units 20:25 21:00 03:00 WBC (4.23-9.07) x10^3/uL RBC (4.63-6.08) x10^6/uL Hgb (13.7-17.5) g/dL Hct (40.1-51.0) % MCV (79.0-92.2) fL MCH (25.7-32.2) pg MCHC (32.3-36.5) g/dL RDW (11.6-14.4) % Plt Count (163-337) x10^3/uL MPV (9.4-12.4) fL Gran % (34.0-67.9) % Immature Gran % (Auto) (0.001-0.429) % Nucleat RBC Rel Count (0.00-0.2) % Eos # (Auto) (0.04-0.54) x10^3/uL Immature Gran # (Auto) (0.001-0.031) x10^3u/L Absolute Lymphs (auto) (1.32-3.57) x10^3/uL Absolute Monos (auto) (0.30-0.82) x10^3/uL Absolute Nucleated RBC (0.00-0.012) x10^3u/L Lymphocytes % (21.8-53.1) % Monocytes % (5.3-12.2) % Eosinophils % (0.8-7.0) % Basophils % (0.2-1.2) % Absolute Granulocytes (1.78-5.38) x10^3/uL Basophils # (0.01-0.08) x10^3/uL Sodium (135-145) mmol/L Potassium (3.5-5.1) mmol/L Chloride (98-107) mmol/L Carbon Dioxide (22-30) mmol/L Anion Gap (5-15) MEQ/L BUN (9-20) mg/dL Creatinine (0.66-1.25) mg/dL Estimated GFR ML/MIN Glucose (74-106) mg/dL Lactic Acid (0.4-2.0) Calcium (8.4-10.2) mg/dL Total Bilirubin (0.2-1.3) mg/dL AST (17-59) U/L ALT (0-50) U/L Alkaline Phosphatase (38-126) U/L Creatine Kinase (55-170) U/L Troponin I < 0.012 (0.000-0.033) ng/mL NT-Pro-B Natriuret Pep (<300) pg/mL Serum Total Protein (6.3-8.2) g/dL Albumin (3.5-5.0) g/dL Vitamin B12 (239-931) pg/mL TSH 3rd Generation (0.470-4.680) mIU/L Influenza Type A Ag NEGATIVE (NEGATIVE) Influenza Type B Ag NEGATIVE (NEGATIVE) RSV (PCR) NEGATIVE (NEGATIVE) SARS-CoV-2 (PCR) NEGATIVE (NEGATIVE) Slides for Path Review ABO Group A Rh Factor POSITIVE Antibody Screen NEGATIVE (NEGATIVE) Crossmatch COMPATIBLE (COMPATIBLE) 03/07/24 03/07/24 03/07/24 Range/Units 03:00 03:00 06:25 WBC 5.1 (4.23-9.07) x10^3/uL RBC 2.44 L (4.63-6.08) x10^6/uL Hgb 7.5 L (13.7-17.5) g/dL Hct 25.2 L (40.1-51.0) % MCV 103.3 H (79.0-92.2) fL MCH 30.7 (25.7-32.2) pg MCHC 29.8 L (32.3-36.5) g/dL RDW 19.3 H (11.6-14.4) % Plt Count 247 (163-337) x10^3/uL MPV 10.9 (9.4-12.4) fL Gran % 60.4 (34.0-67.9) % Immature Gran % (Auto) 0.4 (0.001-0.429) % Nucleat RBC Rel Count 0.0 (0.00-0.2) % Eos # (Auto) 0 L (0.04-0.54) x10^3/uL Immature Gran # (Auto) 0.02 (0.001-0.031) x10^3u/L Absolute Lymphs (auto) 1.68 (1.32-3.57) x10^3/uL Absolute Monos (auto) 0.30 (0.30-0.82) x10^3/uL Absolute Nucleated RBC 0.00 (0.00-0.012) x10^3u/L Lymphocytes % 33.1 (21.8-53.1) % Monocytes % 5.9 (5.3-12.2) % Eosinophils % 0.0 L (0.8-7.0) % Basophils % 0.2 (0.2-1.2) % Absolute Granulocytes 3.07 (1.78-5.38) x10^3/uL Basophils # 0.01 (0.01-0.08) x10^3/uL Sodium 144 (135-145) mmol/L Potassium 4.5 (3.5-5.1) mmol/L Chloride 112 H (98-107) mmol/L Carbon Dioxide 28 (22-30) mmol/L Anion Gap 9.0 (5-15) MEQ/L BUN 21 H (9-20) mg/dL Creatinine 1.14 (0.66-1.25) mg/dL Estimated GFR 70.5 ML/MIN Glucose 93 (74-106) mg/dL Lactic Acid (0.4-2.0) Calcium 7.8 L (8.4-10.2) mg/dL Total Bilirubin (0.2-1.3) mg/dL AST (17-59) U/L ALT (0-50) U/L Alkaline Phosphatase (38-126) U/L Creatine Kinase (55-170) U/L Troponin I < 0.012 (0.000-0.033) ng/mL NT-Pro-B Natriuret Pep (<300) pg/mL Serum Total Protein (6.3-8.2) g/dL Albumin (3.5-5.0) g/dL Vitamin B12 (239-931) pg/mL TSH 3rd Generation (0.470-4.680) mIU/L Influenza Type A Ag (NEGATIVE) Influenza Type B Ag (NEGATIVE) RSV (PCR) (NEGATIVE) SARS-CoV-2 (PCR) (NEGATIVE) Slides for Path Review ABO Group Rh Factor Antibody Screen (NEGATIVE) Crossmatch (COMPATIBLE) - Radiology Exams Ordered Rad Exams-Entire Visit: Radiology Procedures Category Date Time Status HEAD WITHOUT CONTRAST [CT] Stat Exams 03/06/24 20:31 Taken - Procedures and Test Procedures and Tests throughout Hospitalization: Therapy Orders & Screens 03/07/24 00:13 PT Eval & Treat ( Order) ONCE Reason for Eval:: debility Diagnosis: anemia OT Eval and Treat (MD Order) ONCE Comment: Physician Instructions: Reason For Exam: Diagnosis: anemia Discharge Exam General Appearance: no apparent distress, alert Neurologic Exam: alert, oriented x 3, cooperative, normal mood/affect, nml cerebellar function, sensation nml, motor weakness, No motor deficits Eye Exam: PERRL, EOMI, eyes nml inspection Ears, Nose, Throat Exam: normal ENT inspection, pharynx normal, moist mucous membranes Neck Exam: normal inspection, non-tender, supple, full range of motion Respiratory Exam: normal breath sounds, lungs clear, No respiratory distress Cardiovascular Exam: regular rate/rhythm, normal heart sounds Gastrointestinal/Abdomen Exam: soft, No tenderness, No mass Male Genitalia Exam: deferred Rectal Exam: deferred Back Exam: normal inspection, normal range of motion, No CVA tenderness, No vertebral tenderness Extremity Exam: normal inspection, normal range of motion Skin Exam: normal color, warm, dry Final Diagnosis/Problem List - Final Discharge Diagnosis/Problem (1) Iron deficiency anemia Current Visit: No Status: Chronic Assessment & Plan: - 1 uit PRBC ordered for HGB 6.6 in ER - Hgb after 1 unit 7.5 - continue ferrous sulfate - F/U with hematology OP - Consider OP EGD/colonoscopy- f/u appointment made with General surgery OP for consult Code(s): D50.9 - IRON DEFICIENCY ANEMIA, UNSPECIFIED (2) Generalized weakness Current Visit: Yes Status: Acute Assessment & Plan: - 2:2 Anemia - See anemia plan - PT eval and treat - CM to discuss placement vs. HHC - CT head negative - P could benefit from Wheelchair at home- case management to order Code(s): R53.1 - WEAKNESS (3) COPD (chronic obstructive pulmonary disease) Current Visit: No Status: Chronic Assessment & Plan: - On baseline 2lNC- 95% (4) Chronic renal disease Current Visit: No Status: Chronic Assessment & Plan: - at baseline renal function Code(s): N18.9 - CHRONIC KIDNEY DISEASE, UNSPECIFIED (5) Smoker Current Visit: Yes Status: Chronic Assessment & Plan: - advised cessation Code(s): F17.200 - NICOTINE DEPENDENCE, UNSPECIFIED, UNCOMPLICATED - Discharge Discharge Date: 03/07/24 Disposition: Home, Self-Care Condition: Stable Prescriptions: Continue ALPRAZolam [Xanax 0.5 mg] 0.5 mg PO BID Bupropion HCl 150 mg Sr [Wellbutrin SR 150 MG] 150 mg PO BID #60 tablet.sa Atorvastatin Calcium [Lipitor] 80 mg PO HS Omeprazole 40 mg PO DAILY Folic Acid 1 mg [Folate 1 mg] 1 mg PO DAILY Carvedilol [Coreg ] 6.25 mg PO BID #60 tablet Lisinopril 20 mg [Zestril 20 MG] 20 mg PO DAILY Ferrous Sulfate 325 mg [Feosol 325 mg] 325 mg PO DAILY Budesonide [Pulmicort] 1 neb IH DAILY PRN PRN PRN Reason: Shortness Of Breath/Wheezing Albuterol 2.5 mg/3 ml Neb [Proventil 2.5 mg/3 ml Neb] 1 puff IH TIDPRN Docusate Sodium 100 mg PO DAILY Nicotine 21 mg [Nicoderm CQ 21 MG] 1 patch TOP DAILY Follow up with: RAO LIEBERMAN MD [Primary Care Provider] - LUIS ANTONIO PACKER MD [NON-STAFF PHY W/O PRIVILEGES] - 03/14/24 2:00 pm COY SIERRA [COURTESY STAFF] - 04/03/24 8:00 am
[2024-03-07] MEDS: xanAX 0.5 MG PO SCH (09:29)
[2024-03-07] MEDS: Wellbutrin SR 150 MG PO SCH (09:29)
[2024-03-07] MEDS: Docusate Sodium 100 MG PO SCH (09:29)
[2024-03-07] MEDS: Zestril 20 MG PO SCH (09:29)
[2024-03-07] MEDS: Coreg PO SCH (09:29)
[2024-03-07] MEDS: Protonix 40MG Tablet PO SCH (09:29)
[2024-03-07] MEDS: Nicoderm CQ 21 MG TOP SCH (09:29)
[2024-03-07] MEDS: FEOSOL 325 MG PO SCH (09:29)
[2024-03-07] MEDS: FOLATE 1 MG PO SCH (09:29)
[2024-03-07 12:15] VITALS: BP 143/65; PULSE 78; RESP 14; TEMP 97.3; O2SAT 99
[2024-03-07 12:19] LABS: Appearance Cloudy (Clear); Bacteria Few /HPF (None Seen); Bilirubin Negative (Negative); Blood Negative (Negative); Epithelial Cells Rare /HPF (None Seen); Glucose, Urine Negative (Negative); Hyaline Casts 0-2 /LPF (0-2); Ketones Negative (Negative); Leukocyte Esterase Negative (Negative); Nitrite Negative (Negative); Ph 5.5 (4.6-8.0); Protein,Urine Dip Trace (Negative); RBC 0-2 /HPF (0-5); Specific Gravity 1.025 (1.005-1.030); Urobilinogen 0.2 mg/dL (0.2)
[2024-03-07 12:20] LABS: Amourphous Crystal Few /HPF (None Seen)
[2024-03-07] MEDS ORDERED: ZOCOR 20MG PO SCH (22:00)
== END 2024-03-07 15:25 | disposition home health service (06) ==
LOC: ED 19:54 → MED SURG 22:41
PROVIDERS: ADMIT Internal Medicine; ATTEND Internal Medicine
DX: D50.9 Iron deficiency anemia, unspecified (principal); R53.1 Weakness; J44.9 Chronic obstructive pulmonary disease, unspecified; I12.9 Hypertensive chronic kidney disease with stage 1 through stage 4 chronic kidney disease, or unspecified chronic kidney disease; N18.9 Chronic kidney disease, unspecified; F17.200 Nicotine dependence, unspecified, uncomplicated; R06.02 Shortness of breath; Z99.81 Dependence on supplemental oxygen; Z79.899 Other long term (current) drug therapy
CPT/HCPCS: 0241U; 36000; 36415; 36430; 70450; 80048; 80053; 81001; 82550; 82607; 83605; 83880; 84443; 84484; 85025; 86850; 86900; 86901; 86922; 87040; 93005; 93268; 94760; 96360; 96361; 97162; 97165; 99285; G0378; P9016; Q3014; A9270-GY

== ENCOUNTER 2024-08-15 17:51 | Observation (INO) | payer MEDICARE, OTHER ==
--- NOTE | 2024-08-15 19:03 | ERPHSYRPT ---
- History of Present Illness Time Seen by Provider: 08/15/24 18:57 Source: patient Exam Limitations: no limitations Patient Subjective Stated Complaint: PT states 'I have not been feeling well for a couple of days and my daughter thinks I might have pneuomonia. I was having a hard time breathing but after that tx they gave me in the ambulance I feel quite a bit better." Triage Nursing Assessment: Pt presented alert and oriented X 3, skin pwd. Pt able to speak in clear ufll sentences. Pt resting comfortably on the bed. Pt has intermittant productive cough. pt has arm tremors as well. Physician History: Patient is a 69-year-old male history of COPD smoker, requires 2 L oxygen nasal cannula daily presents to our ED via EMS for evaluation of shortness of breath. Patient states shortness of breath started 2 days ago and has gotten progressively worse. Patient has been coughing. Cough is productive of a white sputum. Patient believes he may have pneumonia. Patient received a nebulizer treatment and route. Patient states that improved his ability to breathe. Patient is not in respiratory distress. Symptoms are progressive. Symptoms are moderate in intensity. No specific worsening or improving factors. Patient voices no other complaints or concerns at this time. Patient lives at home with his daughter. Patient's daughter is his POA Portions of this note were created with voice recognition technology. There may be grammatical, spelling, punctuation or sound alike errors Timing/Duration: day(s) (2 days) Activities at Onset: none Severity of Dyspnea-Max: moderate Severity of Dyspnea-Current: moderate Possible Cause: occasional episodes Associated Symptoms: cough Allergies/Adverse Reactions: No Known Drug Allergies Allergy (Verified 03/06/24 20:07) Home Medications: ALPRAZolam [Xanax 0.5 mg] 0.5 mg PO BID 08/02/14 [History] Atorvastatin Calcium [Lipitor] 80 mg PO HS 06/20/15 [History] Omeprazole 40 mg PO DAILY 08/23/18 [History] Lisinopril 20 mg [Zestril 20 MG] 10 mg PO DAILY 09/02/18 [History] Ferrous Sulfate 325 mg [Feosol 325 mg] 325 mg PO BID 05/16/23 [History] Albuterol 2.5 mg/3 ml Neb [Proventil 2.5 mg/3 ml Neb] 1 puff IH TIDPRN 07/13/23 [History] Docusate Sodium 100 mg PO DAILY 07/13/23 [History] Nicotine 21 mg [Nicoderm CQ 21 MG] 1 patch TOP DAILY 03/06/24 [History] Hx Tetanus, Diphtheria Vaccination/Date Given: Yes Hx Influenza Vaccination/Date Given: Yes Hx Pneumococcal Vaccination/Date Given: Yes Immunizations Up to Date: No Travel Risk - International Travel Have you traveled outside of the country in past 3 weeks: No - Emerging Infectious Disease Are you exhibiting symptoms associated with any current EIDs: No - Review of Systems Constitutional: No Symptoms, No Fever, No Chills Eyes: No Symptoms Ears, Nose, & Throat: No Symptoms Respiratory: No Symptoms, No Cough, No Dyspnea Cardiac: No Symptoms, No Chest Pain, No Edema, No Syncope Abdominal/Gastrointestinal: No Symptoms, No Abdominal Pain, No Nausea, No Vomiting, No Diarrhea Genitourinary Symptoms: No Symptoms, No Dysuria Musculoskeletal: No Symptoms, No Back Pain, No Neck Pain Skin: No Symptoms, No Rash Neurological: No Symptoms, No Dizziness, No Focal Weakness, No Sensory Changes Psychological: No Symptoms Endocrine: No Symptoms Hematologic/Lymphatic: No Symptoms Immunological/Allergic: No Symptoms All Other Systems: Reviewed and Negative - Past Medical History Pertinent Past Medical History: Yes Neurological History: TIA, Other ENT History: Cataracts Cardiac History: Hypertension Respiratory History: COPD, Emphysema Endocrine Medical History: No Pertinent History Musculoskeletal History: No Pertinent History GI Medical History: GERD History: Renal Disease Psycho-Social History: Anxiety, Depression Male Reproductive Disorders: No Pertinent History Other Medical History: BRAIN anyerusm, Pt uses O2 at home at 2L - Past Surgical History Past Surgical History: Yes Neuro Surgical History: Neurological Surgery, Other Cardiac: No Pertinent History Respiratory: No Pertinent History Gastrointestinal: No Pertinent History Genitourinary: No Pertinent History Musculoskeletal: No Pertinent History Male Surgical History: No Pertinent History Other Surgical History: Brain aneurism, 2 clips in brain 2006 or 2007, CATARACT SURGERY X 3, esophagus stretched Significant Family History: no pertinent family hx - Social History Smoking Status: Current every day smoker How long have you smoked: 45 yrs Exposure to second hand smoke: Yes Drug Use: none - Social Determinants of Health Will the patient participate in the screening: Declined to provide Do you worry about a steady place to live?: No In the past 12 months,have you had to go without utilities?: No Transportation Issues: No Has anyone in your support network made you feel unsafe?: No Have you or anyone in your house had to go w/o enough food: No Comment: lives with daughter - Nursing Vital Signs Nursing Vital Signs: Initial Vital Signs Temperature 97.3 F 08/15/24 17:57 Pulse Rate 96 H 08/15/24 17:57 Respiratory Rate 18 08/15/24 17:57 Blood Pressure 124/85 08/15/24 17:57 O2 Sat by Pulse Oximetry 100 08/15/24 17:57 Pain Scale Pain Intensity 0 - Physical Exam General Appearance: no apparent distress, alert Eye Exam: PERRL/EOMI Neck Exam: normal inspection, supple Respiratory Exam: diminished breath sounds, crackles/rales, wheezing Cardiovascular/Chest Exam: normal heart sounds, regular rate/rhythm Abdominal/Gastrointestinal Exam: soft, No tenderness, No distention, No mass Extremity Exam: non-tender, normal range of motion, normal inspection, no calf tenderness, no pedal edema Neurologic Exam: alert, oriented x 3, cooperative, graves registration specialist II-XII nml as tested, sensation nml, No motor deficits Skin Exam: normal color, warm, No dry Lymphatic Exam: No adenopathy SpO2 Interpretation: normal SpO2: 99 O2 Delivery: Room Air - Course Nursing assessment & vital signs reviewed: Yes EKG Interpreted by Me: RATE (91), Sinus Rhythm, NORMAL AXIS, NORMAL INTERVALS, Left Bundle Branch Block - Radiology Exams Chest X-ray Interpretation: Teleradiologist Report (COPD no airspace disease) Ordered Tests: Active Orders 24 hr Category Date Time Status Metallurgical Lab Technician STAT Care 08/15/24 18:53 Active EKG-ER Only STAT Care 08/15/24 18:53 Active IV Insertion STAT Care 08/15/24 18:53 Active Pulse Oximetry (ED) STAT Care 08/15/24 18:53 Active CHEST 1 VIEW (PORTABLE) Stat Exams 08/15/24 18:53 Taken BLOOD CULTURE Stat Lab 08/15/24 19:12 Received CBC W DIFF Stat Lab 08/15/24 19:12 Completed CMP Stat Lab 08/15/24 19:12 Completed TROPONIN Q4H Lab 08/15/24 19:12 Completed TROPONIN Q4H Lab 08/15/24 23:00 Ordered TROPONIN Q4H Lab 08/16/24 03:00 Ordered Respiratory Therapy Assessment DAILY RT 08/15/24 19:16 Active Medication Summary Discontinued Medications Generic Name Dose Route Start Last Admin Trade Name Emanuel PRN Reason Stop Dose Admin Albuterol/Ipratropium 3 ml 08/15/24 18:53 08/15/24 19:16 Ipratropium/Albuterol Sulfate 3 Ml Ampul.Neb IH 08/15/24 18:54 3 ml STAT ONE Administration Albuterol/Ipratropium Confirm 08/15/24 19:06 Ipratropium/Albuterol Sulfate 3 Ml Ampul.Neb Administered 08/15/24 19:07 Dose 3 ml IH .STK-MED ONE Azithromycin Confirm 08/15/24 19:54 Azithromycin Inj Administered 08/15/24 19:55 Dose 500 mg IV .STK-MED ONE Methylprednisolone Sodium 0 mg 08/15/24 18:53 08/15/24 19:12 Succinate 125 mg/ Sterile IV 08/15/24 18:54 125 mg Water 2 ml STAT ONE Administration Ceftriaxone Sodium 2 gm in 100 mls @ 200 mls/hr 08/15/24 18:53 08/15/24 19:44 Rocephin 2 Gm/100 Ml Nacl IV 08/15/24 19:22 Infused STAT ONE Infusion Azithromycin 500 mg/ Sodium 250 mls @ 250 mls/hr 08/15/24 18:53 08/15/24 20:10 Chloride IV 08/15/24 19:52 250 ml/hr STAT STA 250 mls/hr Administration Ceftriaxone Sodium Confirm 08/15/24 19:09 Rocephin 2 Gm/100 Ml Nacl Administered 08/15/24 19:10 Dose 2 gm in 100 mls @ ud IV .STK-MED ONE Sodium Chloride Confirm 08/15/24 19:54 Sodium Chloride 0.9% 250 Ml Administered 08/15/24 19:55 Dose 250 mls @ ud IV .STK-MED ONE Methylprednisolone Sodium Succinate Confirm 08/15/24 19:09 Methylprednis Sod Succ 125 Mg/2 Ml Vial Administered 08/15/24 19:10 Dose 125 mg .ROUTE .STK-MED ONE Sterile Water Confirm 08/15/24 19:09 Water For Injection,Sterile 10 Ml Vial Administered 08/15/24 19:10 Dose 10 ml IJ .STK-MED ONE Lab/Rad Data: Laboratory Result Diagrams 08/15/24 19:12 08/15/24 19:12 Laboratory Results 08/15/24 08/15/24 08/15/24 Range/Units 19:30 19:12 19:12 WBC (4.23-9.07) x10^3/uL RBC (4.63-6.08) x10^6/uL Hgb (13.7-17.5) g/dL Hct (40.1-51.0) % MCV (79.0-92.2) fL MCH (25.7-32.2) pg MCHC (32.3-36.5) g/dL RDW (11.6-14.4) % Plt Count (163-337) x10^3/uL MPV (9.4-12.4) fL Gran % (34.0-67.9) % Immature Gran % (Auto) (0.001-0.429) % Nucleat RBC Rel Count (0.00-0.2) % Eos # (Auto) (0.04-0.54) x10^3/uL Immature Gran # (Auto) (0.001-0.031) x10^3u/L Absolute Lymphs (auto) (1.32-3.57) x10^3/uL Absolute Monos (auto) (0.30-0.82) x10^3/uL Absolute Nucleated RBC (0.00-0.012) x10^3u/L Lymphocytes % (21.8-53.1) % Monocytes % (5.3-12.2) % Eosinophils % (0.8-7.0) % Basophils % (0.2-1.2) % Absolute Granulocytes (1.78-5.38) x10^3/uL Basophils # (0.01-0.08) x10^3/uL Sodium 142 (135-145) mmol/L Potassium 4.4 (3.5-5.1) mmol/L Chloride 101 (98-107) mmol/L Carbon Dioxide 31 H (22-30) mmol/L Anion Gap 14.1 (5-15) MEQ/L BUN 27 H (9-20) mg/dL Creatinine 1.18 (0.66-1.25) mg/dL Estimated GFR 67.2 ML/MIN Glucose 103 (74-106) mg/dL Calcium 8.8 (8.4-10.2) mg/dL Total Bilirubin 0.80 (0.2-1.3) mg/dL AST 33 (17-59) U/L ALT 25 (0-50) U/L Alkaline Phosphatase 126 (38-126) U/L Troponin I < 0.012 (0.000-0.033) ng/mL Serum Total Protein 7.5 (6.3-8.2) g/dL Albumin 4.1 (3.5-5.0) g/dL Influenza Type A Ag NEGATIVE (NEGATIVE) Influenza Type B Ag NEGATIVE (NEGATIVE) RSV (PCR) NEGATIVE (NEGATIVE) SARS-CoV-2 (PCR) NEGATIVE (NEGATIVE) 08/15/24 Range/Units 19:12 WBC 5.0 (4.23-9.07) x10^3/uL RBC 2.72 L (4.63-6.08) x10^6/uL Hgb 9.1 L (13.7-17.5) g/dL Hct 29.8 L (40.1-51.0) % MCV 109.6 H (79.0-92.2) fL MCH 33.5 H (25.7-32.2) pg MCHC 30.5 L (32.3-36.5) g/dL RDW 17.8 H (11.6-14.4) % Plt Count 200 (163-337) x10^3/uL MPV 10.6 (9.4-12.4) fL Gran % 82.1 H (34.0-67.9) % Immature Gran % (Auto) 0.4 (0.001-0.429) % Nucleat RBC Rel Count 0.0 (0.00-0.2) % Eos # (Auto) 0 L (0.04-0.54) x10^3/uL Immature Gran # (Auto) 0.02 (0.001-0.031) x10^3u/L Absolute Lymphs (auto) 0.67 L (1.32-3.57) x10^3/uL Absolute Monos (auto) 0.20 L (0.30-0.82) x10^3/uL Absolute Nucleated RBC 0.00 (0.00-0.012) x10^3u/L Lymphocytes % 13.5 L (21.8-53.1) % Monocytes % 4.0 L (5.3-12.2) % Eosinophils % 0.0 L (0.8-7.0) % Basophils % 0.0 L (0.2-1.2) % Absolute Granulocytes 4.07 (1.78-5.38) x10^3/uL Basophils # 0 L (0.01-0.08) x10^3/uL Sodium (135-145) mmol/L Potassium (3.5-5.1) mmol/L Chloride (98-107) mmol/L Carbon Dioxide (22-30) mmol/L Anion Gap (5-15) MEQ/L BUN (9-20) mg/dL Creatinine (0.66-1.25) mg/dL Estimated GFR ML/MIN Glucose (74-106) mg/dL Calcium (8.4-10.2) mg/dL Total Bilirubin (0.2-1.3) mg/dL AST (17-59) U/L ALT (0-50) U/L Alkaline Phosphatase (38-126) U/L Troponin I (0.000-0.033) ng/mL Serum Total Protein (6.3-8.2) g/dL Albumin (3.5-5.0) g/dL Influenza Type A Ag (NEGATIVE) Influenza Type B Ag (NEGATIVE) RSV (PCR) (NEGATIVE) SARS-CoV-2 (PCR) (NEGATIVE) - Progress Progress: improved Air Movement: good Progress Note: 69-year-old male history of COPD presents to our ED for evaluation of shortness of breath. Symptoms worse over the past couple days. Physical exam reveals coarse diminished breath sounds with scattered wheezes. No acute distress. Patient currently wearing 2 L nasal cannula. Chest x-ray negative for airspace disease. Blood cultures obtained. Antibiotics administered. Patient received Solu-Medrol and nebulizer treatment. Symptom significantly improved. However patient still has some resting shortness of breath and is not ready for discharge. Patient requires hospitalization for further evaluation and treatment. Patient agrees admission [facility] for f urther evaluation and treatment. Case discussed with hospitalist Dr. Rashid accepts admission to observation at approximately 9:11 PM. Portions of this note were created with voice recognition technology. There may be grammatical, spelling, punctuation or sound alike errors Complexity of problem addressed is moderate acute complicated. No critical care time. Complexity of data reviewed and analyzed is extensive. Test ordered test reviewed results analyzed and correlated clinically with history and physical exam. Risk of complication and or risk of morbidity/mortality of patient management is high. Patient requires hospitalization for further evaluation and treatment. Vital stable. Time spent admit patient approximately 15 minutes. Plan of care established for shared decision making. No social determinants of health present to impede follow-up. Portions of this note were created with voice recognition technology. There may be grammatical, spelling, punctuation or sound alike errors 08/15/24 21:22 Blood Culture(s) Obtained: Yes Antibiotics given: Yes Counseled pt/family regarding: lab results, diagnosis, rad results - Departure Departure Disposition: Observation Clinical Impression: Macrocytic, COPD exacerbation, Shortness of breath, Hypoxia Condition: Stable Critical Care Time: No Referrals: RAO LIEBERMAN MD [Primary Care Provider] - Follow up/PCP as directed Instructions: Chronic Obstructive Pulmonary Disease
[2024-08-15] MEDS ORDERED: DUONEB 0.5-3 MG/3 ml Neb IH ONE (19:06)
[2024-08-15] MEDS ORDERED: Sterile H2O 10 ml IJ ONE (19:09)
[2024-08-15] MEDS ORDERED: ROCEPHIN 2 GM/100 ML NACL 2 GM/100 ML IVPB IV ONE (19:09)
[2024-08-15] MEDS ORDERED: solu-MEDROL ONE (19:09)
[2024-08-15] MEDS: solu-MEDROL 125 MG, Sterile H2O 10 ml 2 ML IV ONE (19:12)
[2024-08-15] MEDS: ROCEPHIN 2 GM/100 ML NACL 2 GM/100 ML IVPB IV ONE (19:14)
[2024-08-15 19:16] LABS: Absolute Neutrophil Ct (ANC) 4.07 x10^3/uL (1.78-5.38); Basophil (Absolute #) 0 x10^3/uL (0.01-0.08); Eosinophil (Absolute #) 0 x10^3/uL (0.04-0.54); Hematocrit 29.8 % (40.1-51.0); Hemoglobin 9.1 g/dL (13.7-17.5); IMMATURE GRAN # 0.02 x10^3u/L (0.001-0.031); IMMATURE GRAN % 0.4 % (0.001-0.429); Lymphocyte (Absolute #) 0.67 x10^3/uL (1.32-3.57); Lymphocytes % 13.5 % (21.8-53.1); Mean Cell Volume 109.6 fL (79.0-92.2); Mean Corpuscular Hemoglobin 33.5 pg (25.7-32.2); Mean Corpuscular Hgb Concent. 30.5 g/dL (32.3-36.5); Mean Platelet Volume 10.6 fL (9.4-12.4); Neutrophil % 82.1 % (34.0-67.9); Platelet Count 200 x10^3/uL (163-337); Red Blood Count 2.72 x10^6/uL (4.63-6.08); Red Cell Distribution Width 17.8 % (11.6-14.4)
[2024-08-15] MEDS: DUONEB 0.5-3 MG/3 ml Neb IH ONE (19:16)
[2024-08-15 19:30] LABS: ALBUMIN 4.1 g/dL (3.5-5.0); ANION GAP 14.1 MEQ/L (5-15); BILIRUBIN,TOTAL 0.8 mg/dL (0.2-1.3); Calcium 8.8 mg/dL (8.4-10.2); Creatinine 1 1.18 mg/dL (0.66-1.25); EST GLOMERULAR FILTRATION RATE 67.2 ML/MIN; Potassium 4.4 mmol/L (3.5-5.1); Total Protein 7.5 g/dL (6.3-8.2)
[2024-08-15 19:53] LABS: INFLUENZA A NEGATIVE (NEGATIVE); INFLUENZA B NEGATIVE (NEGATIVE); RESPIRATORY SYNCTIAL VIRUS NEGATIVE (NEGATIVE); SARS-CoV-2 Xpert Express NEGATIVE (NEGATIVE)
[2024-08-15] MEDS ORDERED: ZITHROMAX IV IV ONE (19:54)
[2024-08-15] MEDS ORDERED: Sodium Chloride 0.9% 250 ML 250 ML IV ONE (19:54)
[2024-08-15] MEDS: ZITHROMAX IV*** 500 MG in Sodium Chloride 0.9% 250 ML 250 ML IV STA (20:10)
[2024-08-15] MEDS ORDERED: TYLENOL 325 MG PO PRN (22:31)
[2024-08-15] MEDS ORDERED: DUONEB 0.5-3 MG/3 ml Neb IH PRN (22:31)
--- NOTE | 2024-08-15 23:52 | PCM.HP ---
History of Present Illness - Chief Complaint Chief Complaint: shortness of breath Date: 08/15/24 History of Present Illness: 69-year-old male with history of COPD on 2 L oxygen, tobacco abuse, GERD, depression, hypertension, and anemia, who presents with dyspnea. Patient notes 1 day of worsening progressive dyspnea, not relieved by his inhalers. He denies any productive cough, as well as any fevers, sick contacts, chest pain, nausea, or diarrhea. He denies congestion, sore throat, or sinus pressure. Did not have any relief from his home inhalers. - Review of Systems All Other Systems: Reviewed and Negative Medications & Allergies Home Medications: Home Medication List ALPRAZolam [Xanax 0.5 mg] 0.5 mg PO BID 08/02/14 [History Confirmed 08/15/24] Bupropion HCl 150 mg Sr [Wellbutrin SR 150 MG] 150 mg PO BID #60 tablet.sa 05/29/15 [Rx Confirmed 08/15/24] Atorvastatin Calcium [Lipitor] 80 mg PO HS 06/20/15 [History Confirmed 08/15/24] Omeprazole 40 mg PO DAILY 08/23/18 [History Confirmed 08/15/24] Carvedilol [Coreg ] 6.25 mg PO BID #60 tablet 08/26/18 [Rx Confirmed 08/15/24] Lisinopril 20 mg [Zestril 20 MG] 10 mg PO DAILY 09/02/18 [History Confirmed 08/15/24] Ferrous Sulfate 325 mg [Feosol 325 mg] 325 mg PO BID 05/16/23 [History Confirmed 08/15/24] Albuterol 2.5 mg/3 ml Neb [Proventil 2.5 mg/3 ml Neb] 1 puff IH TIDPRN 07/13/23 [History Confirmed 08/15/24] Docusate Sodium 100 mg PO DAILY 07/13/23 [History Confirmed 08/15/24] Allergies/Adverse Reactions: Allergies Allergy/AdvReac Type Severity Reaction Status Date / Time No Known Drug Allergies Allergy Verified 03/06/24 20:07 - Past Medical History Past Medical History: Yes Neurological History: TIA, Other ENT History: Cataracts Cardiac History: Hypertension Respiratory History: COPD, Emphysema Endocrine Medical History: No Pertinent History Musculoskelatal History: No Pertinent History GI Medical History: GERD History: Renal Disease Pyscho-Social History: Anxiety, Depression Male Reproductive Disorders: No Pertinent History Comment: BRAIN anyerusm, Pt uses O2 at home at 2L - Past Surgical History Past Surgical History: Yes Neuro Surgical History: Neurological Surgery, Other Cardiac History: No Pertinent History Respiratory Surgery: No Pertinent History GI Surgical History: No Pertinent History Genitourinary Surgical Hx: No Pertinent History Musculskeletal Surgical Hx: No Pertinent History Male Surgical History: No Pertinent History Other Surgical History: Brain aneurism, 2 clips in brain 2006 or 2007, CATARACT SURGERY X 3, esophagus stretched Significant Family History: no pertinent family hx - Social History Smoking Status: Current every day smoker (quite one month ago, was 1 pack per day smoker) How long have you smoked: 45 yrs Exposure to second hand smoke: Yes Alcohol: None Drug Use: none - Social Determinants of Health Will the patient participate in the screening: Declined to provide Do you worry about a steady place to live?: No In the past 12 months,have you had to go without utilities?: No Have you or anyone in your house had to go without enough: No Transportation Issues: No Has anyone in your support network made you feel unsafe?: No Comment: lives with daughter - Physical Exam Vital Signs: Vital Signs - 24 hr Temp Pulse Resp BP BP Pulse Ox 08/15/24 22:07 99.0 F 108 H 18 128/72 97 08/15/24 21:26 99 08/15/24 21:00 104 H 31 H 135/90 94 L 08/15/24 20:45 104 H 27 H 139/74 94 L 08/15/24 20:15 98 H 29 H 140/89 96 08/15/24 20:00 92 H 19 123/88 98 08/15/24 19:17 126 H 21 90 L 08/15/24 19:16 102 H 25 H 122/80 100 08/15/24 19:15 100 08/15/24 19:01 101 H 24 101/87 94 L 08/15/24 18:57 94 L 08/15/24 18:46 97 H 25 H 150/78 08/15/24 18:30 90 20 148/85 08/15/24 18:16 100 H 30 H 142/81 99 08/15/24 17:57 97.3 F 96 H 18 124/85 100 Physical Exam GEN: Sitting up in bed in no acute distress. HENT: Normocephalic, atraumatic. Moist mucous membranes. EYES: Normal inspection, anicteric sclera, extraocular movements intact. NECK: Supple, full range of motion CV: Regular rate and rhythm, no murmurs, no gallops. No JVD or edema. PULM: Clear to auscultation bilaterally, no work of breathing, moving air well. On 4 L oxygen by nasal cannula ABD: Nondistended, nontender. MSK: No joint effusions, full range of motion SKIN: No rashes, normal color. NEURO: Face symmetric, no focal motor or sensory deficits. PSYCH: Alert, oriented x 3 Results - Labs Lab/Micro Results: Lab Results-Last 24 Hours 08/15/24 08/15/24 08/15/24 Range/Units 19:12 19:12 19:12 WBC 5.0 (4.23-9.07) x10^3/uL RBC 2.72 L (4.63-6.08) x10^6/uL Hgb 9.1 L (13.7-17.5) g/dL Hct 29.8 L (40.1-51.0) % MCV 109.6 H (79.0-92.2) fL MCH 33.5 H (25.7-32.2) pg MCHC 30.5 L (32.3-36.5) g/dL RDW 17.8 H (11.6-14.4) % Plt Count 200 (163-337) x10^3/uL MPV 10.6 (9.4-12.4) fL Gran % 82.1 H (34.0-67.9) % Immature Gran % (Auto) 0.4 (0.001-0.429) % Nucleat RBC Rel Count 0.0 (0.00-0.2) % Eos # (Auto) 0 L (0.04-0.54) x10^3/uL Immature Gran # (Auto) 0.02 (0.001-0.031) x10^3u/L Absolute Lymphs (auto) 0.67 L (1.32-3.57) x10^3/uL Absolute Monos (auto) 0.20 L (0.30-0.82) x10^3/uL Absolute Nucleated RBC 0.00 (0.00-0.012) x10^3u/L Lymphocytes % 13.5 L (21.8-53.1) % Monocytes % 4.0 L (5.3-12.2) % Eosinophils % 0.0 L (0.8-7.0) % Basophils % 0.0 L (0.2-1.2) % Absolute Granulocytes 4.07 (1.78-5.38) x10^3/uL Basophils # 0 L (0.01-0.08) x10^3/uL Sodium 142 (135-145) mmol/L Potassium 4.4 (3.5-5.1) mmol/L Chloride 101 (98-107) mmol/L Carbon Dioxide 31 H (22-30) mmol/L Anion Gap 14.1 (5-15) MEQ/L BUN 27 H (9-20) mg/dL Creatinine 1.18 (0.66-1.25) mg/dL Estimated GFR 67.2 ML/MIN Glucose 103 (74-106) mg/dL Calcium 8.8 (8.4-10.2) mg/dL Total Bilirubin 0.80 (0.2-1.3) mg/dL AST 33 (17-59) U/L ALT 25 (0-50) U/L Alkaline Phosphatase 126 (38-126) U/L Troponin I < 0.012 (0.000-0.033) ng/mL Serum Total Protein 7.5 (6.3-8.2) g/dL Albumin 4.1 (3.5-5.0) g/dL Influenza Type A Ag (NEGATIVE) Influenza Type B Ag (NEGATIVE) RSV (PCR) (NEGATIVE) SARS-CoV-2 (PCR) (NEGATIVE) 08/15/24 Range/Units 19:30 WBC (4.23-9.07) x10^3/uL RBC (4.63-6.08) x10^6/uL Hgb (13.7-17.5) g/dL Hct (40.1-51.0) % MCV (79.0-92.2) fL MCH (25.7-32.2) pg MCHC (32.3-36.5) g/dL RDW (11.6-14.4) % Plt Count (163-337) x10^3/uL MPV (9.4-12.4) fL Gran % (34.0-67.9) % Immature Gran % (Auto) (0.001-0.429) % Nucleat RBC Rel Count (0.00-0.2) % Eos # (Auto) (0.04-0.54) x10^3/uL Immature Gran # (Auto) (0.001-0.031) x10^3u/L Absolute Lymphs (auto) (1.32-3.57) x10^3/uL Absolute Monos (auto) (0.30-0.82) x10^3/uL Absolute Nucleated RBC (0.00-0.012) x10^3u/L Lymphocytes % (21.8-53.1) % Monocytes % (5.3-12.2) % Eosinophils % (0.8-7.0) % Basophils % (0.2-1.2) % Absolute Granulocytes (1.78-5.38) x10^3/uL Basophils # (0.01-0.08) x10^3/uL Sodium (135-145) mmol/L Potassium (3.5-5.1) mmol/L Chloride (98-107) mmol/L Carbon Dioxide (22-30) mmol/L Anion Gap (5-15) MEQ/L BUN (9-20) mg/dL Creatinine (0.66-1.25) mg/dL Estimated GFR ML/MIN Glucose (74-106) mg/dL Calcium (8.4-10.2) mg/dL Total Bilirubin (0.2-1.3) mg/dL AST (17-59) U/L ALT (0-50) U/L Alkaline Phosphatase (38-126) U/L Troponin I (0.000-0.033) ng/mL Serum Total Protein (6.3-8.2) g/dL Albumin (3.5-5.0) g/dL Influenza Type A Ag NEGATIVE (NEGATIVE) Influenza Type B Ag NEGATIVE (NEGATIVE) RSV (PCR) NEGATIVE (NEGATIVE) SARS-CoV-2 (PCR) NEGATIVE (NEGATIVE) - Radiology Impressions Radiology Exams & Impressions: Radiology Procedures Category Date Time Status CHEST 1 VIEW (PORTABLE) Stat Exams 08/15/24 18:53 Taken Chest x-ray no effusions, infiltrate, or edema. (Images personally reviewed.) - Other Procedures and Tests Respiratory Therapy 08/15/24 19:16 Respiratory Therapy Assessment DAILY Assessment/Plan (1) Acute exacerbation of chronic obstructive airways disease Current Visit: Yes Status: Acute Assessment & Plan: 69-year-old M with history of COPD on 2 L home oxygen, GERD, depression, anemia, and tobacco use, who presents with dyspnea and found to have acute on chronic COPD exacerbation. ## COPD acute exacerbation, acute on chronic hypoxic respiratory failure patient does not appear to have pneumonia on chest x-ray. Trigger is generally unclear, as no clear URI symptoms, no sick contacts. Patient is doing much better than initial presentation in the ED, with no wheezing during my exam. However, he is still requiring 4 L oxygen. Start prednisone 40 mg daily DuoNeb scheduled q.6 hours with PRN dose of q.4 hours Wean oxygen to maintain SPO2 between 91 and 94% Not giving any further antibiotics that he does not appear to have pneumonia at this time ## Iron deficiency anemia patient is at his baseline hemoglobin of 9. Continue ferrous sulfate BID ## Hypertension blood pressure controlled. Continue carvedilol 6.25 mg BID, lisinopril 10 daily ## Tobacco use patient states he just quit smoking, down from 1 pack/day, as of 1 month ago. Continue to encourage smoking cessation CODE STATUS: Full code Prophylaxis: Lovenox 40 Diet: Regular Dispo: Place in observation, expect eventual discharge to home Entirety of encounter took place via live audio/video telemedicine device, with remote physician and patient in hospital, with the assistance of bedside nurse. Code(s): J44.1 - CHRONIC OBSTRUCTIVE PULMONARY DISEASE W (ACUTE) EXACERBATION Telemedicine Encounter - Telemedicine Encounter Telemedicine Encounter: "The entirety of this encounter was performed via Telemedicine" This visit was performed using real-time audio and video connection between my location and thepatients locationwith the assistance of a surrogateat the patients location. Written or verbal consent was obtained from the patient/guardian to perform this visit [facility] technology. Any patient questions regarding the telemedicine interaction were answered.
[2024-08-16] MEDS: DUONEB 0.5-3 MG/3 ml Neb IH SCH (01:03)
[2024-08-16 04:48] LABS: Hematocrit 27.4 % (40.1-51.0); Hemoglobin 8.4 g/dL (13.7-17.5); Mean Cell Volume 108.7 fL (79.0-92.2); Mean Corpuscular Hemoglobin 33.3 pg (25.7-32.2); Mean Corpuscular Hgb Concent. 30.7 g/dL (32.3-36.5); Mean Platelet Volume 10.5 fL (9.4-12.4); Platelet Count 183 x10^3/uL (163-337); Red Blood Count 2.52 x10^6/uL (4.63-6.08); Red Cell Distribution Width 17.7 % (11.6-14.4)
[2024-08-16 05:28] LABS: ANION GAP 13.7 MEQ/L (5-15); Calcium 8.8 mg/dL (8.4-10.2); Creatinine 1 1.09 mg/dL (0.66-1.25); EST GLOMERULAR FILTRATION RATE 73.9 ML/MIN; Potassium 4.3 mmol/L (3.5-5.1)
[2024-08-16 07:30] VITALS: RESP 16
--- NOTE | 2024-08-16 08:46 | XRAY ---
Indication: Short of breath. Comparison: February 25, 2024 Portable chest again demonstrates COPD. No focal infiltrate, consolidation, or large effusion. Heart not enlarged. Bony thorax intact again with osteopenia, mild degenerative changes, and minimal dextroscoliosis. Impression: Nonacute chest with chronic features.
[2024-08-16] MEDS: xanAX 0.5 MG PO SCH (09:24)
[2024-08-16] MEDS: Protonix 40MG Tablet PO SCH (09:24)
[2024-08-16] MEDS: DELTASONE 20 MG PO SCH (09:24)
[2024-08-16] MEDS: Wellbutrin SR 150 MG PO SCH (09:24)
[2024-08-16] MEDS: Coreg PO SCH (09:24)
[2024-08-16] MEDS: FEOSOL 325 MG PO SCH (09:24)
[2024-08-16] MEDS: Docusate Sodium 100 MG PO SCH (09:25)
[2024-08-16] MEDS: Zestril 10 MG PO SCH (09:25)
[2024-08-16] MEDS: ENOXAPARIN SODIUM SQ SCH (09:25)
[2024-08-16] MEDS ORDERED: Zestril 20 MG PO SCH (10:00)
[2024-08-16] MEDS ORDERED: NON-FORMULARY ITEM (Docusate Sodium 100 MG Capsule) PO SCH (10:00)
[2024-08-16] MEDS ORDERED: NON-FORMULARY ITEM (Omeprazole [Omeprazole] 40 MG Capsule.Dr) PO SCH (10:00)
--- NOTE | 2024-08-16 10:59 | PCM.DS ---
Discharge Summary Date of Admission: 08/15/24 21:43 Date of Discharge: 08/16/24 Admitting Physician: SLAVA BOOTH MD Primary Care Provider: RAO LIEBERMAN Allergies Allergies No Known Drug Allergies Allergy (Verified 03/06/24 20:07) Hospital Summary - Hospital Course Hospital Course: Mr. Fragoso is a 69-year-old male with a history of COPD on 2L home oxygen, hypertension, iron deficiency anemia, GERD, depression, and tobacco use who presented with acute worsening dyspnea unrelieved by inhalers. He denied cough, fever, chest pain, or upper respiratory symptoms. Workup revealed no evidence of pneumonia on chest X-ray, and he was diagnosed with an acute on chronic COPD exacerbation with hypoxic respiratory failure. He required up to 4L oxygen i nitially but has since improved and returned to his baseline of 2L. No wheezing was noted on exam at discharge, and his dyspnea is significantly improved. He will discharge home on prednisone 40 mg daily, with scheduled DuoNeb every 6 hours and PRN every 4 hours. Oxygen should be used to maintain saturations between 9194%. Antibiotics were not initiated, as no infectious trigger was identified. His anemia remains at baseline (Hgb 9), and he will continue ferrous sulfate BID. Blood pressure is well controlled on carvedilol and lisinopril, which will be continued. The patient reports smoking cessation one month ago after previously smoking one pack daily; he is encouraged to maintain abstinen ce. He is stable for discharge with outpatient follow-up recommended. New Medications: Prednisone Follow Up: PCP/Pulm I spent 35 minutes [id number] with the patient on the day of discharge p erforming discharge exam, discussing hospital stay and discharge instructions with patient and caregivers, preparation of discharge records, prescriptions & referral forms and addressing any questions/concerns the patient had as documented above. - Vitals & Intake/Output Vital Signs: Vital Signs Temperature 98.2 F 08/16/24 07:29 Pulse Rate 109 H 08/16/24 07:29 Respiratory Rate 16 08/16/24 07:29 Blood Pressure 130/73 08/16/24 07:29 O2 Sat by Pulse Oximetry 93 L 08/16/24 07:29 Intake & Output: Intake & Output 08/13/24 08/14/24 08/15/24 08/16/24 11:59 11:59 11:59 11:59 Intake Total 580 Output Total 50 Balance 530 Weight 59.1 kg - Lab Result Diagrams: 08/16/24 04:25 08/16/24 04:25 Lab Results-Last 24 Hrs: Lab Results-Last 24 Hours 08/15/24 08/15/24 08/15/24 Range/Units 19:12 19:12 19:12 WBC 5.0 (4.23-9.07) x10^3/uL RBC 2.72 L (4.63-6.08) x10^6/uL Hgb 9.1 L (13.7-17.5) g/dL Hct 29.8 L (40.1-51.0) % MCV 109.6 H (79.0-92.2) fL MCH 33.5 H (25.7-32.2) pg MCHC 30.5 L (32.3-36.5) g/dL RDW 17.8 H (11.6-14.4) % Plt Count 200 (163-337) x10^3/uL MPV 10.6 (9.4-12.4) fL Gran % 82.1 H (34.0-67.9) % Immature Gran % (Auto) 0.4 (0.001-0.429) % Nucleat RBC Rel Count 0.0 (0.00-0.2) % Eos # (Auto) 0 L (0.04-0.54) x10^3/uL Immature Gran # (Auto) 0.02 (0.001-0.031) x10^3u/L Absolute Lymphs (auto) 0.67 L (1.32-3.57) x10^3/uL Absolute Monos (auto) 0.20 L (0.30-0.82) x10^3/uL Absolute Nucleated RBC 0.00 (0.00-0.012) x10^3u/L Lymphocytes % 13.5 L (21.8-53.1) % Monocytes % 4.0 L (5.3-12.2) % Eosinophils % 0.0 L (0.8-7.0) % Basophils % 0.0 L (0.2-1.2) % Absolute Granulocytes 4.07 (1.78-5.38) x10^3/uL Basophils # 0 L (0.01-0.08) x10^3/uL Sodium 142 (135-145) mmol/L Potassium 4.4 (3.5-5.1) mmol/L Chloride 101 (98-107) mmol/L Carbon Dioxide 31 H (22-30) mmol/L Anion Gap 14.1 (5-15) MEQ/L BUN 27 H (9-20) mg/dL Creatinine 1.18 (0.66-1.25) mg/dL Estimated GFR 67.2 ML/MIN Glucose 103 (74-106) mg/dL Calcium 8.8 (8.4-10.2) mg/dL Total Bilirubin 0.80 (0.2-1.3) mg/dL AST 33 (17-59) U/L ALT 25 (0-50) U/L Alkaline Phosphatase 126 (38-126) U/L Troponin I < 0.012 (0.000-0.033) ng/mL Serum Total Protein 7.5 (6.3-8.2) g/dL Albumin 4.1 (3.5-5.0) g/dL Influenza Type A Ag (NEGATIVE) Influenza Type B Ag (NEGATIVE) RSV (PCR) (NEGATIVE) SARS-CoV-2 (PCR) (NEGATIVE) 08/15/24 08/16/24 08/16/24 Range/Units 19:30 04:25 04:25 WBC 3.0 L (4.23-9.07) x10^3/uL RBC 2.52 L (4.63-6.08) x10^6/uL Hgb 8.4 L (13.7-17.5) g/dL Hct 27.4 L (40.1-51.0) % MCV 108.7 H (79.0-92.2) fL MCH 33.3 H (25.7-32.2) pg MCHC 30.7 L (32.3-36.5) g/dL RDW 17.7 H (11.6-14.4) % Plt Count 183 (163-337) x10^3/uL MPV 10.5 (9.4-12.4) fL Gran % (34.0-67.9) % Immature Gran % (Auto) (0.001-0.429) % Nucleat RBC Rel Count (0.00-0.2) % Eos # (Auto) (0.04-0.54) x10^3/uL Immature Gran # (Auto) (0.001-0.031) x10^3u/L Absolute Lymphs (auto) (1.32-3.57) x10^3/uL Absolute Monos (auto) (0.30-0.82) x10^3/uL Absolute Nucleated RBC (0.00-0.012) x10^3u/L Lymphocytes % (21.8-53.1) % Monocytes % (5.3-12.2) % Eosinophils % (0.8-7.0) % Basophils % (0.2-1.2) % Absolute Granulocytes (1.78-5.38) x10^3/uL Basophils # (0.01-0.08) x10^3/uL Sodium 139 (135-145) mmol/L Potassium 4.3 (3.5-5.1) mmol/L Chloride 101 (98-107) mmol/L Carbon Dioxide 29 (22-30) mmol/L Anion Gap 13.7 (5-15) MEQ/L BUN 28 H (9-20) mg/dL Creatinine 1.09 (0.66-1.25) mg/dL Estimated GFR 73.9 ML/MIN Glucose 139 H (74-106) mg/dL Calcium 8.8 (8.4-10.2) mg/dL Total Bilirubin (0.2-1.3) mg/dL AST (17-59) U/L ALT (0-50) U/L Alkaline Phosphatase (38-126) U/L Troponin I (0.000-0.033) ng/mL Serum Total Protein (6.3-8.2) g/dL Albumin (3.5-5.0) g/dL Influenza Type A Ag NEGATIVE (NEGATIVE) Influenza Type B Ag NEGATIVE (NEGATIVE) RSV (PCR) NEGATIVE (NEGATIVE) SARS-CoV-2 (PCR) NEGATIVE (NEGATIVE) - Radiology Exams Ordered Rad Exams-Entire Visit: Radiology Procedures Category Date Time Status CHEST 1 VIEW (PORTABLE) Stat Exams 08/15/24 18:53 Completed - Procedures and Test Procedures and Tests throughout Hospitalization: Therapy Orders & Screens 08/15/24 19:16 Respiratory Therapy Assessment DAILY Comment: 08/15/24 22:28 PT Eval & Treat ( Order) ONCE Reason for Eval:: evaluate & treat; L hip pain affecting walking Diagnosis: left hip pain 08/16/24 01:04 Oxygen Nasal Cannula 2 lpm Comment: Diagnosis: left hip pain Discharge Exam General Appearance: no apparent distress Neurologic Exam: alert, oriented x 3, cooperative Eye Exam: PERRL Ears, Nose, Throat Exam: normal ENT inspection Neck Exam: normal inspection Respiratory Exam: diminished breath sounds, wheezing Cardiovascular Exam: regular rate/rhythm, normal heart sounds Gastrointestinal/Abdomen Exam: soft, normal bowel sounds Male Genitalia Exam: deferred Rectal Exam: deferred Back Exam: normal inspection Extremity Exam: normal inspection Skin Exam: normal color Final Diagnosis/Problem List - Final Discharge Diagnosis/Problem (1) Acute exacerbation of chronic obstructive airways disease Current Visit: Yes Status: Acute Code(s): J44.1 - CHRONIC OBSTRUCTIVE PULMONARY DISEASE W (ACUTE) EXACERBATION (2) Iron deficiency anemia Current Visit: Yes Status: Chronic Code(s): D50.9 - IRON DEFICIENCY ANEMIA, UNSPECIFIED (3) HTN (hypertension) Current Visit: Yes Status: Chronic Code(s): I10 - ESSENTIAL (PRIMARY) HYPERTENSION (4) Tobacco abuse Current Visit: Yes Status: Chronic Code(s): Z72.0 - TOBACCO USE (5) GERD (gastroesophageal reflux disease) Current Visit: Yes Status: Chronic Code(s): K21.9 - GASTRO-ESOPHAGEAL REFLUX DISEASE WITHOUT ESOPHAGITIS - Discharge Discharge Date: 08/16/24 Disposition: Home, Self-Care Condition: Stable Prescriptions: New Prednisone 20 mg [Deltasone 20 mg] 20 mg PO BID 5 Days #10 tablet Continue ALPRAZolam [Xanax 0.5 mg] 0.5 mg PO BID Bupropion HCl 150 mg Sr [Wellbutrin SR 150 MG] 150 mg PO BID #60 tablet.sa Atorvastatin Calcium [Lipitor] 80 mg PO HS Omeprazole 40 mg PO DAILY Carvedilol [Coreg ] 6.25 mg PO BID #60 tablet Lisinopril 20 mg [Zestril 20 MG] 10 mg PO DAILY Ferrous Sulfate 325 mg [Feosol 325 mg] 325 mg PO BID Albuterol 2.5 mg/3 ml Neb [Proventil 2.5 mg/3 ml Neb] 1 puff IH TIDPRN Docusate Sodium 100 mg PO DAILY Follow up with: RAO LIEBREMAN MD [Primary Care Provider] - 08/22/24 11:00 am
[2024-08-16 11:12] VITALS: BP 122/62; PULSE 87; TEMP 97.7; O2SAT 94
[2024-08-16] MEDS ORDERED: NON-FORMULARY ITEM (Atorvastatin Calcium [Lipitor] 80 MG Tablet) PO SCH (22:00)
[2024-08-16] MEDS ORDERED: LIPITOR 40MG PO SCH (22:00)
== END 2024-08-16 13:35 | disposition home or self-care (01) ==
LOC: ED 17:51 → MED SURG 21:43
PROVIDERS: ADMIT Internal Medicine; ATTEND Internal Medicine
DX: J44.1 Chronic obstructive pulmonary disease with (acute) exacerbation (principal); J96.01 Acute respiratory failure with hypoxia; Z99.81 Dependence on supplemental oxygen; Z79.899 Other long term (current) drug therapy; D50.9 Iron deficiency anemia, unspecified; I10 Essential (primary) hypertension; Z72.0 Tobacco use; K21.9 Gastro-esophageal reflux disease without esophagitis
CPT/HCPCS: 0241U; 36415; 71045; 80048; 80053; 84484; 85025; 85027; 87040; 93005; 93041; 93268; 94640; 94760; 96374; 97162; 99285; G0378; Q3014; J0456; J0696; J1650; J2919; A9270-GY

== ENCOUNTER 2025-02-13 17:16 | Observation (INO) | payer MEDICARE, OTHER ==
--- NOTE | 2025-02-13 18:17 | ERPHSYRPT ---
- History of Present Illness Source: patient Patient Subjective Stated Complaint: pt here for general weakness and nausea for over a week now, no vomiting, no fever, states he is voiding well, denies any pain Triage Nursing Assessment: pt alert, arrived per ems, appears ill, resp easy, skin w/d/p. mucus membranes dry, no cough, abd soft, nontender Physician History: This is a 69-year-old male stating that he has been having nausea and vomiting with everything he has eaten in the past 2 weeks. He has no chest pain or abdominal pain. No flank pain. No dysuria or hematuria. Patient has had no similar symptoms in the past. Patient denies any abdominal surgeries in the past. He has his gallbladder and appendix. No fever or chills. Allergies/Adverse Reactions: No Known Drug Allergies Allergy (Verified 02/13/25 17:19) Home Medications: ALPRAZolam [Xanax 0.5 mg] 0.5 mg PO BID 08/02/14 [History] Atorvastatin Calcium [Lipitor] 80 mg PO HS 06/20/15 [History] Omeprazole 40 mg PO DAILY 08/23/18 [History] Lisinopril 20 mg [Zestril 20 MG] 10 mg PO DAILY 09/02/18 [History] Ferrous Sulfate 325 mg [Feosol 325 mg] 325 mg PO BID 05/16/23 [History] Albuterol 2.5 mg/3 ml Neb [Proventil 2.5 mg/3 ml Neb] 1 puff IH TIDPRN 07/13/23 [History] Docusate Sodium 100 mg PO DAILY 07/13/23 [History] Hx Tetanus, Diphtheria Vaccination/Date Given: Yes Hx Influenza Vaccination/Date Given: No Hx Pneumococcal Vaccination/Date Given: No Immunizations Up to Date: Yes Travel Risk - International Travel Have you traveled outside of the country in past 3 weeks: No - Emerging Infectious Disease Are you exhibiting symptoms associated with any current EIDs: No - Review of Systems All Other Systems: Reviewed and Negative (As per HPI otherwise negative) - Past Medical History Pertinent Past Medical History: Yes Neurological History: TIA, Other ENT History: Cataracts Cardiac History: Hypertension Respiratory History: COPD, Emphysema Endocrine Medical History: No Pertinent History Musculoskeletal History: No Pertinent History GI Medical History: GERD History: Renal Disease Psycho-Social History: Anxiety, Depression Male Reproductive Disorders: No Pertinent History Other Medical History: BRAIN anyerusm, Pt uses O2 at home at 2L - Past Surgical History Past Surgical History: Yes Neuro Surgical History: Neurological Surgery, Other Cardiac: No Pertinent History Respiratory: No Pertinent History Gastrointestinal: No Pertinent History Genitourinary: No Pertinent History Musculoskeletal: No Pertinent History Male Surgical History: No Pertinent History Other Surgical History: Brain aneurism, 2 clips in brain 2006 or 2007, CATARACT SURGERY X 3, esophagus stretched Significant Family History: no pertinent family hx - Social History Smoking Status: Current every day smoker How long have you smoked: 45 yrs Exposure to second hand smoke: Yes Drug Use: none - Social Determinants of Health Will the patient participate in the screening: Declined to provide Do you worry about a steady place to live?: No In the past 12 months,have you had to go without utilities?: No Transportation Issues: No Has anyone in your support network made you feel unsafe?: No Have you or anyone in your house had to go w/o enough food: No Comment: lives with daughter - Nursing Vital Signs Nursing Vital Signs: Initial Vital Signs Pulse Rate 84 02/13/25 17:15 Respiratory Rate 21 02/13/25 17:15 Blood Pressure 119/87 02/13/25 17:15 O2 Sat by Pulse Oximetry 81 L 02/13/25 17:15 Pain Scale Pain Intensity 0 - Physical Exam SpO2: 81 Comments: 02/13/25 18:13 General: Well-nourished well-developed. No apparent distress. Cachectic. Cool to touch Skin: HEENT: Normocephalic atraumatic no obvious facial or neck deformity or injury. Neck: Supple. No deformity or mass noted. CV: RRR NL Perfusion. No edema Resp: No Respiratory distress or adventitious breath sounds Abd: ND SNT positive bowel sounds. Negative Arce sign. Negative McBurney's tenderness. MSK: No deformity or TTP Neuro: Alert and Dawson x4. No gross focal neurologic changes Psych: No SI, HI or grave disability 02/13/25 18:17 Ordered Tests: Active Orders 24 hr Category Date Time Status CTA ABD/PEL W AND/OR W/O CONTR [CT] Stat Exams 02/13/25 18:14 Ordered AMYLASE Stat Lab 02/13/25 18:15 Completed Alcohol [ETHYL ALCOHOL] Stat Lab 02/13/25 18:15 Received CBC W DIFF Stat Lab 02/13/25 18:15 Completed CMP Stat Lab 02/13/25 18:15 Completed LIPASE Stat Lab 02/13/25 18:15 Received Lactic Acid Stat Lab 02/13/25 18:14 Completed PT INR [PROTIME WITH INR] Stat Lab 02/13/25 18:15 Completed PTT Stat Lab 02/13/25 18:15 Completed TROPONIN Q4H Lab 02/13/25 18:15 Received TROPONIN Q4H Lab 02/13/25 22:15 Ordered TSH [TSH, 3RD Generation] Stat Lab 02/13/25 18:15 Received UA W/RFX UR CULTURE Stat Lab 02/13/25 18:14 Ordered Urine Triage Profile Stat Lab 02/13/25 18:14 Ordered Medication Summary Generic Name Dose Route Start Last Admin Trade Name Freq PRN Reason Stop Dose Admin Sodium Chloride 500 mls @ 500 mls/hr 02/13/25 18:16 02/13/25 18:32 Sodium Chloride 0.9% 500 Ml IV 02/13/25 19:15 500 mls/hr .Q1H ONE Administration Discontinued Medications Generic Name Dose Route Start Last Admin Trade Name Freq PRN Reason Stop Dose Admin Sodium Chloride Confirm 02/13/25 18:19 Sodium Chloride 0.9% 500 Ml Administered 02/13/25 18:20 Dose 500 mls @ ud IV .STK-MED ONE Ondansetron HCl 4 mg 02/13/25 18:15 02/13/25 18:32 Ondansetron Hcl 4 Mg/2 Ml Vial IV 02/13/25 18:16 4 mg STAT ONE Administration Ondansetron HCl Confirm 02/13/25 18:19 Ondansetron Hcl 4 Mg/2 Ml Vial Administered 02/13/25 18:20 Dose 4 mg .ROUTE .STK-MED ONE EKG 6:27 PM normal sinus rhythm 70 bpm. No ischemic changes. Lab/Rad Data: Laboratory Result Diagrams 02/13/25 18:15 02/13/25 18:15 Laboratory Results 02/13/25 02/13/25 02/13/25 Range/Units 18:15 18:15 18:15 WBC 7.0 (4.23-9.07) x10^3/uL RBC 2.79 L (4.63-6.08) x10^6/uL Hgb 9.6 L (13.7-17.5) g/dL Hct 30.2 L (40.1-51.0) % MCV 108.2 H (79.0-92.2) fL MCH 34.4 H (25.7-32.2) pg MCHC 31.8 L (32.3-36.5) g/dL RDW 16.0 H (11.6-14.4) % Plt Count 256 (163-337) x10^3/uL MPV 10.7 (9.4-12.4) fL Gran % 83.0 H (34.0-67.9) % Immature Gran % (Auto) 0.3 (0.001-0.429) % Nucleat RBC Rel Count 0.0 (0.00-0.2) % Eos # (Auto) 0 L (0.04-0.54) x10^3/uL Immature Gran # (Auto) 0.02 (0.001-0.031) x10^3u/L Absolute Lymphs (auto) 0.88 L (1.32-3.57) x10^3/uL Absolute Monos (auto) 0.29 L (0.30-0.82) x10^3/uL Absolute Nucleated RBC 0.00 (0.00-0.012) x10^3u/L Lymphocytes % 12.6 L (21.8-53.1) % Monocytes % 4.1 L (5.3-12.2) % Eosinophils % 0.0 L (0.8-7.0) % Basophils % 0.0 L (0.2-1.2) % Absolute Granulocytes 5.80 H (1.78-5.38) x10^3/uL Basophils # 0 L (0.01-0.08) x10^3/uL PT 11.2 (9.4-12.5) SECONDS INR 1.00 (0.8-3.0) APTT 29.9 (25.1-36.5) SECONDS Sodium 139 (135-145) mmol/L Potassium 4.5 (3.5-5.1) mmol/L Chloride 102 (98-107) mmol/L Carbon Dioxide 27 (22-30) mmol/L Anion Gap 14.4 (5-15) MEQ/L BUN 32 H (9-20) mg/dL Creatinine 1.00 (0.66-1.25) mg/dL Estimated GFR 82.0 ML/MIN Glucose 100 (74-106) mg/dL Lactic Acid (0.4-2.0) Calcium 9.0 (8.4-10.2) mg/dL Total Bilirubin 0.50 (0.2-1.3) mg/dL AST 31 (17-59) U/L ALT 15 (0-50) U/L Alkaline Phosphatase 111 (38-126) U/L Serum Total Protein 7.3 (6.3-8.2) g/dL Albumin 4.0 (3.5-5.0) g/dL Amylase 73 (30-110) U/L // Range/Units 18:14 WBC (4.23-9.07) x10^3/uL RBC (4.63-6.08) x10^6/uL Hgb (13.7-17.5) g/dL Hct (40.1-51.0) % MCV (79.0-92.2) fL MCH (25.7-32.2) pg MCHC (32.3-36.5) g/dL RDW (11.6-14.4) % Plt Count (163-337) x10^3/uL MPV (9.4-12.4) fL Gran % (34.0-67.9) % Immature Gran % (Auto) (0.001-0.429) % Nucleat RBC Rel Count (0.00-0.2) % Eos # (Auto) (0.04-0.54) x10^3/uL Immature Gran # (Auto) (0.001-0.031) x10^3u/L Absolute Lymphs (auto) (1.32-3.57) x10^3/uL Absolute Monos (auto) (0.30-0.82) x10^3/uL Absolute Nucleated RBC (0.00-0.012) x10^3u/L Lymphocytes % (21.8-53.1) % Monocytes % (5.3-12.2) % Eosinophils % (0.8-7.0) % Basophils % (0.2-1.2) % Absolute Granulocytes (1.78-5.38) x10^3/uL Basophils # (0.01-0.08) x10^3/uL PT (9.4-12.5) SECONDS INR (0.8-3.0) APTT (25.1-36.5) SECONDS Sodium (135-145) mmol/L Potassium (3.5-5.1) mmol/L Chloride (98-107) mmol/L Carbon Dioxide (22-30) mmol/L Anion Gap (5-15) MEQ/L BUN (9-20) mg/dL Creatinine (0.66-1.25) mg/dL Estimated GFR ML/MIN Glucose (74-106) mg/dL Lactic Acid 0.9 (0.4-2.0) Calcium (8.4-10.2) mg/dL Total Bilirubin (0.2-1.3) mg/dL AST (17-59) U/L ALT (0-50) U/L Alkaline Phosphatase (38-126) U/L Serum Total Protein (6.3-8.2) g/dL Albumin (3.5-5.0) g/dL Amylase (30-110) U/L - Progress Progress Note: 02/13/25 18:12 Patient's extremities are hold likely leading to the low oxygen reading. He does not appear hypoxic on exam. Sats 100% on a different machine. He will have a CT angio to rule out for ischemic colitis as his symptoms are all with eating. His cachexia and coolness to touch will also include cortisol and thyroid studies. Will include other cardiac and general medical workup as well he has no findings clinically acutely on exam he would deep palpation in the right upper quadrant and right lower quadrant there is no pain. Certainly cardiac workup will be included as well. 02/13/25 18:18 02/13/25 18:57 Scan CTA of abdomen pending. Final care and disposition will be endorsed to oncoming emergency physician Dr. Quan Erickson. - Departure Departure Disposition: Observation (~Patient emergency department endorsed to Dr. Quan Erickson) Clinical Impression: Postprandial vomiting Condition: Stable Critical Care Time: No Referrals: RAO LIEBERMAN MD [Primary Care Provider, [facility]] - Follow up/PCP as directed
[2025-02-13] MEDS ORDERED: Zofran 4 MG/2 ML VIAL ONE (18:19)
[2025-02-13 18:22] LABS: BASOPHIL % 0.0 % (0.2-1.2); Basophil (Absolute #) 0 x10^3/uL (0.01-0.08); Eosinophil (Absolute #) 0 x10^3/uL (0.04-0.54); Hematocrit 30.2 % (40.1-51.0); Hemoglobin 9.6 g/dL (13.7-17.5); IMMATURE GRAN # 0.02 x10^3u/L (0.001-0.031); IMMATURE GRAN % 0.3 % (0.001-0.429); Lymphocyte (Absolute #) 0.88 x10^3/uL (1.32-3.57); Mean Corpuscular Hemoglobin 34.4 pg (25.7-32.2); Mean Corpuscular Hgb Concent. 31.8 g/dL (32.3-36.5); Monocyte (Absolute #) 0.29 x10^3/uL (0.30-0.82); NUCLEATED RBC # 0.00 x10^3u/L (0.00-0.012); NUCLEATED RBC % 0.0 % (0.00-0.2); Platelet Count 256 x10^3/uL (163-337); Red Blood Count 2.79 x10^6/uL (4.63-6.08); White Blood Count 7.0 x10^3/uL (4.23-9.07)
[2025-02-13] MEDS: Zofran 4 MG/2 ML VIAL IV ONE (18:32)
[2025-02-13 18:46] LABS: INR 1.0 (0.8-3.0); PROTIME 11.2 SECONDS (9.4-12.5); PTT 29.9 SECONDS (25.1-36.5)
[2025-02-13 18:47] LABS: Calcium 9.0 mg/dL (8.4-10.2); Carbon Dioxide 27.0 mmol/L (22-30); Creatinine 1 1.0 mg/dL (0.66-1.25); EST GLOMERULAR FILTRATION RATE 82.0 ML/MIN; Glucose 100.0 mg/dL (74-106); Potassium 4.5 mmol/L (3.5-5.1); SGOT/AST 31.0 U/L (17-59); SGPT/ALT 15.0 U/L (0-50); Total Protein 7.3 g/dL (6.3-8.2)
[2025-02-13 19:18] LABS: ETHYL ALCOHOL < 10 mg/dL (0-10)
[2025-02-13 19:50] LABS: Glucose, Urine Negative (Negative); Protein,Urine Dip Negative (Negative); RBC 0-2 /HPF (0-5); WBC 0-2 /HPF (0-5)
[2025-02-13 20:05] LABS: Amphetamine,Urine NEGATIVE (NEGATIVE); Barbiturate,Urine NEGATIVE (NEGATIVE); Benzodiazepine,Urine POSITIVE (NEGATIVE); Cocaine,Urine NEGATIVE (NEGATIVE); Methadone,Urine NEGATIVE (NEGATIVE); Opiate,Urine NEGATIVE (NEGATIVE); PCP,Urine NEGATIVE (NEGATIVE); THC,Urine NEGATIVE (NEGATIVE)
--- NOTE | 2025-02-13 23:28 | PCM.HP ---
History of Present Illness - Chief Complaint Chief Complaint: Intractable nausea and vomiting History of Present Illness: is a 69 year old male with PMH of COPD, chronic hypoxic respiratory failure, anxiety, depression, iron deficiency anemia, constipation, hypertension, GERD, history of CVA/TIA, history of brain aneurysm status post clips, cataracts, and chronic renal disease presented to the ED complaining of generalized weakness and nausea with nonbloody nonbilious emesis for the past week. Patient denies fever, chills, cough, chest pain, shortness of breath, abdominal pain, flank pain, dysuria, melena, rectal bleeding. He has had decreased oral intake due to the nausea and vomiting and reports vomiting up solids and liquids. Denies similar symptoms in the past. No known sick contacts. No recent travel. Patient reports previous EGD where his esophagus was dilated - he is unsure of why this was done. He reports about 80 lbs of unintentional weight loss in the past year. He was previously 210 lbs 1 year ago. He quit smoking 2 months ago but was previously a 2 PPD smoker. In the ER, patient was hemodynamically stable. Patient had a CT of the abdomen pelvis with contrast showing moderate scattered atherosclerotic disease, 2.1 x 2.1 cm distal aortic ectasia, small hiatal hernia, atrophic non-enhancing non- excreting left kidney with 3 mm stone, mild diffuse fecal stasis, sigmoid diverticulosis and findings suggestive emphysema. - Review of Systems Constitutional: No Symptoms, Weakness, Weight Loss Eyes: No Symptoms Ears, Nose, & Throat: No Symptoms Respiratory: No Symptoms Cardiac: No Symptoms Abdominal/Gastrointestinal: Nausea, Vomiting, Appetite Changes Musculoskeletal: No Symptoms Skin: No Symptoms Neurological: No Symptoms Psychological: No Symptoms Endocrine: No Symptoms Hematologic/Lymphatic: No Symptoms Immunological/Allergic: No Symptoms Medications & Allergies Home Medications: Home Medication List ALPRAZolam [Xanax 0.5 mg] 0.5 mg PO BID 08/02/14 [History Confirmed 02/13/25] Bupropion HCl 150 mg Sr [Wellbutrin SR 150 MG] 150 mg PO BID #60 tablet.sa 05/29/15 [Rx Confirmed 02/13/25] Atorvastatin Calcium [Lipitor] 80 mg PO HS 06/20/15 [History Confirmed 02/13/25] Carvedilol [Coreg ] 6.25 mg PO BID #60 tablet 08/26/18 [Rx Confirmed 02/13/25] Lisinopril 20 mg [Zestril 20 MG] 10 mg PO DAILY 09/02/18 [History Confirmed 02/13/25] Ferrous Sulfate 325 mg [Feosol 325 mg] 325 mg PO BID 05/16/23 [History Confirmed 02/13/25] Docusate Sodium 100 mg PO DAILY 07/13/23 [History Confirmed 02/13/25] Meloxicam 7.5 mg PO DAILY 02/13/25 [History Confirmed 02/13/25] Potassium Chloride 10 meq PO DAILY 02/13/25 [History Confirmed 02/13/25] Allergies/Adverse Reactions: Allergies Allergy/AdvReac Type Severity Reaction Status Date / Time No Known Drug Allergies Allergy Verified 02/13/25 17:19 - Past Medical History Past Medical History: Yes Neurological History: TIA, Other ENT History: Cataracts Cardiac History: Hypertension Respiratory History: COPD, Emphysema Endocrine Medical History: No Pertinent History Musculoskelatal History: No Pertinent History GI Medical History: GERD History: Renal Disease Pyscho-Social History: Anxiety, Depression Male Reproductive Disorders: No Pertinent History Comment: BRAIN anyerusm, Pt uses O2 at home at 2L - Past Surgical History Past Surgical History: Yes Neuro Surgical History: Neurological Surgery, Other Cardiac History: No Pertinent History Respiratory Surgery: No Pertinent History GI Surgical History: No Pertinent History Genitourinary Surgical Hx: No Pertinent History Musculskeletal Surgical Hx: No Pertinent History Male Surgical History: No Pertinent History Other Surgical History: Brain aneurism, 2 clips in brain 2006 or 2007, CATARACT SURGERY X 3, esophagus stretched Significant Family History: no pertinent family hx - Social History Smoking Status: Current every day smoker How long have you smoked: 45 yrs Exposure to second hand smoke: Yes Alcohol: None Drug Use: none - Social Determinants of Health Will the patient participate in the screening: Declined to provide Do you worry about a steady place to live?: No In the past 12 months,have you had to go without utilities?: No Have you or anyone in your house had to go without enough: No Transportation Issues: No Has anyone in your support network made you feel unsafe?: No Comment: lives with daughter - Physical Exam Vital Signs: Vital Signs - 24 hr Temp Pulse Resp BP BP Pulse Ox 02/13/25 23:14 98.0 F 96 H 18 158/76 99 02/13/25 22:52 95 02/13/25 22:32 81 21 143/91 95 02/13/25 22:00 83 19 151/91 98 02/13/25 21:30 133/91 02/13/25 21:00 78 20 123/77 99 02/13/25 20:30 85 25 H 130/86 99 02/13/25 20:01 84 25 H 124/84 98 02/13/25 19:31 88 25 H 103/80 100 02/13/25 19:21 126 H 25 H 109/91 100 02/13/25 18:58 81 L 02/13/25 18:31 81 28 H 104/78 99 02/13/25 18:00 80 24 159/91 100 02/13/25 17:48 78 24 146/96 02/13/25 17:47 80 22 02/13/25 17:40 80 24 02/13/25 17:31 78 24 02/13/25 17:15 84 21 119/87 81 L Oxygen-Last 24 hours Oxygen Flowrate (L/min)-RT 3 General Appearance: no apparent distress, cachetic, thin Neurologic Exam: alert, oriented x 3, cooperative, normal mood/affect Eye Exam: PERRL/EOMI Ears, Nose, Throat Exam: normal ENT inspection Neck Exam: normal inspection, non-tender Respiratory Exam: normal breath sounds, diminished breath sounds Cardiovascular Exam: regular rate/rhythm, normal heart sounds, normal peripheral pulses Gastrointestinal/Abdomen Exam: soft, normal bowel sounds Skin Exam: normal color, warm, dry Wound Assessment: Skin/Wound Assessment Wound/Incision Assessment Start: 02/13/25 23:03 Text: Status: Active Freq: Q6H Protocol: Document 02/13/25 23:03 CWB (Rec: 02/13/25 23:12 CWB [id number]) Wound Photo Photo Taken No Results - Labs Lab/Micro Results: Lab Results-Last 24 Hours 02/13/25 02/13/25 02/13/25 Range/Units 18:14 18:15 18:15 WBC 7.0 (4.23-9.07) x10^3/uL RBC 2.79 L (4.63-6.08) x10^6/uL Hgb 9.6 L (13.7-17.5) g/dL Hct 30.2 L (40.1-51.0) % MCV 108.2 H (79.0-92.2) fL MCH 34.4 H (25.7-32.2) pg MCHC 31.8 L (32.3-36.5) g/dL RDW 16.0 H (11.6-14.4) % Plt Count 256 (163-337) x10^3/uL MPV 10.7 (9.4-12.4) fL Gran % 83.0 H (34.0-67.9) % Immature Gran % (Auto) 0.3 (0.001-0.429) % Nucleat RBC Rel Count 0.0 (0.00-0.2) % Eos # (Auto) 0 L (0.04-0.54) x10^3/uL Immature Gran # (Auto) 0.02 (0.001-0.031) x10^3u/L Absolute Lymphs (auto) 0.88 L (1.32-3.57) x10^3/uL Absolute Monos (auto) 0.29 L (0.30-0.82) x10^3/uL Absolute Nucleated RBC 0.00 (0.00-0.012) x10^3u/L Lymphocytes % 12.6 L (21.8-53.1) % Monocytes % 4.1 L (5.3-12.2) % Eosinophils % 0.0 L (0.8-7.0) % Basophils % 0.0 L (0.2-1.2) % Absolute Granulocytes 5.80 H (1.78-5.38) x10^3/uL Basophils # 0 L (0.01-0.08) x10^3/uL PT (9.4-12.5) SECONDS INR (0.8-3.0) APTT (25.1-36.5) SECONDS Sodium 139 (135-145) mmol/L Potassium 4.5 (3.5-5.1) mmol/L Chloride 102 (98-107) mmol/L Carbon Dioxide 27 (22-30) mmol/L Anion Gap 14.4 (5-15) MEQ/L BUN 32 H (9-20) mg/dL Creatinine 1.00 (0.66-1.25) mg/dL Estimated GFR 82.0 ML/MIN Glucose 100 (74-106) mg/dL Lactic Acid 0.9 (0.4-2.0) Calcium 9.0 (8.4-10.2) mg/dL Magnesium (1.6-2.3) mg/dL Total Bilirubin 0.50 (0.2-1.3) mg/dL AST 31 (17-59) U/L ALT 15 (0-50) U/L Alkaline Phosphatase 111 (38-126) U/L Troponin I (0.000-0.033) ng/mL Serum Total Protein 7.3 (6.3-8.2) g/dL Albumin 4.0 (3.5-5.0) g/dL Amylase 73 (30-110) U/L Lipase (23-300) U/L TSH 3rd Generation (0.470-4.680) mIU/L Urine Color (Yellow) Urine Appearance (Clear) Urine pH (4.6-8.0) Ur Specific [place] (1.005-1.030) Urine Protein (Negative) Urine Glucose (UA) (Negative) mg/dL Urine Ketones (Negative) Urine Blood (Negative) Urine Nitrite (Negative) Urine Bilirubin (Negative) Urine Urobilinogen (0.2) mg/dL Ur Leukocyte Esterase (Negative) U Hyaline Cast (Auto) (0-2) /LPF Urine Microscopic RBC (0-5) /HPF Urine Microscopic WBC (0-5) /HPF Ur Epithelial Cells (None Seen) /HPF Urine Bacteria (None Seen) /HPF Urine Culture Reflexed (NO) Urine Opiates Level (NEGATIVE) Ur Methadone (NEGATIVE) Urine Barbiturates (NEGATIVE) Ur Phencyclidine (PCP) (NEGATIVE) Urine Amphetamine (NEGATIVE) U Benzodiazepine Level (NEGATIVE) Urine Cocaine (NEGATIVE) Urine Marijuana (THC) (NEGATIVE) Ethyl Alcohol (0-10) mg/dL 02/13/25 02/13/25 02/13/25 Range/Units 18:15 18:15 18:15 WBC (4.23-9.07) x10^3/uL RBC (4.63-6.08) x10^6/uL Hgb (13.7-17.5) g/dL Hct (40.1-51.0) % MCV (79.0-92.2) fL MCH (25.7-32.2) pg MCHC (32.3-36.5) g/dL RDW (11.6-14.4) % Plt Count (163-337) x10^3/uL MPV (9.4-12.4) fL Gran % (34.0-67.9) % Immature Gran % (Auto) (0.001-0.429) % Nucleat RBC Rel Count (0.00-0.2) % Eos # (Auto) (0.04-0.54) x10^3/uL Immature Gran # (Auto) (0.001-0.031) x10^3u/L Absolute Lymphs (auto) (1.32-3.57) x10^3/uL Absolute Monos (auto) (0.30-0.82) x10^3/uL Absolute Nucleated RBC (0.00-0.012) x10^3u/L Lymphocytes % (21.8-53.1) % Monocytes % (5.3-12.2) % Eosinophils % (0.8-7.0) % Basophils % (0.2-1.2) % Absolute Granulocytes (1.78-5.38) x10^3/uL Basophils # (0.01-0.08) x10^3/uL PT 11.2 (9.4-12.5) SECONDS INR 1.00 (0.8-3.0) APTT 29.9 (25.1-36.5) SECONDS Sodium (135-145) mmol/L Potassium (3.5-5.1) mmol/L Chloride (98-107) mmol/L Carbon Dioxide (22-30) mmol/L Anion Gap (5-15) MEQ/L BUN (9-20) mg/dL Creatinine (0.66-1.25) mg/dL Estimated GFR ML/MIN Glucose (74-106) mg/dL Lactic Acid (0.4-2.0) Calcium (8.4-10.2) mg/dL Magnesium (1.6-2.3) mg/dL Total Bilirubin (0.2-1.3) mg/dL AST (17-59) U/L ALT (0-50) U/L Alkaline Phosphatase (38-126) U/L Troponin I < 0.012 (0.000-0.033) ng/mL Serum Total Protein (6.3-8.2) g/dL Albumin (3.5-5.0) g/dL Amylase (30-110) U/L Lipase 51 (23-300) U/L TSH 3rd Generation 1.296 (0.470-4.680) mIU/L Urine Color (Yellow) Urine Appearance (Clear) Urine pH (4.6-8.0) Ur Specific [place] (1.005-1.030) Urine Protein (Negative) Urine Glucose (UA) (Negative) mg/dL Urine Ketones (Negative) Urine Blood (Negative) Urine Nitrite (Negative) Urine Bilirubin (Negative) Urine Urobilinogen (0.2) mg/dL Ur Leukocyte Esterase (Negative) U Hyaline Cast (Auto) (0-2) /LPF Urine Microscopic RBC (0-5) /HPF Urine Microscopic WBC (0-5) /HPF Ur Epithelial Cells (None Seen) /HPF Urine Bacteria (None Seen) /HPF Urine Culture Reflexed (NO) Urine Opiates Level (NEGATIVE) Ur Methadone (NEGATIVE) Urine Barbiturates (NEGATIVE) Ur Phencyclidine (PCP) (NEGATIVE) Urine Amphetamine (NEGATIVE) U Benzodiazepine Level (NEGATIVE) Urine Cocaine (NEGATIVE) Urine Marijuana (THC) (NEGATIVE) Ethyl Alcohol < 10 (0-10) mg/dL 02/13/25 02/13/25 02/13/25 Range/Units 19:40 19:40 21:10 WBC (4.23-9.07) x10^3/uL RBC (4.63-6.08) x10^6/uL Hgb (13.7-17.5) g/dL Hct (40.1-51.0) % MCV (79.0-92.2) fL MCH (25.7-32.2) pg MCHC (32.3-36.5) g/dL RDW (11.6-14.4) % Plt Count (163-337) x10^3/uL MPV (9.4-12.4) fL Gran % (34.0-67.9) % Immature Gran % (Auto) (0.001-0.429) % Nucleat RBC Rel Count (0.00-0.2) % Eos # (Auto) (0.04-0.54) x10^3/uL Immature Gran # (Auto) (0.001-0.031) x10^3u/L Absolute Lymphs (auto) (1.32-3.57) x10^3/uL Absolute Monos (auto) (0.30-0.82) x10^3/uL Absolute Nucleated RBC (0.00-0.012) x10^3u/L Lymphocytes % (21.8-53.1) % Monocytes % (5.3-12.2) % Eosinophils % (0.8-7.0) % Basophils % (0.2-1.2) % Absolute Granulocytes (1.78-5.38) x10^3/uL Basophils # (0.01-0.08) x10^3/uL PT (9.4-12.5) SECONDS INR (0.8-3.0) APTT (25.1-36.5) SECONDS Sodium (135-145) mmol/L Potassium (3.5-5.1) mmol/L Chloride (98-107) mmol/L Carbon Dioxide (22-30) mmol/L Anion Gap (5-15) MEQ/L BUN (9-20) mg/dL Creatinine (0.66-1.25) mg/dL Estimated GFR ML/MIN Glucose (74-106) mg/dL Lactic Acid (0.4-2.0) Calcium (8.4-10.2) mg/dL Magnesium (1.6-2.3) mg/dL Total Bilirubin (0.2-1.3) mg/dL AST (17-59) U/L ALT (0-50) U/L Alkaline Phosphatase (38-126) U/L Troponin I < 0.012 (0.000-0.033) ng/mL Serum Total Protein (6.3-8.2) g/dL Albumin (3.5-5.0) g/dL Amylase (30-110) U/L Lipase (23-300) U/L TSH 3rd Generation (0.470-4.680) mIU/L Urine Color Yellow (Yellow) Urine Appearance Clear (Clear) Urine pH 5.5 (4.6-8.0) Ur Specific [place] >=1.030 A (1.005-1.030) Urine Protein Negative (Negative) Urine Glucose (UA) Negative (Negative) mg/dL Urine Ketones Trace A (Negative) Urine Blood Negative (Negative) Urine Nitrite Negative (Negative) Urine Bilirubin Negative (Negative) Urine Urobilinogen 1.0 A (0.2) mg/dL Ur Leukocyte Esterase Negative (Negative) U Hyaline Cast (Auto) NONE SEEN (0-2) /LPF Urine Microscopic RBC 0-2 (0-5) /HPF Urine Microscopic WBC 0-2 (0-5) /HPF Ur Epithelial Cells None Seen (None Seen) /HPF Urine Bacteria None Seen (None Seen) /HPF Urine Culture Reflexed NO (NO) Urine Opiates Level NEGATIVE (NEGATIVE) Ur Methadone NEGATIVE (NEGATIVE) Urine Barbiturates NEGATIVE (NEGATIVE) Ur Phencyclidine (PCP) NEGATIVE (NEGATIVE) Urine Amphetamine NEGATIVE (NEGATIVE) U Benzodiazepine Level POSITIVE A (NEGATIVE) Urine Cocaine NEGATIVE (NEGATIVE) Urine Marijuana (THC) NEGATIVE (NEGATIVE) Ethyl Alcohol (0-10) mg/dL 02/13/25 Range/Units 21:10 WBC (4.23-9.07) x10^3/uL RBC (4.63-6.08) x10^6/uL Hgb (13.7-17.5) g/dL Hct (40.1-51.0) % MCV (79.0-92.2) fL MCH (25.7-32.2) pg MCHC (32.3-36.5) g/dL RDW (11.6-14.4) % Plt Count (163-337) x10^3/uL MPV (9.4-12.4) fL Gran % (34.0-67.9) % Immature Gran % (Auto) (0.001-0.429) % Nucleat RBC Rel Count (0.00-0.2) % Eos # (Auto) (0.04-0.54) x10^3/uL Immature Gran # (Auto) (0.001-0.031) x10^3u/L Absolute Lymphs (auto) (1.32-3.57) x10^3/uL Absolute Monos (auto) (0.30-0.82) x10^3/uL Absolute Nucleated RBC (0.00-0.012) x10^3u/L Lymphocytes % (21.8-53.1) % Monocytes % (5.3-12.2) % Eosinophils % (0.8-7.0) % Basophils % (0.2-1.2) % Absolute Granulocytes (1.78-5.38) x10^3/uL Basophils # (0.01-0.08) x10^3/uL PT (9.4-12.5) SECONDS INR (0.8-3.0) APTT (25.1-36.5) SECONDS Sodium (135-145) mmol/L Potassium (3.5-5.1) mmol/L Chloride (98-107) mmol/L Carbon Dioxide (22-30) mmol/L Anion Gap (5-15) MEQ/L BUN (9-20) mg/dL Creatinine (0.66-1.25) mg/dL Estimated GFR ML/MIN Glucose (74-106) mg/dL Lactic Acid (0.4-2.0) Calcium (8.4-10.2) mg/dL Magnesium 2.1 (1.6-2.3) mg/dL Total Bilirubin (0.2-1.3) mg/dL AST (17-59) U/L ALT (0-50) U/L Alkaline Phosphatase (38-126) U/L Troponin I (0.000-0.033) ng/mL Serum Total Protein (6.3-8.2) g/dL Albumin (3.5-5.0) g/dL Amylase (30-110) U/L Lipase (23-300) U/L TSH 3rd Generation (0.470-4.680) mIU/L Urine Color (Yellow) Urine Appearance (Clear) Urine pH (4.6-8.0) Ur Specific [place] (1.005-1.030) Urine Protein (Negative) Urine Glucose (UA) (Negative) mg/dL Urine Ketones (Negative) Urine Blood (Negative) Urine Nitrite (Negative) Urine Bilirubin (Negative) Urine Urobilinogen (0.2) mg/dL Ur Leukocyte Esterase (Negative) U Hyaline Cast (Auto) (0-2) /LPF Urine Microscopic RBC (0-5) /HPF Urine Microscopic WBC (0-5) /HPF Ur Epithelial Cells (None Seen) /HPF Urine Bacteria (None Seen) /HPF Urine Culture Reflexed (NO) Urine Opiates Level (NEGATIVE) Ur Methadone (NEGATIVE) Urine Barbiturates (NEGATIVE) Ur Phencyclidine (PCP) (NEGATIVE) Urine Amphetamine (NEGATIVE) U Benzodiazepine Level (NEGATIVE) Urine Cocaine (NEGATIVE) Urine Marijuana (THC) (NEGATIVE) Ethyl Alcohol (0-10) mg/dL - Radiology Impressions Radiology Exams & Impressions: Radiology Procedures Category Date Time Status CTA ABD/PEL W AND/OR W/O CONTR [CT] Stat Exams 02/13/25 18:14 Taken Assessment/Plan (1) Intractable nausea and vomiting Current Visit: Yes Status: Acute Assessment & Plan: Unclear etiology Supportive care with IV fluids and anti-emetic. Advance diet as tolerated. Code(s): R11.2 - NAUSEA WITH VOMITING, UNSPECIFIED (2) Unintentional weight loss Current Visit: Yes Status: Chronic Assessment & Plan: Need outpatient workup for malignancy Code(s): R63.4 - ABNORMAL WEIGHT LOSS (3) Atherosclerotic cardiovascular disease Current Visit: Yes Status: Suspected Assessment & Plan: No acute symptoms Code(s): I25.10 - ATHSCL HEART DISEASE OF [place] CORONARY ARTERY W/O ANG PCTRS (4) Hiatal hernia Current Visit: Yes Status: Acute Assessment & Plan: Consider surgery consult Code(s): K44.9 - DIAPHRAGMATIC HERNIA WITHOUT OBSTRUCTION OR GANGRENE (5) Kidney stone on left side Current Visit: Yes Status: Chronic Assessment & Plan: No acute symptoms Code(s): N20.0 - CALCULUS OF KIDNEY (6) Sigmoid diverticulosis Current Visit: Yes Status: Chronic Assessment & Plan: No current rectal bleeding Code(s): K57.30 - DVRTCLOS OF LG INT W/O PERFORATION OR ABSCESS W/O BLEEDING (7) Anxiety and depression Current Visit: Yes Status: Chronic Assessment & Plan: Continue home medications Code(s): F41.9 - ANXIETY DISORDER, UNSPECIFIED; F32.A - DEPRESSION, UNSPECIFIED (8) COPD (chronic obstructive pulmonary disease) Current Visit: Yes Status: Chronic Assessment & Plan: No acute exacerbation Continue albuterol as needed Continue home oxygen (9) Chronic renal disease Current Visit: Yes Status: Chronic Assessment & Plan: Renal function is stable Code(s): N18.9 - CHRONIC KIDNEY DISEASE, UNSPECIFIED (10) GERD (gastroesophageal reflux disease) Current Visit: Yes Status: Chronic Qualifiers: Esophagitis presence: esophagitis presence not specified Qualified Code(s): K21.9 - Gastro-esophageal reflux disease without esophagitis Assessment & Plan: Continue PPI Code(s): K21.9 - GASTRO-ESOPHAGEAL REFLUX DISEASE WITHOUT ESOPHAGITIS (11) HTN (hypertension) Current Visit: Yes Status: Chronic Qualifiers: Hypertension type: primary hypertension Qualified Code(s): I10 - Essential (primary) hypertension Assessment & Plan: Continue lisinopril Code(s): I10 - ESSENTIAL (PRIMARY) HYPERTENSION (12) History of cerebral aneurysm repair Current Visit: Yes Status: Chronic Code(s): Z98.89 - OTHER SPECIFIED POSTPROCEDURAL STATES * DO NOT USE * (13) History of stroke Current Visit: Yes Status: Chronic Code(s): Z86.73 - PRSNL HX OF TIA (TIA), AND CEREB INFRC W/O RESID DEFICITS (14) Iron deficiency anemia Current Visit: Yes Status: Chronic Assessment & Plan: Continue ferrous sulfate Code(s): D50.9 - IRON DEFICIENCY ANEMIA, UNSPECIFIED (15) Tobacco abuse Current Visit: Yes Status: Chronic Assessment & Plan: Quit smoking 2 months ago Code(s): Z72.0 - TOBACCO USE Telemedicine Encounter - Telemedicine Encounter Telemedicine Encounter: DVT Prophylaxis with heparin Full code Plan of care discussed with patient and RN "The entirety of this encounter was performed via Telemedicine" This visit was performed using real-time audio and video connection between my location and thepatients locationwith the assistance of a surrogateat the patients location. Written or verbal consent was obtained from the patient/guardian to perform this visit [email or web address]. Any patient questions regarding the telemedicine interaction were answered.
[2025-02-14] MEDS ORDERED: TYLENOL 325 MG PO PRN (00:05)
[2025-02-14] MEDS ORDERED: Zofran 4 MG/2 ML VIAL IV PRN (00:06)
[2025-02-14] MEDS: Coreg PO SCH (04:24)
[2025-02-14 04:56] LABS: Hematocrit 27.7 % (40.1-51.0); Hemoglobin 8.6 g/dL (13.7-17.5); Mean Corpuscular Hemoglobin 33.9 pg (25.7-32.2); Mean Corpuscular Hgb Concent. 31.0 g/dL (32.3-36.5); Platelet Count 248 x10^3/uL (163-337); Red Blood Count 2.54 x10^6/uL (4.63-6.08); White Blood Count 5.5 x10^3/uL (4.23-9.07)
[2025-02-14 05:09] LABS: Calcium 8.3 mg/dL (8.4-10.2); Carbon Dioxide 26.0 mmol/L (22-30); Creatinine 1 0.97 mg/dL (0.66-1.25); EST GLOMERULAR FILTRATION RATE 85.0 ML/MIN; Glucose 83.0 mg/dL (74-106); Potassium 3.9 mmol/L (3.5-5.1)
--- NOTE | 2025-02-14 05:16 | PCM.NOTE ---
Date and Time: 02/14/25 0507 Subjective Assessment: 02/14/25: Mr. Fragoso is a 69-year-old male with a history of COPD with chronic hypoxic respiratory failure on baseline 2 L oxygen, chronic kidney disease, hypertension, GERD with hiatal hernia, anxiety and depression, iron deficiency anemia, and extensive atherosclerotic vascular disease who was initially being arranged for transfer to a tertiary facility for vascular surgery evaluation after CTA abdomen/pelvis revealed severe diffuse atherosclerotic disease with 99% stenosis of the left common iliac artery, approximately 50% stenosis of the right common iliac artery, occlusion of the left renal artery with associated atrophic kidney, and mild distal aortic ectasia. Additional findings included diffuse vascular calcification, emphysematous changes, and a nonobstructing 3 mm left renal calculus. Following review of the CTA images by the vascular surgery team at the receiving facility, transfer was declined as the disease was deemed chronic in nature without evidence of acute ischemia or urgent surgical indication. Outpatient vascular follow-up was recommended for further evaluation and management. The patient remains hemodynamically stable on baseline oxygen, with stable renal function and no new ischemic symptoms. Nausea and vomiting have improved, and he is tolerating gradual advancement of diet. Continued management includes aspirin and high-intensity statin , maintenance of hydration, avoidance of nephrotoxins and hypotension, and ongoing PPI therapy for GERD and hiatal hernia. He will continue home oxygen and bronchodilators for COPD, ferrous sulfate for chronic anemia, and his current psychiatric medications. Outpatient follow-up with vascular surgery, nephrology, urology, and gastroenterology has been recommended for comprehensive management of his chronic conditions. - Review of Systems Constitutional: Weakness, Weight Loss Eyes: No Symptoms Ears, Nose, & Throat: No Symptoms Respiratory: No Symptoms Cardiac: No Symptoms Abdominal/Gastrointestinal: No Symptoms Genitourinary Symptoms: No Symptoms Musculoskeletal: No Symptoms Skin: No Symptoms Neurological: No Symptoms Psychological: No Symptoms Endocrine: No Symptoms Hematologic/Lymphatic: No Symptoms Immunological/Allergic: No Symptoms Objective Exam General Appearance: no apparent distress Neurologic Exam: alert, oriented x 3, cooperative Skin Exam: normal color, warm, dry Wound Assessment: Skin/Wound Assessment Wound/Incision Assessment Start: 02/13/25 23:03 Text: Status: Active Freq: Q6H Protocol: Document 02/13/25 23:03 CWB (Rec: 02/13/25 23:12 CWB [id number]) Wound Photo Photo Taken No Eye Exam: PERRL Ears, Nose, Throat Exam: normal ENT inspection Neck Exam: normal inspection Respiratory Exam: crackles/rales Cardiovascular Exam: regular rate/rhythm, normal heart sounds, normal peripheral pulses Gastrointestinal/Abdomen Exam: soft, normal bowel sounds Extremity Exam: normal inspection Back Exam: normal inspection Male Genitalia Exam: deferred Rectal Exam: deferred Objective Data Vital Signs: Vital Signs - 24 hr Temp Pulse Resp BP BP Pulse Ox 02/14/25 03:56 97.8 F 101 H 24 124/77 99 02/13/25 23:16 98.0 F 96 H 18 158/76 99 02/13/25 23:14 98.0 F 96 H 18 158/76 99 02/13/25 22:52 95 02/13/25 22:32 81 21 143/91 95 02/13/25 22:00 83 19 151/91 98 02/13/25 21:30 133/91 02/13/25 21:00 78 20 123/77 99 02/13/25 20:30 85 25 H 130/86 99 02/13/25 20:01 84 25 H 124/84 98 02/13/25 19:31 88 25 H 103/80 100 02/13/25 19:21 126 H 25 H 109/91 100 02/13/25 18:58 81 L 02/13/25 18:31 81 28 H 104/78 99 02/13/25 18:00 80 24 159/91 100 02/13/25 17:48 78 24 146/96 02/13/25 17:47 80 22 02/13/25 17:40 80 24 02/13/25 17:31 78 24 02/13/25 17:15 84 21 119/87 81 L Oxygen-Last 24 hours Oxygen Flowrate (L/min)-RT 3 Pain Assessment - Last Documented Pain Intensity 0 Intake and Output: Intake & Output 02/11/25 02/12/25 02/13/25 02/14/25 11:59 11:59 11:59 11:59 Intake Total 91 Output Total 2950 Balance -2859 Weight 59.6 kg Lab Results: Lab Results-Last 24 Hours 02/13/25 02/13/25 02/13/25 Range/Units 18:14 18:15 18:15 WBC 7.0 (4.23-9.07) x10^3/uL RBC 2.79 L (4.63-6.08) x10^6/uL Hgb 9.6 L (13.7-17.5) g/dL Hct 30.2 L (40.1-51.0) % MCV 108.2 H (79.0-92.2) fL MCH 34.4 H (25.7-32.2) pg MCHC 31.8 L (32.3-36.5) g/dL RDW 16.0 H (11.6-14.4) % Plt Count 256 (163-337) x10^3/uL MPV 10.7 (9.4-12.4) fL Gran % 83.0 H (34.0-67.9) % Immature Gran % (Auto) 0.3 (0.001-0.429) % Nucleat RBC Rel Count 0.0 (0.00-0.2) % Eos # (Auto) 0 L (0.04-0.54) x10^3/uL Immature Gran # (Auto) 0.02 (0.001-0.031) x10^3u/L Absolute Lymphs (auto) 0.88 L (1.32-3.57) x10^3/uL Absolute Monos (auto) 0.29 L (0.30-0.82) x10^3/uL Absolute Nucleated RBC 0.00 (0.00-0.012) x10^3u/L Lymphocytes % 12.6 L (21.8-53.1) % Monocytes % 4.1 L (5.3-12.2) % Eosinophils % 0.0 L (0.8-7.0) % Basophils % 0.0 L (0.2-1.2) % Absolute Granulocytes 5.80 H (1.78-5.38) x10^3/uL Basophils # 0 L (0.01-0.08) x10^3/uL PT (9.4-12.5) SECONDS INR (0.8-3.0) APTT (25.1-36.5) SECONDS Sodium 139 (135-145) mmol/L Potassium 4.5 (3.5-5.1) mmol/L Chloride 102 (98-107) mmol/L Carbon Dioxide 27 (22-30) mmol/L Anion Gap 14.4 (5-15) MEQ/L BUN 32 H (9-20) mg/dL Creatinine 1.00 (0.66-1.25) mg/dL Estimated GFR 82.0 ML/MIN Glucose 100 (74-106) mg/dL Lactic Acid 0.9 (0.4-2.0) Calcium 9.0 (8.4-10.2) mg/dL Magnesium (1.6-2.3) mg/dL Total Bilirubin 0.50 (0.2-1.3) mg/dL AST 31 (17-59) U/L ALT 15 (0-50) U/L Alkaline Phosphatase 111 (38-126) U/L Troponin I (0.000-0.033) ng/mL Serum Total Protein 7.3 (6.3-8.2) g/dL Albumin 4.0 (3.5-5.0) g/dL Amylase 73 (30-110) U/L Lipase (23-300) U/L TSH 3rd Generation (0.470-4.680) mIU/L Urine Color (Yellow) Urine Appearance (Clear) Urine pH (4.6-8.0) Ur Specific [place] (1.005-1.030) Urine Protein (Negative) Urine Glucose (UA) (Negative) mg/dL Urine Ketones (Negative) Urine Blood (Negative) Urine Nitrite (Negative) Urine Bilirubin (Negative) Urine Urobilinogen (0.2) mg/dL Ur Leukocyte Esterase (Negative) U Hyaline Cast (Auto) (0-2) /LPF Urine Microscopic RBC (0-5) /HPF Urine Microscopic WBC (0-5) /HPF Ur Epithelial Cells (None Seen) /HPF Urine Bacteria (None Seen) /HPF Urine Culture Reflexed (NO) Urine Opiates Level (NEGATIVE) Ur Methadone (NEGATIVE) Urine Barbiturates (NEGATIVE) Ur Phencyclidine (PCP) (NEGATIVE) Urine Amphetamine (NEGATIVE) U Benzodiazepine Level (NEGATIVE) Urine Cocaine (NEGATIVE) Urine Marijuana (THC) (NEGATIVE) Ethyl Alcohol (0-10) mg/dL 02/13/25 02/13/25 02/13/25 Range/Units 18:15 18:15 18:15 WBC (4.23-9.07) x10^3/uL RBC (4.63-6.08) x10^6/uL Hgb (13.7-17.5) g/dL Hct (40.1-51.0) % MCV (79.0-92.2) fL MCH (25.7-32.2) pg MCHC (32.3-36.5) g/dL RDW (11.6-14.4) % Plt Count (163-337) x10^3/uL MPV (9.4-12.4) fL Gran % (34.0-67.9) % Immature Gran % (Auto) (0.001-0.429) % Nucleat RBC Rel Count (0.00-0.2) % Eos # (Auto) (0.04-0.54) x10^3/uL Immature Gran # (Auto) (0.001-0.031) x10^3u/L Absolute Lymphs (auto) (1.32-3.57) x10^3/uL Absolute Monos (auto) (0.30-0.82) x10^3/uL Absolute Nucleated RBC (0.00-0.012) x10^3u/L Lymphocytes % (21.8-53.1) % Monocytes % (5.3-12.2) % Eosinophils % (0.8-7.0) % Basophils % (0.2-1.2) % Absolute Granulocytes (1.78-5.38) x10^3/uL Basophils # (0.01-0.08) x10^3/uL PT 11.2 (9.4-12.5) SECONDS INR 1.00 (0.8-3.0) APTT 29.9 (25.1-36.5) SECONDS Sodium (135-145) mmol/L Potassium (3.5-5.1) mmol/L Chloride (98-107) mmol/L Carbon Dioxide (22-30) mmol/L Anion Gap (5-15) MEQ/L BUN (9-20) mg/dL Creatinine (0.66-1.25) mg/dL Estimated GFR ML/MIN Glucose (74-106) mg/dL Lactic Acid (0.4-2.0) Calcium (8.4-10.2) mg/dL Magnesium (1.6-2.3) mg/dL Total Bilirubin (0.2-1.3) mg/dL AST (17-59) U/L ALT (0-50) U/L Alkaline Phosphatase (38-126) U/L Troponin I < 0.012 (0.000-0.033) ng/mL Serum Total Protein (6.3-8.2) g/dL Albumin (3.5-5.0) g/dL Amylase (30-110) U/L Lipase 51 (23-300) U/L TSH 3rd Generation 1.296 (0.470-4.680) mIU/L Urine Color (Yellow) Urine Appearance (Clear) Urine pH (4.6-8.0) Ur Specific [place] (1.005-1.030) Urine Protein (Negative) Urine Glucose (UA) (Negative) mg/dL Urine Ketones (Negative) Urine Blood (Negative) Urine Nitrite (Negative) Urine Bilirubin (Negative) Urine Urobilinogen (0.2) mg/dL Ur Leukocyte Esterase (Negative) U Hyaline Cast (Auto) (0-2) /LPF Urine Microscopic RBC (0-5) /HPF Urine Microscopic WBC (0-5) /HPF Ur Epithelial Cells (None Seen) /HPF Urine Bacteria (None Seen) /HPF Urine Culture Reflexed (NO) Urine Opiates Level (NEGATIVE) Ur Methadone (NEGATIVE) Urine Barbiturates (NEGATIVE) Ur Phencyclidine (PCP) (NEGATIVE) Urine Amphetamine (NEGATIVE) U Benzodiazepine Level (NEGATIVE) Urine Cocaine (NEGATIVE) Urine Marijuana (THC) (NEGATIVE) Ethyl Alcohol < 10 (0-10) mg/dL 02/13/25 02/13/25 02/13/25 Range/Units 19:40 19:40 21:10 WBC (4.23-9.07) x10^3/uL RBC (4.63-6.08) x10^6/uL Hgb (13.7-17.5) g/dL Hct (40.1-51.0) % MCV (79.0-92.2) fL MCH (25.7-32.2) pg MCHC (32.3-36.5) g/dL RDW (11.6-14.4) % Plt Count (163-337) x10^3/uL MPV (9.4-12.4) fL Gran % (34.0-67.9) % Immature Gran % (Auto) (0.001-0.429) % Nucleat RBC Rel Count (0.00-0.2) % Eos # (Auto) (0.04-0.54) x10^3/uL Immature Gran # (Auto) (0.001-0.031) x10^3u/L Absolute Lymphs (auto) (1.32-3.57) x10^3/uL Absolute Monos (auto) (0.30-0.82) x10^3/uL Absolute Nucleated RBC (0.00-0.012) x10^3u/L Lymphocytes % (21.8-53.1) % Monocytes % (5.3-12.2) % Eosinophils % (0.8-7.0) % Basophils % (0.2-1.2) % Absolute Granulocytes (1.78-5.38) x10^3/uL Basophils # (0.01-0.08) x10^3/uL PT (9.4-12.5) SECONDS INR (0.8-3.0) APTT (25.1-36.5) SECONDS Sodium (135-145) mmol/L Potassium (3.5-5.1) mmol/L Chloride (98-107) mmol/L Carbon Dioxide (22-30) mmol/L Anion Gap (5-15) MEQ/L BUN (9-20) mg/dL Creatinine (0.66-1.25) mg/dL Estimated GFR ML/MIN Glucose (74-106) mg/dL Lactic Acid (0.4-2.0) Calcium (8.4-10.2) mg/dL Magnesium (1.6-2.3) mg/dL Total Bilirubin (0.2-1.3) mg/dL AST (17-59) U/L ALT (0-50) U/L Alkaline Phosphatase (38-126) U/L Troponin I < 0.012 (0.000-0.033) ng/mL Serum Total Protein (6.3-8.2) g/dL Albumin (3.5-5.0) g/dL Amylase (30-110) U/L Lipase (23-300) U/L TSH 3rd Generation (0.470-4.680) mIU/L Urine Color Yellow (Yellow) Urine Appearance Clear (Clear) Urine pH 5.5 (4.6-8.0) Ur Specific [place] >=1.030 A (1.005-1.030) Urine Protein Negative (Negative) Urine Glucose (UA) Negative (Negative) mg/dL Urine Ketones Trace A (Negative) Urine Blood Negative (Negative) Urine Nitrite Negative (Negative) Urine Bilirubin Negative (Negative) Urine Urobilinogen 1.0 A (0.2) mg/dL Ur Leukocyte Esterase Negative (Negative) U Hyaline Cast (Auto) NONE SEEN (0-2) /LPF Urine Microscopic RBC 0-2 (0-5) /HPF Urine Microscopic WBC 0-2 (0-5) /HPF Ur Epithelial Cells None Seen (None Seen) /HPF Urine Bacteria None Seen (None Seen) /HPF Urine Culture Reflexed NO (NO) Urine Opiates Level NEGATIVE (NEGATIVE) Ur Methadone NEGATIVE (NEGATIVE) Urine Barbiturates NEGATIVE (NEGATIVE) Ur Phencyclidine (PCP) NEGATIVE (NEGATIVE) Urine Amphetamine NEGATIVE (NEGATIVE) U Benzodiazepine Level POSITIVE A (NEGATIVE) Urine Cocaine NEGATIVE (NEGATIVE) Urine Marijuana (THC) NEGATIVE (NEGATIVE) Ethyl Alcohol (0-10) mg/dL 02/13/ Range/Units 21:10 WBC (4.23-9.07) x10^3/uL RBC (4.63-6.08) x10^6/uL Hgb (13.7-17.5) g/dL Hct (40.1-51.0) % MCV (79.0-92.2) fL MCH (25.7-32.2) pg MCHC (32.3-36.5) g/dL RDW (11.6-14.4) % Plt Count (163-337) x10^3/uL MPV (9.4-12.4) fL Gran % (34.0-67.9) % Immature Gran % (Auto) (0.001-0.429) % Nucleat RBC Rel Count (0.00-0.2) % Eos # (Auto) (0.04-0.54) x10^3/uL Immature Gran # (Auto) (0.001-0.031) x10^3u/L Absolute Lymphs (auto) (1.32-3.57) x10^3/uL Absolute Monos (auto) (0.30-0.82) x10^3/uL Absolute Nucleated RBC (0.00-0.012) x10^3u/L Lymphocytes % (21.8-53.1) % Monocytes % (5.3-12.2) % Eosinophils % (0.8-7.0) % Basophils % (0.2-1.2) % Absolute Granulocytes (1.78-5.38) x10^3/uL Basophils # (0.01-0.08) x10^3/uL PT (9.4-12.5) SECONDS INR (0.8-3.0) APTT (25.1-36.5) SECONDS Sodium (135-145) mmol/L Potassium (3.5-5.1) mmol/L Chloride (98-107) mmol/L Carbon Dioxide (22-30) mmol/L Anion Gap (5-15) MEQ/L BUN (9-20) mg/dL Creatinine (0.66-1.25) mg/dL Estimated GFR ML/MIN Glucose (74-106) mg/dL Lactic Acid (0.4-2.0) Calcium (8.4-10.2) mg/dL Magnesium 2.1 (1.6-2.3) mg/dL Total Bilirubin (0.2-1.3) mg/dL AST (17-59) U/L ALT (0-50) U/L Alkaline Phosphatase (38-126) U/L Troponin I (0.000-0.033) ng/mL Serum Total Protein (6.3-8.2) g/dL Albumin (3.5-5.0) g/dL Amylase (30-110) U/L Lipase (23-300) U/L TSH 3rd Generation (0.470-4.680) mIU/L Urine Color (Yellow) Urine Appearance (Clear) Urine pH (4.6-8.0) Ur Specific [place] (1.005-1.030) Urine Protein (Negative) Urine Glucose (UA) (Negative) mg/dL Urine Ketones (Negative) Urine Blood (Negative) Urine Nitrite (Negative) Urine Bilirubin (Negative) Urine Urobilinogen (0.2) mg/dL Ur Leukocyte Esterase (Negative) U Hyaline Cast (Auto) (0-2) /LPF Urine Microscopic RBC (0-5) /HPF Urine Microscopic WBC (0-5) /HPF Ur Epithelial Cells (None Seen) /HPF Urine Bacteria (None Seen) /HPF Urine Culture Reflexed (NO) Urine Opiates Level (NEGATIVE) Ur Methadone (NEGATIVE) Urine Barbiturates (NEGATIVE) Ur Phencyclidine (PCP) (NEGATIVE) Urine Amphetamine (NEGATIVE) U Benzodiazepine Level (NEGATIVE) Urine Cocaine (NEGATIVE) Urine Marijuana (THC) (NEGATIVE) Ethyl Alcohol (0-10) mg/dL Radiology Exams: Radiology Procedures Category Date Time Status CTA ABD/PEL W AND/OR W/O CONTR [CT] Stat Exams 02/13/25 18:14 Taken Medications: Medications Generic Name Dose Route Start Last Admin Trade Name Freq PRN Reason Stop Dose Admin Acetaminophen 650 mg 02/14/25 00:05 Acetaminophen 325 Mg Tablet PO 03/16/25 00:04 Q4H PRN PRN PAIN, FEVER, HEADACHE Alprazolam 0.5 mg 02/14/25 10:00 Alprazolam 0.5 Mg Tablet PO 03/16/25 09:59 BID DONALDO Bupropion HCl 150 mg 02/14/25 10:00 Bupropion Hcl 150 Mg Tablet Sr PO 03/16/25 09:59 BID DONALDO Carvedilol 6.25 mg 02/14/25 10:00 02/14/25 04:24 Carvedilol 6.25 Mg Tablet PO 03/16/25 09:59 6.25 mg BID DONALDO Administration Ferrous Sulfate 325 mg 02/14/25 10:00 Ferrous Sulfate 325 Mg Tablet PO 03/16/25 09:59 BID DONALDO Heparin Sodium (Beef Lung) 5,000 unit 02/14/25 10:00 Heparin 5000 Units/0.5 Ml 5,000 Unit/0.5 Ml Syr SQ 03/16/25 09:59 BID DONALDO Sodium Chloride 1,000 mls @ 50 mls/hr 02/14/25 00:15 02/14/25 00:49 Sodium Chloride 0.9% 1000 Ml IV 03/16/25 00:14 50 mls/hr .Q20H DONALDO Administration Lisinopril 10 mg 02/14/25 10:00 Lisinopril 20 Mg Tablet PO 03/16/25 09:59 DAILY DONALDO Non-Formulary Medication 80 mg 02/14/25 22:00 Atorvastatin Calcium [Lipitor] PO 03/16/25 21:59 HS [facility] Non-Formulary Medication 100 mg 02/14/25 10:00 Docusate Sodium PO 03/16/25 09:59 DAILY DONALDO Non-Formulary Medication 10 meq 02/14/25 10:00 Potassium Chloride [Potassium Chloride] PO 03/16/25 09:59 DAILY [facility] Ondansetron HCl 4 mg 02/14/25 00:06 Ondansetron Hcl 4 Mg/2 Ml Vial IV 03/16/25 00:05 Q6H PRN PRN NAUSEA/VOMITING Discontinued Medications Generic Name Dose Route Start Last Admin Trade Name Freq PRN Reason Stop Dose Admin Sodium Chloride 500 mls @ 500 mls/hr 02/13/25 18:16 02/13/25 19:32 Sodium Chloride 0.9% 500 Ml IV 02/13/25 19:15 Infused .Q1H ONE Infusion Sodium Chloride Confirm 02/13/25 18:19 Sodium Chloride 0.9% 500 Ml Administered 02/13/25 18:20 Dose 500 mls @ ud IV .STK-MED ONE Ondansetron HCl 4 mg 02/13/25 18:15 02/13/25 18:32 Ondansetron Hcl 4 Mg/2 Ml Vial IV 02/13/25 18:16 4 mg STAT ONE Administration Ondansetron HCl Confirm 02/13/25 18:19 Ondansetron Hcl 4 Mg/2 Ml Vial Administered 02/13/25 18:20 Dose 4 mg .ROUTE .STK-MED ONE Assessment/Plan (1) Generalized atherosclerosis Current Visit: Yes Status: Acute Assessment & Plan: -CTA abdomen/pelvis (02/13/25) revealed severe diffuse arteriosclerotic disease with 99% stenosis of the left common iliac artery, 50% stenosis of the right common iliac artery, and occlusion of the left renal artery with atrophic left kidney and mild distal aortic ectasia. - Vascular surgery reviewed imaging and determined disease to be chronic in nature with no acute ischemic changes or indication for urgent intervention; therefore, transfer was declined. -Continue aspirin 81 mg daily and high-intensity statin - Maintain hydration and avoid hypotension or nephrotoxins to preserve renal perfusion. -Arrange outpatient vascular surgery follow-up for chronic disease management and further evaluation. Code(s): I70.91 - GENERALIZED ATHEROSCLEROSIS (2) Intractable nausea and vomiting Current Visit: Yes Status: Acute Assessment & Plan: -Labs show no electrolyte derangements or metabolic alkalosis. -CT negative for obstruction. Etiology remains unclearcould be functional, structural, or malignancy-related. -CMP/cbc reviewed -Continue IV fluids for hydration, ondansetron or prochlorperazine for nausea, and PPI for gastric protection. -Gradually advance diet as tolerated once symptoms improve. -Monitor CMP and intake/output. Code(s): R11.2 - NAUSEA WITH VOMITING, UNSPECIFIED (3) Unintentional weight loss Current Visit: Yes Status: Acute Assessment & Plan: -Highly concerning for malignancy or severe chronic disease. No mass lesions on abdominal CT, but further evaluation needed. -Arrange outpatient GI evaluation for repeat EGD and colonoscopy. -CT chest given emphysematous changes and heavy smoking history - CT Chest reviewed from one year ago showing CARL subpleural spiculated lung mass suspicious for malignancy -Evaluate for nutritional deficiency and malignancy (albumin, prealbumin, TSH, iron studies, PSA) Code(s): R63.4 - ABNORMAL WEIGHT LOSS (4) Atherosclerotic cardiovascular disease Current Visit: Yes Status: Acute Assessment & Plan: -Seen on CT (aortic ectasia and vascular calcifications). -No current ischemic symptoms. -Continue -statin therapy, and blood pressure control with lisinopril. -Reinforce smoking cessation. Code(s): I25.10 - ATHSCL HEART DISEASE OF [place] CORONARY ARTERY W/O ANG PCTRS (5) Hiatal hernia Current Visit: Yes Status: Acute Assessment & Plan: -May contribute to reflux and nausea. - Continue PPI therapy and elevate head of bed. - Surgical consult if refractory symptoms persist. Code(s): K44.9 - DIAPHRAGMATIC HERNIA WITHOUT OBSTRUCTION OR GANGRENE (6) Renal calculus, left Current Visit: Yes Status: Acute Assessment & Plan: -CT shows atrophic, nonfunctioning left kidney with small 3 mm calculus; creatinine remains stable. - Avoid nephrotoxins and maintain hydration. -Urology follow-up for surveillance of solitary functioning kidney. Code(s): N20.0 - CALCULUS OF KIDNEY (7) COPD (chronic obstructive pulmonary disease) Current Visit: Yes Status: Acute Assessment & Plan: -CT shows emphysematous changes. No signs of acute exacerbation. -Continue home O2and albuterol PRN. - Maintain smoking cessation and consider pulmonary rehab. (8) HTN (hypertension) Current Visit: Yes Status: Acute Assessment & Plan: -Well-controlled on lisinopril. - Continue regimen; monitor for hypotension given poor intake. Code(s): I10 - ESSENTIAL (PRIMARY) HYPERTENSION (9) GERD (gastroesophageal reflux disease) Current Visit: Yes Status: Acute Assessment & Plan: - Continue PPI therapy; hiatal hernia may be contributing. Code(s): K21.9 - GASTRO-ESOPHAGEAL REFLUX DISEASE WITHOUT ESOPHAGITIS (10) Iron deficiency anemia Current Visit: Yes Status: Acute Assessment & Plan: -Chronic microcytic anemia on CBC. - Continue ferrous sulfate and assess for ongoing occult blood loss Code(s): D50.9 - IRON DEFICIENCY ANEMIA, UNSPECIFIED (11) Anxiety and depression Current Visit: Yes Status: Acute Assessment & Plan: -Continue home antidepressant and anxiolytic regimen. Code(s): F41.9 - ANXIETY DISORDER, UNSPECIFIED; F32.A - DEPRESSION, UNSPECIFIED (12) Tobacco abuse Current Visit: Yes Status: Chronic Assessment & Plan: - Quit 2 months ago. Reinforce cessation and consider nicotine-free support. VTE: Heparin PPI: protonix Dispo: 1-2 days Code status: Full code Plan of care time spent > 35 mins Code(s): Z72.0 - TOBACCO USE
--- NOTE | 2025-02-14 08:49 | XRAY ---
Indication: Postprandial vomiting 2 weeks. Conventional contrast-enhanced CTA abdomen/pelvis performed using 100 cc Isovue 370 contrast. 2D sagittal and coronal reformatted images obtained. Additional 3D reformatted images obtained using separate workstation. Comparison: None There is mild diffuse respiration artifact. Abdominal aorta is moderately arteriosclerotic with 2.1 x 2.1 cm distal aortic ectasia. Negative for aneurysm/dissection. Normal branching celiac, superior mesenteric, and inferior mesenteric arteries. Proximal superior mesenteric and lesser degree celiac arteries demonstrates mild arteriosclerotic disease producing approximately 50% stenosis. Widely patent superior mesenteric artery. A single artery supplies right kidney with mild arteriosclerotic disease at origin producing approximately 50% stenosis. No poststenotic dilatation. Left renal artery is occluded with subsequent atrophic left kidney. Iliac vessels demonstrates moderate scattered arteriosclerotic disease. There is 99% stenosis origin/proximal left common iliac artery. Approximately 50% stenosis origin right common iliac artery. More distal iliac arteries demonstrates mild/moderate scattered arteriosclerotic disease without critical stenosis/obstruction. Lung bases appear hyperinflated/emphysematous and grossly clear. Heart not enlarged. Small hiatal hernia. Noncontrasted stomach and bowel loops appear nonobstructed. Mild diffuse colonic fecal debris and diffuse scattered sigmoid diverticulosis without diverticulitis. Atrophic left kidney does not enhance. Left lower renal calyx demonstrates 4 mm calculus. Remaining liver, gallbladder, pancreas, spleen, adrenal glands, right kidney, right ureter, and bladder are unremarkable. No pathologic retroperitoneal lymphadenopathy. Osseous structures intact with osteopenia. Both femur heads demonstrates serpiginous sclerosis, possible avascular necrosis. Impression: 1. Moderate diffuse scattered arteriosclerotic disease. Mild distal abdominal aortic ectasia. Negative for aneurysm/dissection. 2. Additional arteriosclerotic disease in proximal celiac, superior mesenteric, and right main renal arteries producing less than 50% stenosis. Occluded left main renal artery with subsequent atrophic/nonfunctioning left kidney. 3. Pelvic arteries demonstrates diffuse scattered arteriosclerotic disease. 99% stenosis origin/proximal left common iliac artery and approximately 50% stenosis origin right common iliac artery. 4. CT findings including pulmonary emphysema, hiatal hernia, mild diffuse colonic fecal stasis, sigmoid diverticulosis, and nonobstructing left renal calculus. 5. Incidental osteopenia. Also serpiginous sclerosis seen both femur heads, possible avascular necrosis.
[2025-02-14] MEDS: Zestril 10 MG PO SCH (09:52)
[2025-02-14] MEDS: FEOSOL 325 MG PO SCH (09:52)
[2025-02-14] MEDS: xanAX 0.5 MG PO SCH (09:52)
[2025-02-14] MEDS: Wellbutrin SR 150 MG PO SCH (09:52)
[2025-02-14] MEDS: Docusate Sodium 100 MG PO SCH (09:52)
[2025-02-14] MEDS: Klor Con PO SCH (09:52)
[2025-02-14] MEDS: HEPARIN 5000 UNITS/0.5 ML (HIGH RISK MED) SQ SCH (09:54)
[2025-02-14] MEDS ORDERED: NON-FORMULARY ITEM (Potassium Chloride [Potassium Chloride] 10 MEQ Tab.Er.Prt) PO SCH (10:00)
[2025-02-14] MEDS ORDERED: Zestril 20 MG PO SCH (10:00)
[2025-02-14] MEDS ORDERED: NON-FORMULARY ITEM (Docusate Sodium 100 MG Capsule) PO SCH (10:00)
--- NOTE | 2025-02-14 10:06 | PCM.DS ---
Discharge Summary Date of Admission: 02/13/25 22:37 Date of Discharge: 02/14/25 Admitting Physician: DAV KNOX MD Primary Care Provider: RAO LIEBERMAN Allergies Allergies No Known Drug Allergies Allergy (Verified 02/13/25 17:19) Hospital Summary - Hospital Course Hospital Course: Mr. Fragoso is a 69-year-old male with a complex medical history of COPD with chronic hypoxic respiratory failure on home oxygen, chronic kidney disease, hypertension, GERD, anxiety and depression, iron deficiency anemia, constipation, prior stroke/TIA, and remote brain aneurysm status post clipping, who presented on 02/13/2025 with one week of intractable nausea, vomiting, and profound weakness. He described persistent nonbloody, nonbilious emesis of both solids and liquids with minimal intake, associated with an 80-pound unintentional weight loss over the past year (210 - 130 lbs). He denied abdominal pain, fevers, chills, dysuria, melena, or hematemesis. He recently quit smoking two months ago after a long history of two packs per day. In the ED, he was hemodynamically stable and afebrile. CTA abdomen/pelvis with contrast revealed diffuse arteriosclerotic disease with 99% stenosis of the left common iliac artery and approximately 50% stenosis of the right common iliac artery, as well as occlusion of the left main renal artery with resultant left renal atrophy. 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 Admission labs showed stable normovolemia, hemoglobin 9.6 g/dL (chronic baseline), CMP within normal limits, and UDS positive for benzodiazepines. There was no evidence of electrolyte imbalance or metabolic alkalosis. Transfer to higher level of care due to findings on CTA abdomen/pelvis showing severe diffuse atherosclerotic disease with 99% stenosis of the left common iliac artery, 50% stenosis of the right common iliac artery, and occlusion of the left renal artery with atrophic left kidney. Given the critical nature of these lesions, the patient requires urgent vascular surgery evaluation and possible endovascular intervention, which are not available at this facility. Additional reasons for transfer include need for advanced vascular imaging correlation, multidisciplinary specialty input (vascular surgery, nephrology, and potentially interventional radiology), and higher-level monitoring due to risk of ischemic progression. - Vitals & Intake/Output Vital Signs: Vital Signs Temperature 98.0 F 02/14/25 07:09 Pulse Rate 81 02/14/25 09:46 Respiratory Rate 20 02/14/25 07:09 Blood Pressure 122/73 02/14/25 09:46 O2 Sat by Pulse Oximetry 100 02/14/25 08:22 Intake & Output: Intake & Output 02/11/25 02/12/25 02/13/25 02/14/25 11:59 11:59 11:59 11:59 Intake Total 331 Output Total 2950 Balance -2619 Weight 59.6 kg - Lab Result Diagrams: 02/14/25 04:12 02/14/25 04:12 Lab Results-Last 24 Hrs: Lab Results-Last 24 Hours 02/13/25 02/13/25 02/13/25 Range/Units 18:14 18:15 18:15 WBC 7.0 (4.23-9.07) x10^3/uL RBC 2.79 L (4.63-6.08) x10^6/uL Hgb 9.6 L (13.7-17.5) g/dL Hct 30.2 L (40.1-51.0) % MCV 108.2 H (79.0-92.2) fL MCH 34.4 H (25.7-32.2) pg MCHC 31.8 L (32.3-36.5) g/dL RDW 16.0 H (11.6-14.4) % Plt Count 256 (163-337) x10^3/uL MPV 10.7 (9.4-12.4) fL Gran % 83.0 H (34.0-67.9) % Immature Gran % (Auto) 0.3 (0.001-0.429) % Nucleat RBC Rel Count 0.0 (0.00-0.2) % Eos # (Auto) 0 L (0.04-0.54) x10^3/uL Immature Gran # (Auto) 0.02 (0.001-0.031) x10^3u/L Absolute Lymphs (auto) 0.88 L (1.32-3.57) x10^3/uL Absolute Monos (auto) 0.29 L (0.30-0.82) x10^3/uL Absolute Nucleated RBC 0.00 (0.00-0.012) x10^3u/L Lymphocytes % 12.6 L (21.8-53.1) % Monocytes % 4.1 L (5.3-12.2) % Eosinophils % 0.0 L (0.8-7.0) % Basophils % 0.0 L (0.2-1.2) % Absolute Granulocytes 5.80 H (1.78-5.38) x10^3/uL Basophils # 0 L (0.01-0.08) x10^3/uL PT (9.4-12.5) SECONDS INR (0.8-3.0) APTT (25.1-36.5) SECONDS Sodium 139 (135-145) mmol/L Potassium 4.5 (3.5-5.1) mmol/L Chloride 102 (98-107) mmol/L Carbon Dioxide 27 (22-30) mmol/L Anion Gap 14.4 (5-15) MEQ/L BUN 32 H (9-20) mg/dL Creatinine 1.00 (0.66-1.25) mg/dL Estimated GFR 82.0 ML/MIN Glucose 100 (74-106) mg/dL Lactic Acid 0.9 (0.4-2.0) Calcium 9.0 (8.4-10.2) mg/dL Magnesium (1.6-2.3) mg/dL Total Bilirubin 0.50 (0.2-1.3) mg/dL AST 31 (17-59) U/L ALT 15 (0-50) U/L Alkaline Phosphatase 111 (38-126) U/L Troponin I (0.000-0.033) ng/mL Serum Total Protein 7.3 (6.3-8.2) g/dL Albumin 4.0 (3.5-5.0) g/dL Prealbumin (17.6-36.0) mg/dL Amylase 73 (30-110) U/L Lipase (23-300) U/L TSH 3rd Generation (0.470-4.680) mIU/L Urine Color (Yellow) Urine Appearance (Clear) Urine pH (4.6-8.0) Ur Specific [place] (1.005-1.030) Urine Protein (Negative) Urine Glucose (UA) (Negative) mg/dL Urine Ketones (Negative) Urine Blood (Negative) Urine Nitrite (Negative) Urine Bilirubin (Negative) Urine Urobilinogen (0.2) mg/dL Ur Leukocyte Esterase (Negative) U Hyaline Cast (Auto) (0-2) /LPF Urine Microscopic RBC (0-5) /HPF Urine Microscopic WBC (0-5) /HPF Ur Epithelial Cells (None Seen) /HPF Urine Bacteria (None Seen) /HPF Urine Culture Reflexed (NO) Urine Opiates Level (NEGATIVE) Ur Methadone (NEGATIVE) Urine Barbiturates (NEGATIVE) Ur Phencyclidine (PCP) (NEGATIVE) Urine Amphetamine (NEGATIVE) U Benzodiazepine Level (NEGATIVE) Urine Cocaine (NEGATIVE) Urine Marijuana (THC) (NEGATIVE) Ethyl Alcohol (0-10) mg/dL 02/13/25 02/13/25 02/13/25 Range/Units 18:15 18:15 18:15 WBC (4.23-9.07) x10^3/uL RBC (4.63-6.08) x10^6/uL Hgb (13.7-17.5) g/dL Hct (40.1-51.0) % MCV (79.0-92.2) fL MCH (25.7-32.2) pg MCHC (32.3-36.5) g/dL RDW (11.6-14.4) % Plt Count (163-337) x10^3/uL MPV (9.4-12.4) fL Gran % (34.0-67.9) % Immature Gran % (Auto) (0.001-0.429) % Nucleat RBC Rel Count (0.00-0.2) % Eos # (Auto) (0.04-0.54) x10^3/uL Immature Gran # (Auto) (0.001-0.031) x10^3u/L Absolute Lymphs (auto) (1.32-3.57) x10^3/uL Absolute Monos (auto) (0.30-0.82) x10^3/uL Absolute Nucleated RBC (0.00-0.012) x10^3u/L Lymphocytes % (21.8-53.1) % Monocytes % (5.3-12.2) % Eosinophils % (0.8-7.0) % Basophils % (0.2-1.2) % Absolute Granulocytes (1.78-5.38) x10^3/uL Basophils # (0.01-0.08) x10^3/uL PT 11.2 (9.4-12.5) SECONDS INR 1.00 (0.8-3.0) APTT 29.9 (25.1-36.5) SECONDS Sodium (135-145) mmol/L Potassium (3.5-5.1) mmol/L Chloride (98-107) mmol/L Carbon Dioxide (22-30) mmol/L Anion Gap (5-15) MEQ/L BUN (9-20) mg/dL Creatinine (0.66-1.25) mg/dL Estimated GFR ML/MIN Glucose (74-106) mg/dL Lactic Acid (0.4-2.0) Calcium (8.4-10.2) mg/dL Magnesium (1.6-2.3) mg/dL Total Bilirubin (0.2-1.3) mg/dL AST (17-59) U/L ALT (0-50) U/L Alkaline Phosphatase (38-126) U/L Troponin I < 0.012 (0.000-0.033) ng/mL Serum Total Protein (6.3-8.2) g/dL Albumin (3.5-5.0) g/dL Prealbumin (17.6-36.0) mg/dL Amylase (30-110) U/L Lipase 51 (23-300) U/L TSH 3rd Generation 1.296 (0.470-4.680) mIU/L Urine Color (Yellow) Urine Appearance (Clear) Urine pH (4.6-8.0) Ur Specific [place] (1.005-1.030) Urine Protein (Negative) Urine Glucose (UA) (Negative) mg/dL Urine Ketones (Negative) Urine Blood (Negative) Urine Nitrite (Negative) Urine Bilirubin (Negative) Urine Urobilinogen (0.2) mg/dL Ur Leukocyte Esterase (Negative) U Hyaline Cast (Auto) (0-2) /LPF Urine Microscopic RBC (0-5) /HPF Urine Microscopic WBC (0-5) /HPF Ur Epithelial Cells (None Seen) /HPF Urine Bacteria (None Seen) /HPF Urine Culture Reflexed (NO) Urine Opiates Level (NEGATIVE) Ur Methadone (NEGATIVE) Urine Barbiturates (NEGATIVE) Ur Phencyclidine (PCP) (NEGATIVE) Urine Amphetamine (NEGATIVE) U Benzodiazepine Level (NEGATIVE) Urine Cocaine (NEGATIVE) Urine Marijuana (THC) (NEGATIVE) Ethyl Alcohol < 10 (0-10) mg/dL 02/13/25 02/13/25 02/13/25 Range/Units 19:40 19:40 21:10 WBC (4.23-9.07) x10^3/uL RBC (4.63-6.08) x10^6/uL Hgb (13.7-17.5) g/dL Hct (40.1-51.0) % MCV (79.0-92.2) fL MCH (25.7-32.2) pg MCHC (32.3-36.5) g/dL RDW (11.6-14.4) % Plt Count (163-337) x10^3/uL MPV (9.4-12.4) fL Gran % (34.0-67.9) % Immature Gran % (Auto) (0.001-0.429) % Nucleat RBC Rel Count (0.00-0.2) % Eos # (Auto) (0.04-0.54) x10^3/uL Immature Gran # (Auto) (0.001-0.031) x10^3u/L Absolute Lymphs (auto) (1.32-3.57) x10^3/uL Absolute Monos (auto) (0.30-0.82) x10^3/uL Absolute Nucleated RBC (0.00-0.012) x10^3u/L Lymphocytes % (21.8-53.1) % Monocytes % (5.3-12.2) % Eosinophils % (0.8-7.0) % Basophils % (0.2-1.2) % Absolute Granulocytes (1.78-5.38) x10^3/uL Basophils # (0.01-0.08) x10^3/uL PT (9.4-12.5) SECONDS INR (0.8-3.0) APTT (25.1-36.5) SECONDS Sodium (135-145) mmol/L Potassium (3.5-5.1) mmol/L Chloride (98-107) mmol/L Carbon Dioxide (22-30) mmol/L Anion Gap (5-15) MEQ/L BUN (9-20) mg/dL Creatinine (0.66-1.25) mg/dL Estimated GFR ML/MIN Glucose (74-106) mg/dL Lactic Acid (0.4-2.0) Calcium (8.4-10.2) mg/dL Magnesium (1.6-2.3) mg/dL Total Bilirubin (0.2-1.3) mg/dL AST (17-59) U/L ALT (0-50) U/L Alkaline Phosphatase (38-126) U/L Troponin I < 0.012 (0.000-0.033) ng/mL Serum Total Protein (6.3-8.2) g/dL Albumin (3.5-5.0) g/dL Prealbumin (17.6-36.0) mg/dL Amylase (30-110) U/L Lipase (23-300) U/L TSH 3rd Generation (0.470-4.680) mIU/L Urine Color Yellow (Yellow) Urine Appearance Clear (Clear) Urine pH 5.5 (4.6-8.0) Ur Specific [place] >=1.030 A (1.005-1.030) Urine Protein Negative (Negative) Urine Glucose (UA) Negative (Negative) mg/dL Urine Ketones Trace A (Negative) Urine Blood Negative (Negative) Urine Nitrite Negative (Negative) Urine Bilirubin Negative (Negative) Urine Urobilinogen 1.0 A (0.2) mg/dL Ur Leukocyte Esterase Negative (Negative) U Hyaline Cast (Auto) NONE SEEN (0-2) /LPF Urine Microscopic RBC 0-2 (0-5) /HPF Urine Microscopic WBC 0-2 (0-5) /HPF Ur Epithelial Cells None Seen (None Seen) /HPF Urine Bacteria None Seen (None Seen) /HPF Urine Culture Reflexed NO (NO) Urine Opiates Level NEGATIVE (NEGATIVE) Ur Methadone NEGATIVE (NEGATIVE) Urine Barbiturates NEGATIVE (NEGATIVE) Ur Phencyclidine (PCP) NEGATIVE (NEGATIVE) Urine Amphetamine NEGATIVE (NEGATIVE) U Benzodiazepine Level POSITIVE A (NEGATIVE) Urine Cocaine NEGATIVE (NEGATIVE) Urine Marijuana (THC) NEGATIVE (NEGATIVE) Ethyl Alcohol (0-10) mg/dL 02/13/25 02/14/25 02/14/25 Range/Units 21:10 04:12 04:12 WBC 5.5 (4.23-9.07) x10^3/uL RBC 2.54 L (4.63-6.08) x10^6/uL Hgb 8.6 L (13.7-17.5) g/dL Hct 27.7 L (40.1-51.0) % MCV 109.1 H (79.0-92.2) fL MCH 33.9 H (25.7-32.2) pg MCHC 31.0 L (32.3-36.5) g/dL RDW 16.6 H (11.6-14.4) % Plt Count 248 (163-337) x10^3/uL MPV 10.8 (9.4-12.4) fL Gran % (34.0-67.9) % Immature Gran % (Auto) (0.001-0.429) % Nucleat RBC Rel Count (0.00-0.2) % Eos # (Auto) (0.04-0.54) x10^3/uL Immature Gran # (Auto) (0.001-0.031) x10^3u/L Absolute Lymphs (auto) (1.32-3.57) x10^3/uL Absolute Monos (auto) (0.30-0.82) x10^3/uL Absolute Nucleated RBC (0.00-0.012) x10^3u/L Lymphocytes % (21.8-53.1) % Monocytes % (5.3-12.2) % Eosinophils % (0.8-7.0) % Basophils % (0.2-1.2) % Absolute Granulocytes (1.78-5.38) x10^3/uL Basophils # (0.01-0.08) x10^3/uL PT (9.4-12.5) SECONDS INR (0.8-3.0) APTT (25.1-36.5) SECONDS Sodium 136 (135-145) mmol/L Potassium 3.9 (3.5-5.1) mmol/L Chloride 102 (98-107) mmol/L Carbon Dioxide 26 (22-30) mmol/L Anion Gap 11.3 (5-15) MEQ/L BUN 24 H (9-20) mg/dL Creatinine 0.97 (0.66-1.25) mg/dL Estimated GFR 85.0 ML/MIN Glucose 83 (74-106) mg/dL Lactic Acid (0.4-2.0) Calcium 8.3 L (8.4-10.2) mg/dL Magnesium 2.1 (1.6-2.3) mg/dL Total Bilirubin (0.2-1.3) mg/dL AST (17-59) U/L ALT (0-50) U/L Alkaline Phosphatase (38-126) U/L Troponin I (0.000-0.033) ng/mL Serum Total Protein (6.3-8.2) g/dL Albumin (3.5-5.0) g/dL Prealbumin 14.53 L (17.6-36.0) mg/dL Amylase (30-110) U/L Lipase (23-300) U/L TSH 3rd Generation (0.470-4.680) mIU/L Urine Color (Yellow) Urine Appearance (Clear) Urine pH (4.6-8.0) Ur Specific [place] (1.005-1.030) Urine Protein (Negative) Urine Glucose (UA) (Negative) mg/dL Urine Ketones (Negative) Urine Blood (Negative) Urine Nitrite (Negative) Urine Bilirubin (Negative) Urine Urobilinogen (0.2) mg/dL Ur Leukocyte Esterase (Negative) U Hyaline Cast (Auto) (0-2) /LPF Urine Microscopic RBC (0-5) /HPF Urine Microscopic WBC (0-5) /HPF Ur Epithelial Cells (None Seen) /HPF Urine Bacteria (None Seen) /HPF Urine Culture Reflexed (NO) Urine Opiates Level (NEGATIVE) Ur Methadone (NEGATIVE) Urine Barbiturates (NEGATIVE) Ur Phencyclidine (PCP) (NEGATIVE) Urine Amphetamine (NEGATIVE) U Benzodiazepine Level (NEGATIVE) Urine Cocaine (NEGATIVE) Urine Marijuana (THC) (NEGATIVE) Ethyl Alcohol (0-10) mg/dL - Radiology Exams Ordered Rad Exams-Entire Visit: Radiology Procedures Category Date Time Status CTA ABD/PEL W AND/OR W/O CONTR [CT] Stat Exams 02/13/25 18:14 Completed - Procedures and Test Procedures and Tests throughout Hospitalization: Therapy Orders & Screens 02/14/25 00:05 Oxygen Nasal Cannula 2 lpm Comment: Diagnosis: Intractable nausea and vomiting Discharge Exam General Appearance: no apparent distress, thin Neurologic Exam: alert, oriented x 3, cooperative Eye Exam: PERRL Ears, Nose, Throat Exam: normal ENT inspection Neck Exam: normal inspection Respiratory Exam: crackles/rales Cardiovascular Exam: regular rate/rhythm, normal heart sounds Gastrointestinal/Abdomen Exam: soft, normal bowel sounds Male Genitalia Exam: deferred Rectal Exam: deferred Back Exam: normal inspection Extremity Exam: normal inspection Skin Exam: normal color Final Diagnosis/Problem List - Final Discharge Diagnosis/Problem (1) Unspecified atherosclerosis of [place] arteries of extremities, bilateral legs Current Visit: Yes Status: Acute Assessment & Plan: Transferred to tertiary [facility] for vascular surgery evaluation and potential intervention for generalized atherosclerosis with near-occlusive left iliac artery stenosis, right iliac stenosis, and occluded left renal artery. Additional reasons include need for advanced vascular imaging, multidisciplinary specialty input (vascular surgery, nephrology, urology, GI), and higher-acuity monitoring given risk for ischemic progression and solitary functioning kidney. Patient stable on baseline 2 L O2 at time of transfer. -CTA abdomen/pelvis (02/13/25) revealed severe diffuse arteriosclerotic disease with 99% stenosis of the left common iliac artery, 50% stenosis of the right common iliac artery, occluded left renal artery with atrophic kidney, and mild distal aortic ectasia. Additional narrowing of proximal celiac, SMA, and right renal arteries (<50%) noted. -Transfer for vascular surgery evaluation and potential endovascular or open revascularization not available at this facility. Continue aspirin 81 mg daily and high-intensity statin Code(s): I70.203 - UNSP ATHSCL [place] ARTERIES OF EXTREMITIES, BILATERAL LEGS (2) Intractable nausea and vomiting Current Visit: Yes Status: Acute Assessment & Plan: -Persistent non-bloody, non-bilious vomiting of solids and liquids; CT negative for obstruction or mass. No metabolic derangement on labs. now resolved -Tolerating diet -ondansetron or prochlorperazine PRN, and PPI for gastric protection. Advance diet slowly as tolerated. Monitor CMP, intake/output, and reassess if symptoms persist. Code(s): R11.2 - NAUSEA WITH VOMITING, UNSPECIFIED (3) Unintentional weight loss Current Visit: Yes Status: Acute Assessment & Plan: -Reports 80-lb unintentional loss over one year (210 ? 130 lb). No mass on CTA; concern for underlying malignancy or chronic systemic disease. -Arrange GI referral for repeat EGD/colonoscopy. Obtain TSH, iron studies, albumin/prealbumin, PSA. Consider CT chest given emphysema and prior smoking history. Nutrition consult when stable. Code(s): R63.4 - ABNORMAL WEIGHT LOSS (4) Hiatal hernia Current Visit: Yes Status: Acute Assessment & Plan: -CTA noted moderate sliding hiatal hernia, possibly contributing to reflux, nausea, and vomiting. -Continue PPI therapy, elevate head of bed, avoid late meals and triggering foods. If symptoms persist despite medical therapy, consider surgical evaluation for repair. Code(s): K44.9 - DIAPHRAGMATIC HERNIA WITHOUT OBSTRUCTION OR GANGRENE (5) Renal calculus, left Current Visit: Yes Status: Acute Assessment & Plan: -CTA abdomen/pelvis noted a nonobstructing 3 mm left renal calculus within the atrophic kidney. No hydronephrosis or flank pain reported. -Maintain hydration, monitor for renal colic or obstruction, avoid nephrotoxic medications, and arrange urology follow-up for imaging surveillance given solitary functioning contralateral kidney. Code(s): N20.0 - CALCULUS OF KIDNEY (6) COPD (chronic obstructive pulmonary disease) Current Visit: Yes Status: Acute Assessment & Plan: -CTA: pulmonary emphysema without acute infiltrate. Baseline 2 L/min oxygen at home. No acute exacerbation. - Continue home O2 2 L/min NC to maintain SpO2 > 90%. Continue bronchodilator regimen (albuterol PRN, long-acting maintenance inhaler). Reinforce smoking cessation and encourage pulmonary rehabilitation post-stabilization. (7) HTN (hypertension) Current Visit: Yes Status: Acute Assessment & Plan: Continue current regimen; monitor for hypotension to preserve renal and mesenteric perfusion. Code(s): I10 - ESSENTIAL (PRIMARY) HYPERTENSION (8) GERD (gastroesophageal reflux disease) Current Visit: Yes Status: Acute Assessment & Plan: Continue PPI and lifestyle modification; reassess after symptom stabilization. Code(s): K21.9 - GASTRO-ESOPHAGEAL REFLUX DISEASE WITHOUT ESOPHAGITIS (9) Iron deficiency anemia Current Visit: Yes Status: Acute Assessment & Plan: Continue ferrous sulfate daily. Outpatient GI work-up to exclude occult bleeding or malabsorption Code(s): D50.9 - IRON DEFICIENCY ANEMIA, UNSPECIFIED (10) Anxiety and depression Current Visit: Yes Status: Acute Assessment & Plan: Continue antidepressant and anxiolytic therapy; monitor for oversedation or withdrawal Code(s): F41.9 - ANXIETY DISORDER, UNSPECIFIED; F32.A - DEPRESSION, UNSPECIFIED (11) Tobacco abuse Current Visit: Yes Status: Chronic Assessment & Plan: -Quit two months ago after decades of heavy use. -Reinforce abstinence; encourage behavioral support to maintain cessation. Code(s): Z72.0 - TOBACCO USE - Discharge Discharge Date: 02/14/25 Disposition: DC TO OTHER HOSP Condition: Stable Prescriptions: New Heparin 5000 Units/0.5 ml [Heparin 5000 Units/0.5 ml (High Risk Med)] 5,000 unit SQ BID Ondansetron HCl 4 mg/2 ml [Zofran 4 MG/2 ML VIAL] 4 mg IV Q6H PRN PRN PRN Reason: Nausea/Vomiting Continue ALPRAZolam [Xanax 0.5 mg] 0.5 mg PO BID Bupropion HCl 150 mg Sr [Wellbutrin SR 150 MG] 150 mg PO BID #60 tablet.sa Atorvastatin Calcium [Lipitor] 80 mg PO HS Carvedilol [Coreg ] 6.25 mg PO BID #60 tablet Lisinopril 20 mg [Zestril 20 MG] 10 mg PO DAILY Ferrous Sulfate 325 mg [Feosol 325 mg] 325 mg PO BID Docusate Sodium 100 mg PO DAILY Potassium Chloride 10 meq PO DAILY Discontinued Meloxicam 7.5 mg PO DAILY Follow up with: RAO LIEBERMAN MD [Primary Care Provider, [facility]]
[2025-02-14] MEDS: ECOTRIN 81 MG PO SCH (11:51)
[2025-02-14 12:53] LABS: Iron 58 ug/dL (49-181); TIBC 201 ug/dL (261-497)
[2025-02-14 13:04] LABS: Ferritin 504.0 ng/mL (17.9-464)
[2025-02-14] MEDS ORDERED: NON-FORMULARY ITEM (Atorvastatin Calcium [Lipitor] 80 MG Tablet) PO SCH (22:00)
[2025-02-14] MEDS: LIPITOR 40MG PO SCH (22:00)
[2025-02-15 07:02] VITALS: O2SAT 99
[2025-02-15 07:33] LABS: BASOPHIL % 0.2 % (0.2-1.2); Basophil (Absolute #) 0.01 x10^3/uL (0.01-0.08); Eosinophil (Absolute #) 0 x10^3/uL (0.04-0.54); Hematocrit 25.8 % (40.1-51.0); Hemoglobin 8.2 g/dL (13.7-17.5); IMMATURE GRAN # 0.02 x10^3u/L (0.001-0.031); IMMATURE GRAN % 0.4 % (0.001-0.429); Lymphocyte (Absolute #) 1.57 x10^3/uL (1.32-3.57); Mean Corpuscular Hemoglobin 34.5 pg (25.7-32.2); Mean Corpuscular Hgb Concent. 31.8 g/dL (32.3-36.5); Monocyte (Absolute #) 0.34 x10^3/uL (0.30-0.82); NUCLEATED RBC # 0.00 x10^3u/L (0.00-0.012); NUCLEATED RBC % 0.0 % (0.00-0.2); Platelet Count 237 x10^3/uL (163-337); Red Blood Count 2.38 x10^6/uL (4.63-6.08); White Blood Count 5.2 x10^3/uL (4.23-9.07)
[2025-02-15 07:35] VITALS: BP 154/74; PULSE 76; RESP 16; TEMP 98.3
[2025-02-15 07:48] LABS: Calcium 8.3 mg/dL (8.4-10.2); Carbon Dioxide 28.0 mmol/L (22-30); Creatinine 1 0.85 mg/dL (0.66-1.25); EST GLOMERULAR FILTRATION RATE 94.7 ML/MIN; Glucose 100.0 mg/dL (74-106); Potassium 4.2 mmol/L (3.5-5.1); SGOT/AST 25.0 U/L (17-59); SGPT/ALT 13.0 U/L (0-50); Total Protein 6.0 g/dL (6.3-8.2)
--- NOTE | 2025-02-15 09:30 | PCM.DS ---
Discharge Summary Date of Admission: 02/13/25 22:37 Date of Discharge: 02/15/25 Admitting Physician: DAV KNOX MD Primary Care Provider: RAO LIEBERMAN Allergies Allergies No Known Drug Allergies Allergy (Verified 02/13/25 17:19) Hospital Summary - Hospital Course Hospital Course: Mr. Fragoso is a 69-year-old male with a history of COPD with chronic hypoxic respiratory failure on baseline 2 L oxygen, chronic kidney disease, hypertension, GERD with hiatal hernia, anxiety and depression, iron deficiency anemia, and extensive atherosclerotic vascular disease. He was admitted after CTA abdomen/pelvis revealed severe diffuse atherosclerotic disease with 99% stenosis of the left common iliac artery, approximately 50% stenosis of the right common iliac artery, occlusion of the left renal artery with an atrophic kidney, and mild distal aortic ectasia. Additional findings included diffuse vascular calcification, emphysematous changes, and a nonobstructing 3 mm left renal calculus. Vascular surgery reviewed the imaging and determined findings were chronic, without acute ischemia or urgent surgical indication. Transfer to a tertiary facility was declined, and outpatient vascular follow-up was advised. During hospitalization, his nausea and vomiting improved; he is now tolerating a diet with less weakness. Labs from 02/15/25 show WBC within normal limits, hemoglobin at baseline (8.2 g/dL), and CMP unremarkable, indicating stable renal and metabolic function. He remains hemodynamically stable on baseline oxygen without evidence of ischemia or renal decompensation. A discussion was held regarding prior CT chest findings (March 2024), which showed a spiculated left upper lobe mass suspicious for malignancy. The patient verbalized understanding of the concern but declined further diagnostic work-up, acknowledging this may explain his unintentional weight loss. He remains resolute in this decision. Discharge planning includes coordination of outpatient follow-up with nephrology, urology, and vascular surgery for further evaluation of his chronic vascular and renal disease. He will continue home oxygen, PPI, bronchodilators, and psychiatric medications. Discharge Note New Diagnosis: Intractable nausea/vomiting New Medications:81mg ASA Follow Up: Urology, nephrology, PCP, vascular surgery I spent 35 minutes [id number] with the patient on the day of discharge performing discharge exam, discussing hospital stay and discharge instructions with patient and caregivers, preparation of discharge records, prescriptions & referral forms and addressing any questions/concerns the patient had as documented above. - Vitals & Intake/Output Vital Signs: Vital Signs Temperature 98.3 F 02/15/25 07:00 Pulse Rate 76 02/15/25 07:00 Respiratory Rate 16 02/15/25 07:00 Blood Pressure 154/74 02/15/25 07:00 O2 Sat by Pulse Oximetry 99 02/15/25 07:02 Intake & Output: Intake & Output 02/12/25 02/13/25 02/14/25 02/15/25 11:59 11:59 11:59 11:59 Intake Total 331 1000 Output Total 2950 Balance -2619 1000 Weight 59.6 kg - Lab Result Diagrams: 02/15/25 07:29 02/15/25 07:29 Lab Results-Last 24 Hrs: Lab Results-Last 24 Hours 02/14/25 02/14/25 02/15/25 Range/Units 04:12 04:51 07:29 WBC 5.2 (4.23-9.07) x10^3/uL RBC 2.38 L (4.63-6.08) x10^6/uL Hgb 8.2 L (13.7-17.5) g/dL Hct 25.8 L (40.1-51.0) % MCV 108.4 H (79.0-92.2) fL MCH 34.5 H (25.7-32.2) pg MCHC 31.8 L (32.3-36.5) g/dL RDW 16.4 H (11.6-14.4) % Plt Count 237 (163-337) x10^3/uL MPV 9.6 (9.4-12.4) fL Gran % 62.8 (34.0-67.9) % Immature Gran % (Auto) 0.4 (0.001-0.429) % Nucleat RBC Rel Count 0.0 (0.00-0.2) % Eos # (Auto) 0 L (0.04-0.54) x10^3/uL Immature Gran # (Auto) 0.02 (0.001-0.031) x10^3u/L Absolute Lymphs (auto) 1.57 (1.32-3.57) x10^3/uL Absolute Monos (auto) 0.34 (0.30-0.82) x10^3/uL Absolute Nucleated RBC 0.00 (0.00-0.012) x10^3u/L Lymphocytes % 30.1 (21.8-53.1) % Monocytes % 6.5 (5.3-12.2) % Eosinophils % 0.0 L (0.8-7.0) % Basophils % 0.2 (0.2-1.2) % Absolute Granulocytes 3.27 (1.78-5.38) x10^3/uL Basophils # 0.01 (0.01-0.08) x10^3/uL Sodium (135-145) mmol/L Potassium (3.5-5.1) mmol/L Chloride (98-107) mmol/L Carbon Dioxide (22-30) mmol/L Anion Gap (5-15) MEQ/L BUN (9-20) mg/dL Creatinine (0.66-1.25) mg/dL Estimated GFR ML/MIN Glucose (74-106) mg/dL Calcium (8.4-10.2) mg/dL Iron 58 (49-181) ug/dL TIBC 201 L (261-497) ug/dL Iron Saturation 29 (20-39) % Ferritin 504 H (17.9-464) ng/mL Total Bilirubin (0.2-1.3) mg/dL AST (17-59) U/L ALT (0-50) U/L Alkaline Phosphatase (38-126) U/L Serum Total Protein (6.3-8.2) g/dL Albumin (3.5-5.0) g/dL Vitamin B12 775 (239-931) pg/mL Folic Acid 19.8 (2.76 - >20) ng/mL TSH 3rd Generation 2.069 (0.470-4.680) mIU/L 02/15/25 Range/Units 07:29 WBC (4.23-9.07) x10^3/uL RBC (4.63-6.08) x10^6/uL Hgb (13.7-17.5) g/dL Hct (40.1-51.0) % MCV (79.0-92.2) fL MCH (25.7-32.2) pg MCHC (32.3-36.5) g/dL RDW (11.6-14.4) % Plt Count (163-337) x10^3/uL MPV (9.4-12.4) fL Gran % (34.0-67.9) % Immature Gran % (Auto) (0.001-0.429) % Nucleat RBC Rel Count (0.00-0.2) % Eos # (Auto) (0.04-0.54) x10^3/uL Immature Gran # (Auto) (0.001-0.031) x10^3u/L Absolute Lymphs (auto) (1.32-3.57) x10^3/uL Absolute Monos (auto) (0.30-0.82) x10^3/uL Absolute Nucleated RBC (0.00-0.012) x10^3u/L Lymphocytes % (21.8-53.1) % Monocytes % (5.3-12.2) % Eosinophils % (0.8-7.0) % Basophils % (0.2-1.2) % Absolute Granulocytes (1.78-5.38) x10^3/uL Basophils # (0.01-0.08) x10^3/uL Sodium 136 (135-145) mmol/L Potassium 4.2 (3.5-5.1) mmol/L Chloride 103 (98-107) mmol/L Carbon Dioxide 28 (22-30) mmol/L Anion Gap 9.4 (5-15) MEQ/L BUN 21 H (9-20) mg/dL Creatinine 0.85 (0.66-1.25) mg/dL Estimated GFR 94.7 ML/MIN Glucose 100 (74-106) mg/dL Calcium 8.3 L (8.4-10.2) mg/dL Iron (49-181) ug/dL TIBC (261-497) ug/dL Iron Saturation (20-39) % Ferritin (17.9-464) ng/mL Total Bilirubin 0.20 (0.2-1.3) mg/dL AST 25 (17-59) U/L ALT 13 (0-50) U/L Alkaline Phosphatase 99 (38-126) U/L Serum Total Protein 6.0 L (6.3-8.2) g/dL Albumin 3.2 L (3.5-5.0) g/dL Vitamin B12 (239-931) pg/mL Folic Acid (2.76 - >20) ng/mL TSH 3rd Generation (0.470-4.680) mIU/L - Radiology Exams Ordered Rad Exams-Entire Visit: Radiology Procedures Category Date Time Status CTA ABD/PEL W AND/OR W/O CONTR [CT] Stat Exams 02/13/25 18:14 Completed - Procedures and Test Procedures and Tests throughout Hospitalization: Therapy Orders & Screens 02/14/25 00:05 Oxygen Nasal Cannula 2 lpm Comment: Diagnosis: Intractable nausea and vomiting Discharge Exam General Appearance: no apparent distress Neurologic Exam: alert, oriented x 3, cooperative Eye Exam: PERRL Ears, Nose, Throat Exam: normal ENT inspection Neck Exam: normal inspection Respiratory Exam: crackles/rales Cardiovascular Exam: regular rate/rhythm, normal heart sounds Gastrointestinal/Abdomen Exam: soft, normal bowel sounds Male Genitalia Exam: deferred Rectal Exam: deferred Back Exam: normal inspection Extremity Exam: normal inspection Skin Exam: normal color Final Diagnosis/Problem List - Final Discharge Diagnosis/Problem (1) Generalized atherosclerosis Current Visit: Yes Status: Acute Assessment & Plan: CTA abdomen/pelvis (02/13/25): Severe diffuse atherosclerotic disease with 99% left common iliac stenosis, 50% right common iliac stenosis, occluded left renal artery with atrophic kidney, mild distal aortic ectasia. Chronic diseaseno acute ischemia. Continue aspirin 81 mg daily and high- intensity statin. Maintain hydration and avoid nephrotoxins or hypotension to preserve renal perfusion. Outpatient vascular surgery follow-up for management and surveillance. Code(s): I70.91 - GENERALIZED ATHEROSCLEROSIS (2) Intractable nausea and vomiting Current Visit: Yes Status: Acute Assessment & Plan: CT abdomen negative for obstruction; labs show no electrolyte or metabolic abnormalities. Resume oral intake as tolerated; continue PPI; use ondansetron or prochlorperazine as needed. Maintain hydration and monitor for recurrence. Code(s): R11.2 - NAUSEA WITH VOMITING, UNSPECIFIED (3) Unintentional weight loss Current Visit: Yes Status: Acute Assessment & Plan: Possibly malignancy-related; CT chest (03/2024) revealed spiculated CARL mass. Patient declines further work-up after counseling. Encourage nutritional optimization and symptom monitoring. Outpatient GI follow- up for reassessment as tolerated. Code(s): R63.4 - ABNORMAL WEIGHT LOSS (4) Atherosclerotic cardiovascular disease Current Visit: Yes Status: Acute Assessment & Plan: CTA findings: Aortic ectasia, vascular calcifications, no ischemic symptoms. Continue statin therapy, lisinopril for blood pressure control, and reinforce smoking cessation. Code(s): I25.10 - ATHSCL HEART DISEASE OF [place] CORONARY ARTERY W/O ANG PCTRS (5) Hiatal hernia Current Visit: Yes Status: Acute Assessment & Plan: Seen on CT; may contribute to reflux symptoms. Continue PPI and elevate head of bed. Surgical referral if refractory symptoms. Code(s): K44.9 - DIAPHRAGMATIC HERNIA WITHOUT OBSTRUCTION OR GANGRENE (6) Renal calculus, left Current Visit: Yes Status: Acute Assessment & Plan: Nonobstructing 3 mm stone in atrophic left kidney; creatinine stable. Maintain hydration, avoid nephrotoxins. Urology follow-up for surveillance of solitary functioning kidney. Code(s): N20.0 - CALCULUS OF KIDNEY (7) COPD (chronic obstructive pulmonary disease) Current Visit: Yes Status: Acute Assessment & Plan: CT shows emphysematous changes; no acute exacerbation. Continue home O2 2 L NC, albuterol PRN, and reinforce smoking cessation. Encourage pulmonary rehabilitation if feasible. (8) HTN (hypertension) Current Visit: Yes Status: Acute Assessment & Plan: Continue regimen; monitor for hypotension given recent poor intake. Code(s): I10 - ESSENTIAL (PRIMARY) HYPERTENSION (9) GERD (gastroesophageal reflux disease) Current Visit: Yes Status: Acute Assessment & Plan: Continue PPI; avoid late-night meals and trigger foods. Code(s): K21.9 - GASTRO-ESOPHAGEAL REFLUX DISEASE WITHOUT ESOPHAGITIS (10) Iron deficiency anemia Current Visit: Yes Status: Acute Assessment & Plan: Hgb 8.2 g/dL (baseline), microcytic indices. Continue oral ferrous sulfate; monitor CBC and iron studies. Evaluate for occult blood loss during outpatient follow-up. Code(s): D50.9 - IRON DEFICIENCY ANEMIA, UNSPECIFIED (11) Anxiety and depression Current Visit: Yes Status: Acute Assessment & Plan: Stable mood; no suicidal ideation. Continue home antidepressant and anxiolytic regimen. Code(s): F41.9 - ANXIETY DISORDER, UNSPECIFIED; F32.A - DEPRESSION, UNSPECIFIED (12) Tobacco abuse Current Visit: Yes Status: Chronic Assessment & Plan: Quit two months ago. Reinforce abstinence; offer nicotine-free coping strategies. Condition on Discharge: Improved; afebrile, stable hemodynamics, oxygenating at baseline, tolerating diet. Disposition: Home, with outpatient follow-up: vascular surgery, nephrology, urology, PCP Follow-Up Appointments: Within 12 weeks, as arranged. Code(s): Z72.0 - TOBACCO USE - Discharge Discharge Date: 02/15/25 Disposition: DC TO OTHER HOSP Condition: Stable Prescriptions: New Aspirin EC 81 mg [Ecotrin 81 mg] 81 mg PO DAILY 30 Days #30 tablet Continue ALPRAZolam [Xanax 0.5 mg] 0.5 mg PO BID Bupropion HCl 150 mg Sr [Wellbutrin SR 150 MG] 150 mg PO BID #60 tablet.sa Atorvastatin Calcium [Lipitor] 80 mg PO HS Carvedilol [Coreg ] 6.25 mg PO BID #60 tablet Lisinopril 20 mg [Zestril 20 MG] 10 mg PO DAILY Ferrous Sulfate 325 mg [Feosol 325 mg] 325 mg PO BID Docusate Sodium 100 mg PO DAILY Potassium Chloride 10 meq PO DAILY Discontinued Meloxicam 7.5 mg PO DAILY Instructions: Dehydration and hypovolemia in adults Follow up with: PONCE GONZALEZ [COURTESY STAFF, UROLOGY] - Office will call patient KOBI XIONG MD [CONSULTING PHYSICIAN, NEPHROLOGY] - Office will call patient RAO LIEBERMAN MD [Primary Care Provider, FAMILY PRACTICE] - 02/22/25 10:15 am JESSI STEPHENSON [NON-STAFF PHY W/O PRIVILEGES, CARDIOLOGY] - 03/08/25 3:15 pm Referral Note: [address] , [place] [address] [facility] [place] [address] Forms: Discharge Instructions
== END 2025-02-15 11:34 | disposition home or self-care (01) ==
LOC: ED 17:16 → MED SURG 22:37
PROVIDERS: ADMIT Hospitalist; ATTEND Hospitalist
DX: I70.91 Generalized atherosclerosis (principal); R11.2 Nausea with vomiting, unspecified; R63.4 Abnormal weight loss; I25.10 Atherosclerotic heart disease of native coronary artery without angina pectoris; K44.9 Diaphragmatic hernia without obstruction or gangrene; N20.0 Calculus of kidney; J44.9 Chronic obstructive pulmonary disease, unspecified; Z99.81 Dependence on supplemental oxygen; I12.9 Hypertensive chronic kidney disease with stage 1 through stage 4 chronic kidney disease, or unspecified chronic kidney disease; N18.9 Chronic kidney disease, unspecified; K21.9 Gastro-esophageal reflux disease without esophagitis; D50.9 Iron deficiency anemia, unspecified; F41.9 Anxiety disorder, unspecified; F32.A Depression, unspecified; Z79.899 Other long term (current) drug therapy; K59.00 Constipation, unspecified; Z86.73 Personal history of transient ischemic attack (TIA), and cerebral infarction without residual deficits; K57.30 Diverticulosis of large intestine without perforation or abscess without bleeding; Z87.891 Personal history of nicotine dependence